=== PATIENT | female | born 1950 | race Caucasian/White ===

== ENCOUNTER 2016-06-15 07:43 | Outpatient (CLI) | payer OTHER ==
[2015-09-23 15:56] VITALS: BMI 26.2
[2016-06-15 08:38] LABS: HEMATOCRIT 37.4 % (37.0-47.0); HEMOGLOBIN 12.2 g/dl (12.0-16.0); MEAN CORPUSCULAR HGB CONC 32.6 (31.8-35.4); MEAN CORPUSCULAR VOLUME 101.1 fl (81.0-99.0); RED BLOOD COUNT 3.7 10^6/ul (4.20-5.40); WHITE BLOOD COUNT 5.76 K/ul (4.6-10.2)
[2016-06-15 08:59] LABS: ALBUMIN 3.6 g/dL (3.4-5.0); ALBUMIN/GLOBULIN RATIO 0.92; ANION GAP 14.7; BILIRUBIN,TOTAL 0.32 mg/dL (0.00-1.20); BUN/CREATININE RATIO 22.04; CALCIUM 9.3 mg/dL (8.2-10.2); CHOL/HDL RATIO 3.5 (4.5-5.5); CREATININE 1.27 mg/dL (0.60-1.30); POTASSIUM 4.7 mmol/L (3.5-5.10); TOTAL PROTEIN 7.5 g/dL (5.8-8.1)
[2016-06-16 08:27] LABS: URINE MALB/CR RATIO 325.5 mg/g creat (0.0-30.0)
== END 2016-06-15 07:44 | disposition home or self-care (01) ==
LOC: LAB 07:43
PROVIDERS: ATTEND Internal Medicine Nephrology
DX: Z94.0 Kidney transplant status (principal)
CPT/HCPCS: 36415; 80053; 80061; 82043; 85027

== ENCOUNTER 2016-08-10 10:15 | Outpatient (CLI) ==
[2015-09-23 15:56] VITALS: BMI 26.2
[2016-08-10 10:58] LABS: CREATININE 1.45 mg/dL (0.60-1.30)
== END 2016-08-10 10:16 | disposition home or self-care (01) ==
LOC: LAB 10:15
PROVIDERS: ATTEND Internal Medicine Gastroenterology
DX: Z01.818 Encounter for other preprocedural examination (principal)
CPT/HCPCS: 36415; 82565

== ENCOUNTER 2016-08-15 09:11 | Outpatient (CLI) ==
[2015-09-23 15:56] VITALS: BMI 26.2
--- NOTE | 2016-08-15 13:59 | MRI ---
EXAM: MRI abdomen without and with contrast/MRCP HISTORY: Dilated pancreatic ducts TECHNIQUE: Multiplanar, multisequence without and following administration of intravenous Omniscan, 14 mL using a pancreatic protocol and MRCP. 3-D volume rendered images of the biliary tree provide d. COMPARISON: CT abdomen from 11/11/2014 and MRI abdomen from 07/24/2013 FINDINGS: The heart size is prominent. There is suggestion of a small hiatus hernia. There is pro minent mediastinal fat in the middle mediastinum. No pericardial or pleural effusions are evident. There is no evidence of hepatic steatosis. No suspicious hepatic lesions are detected. There is st able intrahepatic biliary dilatation since the previous examination of moderate severity. The gallb ladder is absent. The common bile duct is dilated up to 14.1 mm which is unchanged. The pancreatic duct is dilated at the pancreatic head up to 9.5 mm. There is evidence of incomplete pancreatitis. Pancreatic side branch duct dilatation is noted. The pancreas is atrophic. The remaining pancrea tic tissue has normal bright T1 signal. No pancreatic masses are evident. Note discrete pancreatic lesions are appreciated. The spleen has normal size and signal. The kidneys are markedly atrophic. No suspicious renal lesions are evident. The aorta is atheroscl erotic. The intestines have normal caliber without evidence of obstruction or acute inflammation. No lympha denopathy or ascites are appreciated. The bone marrow signal intensity is maintained. IMPRESSION: 1. Incomplete pancreatic divisum with persistent distension of the pancreatic duct and dilated panc reatic side the branches. This in concert with moderate intrahepatic and marked extrahepatic biliar y dilatation suggests sphincter of Randy dysfunction or stricture at the ampulla. An intraductal stacey llary mucinous neoplasm is also possibility. 2. Marked renal atrophy. Please carefully screening GFR for future MRI is has this patient is at [facility] for nephrogenic systemic fibrosis. 3. Aortic atherosclerosis.
== END 2016-08-15 09:12 | disposition home or self-care (01) ==
LOC: RAD 09:11
PROVIDERS: ATTEND Internal Medicine Gastroenterology
DX: K86.89 Other specified diseases of pancreas (principal)

== ENCOUNTER 2016-10-11 09:06 | Outpatient (CLI) ==
[2015-09-23 15:56] VITALS: BMI 26.2
[2016-10-11 09:29] LABS: BASOPHILS % (AUTO) 0.4 % (0.0-3.0); EOSINOPHILS # (AUTO) 0.3 K/ul (0.0-0.7); EOSINOPHILS % (AUTO) 3.7 % (0.0-7.0); HEMATOCRIT 36.8 % (37.0-47.0); HEMOGLOBIN 12.3 g/dl (12.0-16.0); IMMATURE GRANULOCYTE % (AUTO) 0.7 % (0.0-5.0); MEAN CORPUSCULAR HEMOGLOBIN 32.9 pg (27.0-31.0); MEAN CORPUSCULAR HGB CONC 33.4 (31.8-35.4); MEAN CORPUSCULAR VOLUME 98.4 fl (81.0-99.0); MONOCYTES # (AUTO) 0.9 K/uL (0.4-2.0); MONOCYTES % (AUTO) 12.4 (0-10); NEUTROPHILS # (AUTO) 3.8 K/ul (2.0-6.9); NEUTROPHILS % (AUTO) 54.8; PLATELET COUNT 207 10^3/uL (140-440); RED BLOOD COUNT 3.74 10^6/ul (4.20-5.40); WHITE BLOOD COUNT 6.99 K/ul (4.6-10.2)
[2016-10-11 09:47] LABS: ALBUMIN 3.6 g/dL (3.4-5.0); ANION GAP 13.7; BUN/CREATININE RATIO 23.33; CALCIUM 9.4 mg/dL (8.2-10.2); CREATININE 1.5 mg/dL (0.60-1.30); POTASSIUM 3.7 mmol/L (3.5-5.10)
== END 2016-10-11 09:07 | disposition home or self-care (01) ==
LOC: LAB 09:06
PROVIDERS: ATTEND Internal Medicine
DX: Z94.0 Kidney transplant status (principal); Z79.899 Other long term (current) drug therapy; E78.5 Hyperlipidemia, unspecified; E83.41 Hypermagnesemia; G72.2 Myopathy due to other toxic agents
CPT/HCPCS: 36415; 80069; 80197; 85025

== ENCOUNTER 2016-10-23 08:35 | Outpatient (CLI) | payer OTHER ==
[2015-09-23 15:56] VITALS: BMI 26.2
[2016-10-23 09:56] LABS: ALBUMIN 3.9 g/dL (3.4-5.0); ANION GAP 14.6; BUN/CREATININE RATIO 27.67; CALCIUM 9.6 mg/dL (8.2-10.2); CREATININE 1.59 mg/dL (0.60-1.30); FERRITIN 264.45 ng/mL (4.63-204.00); PHOSPHORUS 3.5 mg/dL (2.8-4.1); POTASSIUM 3.6 mmol/L (3.5-5.10)
[2016-10-24 08:22] LABS: URINE CREATINE 21.2 mg/dL (Not Estab.)
== END 2016-10-23 08:36 | disposition home or self-care (01) ==
LOC: LAB 08:35
PROVIDERS: ATTEND Internal Medicine Nephrology
DX: Z94.0 Kidney transplant status (principal); Z79.899 Other long term (current) drug therapy; N39.0 Urinary tract infection, site not specified; D50.8 Other iron deficiency anemias; M85.80 Other specified disorders of bone density and structure, unspecified site
CPT/HCPCS: 36415; 80069; 80197; 82306; 82570; 82607; 82728; 83540; 83550; 84156

== ENCOUNTER 2016-11-20 13:24 | Emergency (ER) ==
[2016-11-20 13:29] VITALS: BP 92/60; TEMP 98.6; BMI 28.3
[2016-11-20 14:11] LABS: BASOPHILS % (AUTO) 0.3 % (0.0-3.0); EOSINOPHILS # (AUTO) 0.1 K/ul (0.0-0.7); EOSINOPHILS % (AUTO) 1.7 % (0.0-7.0); HEMATOCRIT 37.3 % (37.0-47.0); HEMOGLOBIN 12.3 g/dl (12.0-16.0); IMMATURE GRANULOCYTE % (AUTO) 0.5 % (0.0-5.0); LYMPHOCYTES # (AUTO) 1.3 K/uL (0.60-3.4); LYMPHOCYTES % (AUTO) 22.3 (10.0-50.0); MONOCYTES # (AUTO) 0.6 K/uL (0.4-2.0); MONOCYTES % (AUTO) 10.1 (0-10); NEUTROPHILS # (AUTO) 3.8 K/ul (2.0-6.9); NEUTROPHILS % (AUTO) 65.1; PLATELET COUNT 186 10^3/uL (140-440); RED BLOOD COUNT 3.73 10^6/ul (4.20-5.40); WHITE BLOOD COUNT 5.82 K/ul (4.6-10.2)
--- NOTE | 2016-11-20 14:32 | CT ---
EXAM: CT Head HISTORY: Syncope COMPARISON: 02/01/2014 TECHNIQUE: CT head performed without contrast FINDINGS: There is no mass effect, midline shift, or intracranial hemmorhage. Myers white different iation is preserved. There is no extra-axial collection. The ventricles, sulci, and basal cisterns are patent and symmetric. There is chronic ischemic disease of the white matter and cerebral volum e loss. There is no depressed calvarial fracture. Trace left mastoid effusion. The visualized para nasal sinuses are clear. There are intracranial atherosclerotic calcifications. IMPRESSION: 1. No acute intracranial abnormality. 2. Chronic ischemic disease of the white matter and cerebral volume loss. 3. Trace left mastoid effusion
[2016-11-20 14:37] LABS: ALBUMIN 3.8 g/dL (3.4-5.0); ALBUMIN/GLOBULIN RATIO 1.06; ANION GAP 14.5; BILIRUBIN,TOTAL 0.44 mg/dL (0.00-1.20); BUN/CREATININE RATIO 21.24; CALCIUM 9.4 mg/dL (8.2-10.2); CREATININE 1.93 mg/dL (0.60-1.30); POTASSIUM 4.5 mmol/L (3.5-5.10); TOTAL PROTEIN 7.4 g/dL (5.8-8.1); TROPONIN I 0.021 ng/ml (0.0000-0.4000)
--- NOTE | 2016-11-20 14:54 | ED.PDOC ---
General ED Provider: Dr. LAURA GRADY-ER Chief Complaint: Fall Stated Complaint: i passed out while at [facility]--no chest pain or seizure -- very brief episode Time Seen by Physician: 13:30 Mode of Arrival: Wheelchair Information Source: Patient, Family Exam Limitations: No limitations Primary Care Provider: ISADORA LLANES Nursing and Triage Documentation Reviewed and Agree: Yes Neurological Complaint Exam - Syncope/Near Syncope Complaint/Exam Onset/Duration: a few sec Symptoms Are: Resolved Episodes Lasting: Seconds Number of Episodes: 1 Episodes Witnessed: Yes Loss of Consciousness: Yes Associated Head Trauma: Yes Activity at Onset: At rest Aggravating: None Alleviating: Reports: None Associated Signs and Symptoms: Denies: Pain, Decreased oral intake, Vomiting, Diarrhea, GI blood loss, Short of air, Chest pain, Palpitations, Diaphoresis, Lightheadedness, Dizziness, Weakness, AMS, Numbness, Headache, Seizure, Remote head trauma, Recent head trauma Related History: Similar episode Cardiac Risk Factors: Reports: Hypertension, Diabetes, CAD Dysrhythmia Risk Factors: Reports: >45 years old, Underlying CAD JVD Present: No Carotid Bruit Present: No Glascow Coma Scale (see protocol): 15 Nystagmus Present: No Gag Reflex Present: Yes Meningeal Signs Positive: No Focal Weakness: Present: None Focal Sensory Loss: Present: None Gait: Normal Lljylk-ic-Hplu: Normal Findings Romberg Test Positive: No Babinski Sign: Negative Right, Negative Left Heel to Toe Normal: Yes [place]-Hallpike Test Positive: Yes Differential Diagnoses: Dysrhythmia, Vasovagal Episode, Other Quality Indicator For Non-Traumatic Chest Pain/Syncope: EKG Performed Review of Systems - Review Of Systems Constitutional: Reports: No symptoms Eyes: Reports: No symptoms Ears, Nose, Mouth, Throat: Reports: No symptoms Respiratory: Reports: No symptoms Cardiac: Reports: Lightheadedness, Syncope GI: Reports: No symptoms : Reports: No symptoms Musculoskeletal: Reports: No symptoms Skin: Reports: No symptoms Neurological: Reports: No symptoms Endocrine: Reports: No symptoms Hematologic/Lymphatic: Reports: No symptoms All Other Systems: Reviewed and Negative Past Medical History - Past Medical History Previously Healthy: No Endocrine: Reports: None Cardiovascular: Reports: Hypertension Respiratory: Reports: COPD Hematological: Reports: None Gastrointestinal: Reports: GERD Genitourinary: Reports: None Neuro/Psych: Reports: None Musculoskeletal: Reports: None Cancer: Reports: None Last Menstrual Period: none - Surgical History General Surgical History: Reports: None - Family History Family History: Reports: None - Social History Smoking Status: Former smoker Hx Substance Use: No Alcohol Screening: None Lives: With family Physical Exam - Physical Exam Appearance: Well-appearing, No pain distress, Well-nourished Eyes: OLU, EOMI, Conjunctiva clear ENT: Ears normal, Nose normal, Oropharynx normal Neck: Supple Respiratory: Airway patent, Breath sounds clear, Breath sounds equal, Respirations nonlabored Cardiovascular: RRR, Pulses normal, No rub, No murmur GI/: Soft, Nontender, No masses, Bowel sounds normal, No Organomegaly Musculoskeletal: Normal strength Skin: Warm Neurological: Sensation intact Psychiatric: Affect appropriate, Mood appropriate Interpretation - Radiology Interpretation Radiology Interpretation By: Radiologist Radiology Results: Negative Exam Interpreted: CT Scan - EKG Interpretation Rate: Beb[place] Rhythm: Sinus Ectopy: None [place]: NL ST Segment: Normal Re-Evaluation - Re-Evaluation Time of Re-Evaluation: 15:17 Status: Improved Vital Signs Stable: Yes Pain Level: 0 Appearance: NAD Lungs: Clear Skin: Warm and Dry Neuro: Alert and Oriented X3 CV: RRR Critical Care Note - Critical Care Note Total Time (mins): 0 Course - Course Hematology/Chemistry: 11/20/16 13:36 11/20/16 14:12 Orders, Labs, Meds: Lab Review 11/20/16 11/20/16 13:36 14:12 WBC 5.82 RBC 3.73 L Hgb 12.3 Hct 37.3 MCV 100.0 H MCH 33.0 H MCHC 33.0 RDW Coeff of [place]ka 12.2 Plt Count 186 Immature Gran % (Auto) 0.5 Neut % (Auto) 65.1 Lymph % (Auto) 22.3 [place] % (Auto) 10.1 H Eos % (Auto) 1.7 Baso % (Auto) 0.3 Immature Gran # (Auto) 0.0 Neut # 3.8 Lymph # 1.3 [place] # 0.6 Eos # 0.1 Baso # 0.0 Sodium 131 L Potassium 4.5 Chloride 91 L Carbon Dioxide 30 Anion Gap 14.5 BUN 41 H Creatinine 1.93 H Estimated GFR (MDRD) 26.00 BUN/Creatinine Ratio 21.24 Glucose 116 H Calcium 9.4 Total Bilirubin 0.44 AST 17 ALT 10 L Alkaline Phosphatase 58 Total Creatine Kinase 37 Troponin I 0.0210 Total Protein 7.4 Albumin 3.8 Globulin 3.6 Albumin/Globulin Ratio 1.06 Orders Category Date Time Status EKG-(ED ONLY) Stat CARDIO 11/20/16 13:36 Completed Produce Laborer [ED OVERNIGHT STOCKER APPLIED] .ONCE EMERGENCY 11/20/16 13:36 Active CBC W/ AUTO DIFF Stat LAB 11/20/16 13:36 Completed COMPREHENSIVE METABOLIC PANEL Stat LAB 11/20/16 14:12 Completed CREATINE KINASE Stat LAB 11/20/16 14:12 Completed TROPONIN I Stat LAB 11/20/16 14:[address] CERVICAL SPINE W/O CONTRAST Stat RADS 11/20/16 13:[address] HEAD W/O CONTRAST Stat RADS 11/20/16 13:37 Completed SHOULDER, RIGHT MIN 2V Stat RADS 11/20/16 13:37 Completed Vital Signs: Temp Pulse Resp BP Pulse Ox 11/20/16 13:24 98.6 F 56 L 18 92/60 93 L Departure - Departure Time of Disposition: 15:17 Disposition: HOME SELF-CARE Discharge Problem: Syncope Qualifiers: Syncope type: unspecified Qualifier Code: (R55) Syncope and collapse Instructions: Syncope (ED) Condition: Good Pt referred to PMD for follow-up: Yes Additional Instructions: monitor bp--return holter monitor and f/u with dr llanes for further evaluation Allergies/Adverse Reactions: Allergies sulfur dioxide Allergy (Unknown, Verified 11/20/16 13:30) ondansetron HCl [From Zofran] Adverse Reaction (Unknown, Verified 11/20/16 13:30 ) ibuprofen Adverse Reaction (Verified 11/20/16 13:43) Home Medications: Ambulatory Orders Alendronate Sodium [Fosamax] 70 mg PO WEEKLY 02/03/13 Amlodipine Besylate [Norvasc] 10 mg PO DAILY 02/03/13 Aspirin [Aspirin Chewable] 81 mg PO DAILY 02/03/13 Atenolol 100 mg PO DAILY 02/03/13 Ca Carbonate/Vitamin D3/Vit K [Calcium + D Soft Chewable Tab] 600 mg PO BID Chlordiazepoxide HCl [Librium] 10 mg PO TID PRN 02/03/13 Clopidogrel Bisulfate [Plavix] 75 mg PO DAILY 02/03/13 Duloxetine HCl [Cymbalta] 30 mg PO DAILY 02/03/13 Pantoprazole Sodium 40 mg PO DAILY 09/23/15 Bumex 20 mg PO DAILY 03/20/16 Ferrous Sulfate 325 mg PO BID 03/20/16 Gabapentin [Neurontin] 200 mg PO BID 03/20/16 Prednisone 2.5 mg PO DAILY 03/20/16 Tacrolimus [Prograf] 2 mg PO BID 11/20/16 Disposition Discussed With: Patient, Family
--- NOTE | 2016-11-20 15:02 | CT ---
EXAM: CT cervical spine without contrast. TECHNIQUE: Axial CT of the cervical spine was performed without contrast with coronal and sagittal reconstructions. HISTORY: Trauma and neck pain COMPARISON: Cervical spine CT from 02/01/2014 FINDINGS: There is no acute fracture or subluxation. Alignment of the cervical spine is anatomic. There is no acute bony effacement of the canal or the foramina. The dens is intact. The craniocer vical junction is anatomically aligned. The visualized portion of the temporal bones is normal. T he facets are properly aligned. There is no evidence for transverse or spinous process fracture. Th e lamina are intact. 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 There is extremely advanced de generative change which has developed in the interim at the C6-7 level. Mild diffuse degenerative ch anges are noted otherwise including a minimal degenerative anterolisthesis of C3 on C4. There are no upper thoracic posterior rib fractures. There is no apical pneumothorax. There are no acute soft tissue abnormalities. The prevertebral soft tissues are normal thickness. Visualized in tracranial contents show no acute abnormality. There is calcific atherosclerosis. Surgical clips ar e seen in the right neck. IMPRESSION: 1. No acute abnormality in the cervical spine. 2. Intervening extremely advanced degenerative changes at C6-7 as described. 3. 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 4. Other degenerative changes as above.
--- NOTE | 2016-11-20 15:14 | DI ---
Exam: Three x-rays of the right shoulder. Comparison: None available. Reason for exam: Fall. FINDINGS: The humeral head articulates to the bony glenoid. Surgical changes are seen in the right lateral neck and axilla. The cortex of the right humeral head and neck appear intact. No unexplai sruthi calcific soft tissue densities or radiopaque retained foreign bodies. Impression: No acute fracture or dislocation in the right shoulder.
--- NOTE | 2016-11-23 07:42 | HOLTER ---
PATIENT INFORMATION AND COMMENTS Indications: SYNCOPE __ Patient Medications: TACROLIMUS __ Pre-procedure Summary: Protocol: Standard Heart Rate Started: 11/20/161535 Minimum: 48 BPM Weight: 170 LBS Ended: 11/21/161535 Maximum: 103 BPM Height: 65" Duration: 24 HOURS Average: 60 BPM _ INTERPRETATIONS/OBSERVATIONS: 1. BASIC RHYTHM: SINUS, RATE 50 BPM TO 100/BPM, AVERAGE 60 BPM 2. INFREQUENT TO RARE PAC'S AND PVC'S 3. NO ST-T WAVE CHANGES FROM BASELINE 4. ACTIVITY LOG NOT MAINTAINED MTDD
== END 2016-11-20 15:42 | disposition home or self-care (01) ==
LOC: ED 13:24
DX: R55 Syncope and collapse (principal); E11.9 Type 2 diabetes mellitus without complications; I11.9 Hypertensive heart disease without heart failure; Z79.899 Other long term (current) drug therapy
CPT/HCPCS: 36415; 80053; 82550; 84484; 85025; 93005; 93010; 99283

== ENCOUNTER 2017-01-22 10:09 | Outpatient (CLI) ==
[2017-01-22 14:44] LABS: FERRITIN 200.4 ng/mL (4.63-204.00)
== END 2017-01-22 10:10 | disposition home or self-care (01) ==
LOC: LAB 10:09
PROVIDERS: ATTEND Internal Medicine Nephrology
DX: Z94.0 Kidney transplant status (principal); M89.9 Disorder of bone, unspecified; D50.8 Other iron deficiency anemias
CPT/HCPCS: 36415; 82306; 82607; 82728; 82746; 83540; 83550; 84443

== ENCOUNTER 2017-01-31 12:52 | Outpatient (CLI) ==
--- NOTE | 2017-02-01 08:57 | MAMMO ---
EXAM: Bilateral digital screening mammogram History: Screening Comparison: Bilateral mammogram 03/30/2015 Findings: MLO and CC views of bilateral breasts demonstrate scattered fibroglandular breast parenchy ma. CAD was reviewed by the radiologist. Stable benign bilateral vascular and scattered calcification s. There are no dominant masses, no suspicious microcalcifications and no architectural distortions Impression: Benign stable mammogram. Recommend followup routine screening mammography in 1 year. BIRADS 2
== END 2017-01-31 12:53 | disposition home or self-care (01) ==
LOC: RAD 12:52
PROVIDERS: ATTEND Internal Medicine
DX: Z12.31 Encounter for screening mammogram for malignant neoplasm of breast (principal)
CPT/HCPCS: 77067

== ENCOUNTER 2017-03-14 08:59 | Outpatient (CLI) ==
[2017-03-14 09:42] LABS: BILIRUBIN,URINE Negative (NEGATIVE); KETONES,URINE Negative (NEGATIVE); LEUKOCYTE ESTERASE ,URINE 2+ (NEGATIVE); NITRITE,URINE Negative (NEGATIVE); PH,URINE 5.5 (5-9); PROTEIN,URINE Negative (NEGATIVE); URINE, BLOOD 1+ (NEGATIVE)
[2017-03-14 09:44] LABS: ADD URINE MICROSCOPIC YES; HEMOGLOBIN 11.9 g/dl (12.0-16.0); MEAN CORPUSCULAR HGB CONC 33.1 (31.8-35.4); MEAN CORPUSCULAR VOLUME 99.7 fl (81.0-99.0); RED BLOOD COUNT 3.61 10^6/ul (4.20-5.40); WHITE BLOOD COUNT 6.02 K/ul (4.6-10.2)
[2017-03-14 09:45] LABS: BACTERIA,URINE 3+ (NOT PRESENT)
[2017-03-14 10:11] LABS: ANION GAP 13.1; POTASSIUM 4.1 mmol/L (3.5-5.10)
[2017-03-14 10:12] LABS: ALBUMIN 3.9 g/dL (3.4-5.0); ALBUMIN/GLOBULIN RATIO 1.15; BILIRUBIN,TOTAL 0.4 mg/dL (0.00-1.20); BUN/CREATININE RATIO 19.41; CALCIUM 8.9 mg/dL (8.2-10.2); CREATININE 1.7 mg/dL (0.60-1.30); TOTAL PROTEIN 7.3 g/dL (5.8-8.1)
[2017-03-15 14:16] LABS: URINE CREATININE 52.9 mg/dL (Not Estab.); URINE MALB/CR RATIO 54.8 mg/g creat (0.0-30.0)
== END 2017-03-14 09:00 | disposition home or self-care (01) ==
LOC: LAB 08:59
PROVIDERS: ATTEND Internal Medicine Nephrology
DX: N18.3 Chronic kidney disease, stage 3 (moderate) (principal)
CPT/HCPCS: 36415; 80053; 80197; 81001; 82043; 85027

== ENCOUNTER 2017-03-31 11:17 | Emergency (ER) ==
[2017-03-31 11:22] VITALS: BP 113/64; TEMP 97.8; BMI 27.4
--- NOTE | 2017-03-31 12:43 | DI ---
EXAM: Four views of the right knee HISTORY: Pain TECHNIQUE: AP, lateral, sunrise views of the right knee were obtained. FINDINGS: No acute fractures are seen. There is mild to moderate loss of height of the medial cristi rtment of the right knee. There is no joint effusion. The patella is seen in normal position. IMPRESSION: No acute fractures are seen within the right knee. There is moderate arthritis seen within the medial compartment and within the patellofemoral articula tion of the right knee.
--- NOTE | 2017-03-31 12:47 | ED.PDOC ---
General ED Provider: Dr. CLARI MICHAUD Chief Complaint: Extremity Pain/Injury Stated Complaint: right knee pain Time Seen by Physician: 11:18 Mode of Arrival: Walk-In Information Source: Patient Exam Limitations: No limitations Primary Care Provider: ISADORA BRYANT Nursing and Triage Documentation Reviewed and Agree: Yes Musculoskeletal Complaint Exam - Knee Pain Complaint/Exam Mechanism of Injury: Reports: Trauma Onset/Duration: fall 2 days ago Onset of Pain: Reports: Hours Initial Severity: Moderate Current Severity: Moderate Location: Reports: Discrete Character: Reports: Aching Alleviating: Reports: Rest, Position Aggravating: Reports: Movement, Weight bearing, Prolonged standing Associated Signs and Symptoms: Reports: Bruising. Denies: Swelling, Redness, Fever, Weakness, Numbness, Tingling Able to Bear Weight: Yes Septic Arthritis Risk Factors: Reports: None Gout Risk Factors: Reports: None Knee Findings: Present: Swelling, Ecchymosis Tenderness: Present: Pre-patellar Dany Test Positive: No Brandy Test Positive: No Limited Range of Motion: Present: Active, Passive Differential Diagnoses: Closed Fracture Review of Systems - Review Of Systems Constitutional: Reports: No symptoms Eyes: Reports: No symptoms Ears, Nose, Mouth, Throat: Reports: No symptoms Respiratory: Reports: No symptoms Cardiac: Reports: No symptoms GI: Reports: No symptoms : Reports: No symptoms Musculoskeletal: Reports: Joint pain (right knee only). Denies: Back pain, Neck pain Skin: Reports: No symptoms Neurological: Reports: No symptoms Endocrine: Reports: No symptoms Hematologic/Lymphatic: Reports: No symptoms All Other Systems: Reviewed and Negative Past Medical History - Past Medical History Previously Healthy: No Endocrine: Reports: None Cardiovascular: Reports: Hypertension Respiratory: Reports: COPD Hematological: Reports: None Gastrointestinal: Reports: GERD Genitourinary: Reports: None Neuro/Psych: Reports: None Musculoskeletal: Reports: None Cancer: Reports: None Last Menstrual Period: none - Surgical History General Surgical History: Reports: None - Family History Family History: Reports: None - Social History Smoking Status: Former smoker Hx Substance Use: No Alcohol Screening: None Physical Exam - Physical Exam Appearance: Well-appearing, No pain distress, Well-nourished Eyes: OLU, EOMI, Conjunctiva clear ENT: Ears normal, Nose normal, Oropharynx normal Respiratory: Airway patent, Breath sounds clear, Breath sounds equal, Respirations nonlabored Cardiovascular: RRR, Pulses normal, No rub, No murmur GI/: Soft, Nontender, No masses, Bowel sounds normal, No Organomegaly Musculoskeletal: Limited ROM (right knee also brused ) Skin: Warm, Dry, Normal color Neurological: Sensation intact, Motor intact, Reflexes intact, Cranial nerves intact, Alert, Oriented Psychiatric: Affect appropriate, Mood appropriate Critical Care Note - Critical Care Note Total Time (mins): 0 Course - Course Orders, Labs, Meds: Orders Category Date Time Status KNEE, RIGHT 4 VIEWS Stat RADS 03/31/17 11:42 Completed Vital Signs: Temp Pulse Resp BP Pulse Ox 03/31/17 11:17 97.8 F 63 18 113/64 92 L Departure - Departure Time of Disposition: 12:47 Disposition: HOME SELF-CARE Discharge Problem: Right knee pain Qualifiers: Chronicity: acute Qualified Code(s): M25.561 - Pain in right knee Instructions: Arthralgia (ED), Patellofemoral Pain Syndrome (ED) Condition: Good Pt referred to PMD for follow-up: Yes Allergies/Adverse Reactions: Allergies sulfur dioxide Allergy (Unknown, Verified 03/31/17 11:23) ondansetron HCl [From Zofran] Adverse Reaction (Unknown, Verified 03/31/17 11:23 ) ibuprofen Adverse Reaction (Verified 03/31/17 11:23) Home Medications: Ambulatory Orders Alendronate Sodium [Fosamax] 70 mg PO WEEKLY 02/03/13 Amlodipine Besylate [Norvasc] 10 mg PO DAILY 02/03/13 Aspirin [Aspirin Chewable] 81 mg PO DAILY 02/03/13 Atenolol 100 mg PO DAILY 02/03/13 Calcium Carb/Vitamin D3/Vit K1 [Calcium + D Soft Chewable Tab] 600 mg PO BID Chlordiazepoxide HCl [Librium] 10 mg PO TID PRN 02/03/13 Clopidogrel Bisulfate [Plavix] 75 mg PO DAILY 02/03/13 Duloxetine HCl [Cymbalta] 30 mg PO DAILY 02/03/13 Pantoprazole Sodium 40 mg PO DAILY 09/23/15 Bumex 20 mg PO DAILY 03/20/16 Ferrous Sulfate 325 mg PO BID 03/20/16 Gabapentin [Neurontin] 200 mg PO BID 03/20/16 Prednisone 2.5 mg PO DAILY 03/20/16 Tacrolimus [Prograf] 2 mg PO BID 11/20/16 Hydrocodone/Acetaminophen [[place] 5-325 Tablet] 1 each PO Q6HR PRN #12 tablet 05/05 [place]-3 Fatty Acids/Fish Oil [Fish Oil 1,000 mg Capsule] 1 each PO BID 03/31/17
== END 2017-03-31 12:58 | disposition home or self-care (01) ==
LOC: ED 11:17
DX: M25.561 Pain in right knee (principal)
CPT/HCPCS: 99283

== ENCOUNTER 2017-05-03 08:14 | Outpatient (CLI) ==
[2017-05-03 09:07] LABS: BILIRUBIN,URINE Negative (NEGATIVE); KETONES,URINE Negative (NEGATIVE); LEUKOCYTE ESTERASE ,URINE 3+ (NEGATIVE); NITRITE,URINE Negative (NEGATIVE); PROTEIN,URINE Trace (NEGATIVE); URINE, BLOOD 1+ (NEGATIVE)
[2017-05-03 09:11] LABS: ADD URINE MICROSCOPIC YES
[2017-05-03 09:12] LABS: BACTERIA,URINE 3+ (NOT PRESENT)
[2017-05-03 09:13] LABS: BASOPHILS % (AUTO) 0.3 % (0.0-3.0); EOSINOPHILS # (AUTO) 0.1 K/ul (0.0-0.7); EOSINOPHILS % (AUTO) 2.3 % (0.0-7.0); HEMATOCRIT 34.4 % (37.0-47.0); HEMOGLOBIN 11.1 g/dl (12.0-16.0); IMMATURE GRANULOCYTE % (AUTO) 0.7 % (0.0-5.0); LYMPHOCYTES # (AUTO) 1.7 K/uL (0.60-3.4); LYMPHOCYTES % (AUTO) 27.5 (10.0-50.0); MEAN CORPUSCULAR HEMOGLOBIN 32.6 pg (27.0-31.0); MEAN CORPUSCULAR HGB CONC 32.3 (31.8-35.4); MEAN CORPUSCULAR VOLUME 100.9 fl (81.0-99.0); MONOCYTES # (AUTO) 0.8 K/uL (0.4-2.0); MONOCYTES % (AUTO) 12.9 (0-10); NEUTROPHILS # (AUTO) 3.4 K/ul (2.0-6.9); NEUTROPHILS % (AUTO) 56.3; PLATELET COUNT 259 10^3/uL (140-440); RED BLOOD COUNT 3.41 10^6/ul (4.20-5.40); WHITE BLOOD COUNT 6.11 K/ul (4.6-10.2)
[2017-05-04 08:16] LABS: URINE CREATININE 55.9 mg/dL (Not Estab.)
== END 2017-05-03 08:15 | disposition home or self-care (01) ==
LOC: LAB 08:14
PROVIDERS: ATTEND Internal Medicine Nephrology
DX: Z94.0 Kidney transplant status (principal); Z79.899 Other long term (current) drug therapy; N39.0 Urinary tract infection, site not specified
CPT/HCPCS: 36415; 80197; 81001; 82570; 84156; 85025; 87086; 87186

== ENCOUNTER 2017-09-11 07:45 | Outpatient (CLI) | payer OTHER | END 2017-09-11 07:46 | disposition home or self-care (01) | LOC: LAB 07:45 | PROVIDERS: ATTEND Internal Medicine Nephrology | DX: Z94.0 Kidney transplant status (principal) | CPT/HCPCS: 36415; 80053; 80197; 82043; 83970; 85027 ==

== ENCOUNTER 2017-10-08 10:06 | Outpatient (CLI) | payer OTHER ==
--- NOTE | 2017-10-08 11:28 | DI ---
EXAM: Two views of the chest. History: Cough. Comparison: Chest radiograph 09/23/2015 Findings: Heart size is upper limits of normal. No focal consolidation. No appreciable pleural flu id and no pneumothorax. No acute osseous abnormalities. Scoliosis. Impression: No acute cardiopulmonary process
== END 2017-10-08 10:07 | disposition home or self-care (01) ==
LOC: RAD 10:06
PROVIDERS: ATTEND Internal Medicine
DX: R05 Cough (principal)

== ENCOUNTER 2018-02-20 16:03 | Emergency (ER) | payer OTHER ==
[2018-02-20 16:10] VITALS: BP 145/88; TEMP 99.8; BMI 26.9
[2018-02-20] MEDS ORDERED: DUONEB NEB STA ×2 (16:20→17:18)
[2018-02-20] MEDS ORDERED: ROCEPHIN 1 GM in SODIUM CHLORIDE 50 ML IV STA (16:20)
[2018-02-20] MEDS ORDERED: SOLU-MEDROL 125 MG IVP STA (16:20)
--- NOTE | 2018-02-20 16:59 | DI ---
EXAM: Three views of the left hand HISTORY: Fall. COMPARISON: Left wrist x-rays same day FINDINGS: There is a comminuted displaced fracture of the distal radius noted. There is degenerative disease of the radiocarpal joint with surgical changes and hardware of the carpal bones. Metacarpal s and phalanges are normal. There is scattered degenerative change of the DIP joints. Soft tissues are unremarkable. IMPRESSION: 1. Comminuted mildly displaced fracture of the distal left radius. This is better visualized on day wrist x-rays. 2. Postsurgical changes and internal fixation hardware in the carpal bones. 3. Mild scattered degenerative disease noted in the DIP joints.
--- NOTE | 2018-02-20 17:00 | DI ---
EXAM: Three views of the left elbow HISTORY: Fall. COMPARISON: None FINDINGS: There is no cortical irregularity or displaced fracture of the left elbow. There is no lyt ic or blastic lesion. Radial head articulates normally with the capitellum. The soft tissues are un remarkable. IMPRESSION: No acute abnormality or displaced fracture of the left elbow.
--- NOTE | 2018-02-20 17:01 | DI ---
EXAM: Single frontal view of the chest HISTORY: Shortness of breath. COMPARISON: Chest x-ray 10/08/2017 and multiple priors FINDINGS: Cardiomediastinal silhouette is unchanged. There is no pneumothorax or effusion. There is no consolidation, nodule or mass. Osseous structures demonstrate degenerative disease. Lungs are mi ldly hyperinflated. IMPRESSION: No acute cardiopulmonary process with findings suggestive of chronic obstructive pulmona ry disease.
--- NOTE | 2018-02-20 17:01 | DI ---
EXAM: LEFT WRIST THREE VIEWS HISTORY: Fall, pain FINDINGS: Compared to 03/15/2016. Bones remain demineralized. Deformity and postop changes of the carpus appear stable. Severe arthropathy, especially at the radiocarpal articulations. There is an acute fracture of the distal radius, impacted type which is comminuted with mild to moderate displace ment and no significant angulation. The joints remain grossly intact. Although no definite intra-ar ticular extension is seen, this cannot be completely excluded. Stable arthritic deformity of the dis [place] ulna. IMPRESSION: Comminuted impaction type fracture of the distal radial metaphysis.
--- NOTE | 2018-02-20 17:07 | ED.PDOC ---
General ED Provider: Dr. CLARI MICHAUD Chief Complaint: Fall Stated Complaint: fall , short of air Time Seen by Physician: 16:12 (pt and her son rupa report pt has been short of breath ) Mode of Arrival: Walk-In Information Source: Patient Exam Limitations: No limitations Primary Care Provider: ISADORA BRYANT Nursing and Triage Documentation Reviewed and Agree: Yes Does patient meet sepsis criteria?: No (2 days, pt fell 2 days ago c/o left wrist pain no neck pain) If yes, has appropriate treatment been initiated?: Yes (pt's son visited her today pt c/o short of air and wrist pain ) System Inflammatory Response Syndrome: Not Applicable Sepsis Protocol: For patient's 13 years and over: Temp is 96.8 and below OR 101 and greater Pulse >90 BPM Resp >20/minute Acutely Altered Mental Status Are patient's symptoms suggestive of a new infection, such as: -Pneumonia -Skin, Soft Tissue -Endocarditis -UTI -Bone, Joint Infection -Implantable Device -Acute Abdominal Infection -Wound Infection -Meningitis -Blood Stream Catheter Infection -Unknown Respiratory Complaint Exam - Respiratory Complaint/Exam Onset/Duration: 2 days Symptoms Are: Still present Timing: Intermittent Initial Severity: Mild Location: Chest Character: Reports: Non-productive cough Aggravating: Reports: None Associated Signs and Symptoms: Reports: URI, Nasal congestion. Denies: Rapid breathing, Dyspnea, Fever, Chills, Chest pain, Pleuritic chest pain, Wheezing, Hemoptysis, Dizziness, Calf pain, Calf swelling, Edema, Hoarseness, Sinus discomfort, Vomiting, Sore throat, Weight loss, Decreased oral intake, Increased thirst, Increased appetite, Increased urination Related History: Reports: Similar episode History of Healthcare-Acquired Pneumonia: No Related Surgical History: Reports: None Pulmonary Embolism Risk Factors: None, Smoking Cardiac Risk Factors: Reports: Smoking, Elevated lipids, Hypertension Tuberculosis Risk Factors: Reports: None Status Asthmaticus Risk Factors: Reports: None Home Oxygen Use: No Recent Stress Test: No Recent Echo/LV Function: No Current Antibiotic Use: No Current Asthma Medication Use: No Respiratory Distress: None Inadequate Respiratory Effort: No Dysphagia Present: No Stridor Present: No JVD Present: No Accessory Muscle Use: No Retractions: Not Present Diminished Breath Sounds: Yes Sinus Tenderness: None Grunting Respirations: No Kussmaul Respirations: No Differential Diagnoses: Asthma, Pulmonary Edema, Pneumonia, Bronchitis Quality Indicators For Pneumonia: Antibiotics in 6hr-admit, Empiric Antibiotic Rx, Vital signs, Mental status assessed Non-Traumatic Chest Pain Syncope: EKG Performed Review of Systems - Review Of Systems Constitutional: Reports: Malaise Eyes: Reports: No symptoms Ears, Nose, Mouth, Throat: Reports: No symptoms Respiratory: Reports: Cough, Short of air Cardiac: Reports: No symptoms GI: Reports: No symptoms : Reports: No symptoms Musculoskeletal: Reports: Joint pain (left wrist , ) Skin: Reports: No symptoms Neurological: Reports: No symptoms Endocrine: Reports: No symptoms Hematologic/Lymphatic: Reports: No symptoms All Other Systems: Reviewed and Negative Past Medical History - Past Medical History Previously Healthy: No Endocrine: Reports: None Cardiovascular: Reports: Hypertension Respiratory: Reports: COPD Hematological: Reports: None Gastrointestinal: Reports: GERD Genitourinary: Reports: None Neuro/Psych: Reports: None Musculoskeletal: Reports: None Cancer: Reports: None Last Menstrual Period: N/A - Surgical History General Surgical History: Reports: None - Family History Family History: Reports: None - Social History Smoking Status: Former smoker Hx Substance Use: No Alcohol Screening: None Physical Exam - Physical Exam Appearance: Ill-appearing Ill-appearing: Mild Pain Distress: Mild Eyes: OLU, EOMI, Conjunctiva clear ENT: Ears normal, Nose normal, Oropharynx normal Respiratory: Breath sounds diminished, Rhonchi Cardiovascular: RRR, Pulses normal, No rub, No murmur GI/: Soft, Nontender, No masses, Bowel sounds normal, No Organomegaly Musculoskeletal: Limited ROM (left wrist, pt has brusing of the left wrist) Skin: Warm, Dry, Normal color Neurological: Sensation intact, Motor intact, Reflexes intact, Cranial nerves intact, Alert, Oriented Psychiatric: Affect appropriate, Mood appropriate Physician Notification - Case Discussed Physician Notified: pmd Time of Notification: 17:15 (transfer now ) Time of Notification: 17:52 (TRANSFER NOW) Critical Care Note - Critical Care Note Total Time (mins): 0 Course - Course Hematology/Chemistry: 02/20/18 16:38 02/20/18 16:38 Orders, Labs, Meds: Lab Review 02/20/18 02/20/18 02/20/18 16:38 16:38 16:38 WBC 8.70 RBC 3.18 L Hgb 10.7 L Hct 32.1 L MCV 100.9 H MCH 33.6 H MCHC 33.3 RDW Coeff of [place] 12.4 Plt Count 212 Immature Gran % (Auto) 0.8 Neut % (Auto) 76.1 Lymph % (Auto) 11.5 [place] % (Auto) 11.4 H Eos % (Auto) 0.1 Baso % (Auto) 0.1 Immature Gran # (Auto) 0.1 Neut # (Auto) 6.6 Lymph # (Auto) 1.0 [place] # (Auto) 1.0 Eos # (Auto) 0.0 Baso # (Auto) 0.0 Sodium 132.6 L Potassium 4.64 Chloride 92.5 L Carbon Dioxide 28.1 Anion Gap 16.64 BUN 32.5 H Creatinine 1.47 H Estimated GFR (MDRD) 35.00 BUN/Creatinine Ratio 22.10 Glucose 130.8 H Lactic Acid 1.05 Calcium 8.75 Total Bilirubin 0.78 AST 33.1 ALT 12.2 Alkaline Phosphatase 76.5 Total Creatine Kinase 38.8 Troponin I 0.047 Total Protein 7.99 Albumin 4.19 Globulin 3.80 Albumin/Globulin Ratio 1.10 Procalcitonin 02/20/18 16:38 WBC RBC Hgb Hct MCV MCH MCHC RDW Coeff of [place] Plt Count Immature Gran % (Auto) Neut % (Auto) Lymph % (Auto) [place] % (Auto) Eos % (Auto) Baso % (Auto) Immature Gran # (Auto) Neut # (Auto) Lymph # (Auto) [place] # (Auto) Eos # (Auto) Baso # (Auto) Sodium Potassium Chloride Carbon Dioxide Anion Gap BUN Creatinine Estimated GFR (MDRD) BUN/Creatinine Ratio Glucose Lactic Acid Calcium Total Bilirubin AST ALT Alkaline Phosphatase Total Creatine Kinase Troponin I Total Protein Albumin Globulin Albumin/Globulin Ratio Procalcitonin 0.20 Orders Category Date Time Status ABG DRAW REQUEST Stat CARDIO 02/20/18 16:20 Ordered EKG-(ED ONLY) Stat CARDIO 02/20/18 16:18 Ordered NEBULIZER TREATMENT Stat CARDIO 02/20/18 16:20 Ordered NEBULIZER TREATMENT Stat CARDIO 02/20/18 17:18 Ordered ED IV/MEDIPORT/POWERPORT .ONCE EMERGENCY 02/20/18 16:18 Active ABG Stat LAB 02/20/18 16:20 Ordered BLOOD CULTURE (ED ONLY) Stat LAB 02/20/18 16:38 Received CBC W/ AUTO DIFF Stat LAB 02/20/18 16:38 Completed COMPREHENSIVE METABOLIC PANEL Stat LAB 02/20/18 16:38 Received CREATINE KINASE Stat LAB 02/20/18 16:38 Received LACTIC ACID Stat LAB 02/20/18 16:38 Received PROCALCITONIN Stat LAB 02/20/18 16:38 Received TROPONIN I Stat LAB 02/20/18 16:38 Received 0.9 % Sodium Chloride [Saline Flush] MEDS 02/20/18 16:18 Active 1 syr IVF PRN PRN Ceftriaxone Sodium [Rocephin] MEDS 02/20/18 17:08 Discontinued 1 gm .ROUTE .STK-MED ONE Ceftriaxone Sodium [Rocephin] 1 gm MEDS 02/20/18 16:20 Discontinued 0.9 % Sodium Chloride [Sodium Chloride] 50 ml IV ONCE Ipratropium/Albuterol Neb [Duoneb] MEDS 02/20/18 16:20 Discontinued 1 vial NEB ONCE STA Ipratropium/Albuterol Neb [Duoneb] MEDS 02/20/18 17:18 Stat 1 vial NEB ONCE STA Methylprednisolone Sod Succ/Pf [Solu-Medrol 125 mg] MEDS 02/20/18 16:20 Discontinued 125 mg IVP ONCE STA CHEST, 1V AP ONLY Stat RADS 02/20/18 16:[address] CHEST W/O CONTRAST Stat RADS 02/20/18 17:11 Ordered ELBOW, LEFT MIN 3 VIEWS Stat RADS 02/20/18 16:23 Completed HAND, LEFT 3 VIEWS Stat RADS 02/20/18 16:22 Completed WRIST, LEFT 3 VIEWS Stat RADS 02/20/18 16:22 Completed Medications Generic Name Dose Route Start Last Admin Trade Name Freq PRN Reason Stop Dose Admin Sodium Chloride 1 syr 02/20/18 16:18 Saline Flush IVF PRN PRN To flush IV Discontinued Medications Generic Name Dose Route Start Last Admin Trade Name Freq PRN Reason Stop Dose Admin Albuterol/Ipratropium 1 vial 02/20/18 16:20 02/20/18 16:40 Duoneb NEB 02/20/18 16:21 1 vial ONCE STA Administration Ceftriaxone Sodium 1 gm/ 50 mls @ 75 mls/hr 02/20/18 16:20 Sodium Chloride IV 02/20/18 16:59 ONCE STA Methylprednisolone Sodium Succinate 125 mg 02/20/18 16:20 02/20/18 17:16 Solu-Medrol 125 Mg IVP 02/20/18 16:21 125 mg ONCE STA Administration Vital Signs: Temp Pulse Resp BP Pulse Ox 02/20/18 16:08 99.8 F H 76 16 145/88 H 87 L Departure - Departure Time of Disposition: 19:00 Disposition: TSF SHORT-TRM HOSP Discharge Problem: Renal insufficiency, Macrocytic anemia Wrist fracture, left Qualifiers: Encounter type: initial encounter Fracture type: closed Qualified Code(s): S62.102A - Fracture of unspecified carpal bone, left wrist, initial encounter for closed fracture Acute respiratory failure Qualifiers: Respiratory failure complication: hypoxia Qualified Code(s): J96.01 - Acute respiratory failure with hypoxia Instructions: Dyspnea (ED) Condition: Good Pt referred to PMD for follow-up: Yes (advised to transfer the pt ) IPMP verified?: No Additional Instructions: Please call your Family Physician as soon as possible to schedule a follow-up appointment. Allergies/Adverse Reactions: Allergies sulfur dioxide Allergy (Unknown, Verified 02/20/18 16:10) ondansetron HCl [From Zofran] Adverse Reaction (Unknown, Verified 02/20/18 16:10 ) ibuprofen Adverse Reaction (Verified 02/20/18 16:10) Home Medications: Ambulatory Orders Alendronate Sodium [Fosamax] 70 mg PO WEEKLY 02/03/13 Amlodipine Besylate [Norvasc] 10 mg PO DAILY 02/03/13 Atenolol 100 mg PO DAILY 02/03/13 Calcium Carb/Vitamin D3/Vit K1 [Calcium + D Soft Chewable Tab] 600 mg PO BID Clopidogrel Bisulfate [Plavix] 75 mg PO DAILY 02/03/13 Ferrous Sulfate 325 mg PO BID 03/20/16 Gabapentin [Neurontin] 200 mg PO BID 03/20/16 Tacrolimus [Prograf] 2 mg PO BID 11/20/16 [place]-3 Fatty Acids/Fish Oil [Fish Oil 1,000 mg Capsule] 1 each PO BID 03/31/17 Chlordiazepoxide HCl 10 mg PO TID PRN 08/21/17 Pantoprazole Sodium [Protonix] 40 mg PO DAILY 08/21/17 Duloxetine HCl 30 mg PO DAILY 02/20/18 Hydrocodone/Acetaminophen [Hydrocodone-Acetamin 7.5-325] 7.5 - 325 mg PO DAILY 02/20/18 Linaclotide [Linzess] 145 mcg PO DAILY 02/20/18 Losartan Potassium [Cozaar] 25 mg PO DAILY 02/20/18 Lovastatin [Mevacor] 20 mg PO DAILY 02/20/18 Polyethylene Glycol 1000 [Polyethylene Glycol] 500 gm PO DAILY 02/20/18 Prednisone 20 mg PO DAILY 02/20/18 Torsemide [Demadex] 20 mg PO DAILY 02/20/18 Transfer Form Completed: Yes Disposition Discussed With: Patient, Family
[2018-02-20] MEDS ORDERED: ROCEPHIN ONE (17:08)
--- NOTE | 2018-02-20 18:21 | CT ---
EXAM: CT of the chest without contrast. HISTORY: Shortness of breath. COMPARISON: 11/11/2014. TECHNIQUE: Contiguous axial images were obtained from the lung apices to the upper abdomen. Study w as performed without contrast. Sagittal and coronal reformats were reviewed. FINDINGS: The lung windows show diffuse ground-glass opacities bilaterally. These are most prominen t in the upper lobes. No suspicious pulmonary nodules are seen. There is no pleural thickening. Th e airways are patent. Interstitial prominence is seen bilaterally. The heart size is within normal a s. There are coronary calcifications as well as aortic valve calcifications. There is no significan t mediastinal or hilar adenopathy. There is no axillary adenopathy. There are no displaced rib frac tures. Kidneys are markedly atrophic. The gallbladder is absent. The visualized portion of the liver, sple en, pancreas and bowel is unremarkable. There is scoliosis of the spine. IMPRESSION: 1. Diffuse bilateral ground-glass opacities seen which can be seen with edema or early pneumonia. R ecommend follow-up. 2. No definite pulmonary nodules. Again recommend follow-up to exclude underlying parenchymal nodul es. 3. Heavy coronary artery disease.
== END 2018-02-20 18:40 | disposition short-term general hospital (02) ==
LOC: ED 16:03
DX: S62.102A Fracture of unspecified carpal bone, left wrist, initial encounter for closed fracture (principal); J96.01 Acute respiratory failure with hypoxia; N28.9 Disorder of kidney and ureter, unspecified; D53.9 Nutritional anemia, unspecified; R06.02 Shortness of breath; I10 Essential (primary) hypertension; E78.5 Hyperlipidemia, unspecified; F17.210 Nicotine dependence, cigarettes, uncomplicated; W19.XXXA Unspecified fall, initial encounter
CPT/HCPCS: 36415; 80053; 82550; 82803; 83605; 84145; 84439; 84443; 84484; 85025; 85379; 87040; 93005; 93010; 94640; 96365; 96375; 99285

== ENCOUNTER 2018-03-14 11:20 | Outpatient (CLI) | payer OTHER ==
--- NOTE | 2018-03-14 12:35 | CT ---
EXAM: CT chest without contrast. HISTORY: Shortness of air. COMPARISON: 02/20/2018, 11/11/2014. TECHNIQUE: Multiple axial images of the chest were obtained without intravenous contrast. Images we re reformatted in the sagittal and coronal planes. FINDINGS: Evaluation for lymphadenopathy is limited by lack of intravenous contrast. Some calcified mediastinal and right hilar lymph nodes are present. Heart size is normal. Small pericardial effus ion noted. Atherosclerotic calcifications present in the aorta and coronary arteries as well as of t he aortic and mitral valves. 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 Subpleural reticular opacities with associated ground-glass opacities noted in both upper lobes with possible mild traction bronchiectasis. Findings present to a lesser extent in the right middle lobe. These findings are stable since prior studies. Band-like opacity noted in the right lower lobe. N o pleural effusion or pneumothorax identified. Hiatal hernia contains mostly fat. Gallbladder is absent. There is pneumobilia. [place] renal atrop hy is severe bilaterally. Degenerative changes present in the spine. IMPRESSION: 1. Stable ground-glass opacities in subpleural reticular opacities, greatest in the upper lobes, lik sukhwinder due to chronic interstitial change. 2. Evidence of prior granulomatous disease. 3. Small pericardial effusion.
== END 2018-03-14 11:21 | disposition home or self-care (01) ==
LOC: RAD 11:20
PROVIDERS: ATTEND Internal Medicine
DX: R06.02 Shortness of breath (principal)

== ENCOUNTER 2018-05-26 12:25 | Outpatient (CLI) | END 2018-05-26 12:26 | disposition home or self-care (01) | LOC: LAB 12:25 | PROVIDERS: ATTEND Internal Medicine | DX: Z94.0 Kidney transplant status (principal) | CPT/HCPCS: 36415; 80069; 80197; 85025 ==

== ENCOUNTER 2018-06-16 12:38 | Outpatient (CLI) ==
--- NOTE | 2018-06-16 14:27 | CT ---
EXAM: CT Head HISTORY: Frontal sinusitis, headache COMPARISON: 11/20/2016 TECHNIQUE: CT head performed without contrast FINDINGS: There is no mass effect, midline shift, or intracranial hemmorhage. Myers white differenti ation is preserved. There is no extra-axial collection. The ventricles, sulci, and basal cisterns a re patent and symmetric. There is chronic ischemic disease of the white matter and cerebral volume l oss. There is no depressed calvarial fracture. The mastoid air cells are clear. The visualized para nasal sinuses are clear. There are intracranial atherosclerotic calcifications. IMPRESSION: 1. No acute intracranial abnormality. 2. Chronic ischemic disease of the white matter and cerebral volume loss.
== END 2018-06-16 12:39 | disposition home or self-care (01) ==
LOC: RAD 12:38
PROVIDERS: ATTEND Internal Medicine
DX: J32.1 Chronic frontal sinusitis (principal); R51 Headache

== ENCOUNTER 2018-06-25 13:01 | Outpatient (CLI) | payer OTHER | END 2018-06-25 13:02 | disposition home or self-care (01) | LOC: LAB 13:01 | PROVIDERS: ATTEND Internal Medicine Nephrology | DX: Z94.0 Kidney transplant status (principal) | CPT/HCPCS: 36415; 80069 ==

== ENCOUNTER 2018-07-11 12:16 | Outpatient (CLI) | payer OTHER ==
--- NOTE | 2018-07-11 13:50 | DI ---
EXAM: CHEST FRONTAL AND LATERAL VIEWS HISTORY: Shortness of breath. COMPARISON: 02/20/2018 FINDINGS: Mild cardiomegaly is again noted. Atherosclerotic disease. There is diffuse, chronic sancho earing interstitial accentuation. Subtle central interstitial infiltrate may be present. No consoli dated pneumonia is seen. No visible pneumothorax or pleural fluid. IMPRESSION: 1. Mild cardiomegaly with subtle central vascular congestion.
== END 2018-07-11 12:17 | disposition home or self-care (01) ==
LOC: RAD 12:16
PROVIDERS: ATTEND Internal Medicine
DX: R06.02 Shortness of breath (principal)

== ENCOUNTER 2018-09-16 13:35 | Inpatient (IN) | payer OTHER ==
--- NOTE | 2018-09-16 14:47 | CT ---
EXAM: CT of the abdomen pelvis without contrast History: Renal failure. Comparison: CT abdomen pelvis 11/11/2014 Technique: Multiplanar CT images through the abdomen pelvis were obtained without the administration of IV contrast Findings: Heart is enlarged. Subsegmental atelectasis seen within the lower lungs. No acute osseou s abnormalities. Severe scoliosis. Degenerative changes of the spine. Pneumobilia. Calcified granulomas seen within the spleen. 3 mm calcification within the distal comm on bile duct. No peripancreatic inflammation. Adrenal glands are unremarkable. Atrophic qagan tayagungin jimena ateral kidneys. Right lower quadrant transplant kidney with no hydronephrosis. 2.6 cm cyst of the t ransplant kidney. No tarry transplant fluid collections. No bladder wall thickening. Uterus is abs ent or atrophic. No perirectal inflammation. Postsurgical changes of the sigmoid colon. No bowel o bstruction. Mild to moderate colonic stool. No free air and no ascites. No pathologically enlarged lymph nodes. No abdominal aortic aneurysm. Impression: 1. Atrophic qagan tayagungin bilateral kidneys. 2. Right lower quadrant renal transplant kidney with small cyst. There is no hydronephrosis of the transplant kidney and there are no peritransplant fluid collections. 3. Pneumobilia of unknown etiology. 4. Choledocholithiasis. 5. Cardiomegaly
--- NOTE | 2018-09-16 15:16 | ED.PDOC ---
General ED Provider: Dr. CLARI MICHAUD Chief Complaint: Abnormal Labs Stated Complaint: abnormal out pt labs (renal funtion test) Time Seen by Physician: 13:39 (seen with delmar s/denis renal transplant 2003 ) Mode of Arrival: Walk-In Information Source: Patient Exam Limitations: No limitations Primary Care Provider: ISADORA BRYANT Nursing and Triage Documentation Reviewed and Agree: Yes Does patient meet sepsis criteria?: Yes If yes, has appropriate treatment been initiated?: No System Inflammatory Response Syndrome: Not Applicable Sepsis Protocol: For patient's 13 years and over: Temp is 96.8 and below OR 101 and greater Pulse >90 BPM Resp >20/minute Acutely Altered Mental Status Are patient's symptoms suggestive of a new infection, such as: -Pneumonia -Skin, Soft Tissue -Endocarditis -UTI -Bone, Joint Infection -Implantable Device -Acute Abdominal Infection -Wound Infection -Meningitis -Blood Stream Catheter Infection -Unknown Review of Systems - Review Of Systems Constitutional: Reports: No symptoms Eyes: Reports: No symptoms Ears, Nose, Mouth, Throat: Reports: No symptoms Respiratory: Reports: No symptoms Cardiac: Reports: No symptoms GI: Reports: No symptoms : Reports: No symptoms Musculoskeletal: Reports: No symptoms Skin: Reports: No symptoms Neurological: Reports: No symptoms Endocrine: Reports: No symptoms Hematologic/Lymphatic: Reports: No symptoms All Other Systems: Reviewed and Negative Past Medical History - Past Medical History Previously Healthy: No Endocrine: Reports: None Cardiovascular: Reports: Hypertension Respiratory: Reports: COPD Hematological: Reports: None Gastrointestinal: Reports: GERD Genitourinary: Reports: None Neuro/Psych: Reports: None Musculoskeletal: Reports: None Cancer: Reports: None Last Menstrual Period: n/a - Surgical History General Surgical History: Reports: None - Family History Family History: Reports: None - Social History Smoking Status: Former smoker Hx Substance Use: No Alcohol Screening: None Physical Exam - Physical Exam Appearance: Well-appearing, No pain distress, Well-nourished Eyes: OLU, EOMI, Conjunctiva clear ENT: Ears normal, Nose normal, Oropharynx normal Respiratory: Airway patent, Breath sounds clear, Breath sounds equal, Respirations nonlabored Cardiovascular: RRR, Pulses normal, No rub, No murmur GI/: Soft, Nontender, No masses, Bowel sounds normal, No Organomegaly Musculoskeletal: Normal strength, ROM intact, No edema, No calf tenderness Skin: Warm, Dry, Normal color Neurological: Sensation intact, Motor intact, Reflexes intact, Cranial nerves intact, Alert, Oriented Psychiatric: Affect appropriate, Mood appropriate Interpretation - Radiology Interpretation Radiology Interpretation By: Radiologist Radiology Results: Positive (atrophied kidney cyst) - Senior Staff Psychologist Rate: Normal Rhythm: Sinus - EKG Interpretation Rate: Normal Rhythm: Sinus Ectopy: None Dow: NL ST Segment: Normal (RBBB) Re-Evaluation - Re-Evaluation Time of Re-Evaluation: 15:00 Status: Unchanged Vital Signs Stable: Yes Pain Level: 0 Appearance: NAD Lungs: Clear Skin: Warm and Dry Neuro: Alert and Oriented X3 CV: RRR Additional Comments: SPOKE TO PMD PT SHOULD BE ADMITTED PER PMD 100ML N/S PER HR Physician Notification - Case Discussed Physician Notified: PMD Time of Notification: 15:17 Admit To: Inpatient Critical Care Note - Critical Care Note Total Time (mins): 0 Course - Course Hematology/Chemistry: 09/16/18 14:15 09/16/18 14:15 Orders, Labs, Meds: Lab Review 09/16/18 09/16/18 09/16/18 14:15 14:15 14:15 WBC 10.05 RBC 2.92 L Hgb 9.4 L Hct 29.9 L MCV 102.4 H MCH 32.2 H MCHC 31.4 L RDW Coeff of Rivka 13.8 Plt Count 328 Immature Gran % (Auto) 4.7 Neut % (Auto) 68.3 Lymph % (Auto) 16.6 [place] % (Auto) 10.0 Eos % (Auto) 0.1 Baso % (Auto) 0.3 Immature Gran # (Auto) 0.5 Neut # (Auto) 6.9 Lymph # (Auto) 1.7 [place] # (Auto) 1.0 Eos # (Auto) 0.0 Baso # (Auto) 0.0 PT 9.9 INR 0.99 APTT 24.5 Sodium 126.5 L Potassium 4.17 Chloride 87.2 L Carbon Dioxide 30.1 H Anion Gap 13.37 BUN 66.9 H* Creatinine 2.58 H Estimated GFR (MDRD) 18.00 BUN/Creatinine Ratio 25.93 Glucose 117.4 H Lactic Acid Calcium 8.08 L Total Bilirubin 0.41 AST 22.2 ALT 15.0 Alkaline Phosphatase 93.5 Total Protein 6.31 Albumin 3.31 L Globulin 3.00 Albumin/Globulin Ratio 1.10 09/16/18 14:15 WBC RBC Hgb Hct MCV MCH MCHC RDW Coeff of Rivka Plt Count Immature Gran % (Auto) Neut % (Auto) Lymph % (Auto) [place] % (Auto) Eos % (Auto) Baso % (Auto) Immature Gran # (Auto) Neut # (Auto) Lymph # (Auto) [place] # (Auto) Eos # (Auto) Baso # (Auto) PT INR APTT Sodium Potassium Chloride Carbon Dioxide Anion Gap BUN Creatinine Estimated GFR (MDRD) BUN/Creatinine Ratio Glucose Lactic Acid 1.22 Calcium Total Bilirubin AST ALT Alkaline Phosphatase Total Protein Albumin Globulin Albumin/Globulin Ratio Orders Category Date Time Status EKG-(ED ONLY) Stat CARDIO 09/16/18 13:50 Completed EKG-(IP & OP ONLY) DAILY CARDIO 09/17/18 06:00 Ordered EKG-(IP & OP ONLY) DAILY CARDIO 09/18/18 06:00 Ordered EKG-(IP & OP ONLY) DAILY CARDIO 09/19/18 06:00 Ordered INTAKE & OUTPUT Q8HR CARE 09/16/18 15:12 Ordered INTAKE & OUTPUT Q8HR CARE 09/16/18 15:13 Ordered VITAL SIGNS Q4HR CARE 09/16/18 15:13 Ordered VITAL SIGNS Q8HR CARE 09/16/18 15:12 Ordered REGULAR DIET DIETARY 09/16/18 Dinner Ordered BLOOD CULTURE Stat LAB 09/16/18 14:25 Received CBC W/ AUTO DIFF DAILY@0600 LAB 09/17/18 06:00 Ordered CBC W/ AUTO DIFF DAILY@0600 LAB 09/18/18 06:00 Ordered CBC W/ AUTO DIFF Stat LAB 09/16/18 14:15 Completed COMPREHENSIVE METABOLIC PANEL DAILY@0600 LAB 09/17/18 06:00 Ordered COMPREHENSIVE METABOLIC PANEL DAILY@0600 LAB 09/18/18 06:00 Ordered COMPREHENSIVE METABOLIC PANEL Stat LAB 09/16/18 14:15 Completed CREATINE KINASE Q8H LAB 09/16/18 21:15 Ordered CREATINE KINASE Q8H LAB 09/17/18 05:15 Ordered LACTIC ACID Stat LAB 09/16/18 14:15 Completed PARTIAL THROMBOPLASTIN TIME Stat LAB 09/16/18 14:15 Completed PROCALCITONIN Stat LAB 09/16/18 14:15 Received PT WITH INR DAILY@0600 LAB 09/17/18 06:00 Ordered PT WITH INR DAILY@0600 LAB 09/18/18 06:00 Ordered PT WITH INR Stat LAB 09/16/18 14:15 Completed TROPONIN I Q8H LAB 09/16/18 21:15 Ordered TROPONIN I Q8H LAB 09/17/18 05:15 Ordered URINALYSIS C & S IF INDICATED Stat LAB 09/16/18 13:49 Uncollected Sodium Chloride 0.9% [Sodium Chloride] 1,200 ml MEDS 09/16/18 15:30 Ordered IV 100 mls/hr CT ABD/PEL WO RENAL STONE PROT Stat RADS 09/16/18 13:49 Completed Medications Generic Name Dose Route Start Last Admin Trade Name Freq PRN Reason Stop Dose Admin Sodium Chloride 1,200 mls @ 100 mls/hr 09/16/18 15:30 Sodium Chloride IV .Q12H SHERRELL Vital Signs: Temp Pulse Resp BP Pulse Ox 09/16/18 13:36 97.6 F 62 20 83/54 L 92 L Departure - Departure Time of Disposition: 15:18 Disposition: ADMITTED INPATIENT Discharge Problem: CKD (chronic kidney disease) stage 5, GFR less than 15 ml/min, Laboratory test result abnormal Anemia Qualifiers: Anemia type: unspecified type Qualified Code(s): D64.9 - Anemia, unspecified Condition: Good Pt referred to PMD for follow-up: Yes IPMP verified?: No Additional Instructions: Please call your Family Physician as soon as possible to schedule a follow-up appointment. Allergies/Adverse Reactions: Allergies sulfur dioxide Allergy (Unknown, Verified 09/16/18 13:42) ondansetron HCl [From Zofran] Adverse Reaction (Unknown, Verified 09/16/18 13:42 ) ibuprofen Adverse Reaction (Verified 09/16/18 13:42) Home Medications: Ambulatory Orders Alendronate Sodium [Fosamax] 70 mg PO WEEKLY 02/03/13 Amlodipine Besylate [Norvasc] 10 mg PO DAILY 02/03/13 Atenolol 100 mg PO DAILY 02/03/13 Calcium Carb/Vitamin D3/Vit K1 [Calcium + D Soft Chewable Tab] 600 mg PO BID Clopidogrel Bisulfate [Plavix] 75 mg PO DAILY 02/03/13 Ferrous Sulfate 325 mg PO BID 03/20/16 Gabapentin [Neurontin] 200 mg PO BID 03/20/16 Tacrolimus [Prograf] 2 mg PO BID 11/20/16 [place]-3 Fatty Acids/Fish Oil [Fish Oil 1,000 mg Capsule] 1 each PO BID 03/31/17 Chlordiazepoxide HCl 10 mg PO TID PRN 08/21/17 Pantoprazole Sodium [Protonix] 40 mg PO DAILY 08/21/17 Duloxetine HCl 30 mg PO DAILY 02/20/18 Hydrocodone/Acetaminophen [Hydrocodone-Acetamin 7.5-325] 7.5 - 325 mg PO DAILY 02/20/18 Linaclotide [Linzess] 145 mcg PO DAILY 02/20/18 Losartan Potassium [Cozaar] 25 mg PO DAILY 02/20/18 Lovastatin [Mevacor] 20 mg PO DAILY 02/20/18 Polyethylene Glycol 1000 [Polyethylene Glycol] 500 gm PO DAILY 02/20/18 Prednisone 20 mg PO DAILY 02/20/18 Torsemide [Demadex] 20 mg PO DAILY 02/20/18
[2018-09-16] MEDS ORDERED: SODIUM CHLORIDE IV SCH (15:30)
[2018-09-16] MEDS: SODIUM CHLORIDE 1,000 ML IV SCH (16:51)
[2018-09-16 17:04] VITALS: BMI 28.9
[2018-09-16] MEDS ORDERED: NON-FORMULARY MEDICATION (Ferrous Sulfate [Ferrous Sulfate] 325 MG) PO SCH (21:00)
[2018-09-16] MEDS: SODIUM BICARBONATE PO SCH (21:11)
[2018-09-16] MEDS: FERROUS SULFATE PO SCH (21:11)
[2018-09-16] MEDS: LIBRIUM PO SCH (21:11)
[2018-09-16] MEDS: NEURONTIN PO SCH (21:11)
[2018-09-16] MEDS: TACROLIMUS 2 MG PO SCH (21:11)
[2018-09-17] MEDS: PROTONIX PO SCH (05:36)
[2018-09-17] MEDS: SODIUM CHLORIDE 1,000 ML IV SCH ×3 (08:13→20:12)
[2018-09-17] MEDS: CYMBALTA PO SCH (08:30)
[2018-09-17] MEDS: PLAVIX PO SCH (08:31)
[2018-09-17] MEDS: FERROUS SULFATE PO SCH ×2 (08:31→20:09)
[2018-09-17] MEDS: LIBRIUM PO SCH ×2 (08:31→20:09)
[2018-09-17] MEDS: SODIUM BICARBONATE PO SCH ×2 (08:31→20:09)
[2018-09-17] MEDS: PREDNISONE PO SCH (08:31)
[2018-09-17] MEDS: NEURONTIN PO SCH ×2 (08:31→20:09)
[2018-09-17] MEDS: TACROLIMUS 2 MG PO SCH ×2 (08:34→20:07)
[2018-09-17] MEDS ORDERED: DEMADEX PO SCH (09:00)
[2018-09-17] MEDS ORDERED: MEVACOR PO SCH (09:00)
--- NOTE | 2018-09-17 09:10 | PCM.PROG ---
Attending Provider: ATTENDING PROVIDER: Dr. ISADORA BRYANT This patient is seen with Elisa Britton, Nurse Practitioner. DATE OF SERVICE: 09/17/18 SUBJECTIVE: This 68 year old WHITE/ F was hospitalized 09/16/18. The patient is lying in bed resting comfortably. She is still not real responsive, is drowsy and slightly confused, likely all due to dehydration. REVIEW OF SYSTEMS: CONSTITUTIONAL: Weakness. No night sweats. No malaise, lethargy. No fever or chills. HEENT: Eyes: No visual changes. No eye pain. No eye discharge. ENT: No runny nose. No epistaxis. No sinus pain. No odynophagia. No congestion. RESPIRATORY: No cough, no congestion. No hemoptysis. No shortness of breath. CARDIOVASCULAR: No angina symptoms. No CHF symptoms. No atypical chest pain for CAD. No palpitations. No orthopnea.. GASTROINTESTINAL: No abdominal pain. No nausea or vomiting. No diarrhea or constipation. No hematemesis. No hematochezia. GENITOURINARY: Incontinent of urine. MUSCULOSKELETAL: Right wrist cast. NEUROLOGICAL: Awake, confusion. No headache. No neck pain. No syncope. No seizures. No dizziness. PSYCHIATRIC: Not anxious. No depression. No suicidal thoughts. No homicidal thoughts. SKIN: No rash. No lesions. No wounds. ENDOCRINE: No unexplained weight loss. No weight gain. HEMATOLOGIC/LYMPHATIC: No anemia. No purpura. No petechiae. No prolonged or excessive bleeding. No palpable lymph nodes. PHYSICAL EXAMINATION: GENERAL: The patient is drowsy, lying in bed in no distress. VITAL SIGNS: Temperature 98.7 F, Pulse 73, Respiratory Rate 20, BP 129/67, Pulse Ox 95% HEENT: Head normocephalic, atraumatic. Eyes: Extraocular muscles are intact. Pupils are equal, round and reactive to light and accommodation. Ears: No lesions. Nose appeared normal. Throat: No exudate or erythema. NECK: Supple. No JVD, no carotid bruit. No lymphadenopathy or thyromegaly. LUNGS: Diminished breath sounds. Clear to auscultation. Percussion note normal. Chest symmetrical. HEART: S1, S2, no S3. No murmurs. No cyanosis or clubbing. No ascites. Pulses: Dorsalis pedis and posterior tibial pulses +1 to +2 both sides. ABDOMEN: Soft. Non-tender. Bowel sounds active. No CVA tenderness. No mass felt. EXTREMITIES: No edema. Full range of motion of all extremities, equal. NEUROLOGIC: No focal deficit. Cranial nerves II through XII are grossly intact. No headache, no double vision or headache. SKIN: Not dry. Intact. Turgor-normal. LYMPHATIC: No palpable lymph nodes/no lymphedema. MUSCULOSKELETAL: Normal joints with no swelling. Muscle tone is normal. LAB REVIEW: 09/17/18 05:00 09/17/18 05:00 09/17/18 05:00: PT 10.0, INR 1.00 09/17/18 05:00: WBC 11.74 H, RBC 3.03 L, Hgb 9.6 L, Hct 30.6 L, MCV 101.0 H, MCH 31.7 H, MCHC 31.4 L, RDW Coeff of Rivka 13.8, Plt Count 371, Immature Gran % ( Auto) 3.9, Neut % (Auto) 73.1, Lymph % (Auto) 13.5, [place] % (Auto) 8.1, Eos % ( Auto) 1.1, Baso % (Auto) 0.3, Immature Gran # (Auto) 0.5, Neut # (Auto) 8.6 H, Lymph # (Auto) 1.6, [place] # (Auto) 1.0, Eos # (Auto) 0.1, Baso # (Auto) 0.0 09/17/18 05:00: Sodium 129.9 L, Potassium 4.78, Chloride 92.2 L, Carbon Dioxide 29.2, Anion Gap 13.28, BUN 71.9 H*, Creatinine 2.54 H, Estimated GFR (MDRD) 19.00, BUN/Creatinine Ratio 28.30, Glucose 99.3, Calcium 8.27 L, Total Bilirubin 0.46, AST 20.2, ALT 14.7, Alkaline Phosphatase 91.9, Total Creatine Kinase < 20.0 L, Troponin I 0.045, Total Protein 6.60, Albumin 3.42 L, Globulin 3.18, Albumin/Globulin Ratio 1.07 09/16/18 21:30: Total Creatine Kinase < 20.0 L, Troponin I 0.037 09/16/18 21:20: Urine Color Yellow, Urine Clarity Cloudy, Urine pH 5.5, Ur Specific [place] <=1.005, Urine Protein Negative, Urine Glucose (UA) Negative, Urine Ketones Negative, Urine Blood Trace-lysed, Urine Nitrite Negative, Urine Bilirubin Negative, Urine Urobilinogen 0.2, Ur Leukocyte Esterase 3+, Urine Microscopic RBC 0-2, Urine Microscopic WBC 20-30, Ur Squamous Epith Cells Not Reportable, Ur Transition Epith Cell 2-5, Amorphous Sediment 2+, Urine Bacteria 1+ 09/16/18 14:15: Lactic Acid 1.22 09/16/18 14:15: Procalcitonin 0.82 09/16/18 14:15: Sodium 126.5 L, Potassium 4.17, Chloride 87.2 L, Carbon Dioxide 30.1 H, Anion Gap 13.37, BUN 66.9 H*, Creatinine 2.58 H, Estimated GFR (MDRD) 18.00, BUN/Creatinine Ratio 25.93, Glucose 117.4 H, Calcium 8.08 L, Total Bilirubin 0.41, AST 22.2, ALT 15.0, Alkaline Phosphatase 93.5, Total Protein 6.31, Albumin 3.31 L, Globulin 3.00, Albumin/Globulin Ratio 1.10 09/16/18 14:15: PT 9.9, INR 0.99, APTT 24.5 09/16/18 14:15: WBC 10.05, RBC 2.92 L, Hgb 9.4 L, Hct 29.9 L, MCV 102.4 H, MCH 32.2 H, MCHC 31.4 L, RDW Coeff of Rivka 13.8, Plt Count 328, Immature Gran % (Auto ) 4.7, Neut % (Auto) 68.3, Lymph % (Auto) 16.6, [place] % (Auto) 10.0, Eos % (Auto ) 0.1, Baso % (Auto) 0.3, Immature Gran # (Auto) 0.5, Neut # (Auto) 6.9, Lymph # (Auto) 1.7, [place] # (Auto) 1.0, Eos # (Auto) 0.0, Baso # (Auto) 0.0 ASSESSMENT: 1. Acute dehydration. 2. Acute renal failure. 3. Hyponatremia. 4. S/P right nephrectomy. 5. Recent UTI - Enterobacter positive ESBL PLAN: 1. Hold Demodex. 2. IV fluids 100 cc/hr times one more liter then decrease to 75 cc/hr after. 3. Will obtain urine culture and sensitivity from [facility]. Plan and coordination of the patient's care discussed in the presence of Mangle Feeder and nurse. CONDITION: Stable SCRIBED BY: BRIAN KNOX Organizational Development Manager scribed while in presence of service performed by Dr. Bryant/Elisa Britton APRN on 09/17/18 ([id number])
[2018-09-17] MEDS ORDERED: LEVAQUIN 250 MG in PREMIX 50 ML D5W 1 BAG IV SCH (10:00)
--- NOTE | 2018-09-17 13:30 | PN ---
DATE OF SERVICE: 09/16/18 - ADMIT NOTE SUBJECTIVE: 65-year-old white female was seen in the hospital after she was admitted through the emergency room. The patient had abnormal labs. She was seen in my office yesterday which showed renal azotemia. The patient had hypotension also. She was taken off all the hypertensive medication and advised to hydrate herself. The patient was called and asked to come to the emergency room because of abnormal renal profile. The patient's creatinine is more than 200. BUN is in the mid 60s. The patient has history of kidney transplant. She had fracture of the right wrist and it is in the cast. Very likely the patient hasn't been eating or drinking fluids. The patient lives by herself with the help of son. PHYSICAL EXAMINATION: GENERAL: The patient is oriented to time, place and person. VITAL SIGNS: Systolic blood pressure 114, pulse 60/min, respiratory rate 15. Percent saturation 96% on roomair. HEENT: Head normocephalic, atraumatic. Eyes: Extraocular muscles are intact. Pupils are equal, round and reactive to light and accommodation. Ears: No lesions. Nose appeared normal. Throat: No exudate or erythema. NECK: Supple. No JVD, no carotid bruit. No lymphadenopathy or thyromegaly. LUNGS: Decreased breath sounds but clear to auscultation. Percussion note normal. Chest symmetrical. HEART: S1, S2, no S3. No murmurs. No cyanosis or clubbing. No ascites. Pulses: Dorsalis pedis and posterior tibial pulses +1 to +2 bilaterally. ABDOMEN: Soft. Nontender. Bowel sounds active. No CVA tenderness. No mass felt. EXTREMITIES: No edema. Full range of motion of all extremities, equal. NEUROLOGIC: No focal deficit. Cranial nerves II through XII are grossly intact. No headache, no double vision or headache. SKIN: Not dry. Intact. Turgor - normal. LYMPHATIC: No palpable lymph nodes/no lymphedema. MUSCULOSKELETAL: Normal joints with no swelling. Muscle tone is normal. LABS: EKG sinus rhythm. RBBB type of pattern, shows more like RVH with strain pattern. ASSESSMENT: 1. Acute renal azotemia from dehydration. 2. Chronic kidney disease. 3. Kidney transplant. 4. Hypertension. 5. Dyslipidemia. PLAN: 1. Give IV fluids 100 cc/hr. 2. Watch renal function. 3. Watch for fluid overload. 4. Telemetry. 5. The patient is strongly advised to eat regularly, 3 meals and drink plenty of fluids. 6. Will hold her anti-hypertensive medications for now along with statin. 7. The rest of the medications Prograf, Prednisone is to be continued. 8. The patient has appointment with flat screen worker the day after tomorrow. CONDITION: Stable. TIME SPENT: More than 30 minutes. Plan and coordination of the patient's care discussed in the presence of nurse. KAREN
--- NOTE | 2018-09-17 15:48 | RS.OTINEVL ---
Subjective - Patient information Date of Evaluation: 09/17/18 Date of Arrival on Unit: 09/16/18 Admitted From:: Emergency Dept Diagnosis: Anemia, Stage 4 renal failure PRECAUTIONS: A high risk for falls. Usual Living Arrangement: Alone Living Arrangement Comments: Pt reports she lives alone in her home and gets around in a wheelchair. Pt reports her son comes by to help her with cooking. Pt also has 15 hours a week of help. Home Environment: Apartment Medical History: Hypertension Medical History Comments:: Anemia, Stage 4 renal failure, HTN, Hypercholesterolemia, Kidney transplant 2004, OA hands, RUE wrist arm fracture. Gastro reflux, ESBL urine, depression. Surgical History Comments:: Left wrist surgery, Kidney transplant Subjective Information/ Patient Comments:: "Yes, he cooks for me." - Level of function Prior to this admission, the patient could do the following:: Partially Dependent Ambulation Abilities prior to this admission: Pt had help in her home about 15 hours a week to help with cleaning and cooking. Current Level of Function: Partially Dependent Comments: Pt does not appear very motivated to complete self care or many tasks that involve physical movement. Current Equipment Used at Home: wheelchair, walker (not using now) shower chair Pain Assessment - Pain Pain Score: 0 Interventions - Objective Patient Orientation: Person, Place, Situation Current Interventions: IV's Observation: Pt in bed and requires verbal cues to complete bed mobility to sit EOB. Pt then requires verbal cues to complete movement to sit to EOB. Pt waits for someone to help her whenever she can get help. Interventions - ROM Right Upper Extremity AROM: Slight limitation Left Upper Extremity AROM: WFL's Comments: Pt has a cast on the RUE wrist and has limited wrist flexion/ext., - Strength Right Upper Extremity Strength: Mild Weakness Left Upper Extremity Strength: Mild Weakness - Sensation Right Upper Extremity Sensation: Intact/Normal Left Upper Extremity Sensation: Intact/Normal Balance - Sitting Balance Static Sitting Balance: Fair Dynamic Sitting Balance: Fair - Standing Balance Static Standing Balance: Fair Dynamic Standing Balance: Fair ADL Skills - Self Feeding Self Feeding: Supervision - Grooming Grooming: Min Assist - Bathing Bathing UE: Mod Assist Bathing LE: Max Assist - Dressing Dressing UE: Max Assist Dressing LE: Max Assist - Toilet Management Toileting Management: Min Assist Functional Mobility - Bed Mobility Rolling R/L: CGA Scooting: CGA Supine to Sit: Min Assist Sit to Supine: Min Assist - Transfers Sit to Stand: Mod Assist Stand to Sit: Mod Assist Stand Pivot Transfers: Mod Assist, 1 person assist - Ambulation Weight Bearing Status: FWB Assistance needed with Ambulation: Min Assist, 1 person assist - Safety Awareness Safety Awareness: Poor KRYSTLE INDEX SCORE: . Additional Treatment Performed - Time with patient Length of Evaluation: 25 Total treatment time: 25 Activities Do you enjoy playing games?: No Would you be interested in leaving your room for activities?: No Would you enjoy group activities?: No Do you have difficulty with your vision?: Yes What types of things do you enjoy doing? Any Hobbies?: TV Patient Interests:: Watching Television Patient Education Patient Education: Education of diagnosis, Home Exercise Program, Home Safety, Education of Plan of Care Teaching Recipient: Patient Teaching Methods: Teach Back Method Used, Discussion Assessment Problem List:: Decreased level of function, Requires training/education, Decreased safety/Risk of falls, Weakness, Pain limits previous level of function Rehab Potential: Good Further Therapy Indicated?: Yes Evaluation Complexity: HISTORY: Medium, EXAM OF BODY SYSTEMS: Medium, CLINICAL DECISION MAKING: Medium Short Term Goals - Goals GOAL 1: Pt to increase dyn. std. bal. to Fair Goal to be met by: 09/22/18 GOAL 2: Pt to increase activity tolerance to 8 minutes with setup. Goal to be met by: 09/22/18 GOAL 3: Pt to increase independence with sit to stand to min A. Goal to be met by: 09/22/18 Prison Goals GOAL 1: Pt to increase dyn. std. bal. to Fair+/G- Goal to be met by: 09/26/18 GOAL 2: Pt to increase activity tolerance to 15 minutes with setup. Goal to be met by: 09/26/18 GOAL 3: Pt to increase independence with sit to stand to mod-I. Goal to be met by: 09/26/18 Plan Plan of Care: Therapeutic EX, Neuromuscular Re-Educ, Therapeutic Activity, Self- Care/Home Management Frequency of Treatment: 1-2 X day, as tolerated Duration of Treatment: 2 Weeks Anticipated Discharge Destination: Home Treatment Diagnosis (ICD 10 Codes): Muscle weakness (M62.81), and Needs assistance with personal care (Z74.1). Has the Physician been added for Co-signature?: Yes
[2018-09-18] MEDS: PROTONIX PO SCH (06:00)
[2018-09-18] MEDS: FERROUS SULFATE PO SCH ×2 (08:11→20:51)
[2018-09-18] MEDS: CYMBALTA PO SCH (08:11)
[2018-09-18] MEDS: SODIUM BICARBONATE PO SCH ×2 (08:12→20:51)
[2018-09-18] MEDS: PLAVIX PO SCH (08:12)
[2018-09-18] MEDS: NEURONTIN PO SCH ×2 (08:12→20:51)
[2018-09-18] MEDS: LIBRIUM PO SCH ×2 (08:12→20:51)
[2018-09-18] MEDS: TACROLIMUS 2 MG PO SCH ×3 (08:13→20:51)
[2018-09-18] MEDS: PREDNISONE PO SCH (08:13)
[2018-09-18] MEDS: INVANZ 0.5 GM in SODIUM CHLORIDE 50 ML IV SCH (09:26)
--- NOTE | 2018-09-18 10:04 | RS.PTINEVL ---
Subjective - Patient information Date of Evaluation: 09/17/18 Date of Arrival on Unit: 09/16/18 Admitted From:: Home Diagnosis: acute dehydration, renal failure Usual Living Arrangement: Alone Living Arrangement Comments: son lives close by and checks on in morning and afternoon, has 15 hours per week from help at home Home Environment: House, Stairs (few) Medical History: Hypertension, COPD Medical History Comments:: GERD, recent UTI, recent R wrist fx LATEX ALLERGY?: No Surgical History: Cholecystectomy Surgical History Comments:: hernia repair, s/p kidney transplant Medications: see chart Subjective Information/ Patient Comments:: pt states that she uses w/c at home and her son cooks for her. - Level of function Prior to this admission, the patient could do the following:: Partially Dependent Ambulation Abilities prior to this admission: pt required assist with ADL's as well as amb, pt could propel w/c in home Current Level of Function: Partially Dependent Current Equipment Used at Home: wheelchair, walker (not using now) shower chair Interventions - Objective Patient Orientation: Person, Place Current Interventions: IV's, Telemetry Observation: min edema BLE Range of Motion - ROM Right Upper Extremity AROM: Slight limitation (limited in R wrist and hand due to fx) Left Upper Extremity AROM: WFL's Right Lower Extremity AROM: WFL's Left Lower Extremity AROM: WFL's Muscle Strength - Muscle Strength Right Upper Extremity Strength: Mild Weakness (shld flex 4-/5, elbow flex/ext 4- /5, wrist not tested due to fx) Left Upper Extremity Strength: Mild Weakness (grossly 4/5) Right Lower Extremity Strength: Mild Weakness (grossly 4-/5) Left Lower Extremity Strength: Mild Weakness (grossly 4-/5) Sensation - Sensation Right Upper Extremity Sensation: Intact/Normal Left Upper Extremity Sensation: Intact/Normal Right Lower Extremity Sensation: Intact/Normal Left Lower Extremity Sensation: Intact/Normal Palpation Palpation Findings: None/Normal Balance - Sitting Balance and Reactions Static Sitting Balance: Fair Dynamic Sitting Balance: Poor Sitting Equilibrium Reactions: Delayed Left, Delayed Right Sitting Protective Reactions: Delayed Left, Delayed Right - Standing Balance and Reactions Static Standing Balance: Poor Dynamic Standing Balance: Poor Standing Equilibrium Reactions: Delayed Left, Delayed Right Standing Protective Reactions: Delayed Left, Delayed Right - Comments Balance Assessment Comments: pt with forward posture, unable to maintain standing balance without min to mod assist. Functional Mobility - Bed Mobility Rolling R/L: Min Assist, Mod Assist Scooting: Max Assist, 2 person assist Supine to Sit: Mod Assist, 1 person assist - Transfers Sit to Stand: Mod Assist, 1 person assist, 2 person assist Stand to Sit: Mod Assist, 1 person assist - Safety Awareness Safety Awareness: Poor KRYSTLE INDEX SCORE: n/a Ambulation - Ambulation Assistive Device Used: Gait belt Orthotic/Prosthetic Device: No Distance: 5ft Assistance needed with Ambulation: Mod Assist, 1 person assist Gait Deviations: Forward posture, Short stride, Deviates from path Ambulation Comments: pt amb approx 5ft bed to chair with mod x 1 without AD with significantly flexed posture, and decreased step length. Factors Affecting Ambulation: Decreased Balance, Weakness, Decreased Safety, Cognitive Status, Limited Endurance Treatment time - Time with patient Length of Evaluation: 19 Total treatment time: 28 Patient Education - Education Patient Education: Activity Modification, Education of Plan of Care Teaching Recipient: Patient Teaching Methods: Discussion Comments: discussion regarding POC and safety. Assessment - Assessment Problem List:: Decreased level of function, Requires training/education, Decreased safety/Risk of falls, Weakness, Cognitive status limits abilities Rehab Potential: Fair Further Therapy Indicated?: Yes Candidate for Swing Bed for Therapy Services?: Feel pt is not a candidate for swing bed for therapy due to feel pt may require snf rehab Evaluation Complexity: HISTORY: Medium, EXAM OF BODY SYSTEMS: Medium, CLINICAL PRESENTATION: Medium, CLINICAL DECISION MAKING: Medium Short Term Goals GOAL #1: pt demonstate rolling and bridging in bed Goal to be met by: 09/20/18 GOAL #2: Transfer sup to/from sit CGA Goal to be met by: 09/20/18 GOAL #3: Sit to/from stand min x 1 Goal to be met by: 09/20/18 GOAL #4: pt amb with AAD with min x 1 50ft Goal to be met by: 09/20/18 Intermediate Goals GOAL #1: pt transfer sup to/from sit SBA, sit to/from stand CGA Goal to be met by: 09/23/18 GOAL #2: pt amb with AAD with CGA to min functional household distances Goal to be met by: 09/23/18 GOAL #3: Improve dyn stand balance to fair Goal to be met by: 09/23/18 Plan Plan of Care: Therapeutic EX, Therapeutic Activity Other:: gait training Frequency of Treatment: 1-2 X day, as tolerated Duration of Treatment: 6 days Anticipated Discharge Destination: Home (however feel pt would require 24 hour care at this time for safety.) Treatment Diagnosis (ICD 10 Codes): R 26.81 balance impaired. M62.81 muscle weakness. R26.2 difficulty walking Has the Physician been added for Co-signature?: Yes
--- NOTE | 2018-09-18 10:32 | PCM.PROG ---
Attending Provider: ATTENDING PROVIDER: Dr. ISADORA ZULETA This patient is seen with Elisa Britton, Nurse Practitioner. DATE OF SERVICE: 09/18/18 SUBJECTIVE: This 68 year old WHITE/ F was hospitalized 09/16/18. The patient is resting comfortably. She is more alert than yesterday, still slightly confused. Kidney function slightly improved. The patient however is anemic today, likely due to hemodilution because of two drop since admission. REVIEW OF SYSTEMS: CONSTITUTIONAL: Weakness. No night sweats. No fatigue, malaise, lethargy. No fever or chills. HEENT: Pallor positive. Eyes: No visual changes. No eye pain. No eye discharge. ENT: No runny nose. No epistaxis. No sinus pain. No odynophagia. No congestion. RESPIRATORY: No cough, no congestion. No hemoptysis. No shortness of breath. CARDIOVASCULAR: No angina symptoms. No CHF symptoms. No atypical chest pain for CAD. No palpitations. No orthopnea.. GASTROINTESTINAL: No abdominal pain. No nausea or vomiting. No diarrhea or constipation. No hematemesis. No hematochezia. GENITOURINARY: No urgency. No frequency. No dysuria. No hematuria. No obstructive symptoms. No discharge. No pain. No significant abnormal bleeding. MUSCULOSKELETAL: No musculoskeletal pain; no joint swelling. NEUROLOGICAL: Awake, confused, No headache. No neck pain. No syncope. No seizures. No dizziness. PSYCHIATRIC: Not anxious. No depression. No suicidal thoughts. No homicidal thoughts. SKIN: No rash. No lesions. No wounds. ENDOCRINE: No unexplained weight loss. No weight gain. HEMATOLOGIC/LYMPHATIC: No anemia. No purpura. No petechiae. No prolonged or excessive bleeding. No palpable lymph nodes. PHYSICAL EXAMINATION: GENERAL: The patient is awake, alert and oriented to person and place lying in bed in no distress. VITAL SIGNS: Temperature 98.9 F, Pulse 76, Respiratory Rate 18, BP 113/66, Pulse Ox 93% HEENT: Pallor positive. Head normocephalic, atraumatic. Eyes: Extraocular muscles are intact. Pupils are equal, round and reactive to light and accommodation. Ears: No lesions. Nose appeared normal. Throat: No exudate or erythema. NECK: Supple. No JVD, no carotid bruit. No lymphadenopathy or thyromegaly. LUNGS: Diminished breath sounds. Clear to auscultation. Percussion note normal. Chest symmetrical. HEART: S1, S2, no S3. Grade I murmur. No cyanosis or clubbing. No ascites. Pulses: Dorsalis pedis and posterior tibial pulses +1 to +2 both sides. ABDOMEN: Soft. Non-tender. Bowel sounds active. No CVA tenderness. No mass felt. EXTREMITIES: No edema. Full range of motion of all extremities, equal. NEUROLOGIC: No focal deficit. Cranial nerves II through XII are grossly intact. No headache, no double vision or headache. SKIN: Not dry. Intact. Turgor-normal. LYMPHATIC: No palpable lymph nodes/no lymphedema. MUSCULOSKELETAL: Normal joints with no swelling. Muscle tone is normal. LAB REVIEW: 09/18/18 04:40 09/18/18 04:40 09/18/18 04:40: Sodium 128.3 L, Potassium 4.38, Chloride 96.8 L, Carbon Dioxide 23.5, Anion Gap 12.38, BUN 60.6 H*, Creatinine 2.29 H, Estimated GFR (MDRD) 21.00, BUN/Creatinine Ratio 26.46, Glucose 98.4, Calcium 7.88 L, Total Bilirubin 0.32, AST 18.2, ALT 11.9, Alkaline Phosphatase 73.9, Total Protein 6.05 L, Albumin 3.00 L, Globulin 3.05, Albumin/Globulin Ratio 0.98 09/18/18 04:40: PT 10.1, INR 1.01 09/18/18 04:40: WBC 12.29 H, RBC 2.48 L, Hgb 7.8 L, Hct 25.3 L, MCV 102.0 H, MCH 31.5 H, MCHC 30.8 L, RDW Coeff of [place] 13.7, Plt Count 353, Immature Gran % ( Auto) 2.5, Neut % (Auto) 75.3, Lymph % (Auto) 13.2, [place] % (Auto) 8.5, Eos % ( Auto) 0.3, Baso % (Auto) 0.2, Immature Gran # (Auto) 0.3, Neut # (Auto) 9.3 H, Lymph # (Auto) 1.6, [place] # (Auto) 1.1, Eos # (Auto) 0.0, Baso # (Auto) 0.0 ASSESSMENT: 1. Acute dehydration. 2. Acute renal failure. 3. Hyponatremia. 4. S/P right nephrectomy. 5. Recent UTI - Enterobacter positive ESBL 6. Anemia likely due to hemodilution but will do stool for occult blood. 7. UTI - E. coli, positive ESBL PLAN: 1. Change antibiotics according to sensitivity. 2. Continue IV fluids at 75 cc/hr. 3. Will reschedule appointment with Dr. Light. 4. Discussed possibile swing bed placement or long term facility for continued antibiotics and PT/OT. 5. Stool for occult blood. 6. Type and hold 2 units. Plan and coordination of the patient's care discussed in the presence of Stem Crusher and nurse. CONDITION: Stable SCRIBED BY: BRIAN KNOX Flare Man scribed while in presence of service performed by Dr. Zuleta/Elisa Britton APRN on 09/18/18 ([id number])
[2018-09-18] MEDS: NORCO 7.5-325 PO PRN (11:24)
--- NOTE | 2018-09-18 11:56 | HP ---
DATE OF SERVICE: 09/16/18 HISTORY OF PRESENT ILLNESS: This 68-year-old white female who was admitted through the emergency room. We had done our labs the previous day, 09/15/18 in the office after she had been discharged from the detention, [facility] in [place]. Her labs were severely abnormal. She showed acute renal failure and was instructed to go to the emergency room. PAST MEDICAL HISTORY: Recent UTI, Enterobacter with positive ESBL infection, was hospitalized at [facility] Recent fall with right radial fracture Recent acute renal failure Anemia B12 deficiency Generalized weakness Scoliosis Severe degenerative joint disease History of right kidney cancer Chronic kidney disease, Stage 3 Peripheral arterial disease Depression Hypertension Generalized anxiety disorder Increased liver function PAST SURGICAL HISTORY: Right knee surgery Bilateral CEA by Dr. Grossman Right kidney transplant REVIEW OF SYSTEMS: CONSTITUTIONAL: Positive for lethargy, fatigue, generalized weakness. No night sweats. No malaise. No fever or chills. HEENT: Eyes: No visual changes. No eye pain. No eye discharge. ENT: No runny nose. No epistaxis. No sinus pain. No sore throat. No odynophagia. No ear pain. No congestion. RESPIRATORY: No cough, no congestion. No hemoptysis. No shortness of breath. CARDIOVASCULAR: No angina symptoms. No CHF symptoms. No atypical chest pain for CAD. No palpitations. No PND. No orthopnea. GASTROINTESTINAL: No abdominal pain. No nausea or vomiting. No diarrhea or constipation. No hematemesis. No hematochezia. GENITOURINARY: No urgency. No frequency. No dysuria. No hematuria. No obstructive symptoms. No discharge. No pain. No significant abnormal bleeding. MUSCULOSKELETAL: No musculoskeletal pain. No joint swelling. No arthritis. NEUROLOGICAL: Positive for confusion. No headache. No neck pain. No syncope. No seizures. No dizziness. PSYCHIATRIC: Not anxious. No depression. No suicidal thoughts. No homicidal thoughts. SKIN: No rash. No lesions. No wounds. ENDOCRINE: No unexplained weight loss. No weight gain. HEMATOLOGIC/LYMPHATIC: No anemia. No purpura. No petechiae. No prolonged or excessive bleeding. No palpable lymph nodes. PERSONAL/FAMILY/SOCIAL HISTORY: She is . She was recently taken out of the detention by her son. She lives at home by herself. At this point it seems that she is unable to care for herself. The son did bring her to the office and is helping with her medications but she is very weak. She is a nonsmoker. No alcohol or illicit drug use. MEDICATIONS: Plavix 75 mg p.o. daily Atenolol 100 mg p.o.d aily Norvasc 5 mg p.o. daily Fosamax 70 mg p.o. weekly Neurontin 200 mg p.o. b.i.d. Ferrous Sulfate 325 mg p.o. b.i.d. Prograf 2 mg p.o. b.i.d. Protonix 40 mg p.o. daily Chlordiazepoxide 10 mg p.o. b.i.d. Torsemide 20 mg p.o. daily Hydrocodone/Acetaminophen 7.5-325 mg p.o. t.i.d. p.r.n. Duloxetine 30 mg p.o. daily Cozaar 25 mg p.o. daily Mevacor 20 mg p.o. daily Sodium Bicarbonate 650 mg p.o. q.12h Prednisone 2.5 mg p.o. daily ALLERGIES: SULFUR DIOXIDE, ONDANSETRON HCI, IBUPROFEN PHYSICAL EXAMINATION: VITAL SIGNS: Temperature 97.6, heart rate 60, respirations 20, blood pressure 83/54, pulse ox 92%. HEENT: Head normocephalic, atraumatic. Eyes: Extraocular muscles are intact. Pupils are equal, round and reactive to light and accommodation. Ears: No lesions. Nose appeared normal. Throat: No exudate or erythema. NECK: Supple. No JVD, no carotid bruit. No lymphadenopathy or thyromegaly. LUNGS: Severely diminished breath sounds bilaterally. Clear to auscultation. Percussion note normal. Chest symmetrical. HEART: S1, S2, no S3. No murmurs. No cyanosis or clubbing. No ascites. Pulses: Dorsalis pedis and posterior tibial pulses +1 to +2 bilaterally. ABDOMEN: Soft. Nontender. Bowel sounds active. No CVA tenderness. No mass felt. EXTREMITIES: No edema. Full range of motion of all extremities, equal. NEUROLOGIC: The patient is lethargic, confused, oriented to person only, pale. Dry mucous membranes. No focal deficit. Cranial nerves II through XII are grossly intact. No headache, no double vision or headache. SKIN: Not dry. Intact. Turgor - normal. LYMPHATIC: No palpable lymph nodes/no lymphedema. MUSCULOSKELETAL: Normal joints with no swelling. Muscle tone is normal. CT of the abdomen and pelvis shows atrophic bilateral kidneys, right lower quadrant renal transplant kidney with small cyst. No hydronephrosis. Pneumobilia of unknown etiology, cholelithiasis, cardiomegaly. White count 10.05 , hemoglobin 9.4, hematocrit 29.9, platelets 328. Sodium 126, potassium 4.1, BUN 66.9, creatinine 2.58, glucose 117. Calcium 8.08, alkaline phosphatase 93, Total protein 6.3, albumin 3.3. UA showed 1+ bacteria. ASSESSMENT: 1. ACUTE RENAL FAILURE 2. DEHYDRATION 3. HYPOTENSION 4. ANEMIA 5. HISTORY OF RIGHT NEPHRECTOMY 6. RECENT UTI WITH ENTEROBACTER POSITIVE ESBL 7. HISTORY OF FALLS 8. RIGHT RADIAL FRACTURE PLAN: 1. We will admit. 2. Routine telemetry orders. 3. CBC, CMP daily. 4. IV fluids, NS at 100 cc/hr. 5. UA. 6. Urine for culture and sensitivity. 7. Hold all blood pressure medicine. 8. Continue other home medications. 9. Regular diet. 10. Hold Demodex. 11. Oxygen 1 to 2L as needed. 12. Will follow closely. TIME SPENT: More than 70 minutes. MTDD
[2018-09-18] MEDS ORDERED: ZOFRAN 4 MG/2 ML IVP STA (20:32)
[2018-09-19] MEDS: SODIUM CHLORIDE 1,000 ML IV SCH ×3 (03:42→18:19)
[2018-09-19] MEDS: PROTONIX PO SCH (05:57)
[2018-09-19] MEDS ORDERED: DEMADEX PO ONE (08:10)
[2018-09-19] MEDS: LIBRIUM PO SCH ×2 (08:54→20:41)
[2018-09-19] MEDS: TACROLIMUS 2 MG PO SCH ×2 (08:54→20:42)
[2018-09-19] MEDS: NORVASC PO SCH (08:54)
[2018-09-19] MEDS: SODIUM BICARBONATE PO SCH ×2 (08:54→20:41)
[2018-09-19] MEDS: PREDNISONE PO SCH (08:54)
[2018-09-19] MEDS: INVANZ 0.5 GM in SODIUM CHLORIDE 50 ML IV SCH (08:54)
[2018-09-19] MEDS: FERROUS SULFATE PO SCH ×2 (08:54→20:41)
[2018-09-19] MEDS: NEURONTIN PO SCH ×2 (08:55→20:41)
[2018-09-19] MEDS: CYMBALTA PO SCH (08:55)
[2018-09-19] MEDS: PLAVIX PO SCH (08:55)
[2018-09-19] MEDS: NORCO 7.5-325 PO PRN (08:58)
--- NOTE | 2018-09-19 09:03 | PCM.PROG ---
Attending Provider: ATTENDING PROVIDER: Dr. ISADORA BRYANT This patient is seen with Elisa Britton, Nurse Practitioner. DATE OF SERVICE: 09/19/18 SUBJECTIVE: This 68 year old WHITE/ F was hospitalized 09/16/18. The patient is lying in bed resting comfortably. She has slight edema of the legs. Kidney function improved. hemoglobin improved. REVIEW OF SYSTEMS: CONSTITUTIONAL: Generalized weakness. No night sweats. No fatigue, malaise, lethargy. No fever or chills. HEENT: Eyes: No visual changes. No eye pain. No eye discharge. ENT: No runny nose. No epistaxis. No sinus pain. No odynophagia. No congestion. RESPIRATORY: No cough, no congestion. No hemoptysis. No shortness of breath. CARDIOVASCULAR: No angina symptoms. No CHF symptoms. No atypical chest pain for CAD. No palpitations. No orthopnea.. GASTROINTESTINAL: No abdominal pain. No nausea or vomiting. No diarrhea or constipation. No hematemesis. No hematochezia. GENITOURINARY: No urgency. No frequency. No dysuria. No hematuria. No obstructive symptoms. No discharge. No pain. No significant abnormal bleeding. MUSCULOSKELETAL: No musculoskeletal pain; no joint swelling. NEUROLOGICAL: Confusion improving. No headache. No neck pain. No syncope. No seizures. No dizziness. PSYCHIATRIC: Not anxious. No depression. No suicidal thoughts. No homicidal thoughts. SKIN: No rash. No lesions. No wounds. ENDOCRINE: No unexplained weight loss. No weight gain. HEMATOLOGIC/LYMPHATIC: Anemia. No purpura. No petechiae. No prolonged or excessive bleeding. No palpable lymph nodes. PHYSICAL EXAMINATION: GENERAL: The patient is awake, alert and oriented, lying in bed in no distress. VITAL SIGNS: Temperature 98.1 F, Pulse 62, Respiratory Rate 14, BP 140/81, Pulse Ox 98% HEENT: Head normocephalic, atraumatic. Eyes: Extraocular muscles are intact. Pupils are equal, round and reactive to light and accommodation. Ears: No lesions. Nose appeared normal. Throat: No exudate or erythema. NECK: Supple. No JVD, no carotid bruit. No lymphadenopathy or thyromegaly. LUNGS: Diminished breath sounds. Clear to auscultation. Percussion note normal. Chest symmetrical. HEART: S1, S2, no S3. No murmurs. No cyanosis or clubbing. No ascites. Pulses: Dorsalis pedis and posterior tibial pulses +1 to +2 both sides. ABDOMEN: Soft. Non-tender. Bowel sounds active. No CVA tenderness. No mass felt. EXTREMITIES: Trace leg edema. Full range of motion of all extremities, equal. NEUROLOGIC: No focal deficit. Cranial nerves II through XII are grossly intact. No headache, no double vision or headache. SKIN: Not dry. Intact. Turgor-normal. LYMPHATIC: No palpable lymph nodes/no lymphedema. MUSCULOSKELETAL: Normal joints with no swelling. Muscle tone is normal. LAB REVIEW: 09/19/18 05:15 09/19/18 05:15 09/19/18 05:15: Sodium 133.0 L, Potassium 4.48, Chloride 98.2, Carbon Dioxide 27.6, Anion Gap 11.68, BUN 52.9 H, Creatinine 2.60 H, Estimated GFR (MDRD) 18.00 , BUN/Creatinine Ratio 20.34, Glucose 93.3, Calcium 8.30 L, Total Bilirubin 0.25 , AST 26.4, ALT 12.2, Alkaline Phosphatase 75.8, Total Protein 6.00 L, Albumin 3.00 L, Globulin 3.00, Albumin/Globulin Ratio 1.00 09/19/18 05:15: WBC 9.89, RBC 2.53 L, Hgb 8.1 L, Hct 26.2 L, MCV 103.6 H, MCH 32.0 H, MCHC 30.9 L, RDW Coeff of [place] 13.8, Plt Count 389, Immature Gran % (Auto ) 1.8, Neut % (Auto) 72.1, Lymph % (Auto) 14.0, [place] % (Auto) 10.6 H, Eos % ( Auto) 1.3, Baso % (Auto) 0.2, Immature Gran # (Auto) 0.2, Neut # (Auto) 7.1 H, Lymph # (Auto) 1.4, [place] # (Auto) 1.1, Eos # (Auto) 0.1, Baso # (Auto) 0.0 09/18/18 14:07: Hgb 8.5 L, Hct 27.7 L 09/18/18 11:05: Blood Type A POSITIVE, Antibody Screen Negative ASSESSMENT: 1. Acute dehydration, improving 2. Acute renal failure, improving 3. Hyponatremia, improving 4. S/P right nephrectomy. 5. Recent UTI - Enterobacter positive ESBL 6. Anemia likely due to hemodilution but will do stool for occult blood. 7. UTI - E. coli, positive ESBL PLAN: 1. Decreased fluids to 50 cc/hr. 2. Demodex 10 mg today. Plan and coordination of the patient's care discussed in the presence of Shag Truck Driver and nurse. CONDITION: Stable SCRIBED BY: BRIAN KNOX Customs Manager scribed while in presence of service performed by Dr. Bryant/Elisa Britton APRN on 09/19/18 ([id number])
--- NOTE | 2018-09-19 12:34 | PN ---
DATE OF SERVICE: 09/17/18 SUBJECTIVE: The patient was seen and examined with the nurse practitioner. The patient's hydration status has improved. Her appetite has improved. No evidence of fluid overload. PHYSICAL EXAMINATION: HEENT: Head normocephalic, atraumatic. Eyes: Extraocular muscles are intact. Pupils are equal, round and reactive to light and accommodation. Ears: No lesions. Nose appeared normal. Throat: No exudate or erythema. NECK: Supple. No JVD, no carotid bruit. No lymphadenopathy or thyromegaly. LUNGS: Clear to auscultation. Percussion note normal. Chest symmetrical. HEART: S1, S2, no S3. No murmurs. No cyanosis or clubbing. No ascites. Pulses: Dorsalis pedis and posterior tibial pulses +1 to +2 bilaterally. ABDOMEN: Soft. Nontender. Bowel sounds active. No CVA tenderness. No mass felt. EXTREMITIES: No edema. Full range of motion of all extremities, equal. NEUROLOGIC: No focal deficit. Cranial nerves II through XII are grossly intact. No headache, no double vision or headache. SKIN: Not dry. Intact. Turgor - normal. LYMPHATIC: No palpable lymph nodes/no lymphedema. MUSCULOSKELETAL: Normal joints with no swelling. Muscle tone is normal. LABS: Creatinine and BUN has stabilized. EKG shows sinus rhythm, RVH with strain. PLAN: 1. Continue IV fluids. 2. May have to do an echocardiogram. TIME SPENT: More than 30 minutes. Plan and coordination of the patient's care discussed in the presence of nurse. KAREN
--- NOTE | 2018-09-19 14:21 | PN ---
DATE OF SERVICE: 09/18/18 SUBJECTIVE: The patient was seen and examined with the nurse practitioner. The patient's condition has improved. She has hemoglobin of 7.8, will monitor that. Very likely this is from Hemodilution has caused this with chronic kidney disease. Creatinine 2.2, BUN 60 which showed improvement and some fluid overload. We will type and screen two units and hold. ADDITIONAL DICTATION: The patient was seen and examined with the nurse practitioner. The hemoglobin is 7.8, hematocrit 25 - will monitor that. Very likely this is from hemodilution. The patient's kidney functions are being monitored. She is on IV fluids. No evidence of fluid overload clinically. Will type and cross 2 units. TIME SPENT: More than 30 minutes. Plan and coordination of the patient's care discussed in the presence of nurse. KAREN
[2018-09-20] MEDS: PROTONIX PO SCH (05:46)
[2018-09-20] MEDS ORDERED: CITRATE OF MAGNESIA PO ONE (08:13)
[2018-09-20] MEDS: PLAVIX PO SCH (08:40)
[2018-09-20] MEDS: NORVASC PO SCH (08:40)
[2018-09-20] MEDS: PREDNISONE PO SCH (08:40)
[2018-09-20] MEDS: INVANZ 0.5 GM in SODIUM CHLORIDE 50 ML IV SCH (08:40)
[2018-09-20] MEDS: FERROUS SULFATE PO SCH ×2 (08:40→20:39)
[2018-09-20] MEDS: NEURONTIN PO SCH ×2 (08:41→20:38)
[2018-09-20] MEDS: SODIUM BICARBONATE PO SCH ×2 (08:41→20:38)
[2018-09-20] MEDS: CYMBALTA PO SCH (08:41)
[2018-09-20] MEDS: LIBRIUM PO SCH ×2 (08:41→20:39)
[2018-09-20] MEDS: TACROLIMUS 2 MG PO SCH ×2 (08:46→20:39)
[2018-09-20] MEDS ORDERED: PHENERGAN 25 MG/ML VIAL 25 MG in SODIUM CHLORIDE 50 ML IV PRN (10:51)
[2018-09-20] MEDS: SODIUM CHLORIDE 1,000 ML IV SCH ×2 (18:57→18:58)
[2018-09-21] MEDS: PROTONIX PO SCH (05:49)
[2018-09-21] MEDS: NEURONTIN PO SCH ×2 (08:41→20:43)
[2018-09-21] MEDS: LIBRIUM PO SCH ×2 (08:41→20:43)
[2018-09-21] MEDS: FERROUS SULFATE PO SCH ×2 (08:42→20:43)
[2018-09-21] MEDS: CYMBALTA PO SCH (08:42)
[2018-09-21] MEDS: PREDNISONE PO SCH (08:42)
[2018-09-21] MEDS: SODIUM BICARBONATE PO SCH ×2 (08:42→20:43)
[2018-09-21] MEDS: NORVASC PO SCH (08:43)
[2018-09-21] MEDS: PLAVIX PO SCH (08:43)
[2018-09-21] MEDS: TACROLIMUS 2 MG PO SCH ×2 (08:46→20:43)
[2018-09-21] MEDS: INVANZ 0.5 GM in SODIUM CHLORIDE 50 ML IV SCH (09:02)
[2018-09-21] MEDS: NORCO 7.5-325 PO PRN (11:54)
[2018-09-21] MEDS: SODIUM CHLORIDE 1,000 ML IV SCH (19:05)
[2018-09-22] MEDS: PROTONIX PO SCH (05:50)
[2018-09-22] MEDS ORDERED: KAYEXALATE SUSP PO STA (08:12)
--- NOTE | 2018-09-22 08:30 | ECHO2D ---
Date of Exam: 09/18/18 Ordering Physician: DR. ISADORA BRYANT Room #: 119 Reason for Echo: CARDIOMEGALY M-Mode Normal Adult Results LV Dimensions Normal Adult Results AoV Opening excursions >1.6 >1.6 LVEDD-base- 3.5-5.8 4.6 Ao root dimensions 2.0-3.7 3.5 LVESD-base- 3.1-4.6 L. Atrium dimensions 1.9-3.8 4.8 Post. Wall thickness 0.8-1.1 1.2 IV septum (thickness) 0.7-1.2 1.4 Post. Wall excursion 0.72-1.3 NORMAL Septal motion NORMAL Systolic motion R. Ventricular cavity 1.5-2.0 NORMAL LVEF 60% 77% Paradoxical septal wall motion NORMAL 2-D : 2-D M Mode Echocardiogram was performed using apical four chamber and left parasternal long and short axis views. Mitral, tricuspid and aortic valves appear to be normal. Contractility of the left ventricle seems to be normal, so is the cavity size. Enlarged Left atrial cavity. Aortic root appears to be normal. There is no pericardial effusion. There is no thrombus noted in the left ventricular or left aortic cavity. No mitral valve prolapse noted. M-MODE: MV: NORMAL AV: NORMAL TV: NORMAL PV: CHAMBER SIZE: ENLARGED LEFT ATRIAL CAVITY WALL MOTION: NORMAL PERICARDIUM: NORMAL INTERPRETATION: 1. LEFT VENTRICULAR HYPERTROPHY WITH ENLARGED LEFT ATRIAL CAVITY 2. NORMAL VALVES 3. NORMAL LEFT VENTRICULAR CONTRACTILITY MTDD
[2018-09-22] MEDS: SODIUM BICARBONATE PO SCH ×2 (08:47→21:12)
[2018-09-22] MEDS: CYMBALTA PO SCH (08:47)
[2018-09-22] MEDS: INVANZ 0.5 GM in SODIUM CHLORIDE 50 ML IV SCH (08:47)
[2018-09-22] MEDS: NORVASC PO SCH (08:47)
[2018-09-22] MEDS: LIBRIUM PO SCH ×2 (08:47→21:12)
--- NOTE | 2018-09-22 08:47 | PCM.PROG ---
Attending Provider: ATTENDING PROVIDER: Dr. ISADORA BRYANT This patient is seen with Elisa Britton, Nurse Practitioner. DATE OF SERVICE: 09/22/18 SUBJECTIVE: This 68 year old WHITE/ F was hospitalized 09/16/18. The patient is resting comfortably. Kidney function has steadily improved. She has been eating better. Hgb is stable after 1 unit of PRBC received yesterday. She is more alert today. REVIEW OF SYSTEMS: CONSTITUTIONAL: No night sweats. No fatigue, malaise, lethargy. No fever or chills. Weakness. HEENT: Eyes: No visual changes. No eye pain. No eye discharge. ENT: No runny nose. No epistaxis. No sinus pain. No odynophagia. No congestion. RESPIRATORY: No cough, no congestion. No hemoptysis. No shortness of breath. CARDIOVASCULAR: No angina symptoms. No CHF symptoms. No atypical chest pain for CAD. No palpitations. No orthopnea.. GASTROINTESTINAL: No abdominal pain. No nausea or vomiting. No diarrhea or constipation. No hematemesis. No hematochezia. GENITOURINARY: No urgency. No frequency. No dysuria. No hematuria. No obstructive symptoms. No discharge. No pain. No significant abnormal bleeding. MUSCULOSKELETAL: No musculoskeletal pain; no joint swelling. NEUROLOGICAL: Awake, alert, oriented to time, place and person. No headache. No neck pain. No syncope. No seizures. No dizziness. PSYCHIATRIC: Not anxious. No depression. No suicidal thoughts. No homicidal thoughts. SKIN: No rash. No lesions. No wounds. ENDOCRINE: No unexplained weight loss. No weight gain. HEMATOLOGIC/LYMPHATIC: No anemia. No purpura. No petechiae. No prolonged or excessive bleeding. No palpable lymph nodes. PHYSICAL EXAMINATION: GENERAL: The patient is awake, alert and oriented, sitting in the chair in no distress. VITAL SIGNS: Temperature 97.8 F, Pulse 73, Respiratory Rate 16, BP 132/76, Pulse Ox 92% HEENT: Head normocephalic, atraumatic. Eyes: Extraocular muscles are intact. Pupils are equal, round and reactive to light and accommodation. Ears: No lesions. Nose appeared normal. Throat: No exudate or erythema. NECK: Supple. No JVD, no carotid bruit. No lymphadenopathy or thyromegaly. LUNGS: Diminished breath sounds. Clear to auscultation. Percussion note normal. Chest symmetrical. HEART: S1, S2, no S3. No murmurs. No cyanosis or clubbing. No ascites. Pulses: Dorsalis pedis and posterior tibial pulses +1 to +2 both sides. ABDOMEN: Soft. Non-tender. Bowel sounds active. No CVA tenderness. No mass felt. EXTREMITIES: Trace bilateral lower extremity edema. Full range of motion of all extremities, equal. NEUROLOGIC: No focal deficit. Cranial nerves II through XII are grossly intact. No headache, no double vision or headache. SKIN: Not dry. Intact. Turgor-normal. LYMPHATIC: No palpable lymph nodes/no lymphedema. MUSCULOSKELETAL: Normal joints with no swelling. Muscle tone is normal. LAB REVIEW: 09/22/18 04:47 09/22/18 04:47 09/22/18 04:47: Sodium 135.0, Potassium 5.35 H, Chloride 101.4, Carbon Dioxide 28.1, Anion Gap 10.85, BUN 41.4 H, Creatinine 2.06 H, Estimated GFR (MDRD) 24.00 , BUN/Creatinine Ratio 20.09, Glucose 95.9, Calcium 8.69, Total Bilirubin 0.27, AST 13.1 L D, ALT 10.8, Alkaline Phosphatase 69.2, Total Protein 5.71 L, Albumin 2.79 L, Globulin 2.92, Albumin/Globulin Ratio 0.95 09/22/18 04:47: WBC 7.14, RBC 2.90 L, Hgb 9.0 L, Hct 29.2 L, MCV 100.7 H, MCH 31.0, MCHC 30.8 L, RDW Coeff of Rivka 16.3 H, Plt Count 397, Immature Gran % (Auto ) 0.8, Neut % (Auto) 66.7, Lymph % (Auto) 20.4, Darke % (Auto) 10.2 H, Eos % ( Auto) 1.5, Baso % (Auto) 0.4, Immature Gran # (Auto) 0.1, Neut # (Auto) 4.8, Lymph # (Auto) 1.5, Darke # (Auto) 0.7, Eos # (Auto) 0.1, Baso # (Auto) 0.0 09/21/18 20:02: Hgb 9.9 L, Hct 32.3 L D 09/21/18 11:45: Blood Type A POSITIVE, Antibody Screen Negative, Crossmatch (AHG ) See Detail 09/21/18 09:10: Stl Occult Blood (IFOB) Negative, Stool Occult Blood #2 No specimen received, Stool Occult Blood #3 No specimen received ASSESSMENT: Please see below. 1. Acute renal failure improved 2. UTI positive for ESBL and E-coli 3. Anemia 4. Hyperkalemia PLAN: 1. Resume Demadex daily 2. 25 grams Kayexalate 3. Discussed the need for continued IV antibiotic therapy for ESBL infection. Plan and coordination of the patient's care discussed in the presence of Keyboarding Clerk and nurse. SCRIBED BY: Gemma BERNABE scribed while in presence of service performed by Dr. Bryant/Elisa Britton APRN on 09/22/18 ([id number])
[2018-09-22] MEDS: NEURONTIN PO SCH ×2 (08:48→21:12)
[2018-09-22] MEDS: FERROUS SULFATE PO SCH ×2 (08:48→21:12)
[2018-09-22] MEDS: DEMADEX PO SCH (08:48)
[2018-09-22] MEDS: PREDNISONE PO SCH (08:48)
[2018-09-22] MEDS: PLAVIX PO SCH (08:49)
[2018-09-22] MEDS: TACROLIMUS 2 MG PO SCH ×2 (08:52→21:12)
[2018-09-22] MEDS ORDERED: K-DUR ONE (09:54)
[2018-09-22] MEDS: SODIUM CHLORIDE 1,000 ML IV SCH (17:27)
[2018-09-23] MEDS: SODIUM CHLORIDE 1,000 ML IV SCH (02:15)
[2018-09-23] MEDS: PROTONIX PO SCH (05:48)
[2018-09-23] MEDS: DEMADEX PO SCH (05:48)
[2018-09-23] MEDS ORDERED: DECADRON 4 MG/ML SDV IM STA (08:18)
[2018-09-23] MEDS ORDERED: LASIX IVP STA (08:18)
--- NOTE | 2018-09-23 08:38 | PN ---
DATE OF SERVICE: 09/19/18 SUBJECTIVE: The patient was seen and examined with the nurse practitioner. The patient's condition was stable. She is improving. Hemoglobin was 8.1, yesterday was 7.8. Kidney functions with BUN improvement, serum creatinine fluctuates, stabilized. Cardiovascular status stable. No evidence of fluid overload. Echo was done this morning which showed LVH, no pericardial effusion, normal LV contractility, normal valves. TIME SPENT: More than 30 minutes. Plan and coordination of the patient's care discussed in the presence of nurse. KAREN
[2018-09-23] MEDS: NEURONTIN PO SCH ×2 (08:54→20:45)
[2018-09-23] MEDS: INVANZ 0.5 GM in SODIUM CHLORIDE 50 ML IV SCH (08:54)
[2018-09-23] MEDS: SODIUM BICARBONATE PO SCH ×2 (08:55→20:45)
[2018-09-23] MEDS: CYMBALTA PO SCH (08:55)
[2018-09-23] MEDS: NORVASC PO SCH (08:55)
[2018-09-23] MEDS: PREDNISONE PO SCH (08:55)
[2018-09-23] MEDS: FERROUS SULFATE PO SCH ×2 (08:55→20:45)
[2018-09-23] MEDS: LIBRIUM PO SCH ×2 (08:56→20:45)
[2018-09-23] MEDS: TACROLIMUS 2 MG PO SCH ×2 (08:56→20:45)
[2018-09-23] MEDS: PLAVIX PO SCH (08:56)
--- NOTE | 2018-09-23 08:57 | PN ---
DATE OF SERVICE: 09/21/18 SUBJECTIVE: 68-year-old white female was hospitalized with renal azotemia and dehydration. The patient's slade functions are better with creatinine 2.2, BUN 43. Hemoglobin has dropped to 7.8. She is lethargic, at times sleepy, has practically no energy and short of breath, feel likely it is coming from her anemia. Dehydration has resolved. She is on IV fluids. We gave one unit of packed red cells and try to keep her hemoglobin/hematocrit over 9 and 27 respectively. REVIEW OF SYSTEMS: CONSTITUTIONAL: Fatigue and tired feeling. No night sweats. No malaise, lethargy. No fever or chills. HEENT: Eyes: No visual changes. No eye pain. No eye discharge. ENT: No runny nose. No epistaxis. No sinus pain. No sore throat. No odynophagia. No congestion. RESPIRATORY: No cough, no congestion. No hemoptysis. Shortness of breath on exertion. CARDIOVASCULAR: No angina symptoms. No CHF symptoms. No atypical chest pain for CAD. No palpitations. No PND. No orthopnea. GASTROINTESTINAL: No abdominal pain. No nausea or vomiting. No diarrhea or constipation. No hematemesis. No hematochezia. GENITOURINARY: No urgency. No frequency. No dysuria. No hematuria. No obstructive symptoms. No discharge. No pain. No significant abnormal bleeding. MUSCULOSKELETAL: No musculoskeletal pain; no joint swelling. NEUROLOGICAL: No headache. No neck pain. No syncope. No seizures. No dizziness. PSYCHIATRIC: Not anxious. No depression. No suicidal thoughts. No homicidal thoughts. SKIN: No rash. No lesions. No wounds. ENDOCRINE: No unexplained weight loss. No weight gain. HEMATOLOGIC/LYMPHATIC: No anemia. No purpura. No petechiae. No prolonged or excessive bleeding. No palpable lymph nodes. PHYSICAL EXAMINATION: VITAL SIGNS: Temperature 97.8, pulse 75, respiratory rate 16, blood pressure 123 /74, pulse ox 95%. She looks somewhat pale. HEENT: Head normocephalic, atraumatic. Eyes: Extraocular muscles are intact. Pupils are equal, round and reactive to light and accommodation. Ears: No lesions. Nose appeared normal. Throat: No exudate or erythema. NECK: Supple. No JVD, no carotid bruit. No lymphadenopathy or thyromegaly. LUNGS: Decreased breath sounds but clear. Clear to auscultation. Percussion note normal. Chest symmetrical. HEART: S1, S2, no S3. No murmurs. No cyanosis or clubbing. No ascites. Pulses: Dorsalis pedis and posterior tibial pulses +1 to +2 bilaterally. ABDOMEN: Soft. Nontender. Bowel sounds active. No CVA tenderness. No mass felt. EXTREMITIES: No edema. Full range of motion of all extremities, equal. NEUROLOGIC: No focal deficit. Cranial nerves II through XII are grossly intact. No headache, no double vision or headache. SKIN: Not dry. Intact. Turgor - normal. LYMPHATIC: No palpable lymph nodes/no lymphedema. MUSCULOSKELETAL: Normal joints with no swelling. Muscle tone is normal. The patient's nausea which was present yesterday has subsided. Her appetite has come back. She is feeling better. Plan is to give the patient one unit of packed red cells. The patient had a good BM. Will also start physical therapy for ambulation. Again, the patient was advised to go to the [facility]. She declined. She wants to go home. Son says that whatever his mother wants, he will support it. CONDITION: STABLE TIME SPENT: More than 30 minutes. Plan and coordination of the patient's care discussed in the presence of nurse. KAREN
--- NOTE | 2018-09-23 09:00 | PCM.PROG ---
Attending Provider: ATTENDING PROVIDER: Dr. ISADORA BRYANT DATE OF SERVICE: 09/23/18 SUBJECTIVE: This 68 year old WHITE/ F was hospitalized 09/16/18 with dehydration and acute renal azotemia. The patient creatinine is 1.7 and BUN is 36, remarkably improvement since admission. Hgb 8.6 and Hct 27. She does have some generalized swelling which could be from fluids. IV Lasix 20mg this morning. The patient is already on Demadex. REVIEW OF SYSTEMS: CONSTITUTIONAL: No night sweats. No fatigue, malaise, lethargy. No fever or chills. HEENT: Eyes: No visual changes. No eye pain. No eye discharge. ENT: Runny nose. No epistaxis. No sinus pain. No odynophagia. No congestion. RESPIRATORY: No cough, no congestion. No hemoptysis. No shortness of breath. CARDIOVASCULAR: No angina symptoms. No CHF symptoms. No atypical chest pain for CAD. No palpitations. No orthopnea.. GASTROINTESTINAL: No abdominal pain. No nausea or vomiting. No diarrhea or constipation. No hematemesis. No hematochezia. GENITOURINARY: No urgency. No frequency. No dysuria. No hematuria. No obstructive symptoms. No discharge. No pain. No significant abnormal bleeding. MUSCULOSKELETAL: No musculoskeletal pain; no joint swelling. NEUROLOGICAL: Awake, alert, oriented to time, place and person. No headache. No neck pain. No syncope. No seizures. No dizziness. PSYCHIATRIC: Not anxious. No depression. No suicidal thoughts. No homicidal thoughts. SKIN: No rash. No lesions. No wounds. ENDOCRINE: No unexplained weight loss. No weight gain. HEMATOLOGIC/LYMPHATIC: No anemia. No purpura. No petechiae. No prolonged or excessive bleeding. No palpable lymph nodes. PHYSICAL EXAMINATION: GENERAL: The patient is awake, alert and oriented to time, place and person, sitting in bed in no distress. VITAL SIGNS: Temperature 98.2 F, Pulse 85, Respiratory Rate 16, BP 147/85, Pulse Ox 94% HEENT: Head normocephalic, atraumatic. Eyes: Extraocular muscles are intact. Pupils are equal, round and reactive to light and accommodation. Ears: No lesions. Nose appeared normal. Throat: No exudate or erythema. NECK: Supple. No JVD, no carotid bruit. No lymphadenopathy or thyromegaly. LUNGS: Clear to auscultation. Percussion note normal. Chest symmetrical. HEART: S1, S2, no S3. I/ systolic murmur. No cyanosis or clubbing. No ascites. Pulses: Dorsalis pedis and posterior tibial pulses +1 to +2 both sides. ABDOMEN: Soft. Non-tender. Bowel sounds active. No CVA tenderness. No mass felt. EXTREMITIES: +1 pitting edema. Full range of motion of all extremities, equal. NEUROLOGIC: No focal deficit. Cranial nerves II through XII are grossly intact. No headache, no double vision or headache. SKIN: Warm and dry. Intact. Turgor-normal. LYMPHATIC: No palpable lymph nodes/no lymphedema. MUSCULOSKELETAL: Normal joints with no swelling. Muscle tone is normal. LAB REVIEW: 09/23/18 04:15 09/23/18 04:15 09/23/18 04:15: Sodium 136.4, Potassium 4.77, Chloride 101.3, Carbon Dioxide 29.0, Anion Gap 10.87, BUN 36.4 H, Creatinine 1.78 H, Estimated GFR (MDRD) 28.00 , BUN/Creatinine Ratio 20.44, Glucose 97.4, Calcium 8.02 L, Total Bilirubin 0.26 , AST 19.1, ALT 11.1, Alkaline Phosphatase 63.4, Total Protein 5.84 L, Albumin 2.90 L, Globulin 2.94, Albumin/Globulin Ratio 0.98 09/23/18 04:15: WBC 7.16, RBC 2.73 L, Hgb 8.6 L, Hct 27.5 L, MCV 100.7 H, MCH 31.5 H, MCHC 31.3 L, RDW Coeff of Rivka 15.9 H, Plt Count 339, Immature Gran % ( Auto) 0.7, Neut % (Auto) 69.9, Lymph % (Auto) 18.6, Lipscomb % (Auto) 10.1 H, Eos % (Auto) 0.4, Baso % (Auto) 0.3, Immature Gran # (Auto) 0.1, Neut # (Auto) 5.0, Lymph # (Auto) 1.3, Lipscomb # (Auto) 0.7, Eos # (Auto) 0.0, Baso # (Auto) 0.0 ASSESSMENT: Please see below. 1. Renal azotemia, resolved 2. Chronic kidney disease 3. Kidney transplant 4. Hypertension 5. Fluid retention. 6. Chronic anemia. PLAN: 1. Give IV Lasix 3. Discontinue IV fluids Plan and coordination of the patient's care discussed in the presence of Burner Tender and nurse. CONDITION: Stable. SCRIBED BY: Gemma BERNABE scribed while in presence of service performed by Dr. ISADORA BRYANT on 09/23/18 ([id number])
[2018-09-24 05:24] VITALS: BP 142/81; TEMP 97.8
[2018-09-24] MEDS: DEMADEX PO SCH (06:11)
[2018-09-24] MEDS: PROTONIX PO SCH (06:11)
[2018-09-24] MEDS ORDERED: LASIX IVP STA (08:26)
--- NOTE | 2018-09-24 08:45 | PCM.PROG ---
Attending Provider: ATTENDING PROVIDER: Dr. ISADORA BRYANT This patient is seen with Elisa Britton, Nurse Practitioner. DATE OF SERVICE: 09/24/18 SUBJECTIVE: This 68 year old WHITE/ F was hospitalized 09/16/18. The patient is resting comfortably. Kidney function has improved. The patient is requiring IV antibiotics for at least addition 7 days for ESBL infection. She has been eating well. At this point we feel it would be best for senior care placement with continued IV antibiotics. She herself nor family members are capable of doing this at home. REVIEW OF SYSTEMS: CONSTITUTIONAL: No night sweats. No fatigue, malaise, lethargy. No fever or chills. Weakness. HEENT: Eyes: No visual changes. No eye pain. No eye discharge. ENT: No runny nose. No epistaxis. No sinus pain. No odynophagia. No congestion. RESPIRATORY: No cough, no congestion. No hemoptysis. No shortness of breath. CARDIOVASCULAR: No angina symptoms. No CHF symptoms. No atypical chest pain for CAD. No palpitations. No orthopnea.. GASTROINTESTINAL: No abdominal pain. No nausea or vomiting. No diarrhea or constipation. No hematemesis. No hematochezia. GENITOURINARY: No urgency. No frequency. No dysuria. No hematuria. No obstructive symptoms. No discharge. No pain. No significant abnormal bleeding. MUSCULOSKELETAL: No musculoskeletal pain; no joint swelling. NEUROLOGICAL: Awake, alert, oriented to time, place and person. No headache. No neck pain. No syncope. No seizures. No dizziness. PSYCHIATRIC: Not anxious. No depression. No suicidal thoughts. No homicidal thoughts. SKIN: No rash. No lesions. No wounds. ENDOCRINE: No unexplained weight loss. No weight gain. HEMATOLOGIC/LYMPHATIC: No anemia. No purpura. No petechiae. No prolonged or excessive bleeding. No palpable lymph nodes. PHYSICAL EXAMINATION: GENERAL: The patient is awake, alert and oriented, lying in bed in no distress. VITAL SIGNS: Temperature 97.8 F, Pulse 83, Respiratory Rate 16, BP 142/81, Pulse Ox 92% HEENT: Head normocephalic, atraumatic. Eyes: Extraocular muscles are intact. Pupils are equal, round and reactive to light and accommodation. Ears: No lesions. Nose appeared normal. Throat: No exudate or erythema. NECK: Supple. No JVD, no carotid bruit. No lymphadenopathy or thyromegaly. LUNGS: Decreased breath sounds. Clear to auscultation. Percussion note normal. Chest symmetrical. HEART: S1, S2, no S3. No murmurs. No cyanosis or clubbing. No ascites. Pulses: Dorsalis pedis and posterior tibial pulses +1 to +2 both sides. ABDOMEN: Soft. Non-tender. Bowel sounds active. No CVA tenderness. No mass felt. EXTREMITIES: Trace leg edema. Full range of motion of all extremities, equal. NEUROLOGIC: No focal deficit. Cranial nerves II through XII are grossly intact. No headache, no double vision or headache. SKIN: Not dry. Intact. Turgor-normal. LYMPHATIC: No palpable lymph nodes/no lymphedema. MUSCULOSKELETAL: Normal joints with no swelling. Muscle tone is normal. LAB REVIEW: 09/24/18 04:20 09/24/18 04:20 09/24/18 04:20: Sodium 135.7, Potassium 4.17, Chloride 97.6 L, Carbon Dioxide 31.5 H, Anion Gap 10.77, BUN 34.2 H, Creatinine 1.78 H, Estimated GFR (MDRD) 28.00, BUN/Creatinine Ratio 19.21, Glucose 88.6, Calcium 8.55, Total Bilirubin 0.34, AST 22.6, ALT 10.7, Alkaline Phosphatase 63.6, Total Protein 6.27 L, Albumin 3.10 L, Globulin 3.17, Albumin/Globulin Ratio 0.97 09/24/18 04:20: WBC 7.78, RBC 2.99 L, Hgb 9.4 L, Hct 29.9 L, MCV 100.0 H, MCH 31.4 H, MCHC 31.4 L, RDW Coeff of Rivka 15.1 H, Plt Count 340, Neutrophils % ( Manual) 71.0, Lymphocytes % (Manual) 22.0, Monocytes % (Manual) 7.0, Anisocytosis Not present ASSESSMENT: Please see below. 1. Acute renal failure improved 2. UTI positive for ESBL and E-coli 3. Anemia 4. Hyperkalemia PLAN: 1. If the patient is agreeable we will discharge to [facility] [place] today. 2. Will continue Invanz for next 7 days to complete 14 day course 3. CBC and CMP on Saturday 4. Increase Cymbalta 60mg PO daily 5. Extra dose Lasix 20mg IV today. Plan and coordination of the patient's care discussed in the presence of Technical Training Specialist and nurse. SCRIBED BY: Gemma BERNABE scribed while in presence of service performed by Dr. Bryant/Elisa Britton APRN on 09/24/18 ([id number])
[2018-09-24] MEDS ORDERED: CYMBALTA PO SCH (09:00)
[2018-09-24] MEDS: NEURONTIN PO SCH (09:20)
[2018-09-24] MEDS: LIBRIUM PO SCH (09:20)
[2018-09-24] MEDS: PLAVIX PO SCH (09:20)
[2018-09-24] MEDS: SODIUM BICARBONATE PO SCH (09:20)
[2018-09-24] MEDS: NORVASC PO SCH (09:21)
[2018-09-24] MEDS: FERROUS SULFATE PO SCH (09:21)
[2018-09-24] MEDS: PREDNISONE PO SCH (09:21)
[2018-09-24] MEDS: INVANZ 0.5 GM in SODIUM CHLORIDE 50 ML IV SCH (09:22)
[2018-09-24] MEDS: TACROLIMUS 2 MG PO SCH (09:22)
[2018-09-24] MEDS ORDERED: TENORMIN PO SCH (10:30)
--- NOTE | 2018-09-24 12:35 | CM.DICTOOL ---
ADMISSION: 09/16/18 15:30 DISCHARGE: AUGUST 25, 2018 DATE OF SERVICE: 09/24/18 FINAL DIAGNOSIS UTI E. COLI - ESBL + ACUTE RENAL FAILURE, IMPROVED ANEMIA, IMPROVED ACUTE DEHYDRATION, RESOLVED HYPERKALEMIA, RESOLVED HYPONATREMIA, RESOLVED HTN HYPERCHOLESTEROLEMIA PNEUMONIA GERD OA DEPRESSION RIGHT ARM FRACTURE MRSA NARES S/P RIGHT KIDNEY TRANSPLANT 2004 TONSILECTOMY CHOLECYSTECTOMY VOCAL CORD BIOPSY UMBILICAL HERNIA REPAIR LEFT ARM/WRIST FX- SURGERY ? FORMER SMOKER QUIT 25 YRS AGO MAMMOGRAM 2017 LAST VITALS Temp Pulse Resp BP Pulse Ox 97.8 F 83 16 142/81 H 92 L 09/24/18 05:23 09/24/18 05:23 09/24/18 05:23 09/24/18 05:23 09/24/18 05:23 TAKE THESE MEDICATIONS AT HOME Hydrocodone Bitart/Acetaminophen ([place] 7.5-325) 1 tab PO TID PRN PRN Reason: Analgesia Last Admin: 09/21/18 11:54 Dose: 1 tab Amlodipine Besylate (Norvasc) 5 mg PO AT BEDTIME [facility] Last Admin: 09/24/18 09:21 Dose: 5 mg NEXT DOSE 09/25/18 Atenolol 50 mg PO DAILY [facility] Last Admin: 09/24/18 Chlordiazepoxide HCl (Librium) 10 mg PO BID [facility] Last Admin: 09/24/18 09:20 Dose: 10 mg Clopidogrel Bisulfate (Plavix) 75 mg PO DAILY [facility] Last Admin: 09/24/18 09:20 Dose: 75 mg Duloxetine HCl (Cymbalta) 60 mg PO DAILY [facility] Last Admin: 09/24/18 09:20 Dose: 60 mg Ferrous Sulfate (Ferrous Sulfate) 324 mg PO BID [facility] Last Admin: 09/24/18 09:21 Dose: 324 mg Gabapentin (Neurontin) 200 mg PO BID [facility] Last Admin: 09/24/18 09:20 Dose: 200 mg Ertapenem 0.5 gm/ Sodium (Chloride) 50 mls @ 75 mls/hr IV DAILY [facility] Stop: 09/27/18 12:00 Last Admin: 09/24/18 09:22 Dose: 75 mls/hr LAST DOSE TO BE ADMINISTERED OCTOBER 01, 2018 Non-Formulary Medication (Tacrolimus [Prograf]) 2 mg PO BID [facility] Last Admin: 09/24/18 09:22 Dose: 2 mg Pantoprazole Sodium (Protonix) 40 mg PO QDAC [facility] Last Admin: 09/24/18 06:11 Dose: 40 mg Prednisone (Prednisone) 2.5 mg PO DAILYWM [facility] Last Admin: 09/24/18 09:21 Dose: 2.5 mg Sodium Bicarbonate (Sodium Bicarbonate) 650 mg PO Q12HR [facility] Last Admin: 09/24/18 09:20 Dose: 650 mg Sodium Chloride (Saline Flush) 1 syr IVF PRN PRN PRN Reason: Maintain patency of IV Sodium Chloride (Saline Flush) 1 syr IVF Q8HR [facility] Last Admin: 09/24/18 06:11 Dose: 1 syr Torsemide (Demadex) 10 mg PO QDAC [facility] Last Admin: 09/24/18 06:11 Dose: 10 mg ALLERGIES sulfur dioxide Allergy (Unknown, Verified 09/16/18 13:42) ondansetron HCl [From Zofran] Adverse Reaction (Unknown, Verified 09/16/18 13:42 ) ibuprofen Adverse Reaction (Verified 09/16/18 13:42) DISCONTINUED MEDICATIONS COZAAR 50 MG PO DAILY NEW PRESCRIPTIONS: ERTAPENEM (INVANZ) 0.5 GM IV DAILY NEXT DOSE DUE TOMORROW September WITH THE LAST DOSE TO BE GIVEN ON OCTOBER 01, 2018 NORVASC 5 MG PO TO BE GIVEN AT BEDTIME ATENOLOL 50 MG PO DAILY IN THE MORNING CYMBALTA INCREASED TO 60 MG PO DAILY SMOKING: FORMER SMOKER DISEASE SPECIFIC EDUCATION: UTI : ESBL + IV ANTIBIOTIC INVANZ ACUTE RENAL FAILURE HYPERTENSION HYDRATION ANEMIA HYPERKALEMIA HYPONATREMIA FOLLOW UP APPOINTMENTS LAB REVIEW: 09/24/18 04:20 09/24/18 04:20 09/24/18 04:20: Sodium 135.7, Potassium 4.17, Chloride 97.6 L, Carbon Dioxide 31.5 H, Anion Gap 10.77, BUN 34.2 H, Creatinine 1.78 H, Estimated GFR (MDRD) 28.00, BUN/Creatinine Ratio 19.21, Glucose 88.6, Calcium 8.55, Total Bilirubin 0.34, AST 22.6, ALT 10.7, Alkaline Phosphatase 63.6, Total Protein 6.27 L, Albumin 3.10 L, Globulin 3.17, Albumin/Globulin Ratio 0.97 09/24/18 04:20: WBC 7.78, RBC 2.99 L, Hgb 9.4 L, Hct 29.9 L, MCV 100.0 H, MCH 31.4 H, MCHC 31.4 L, RDW Coeff of Rivka 15.1 H, Plt Count 340, Neutrophils % ( Manual) 71.0, Lymphocytes % (Manual) 22.0, Monocytes % (Manual) 7.0, Anisocytosis Not present PLAN: DISCHARGE TODAY September TO [facility] DIET: REGULAR WITH REGULAR CONSISTENCY AND THIN LIQUIDS PROTEIN SUPPLEMENTATION ACTIVITY: UP TO DINING ROOM FOR MEALS WILL NEED ASSISTANCE WITH MEAL TRAY PREPARATION VITAL SIGNS DAILY FOR ONE WEEK, THEN WEEKLY CBC AND CMP ON SaturdaySeptember - CALL CRUZ WITH RESULTS COLLECT URINE SPECIMEN FOR URINALYSIS AFTER THE LAST DOSE OF IV ANTIBIOTIC IS ADMINISTERED (September) PT/OT EVALUATION AND TREAT INCONTINENT CARE NEEDED MAY PARTICIPATE IN ALF ACTIVITY PROGRAM PATIENT TO BE SEEN ON ALF ROUNDS BY CRUZ BRITTON APRN CODE STATUS: FULL CODE ALERT, ORIENTED TIMES THREE. MRS. RAMIREZ IS AWARE OF DISCHARGE TO [facility] FOR CONTINUATION OF IV ANTIBIOTICS FOR AND ADDITIONAL SEVEN DAYS (TOTAL 14 DAYS) AND IS AGREEABLE WITH PLAN. BOTH OF HER SON'S ARE ALSO AGREEABLE WITH PLACEMENT FOR CONTINUATION OF IV ANTIBIOTICS WITH THE PLAN OF MRS. RAMIREZ RETURNING HOME ONCE THE ANTIBIOTIC IS COMPLETE. MRS. WOLFE SPEECH IS CLEAR, FLAT AFFECT NOTED. SHE IS ABLE TO FEED HERSELF BUT DOES REQUIRE ASSISTANCE WITH MEAL TRAY PREPARATION. SHE TRANSFERS WITH MINIMUM TO MAXIMUM ASSIST OF 1-2 STAFF DEPENDING ON HER FATIGUE LEVEL. SHE HAS EPISODES OF URINARY INCONTINENCE BUT IS CONTINENT OF HER BOWELS. APPETITE IS GOOD. SKIN TURGOR HAS IMPROVED. HYDRATION STATUS IS ADEQUATE. ENCOURAGED TO DRINK PLENTY OF WATER. SKIN IS INTACT. GENERALIZED ECCHYMOSIS NOTED TO BILATERAL UPPER EXTREMITIES. RIGHT ARM REMAINS IN CAST. Sukumar Zuleta M.D. Cruz Britton APRN
--- NOTE | 2018-09-24 13:37 | PN ---
DATE OF SERVICE: 09/20/18 SUBJECTIVE: 68-year-old white female hospitalized with anemia which has been stable and dehydration with renal azotemia. The patient's kidney function 2.3 and 48 creatinine, BUN respectively seems to be better. The patient had the nausea. The patient had food and after that she had a Boost then was to switch, she brought it up. Denies any abdominal pain. Yesterday she felt okay. REVIEW OF SYSTEMS: CONSTITUTIONAL: No night sweats. No fatigue, malaise, lethargy. No fever or chills. HEENT: Eyes: No visual changes. No eye pain. No eye discharge. ENT: No runny nose. No epistaxis. No sinus pain. No sore throat. No odynophagia. No congestion. RESPIRATORY: No cough, no congestion. No hemoptysis. No shortness of breath. CARDIOVASCULAR: No angina symptoms. No CHF symptoms. No atypical chest pain for CAD. No palpitations. No PND. No orthopnea. GASTROINTESTINAL: No abdominal pain. Mild nausea. No diarrhea or constipation. No hematemesis. No hematochezia. GENITOURINARY: No urgency. No frequency. No dysuria. No hematuria. No obstructive symptoms. No discharge. No pain. No significant abnormal bleeding. MUSCULOSKELETAL: No musculoskeletal pain; no joint swelling. NEUROLOGICAL: No headache. No neck pain. No syncope. No seizures. No dizziness. PSYCHIATRIC: Not anxious. No depression. No suicidal thoughts. No homicidal thoughts. SKIN: No rash. No lesions. No wounds. ENDOCRINE: No unexplained weight loss. No weight gain. HEMATOLOGIC/LYMPHATIC: No anemia. No purpura. No petechiae. No prolonged or excessive bleeding. No palpable lymph nodes. PHYSICAL EXAMINATION: VITAL SIGNS: Temperature 97.8, pulse 77, respiratory rate 14, blood pressure 120 /70, pulse ox 92%. She looks somewhat pale. HEENT: Head normocephalic, atraumatic. Eyes: Extraocular muscles are intact. Pupils are equal, round and reactive to light and accommodation. Ears: No lesions. Nose appeared normal. Throat: No exudate or erythema. NECK: Supple. No JVD, no carotid bruit. No lymphadenopathy or thyromegaly. LUNGS: Decreaed breath sounds but Clear to auscultation. Percussion note normal. Chest symmetrical. HEART: S1, S2, no S3. No murmurs. No cyanosis or clubbing. No ascites. Pulses: Dorsalis pedis and posterior tibial pulses +1 to +2 bilaterally. ABDOMEN: Soft. Nontender. Bowel sounds active. No CVA tenderness. No mass felt. EXTREMITIES: No edema. Full range of motion of all extremities, equal. NEUROLOGIC: No focal deficit. Cranial nerves II through XII are grossly intact. No headache, no double vision or headache. SKIN: Not dry. Intact. Turgor - normal. LYMPHATIC: No palpable lymph nodes/no lymphedema. MUSCULOSKELETAL: Normal joints with no swelling. Muscle tone is normal. ASSESSMENT: 1. ACUTE RENAL AZOTEMIA SEEMS TO BE IMPROVING. KIDNEY FUNCTIONS HAVE IMPROVED. 2. ANEMIA STABLE LIKELY FROM CHRONIC RENAL INSUFFICIENCY ON TOP OF HEMODILUTION. 3. NAUSEA/GASTRITIS COULD BE VIRAL OR COULD BE FROM UPSET STOMACH FROM HAVING BOOST. PLAN: 1. Continue IV fluids. 2. IV Zofran. 3. Encourage patient to eat. 4. Continue to monitor CBC, CMP - Cardiovascular status is stable. TIME SPENT: More than 30 minutes. Plan and coordination of the patient's care discussed in the presence of nurse. KAREN
--- NOTE | 2018-09-24 13:46 | PN ---
DATE OF SERVICE: 09/24/18 SUBJECTIVE: The patient wa seen and examined with the nurse practitioner. The patient's condition has improved. Oral swelling has decreased in size. The kidney functions are a lot better. She is going to be discharged to the long term. CONDITION: Stable. TIME SPENT: More than 30 minutes. Plan and coordination of the patient's care discussed in the presence of nurse. KAREN
--- NOTE | 2018-09-24 13:48 | PN ---
BILLING 09/16/18 LEVEL 5 ADMISSION DAY 09/17/18 INTERMEDIATE 09/18/18 INTERMEDIATE 09/19/18 INTERMEDIATE 09/20/18 INTERMEDIATE 09/21/18 INTERMEDIATE 09/22/18 INTERMEDIATE 09/23/18 INTERMEDIATE 09/24/18 DISCHARGE MTDD
--- NOTE | 2018-09-25 13:39 | DS ---
DATE OF SERVICE: 09/24/18 FINAL DIAGNOSIS: 1. UTI E. COLI - ESBL + 2. ACUTE RENAL FAILURE, IMPROVED 3. ANEMIA, IMPROVED 4. ACUTE DEHYDRATION, RESOLVED 5. HYPERKALEMIA, RESOLVED 6. HYPONATREMIA, RESOLVED 7. HYPERTENSION 8. HYPERCHOLESTEROLEMIA 9. PNEUMONIA 10. GERD 11. OA 12. DEPRESSION 13. 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 S/P RIGHT KIDNEY TRANSPLANT 2003 16. TONSILLECTOMY 17. CHOLECYSTECTOMY 18. VOCAL CORD BIOPSY 19. UMBILICAL HERNIA REPAIR 20. LEFT ARM/WRIST FX- SURGERY ? 21. FORMER SMOKER QUIT 25 YRS AGO LAST V/S: Temperature 97.8, pulse 83, respiratory rate 18, BP 142/81, pulse ox 92. DISCHARGE INSTRUCTIONS: 1. DISCHARGE TODAY September TO [facility] 2. VITAL SIGNS DAILY FOR ONE WEEK, THEN WEEKLY 3. CBC AND CMP ON SaturdaySeptember - CALL [facility] WITH RESULTS COLLECT URINE SPECIMEN FOR URINALYSIS AFTER THE LAST DOSE OF IV ANTIBIOTIC IS ADMINISTERED ( September) 4. PT/OT EVALUATION AND TREAT 5. INCONTINENT CARE NEEDED 6. MAY PARTICIPATE IN CORRECTION ACTIVITY PROGRAM 7. PATIENT TO BE SEEN ON CORRECTION ROUNDS BY [facility] PASTOR APRN MEDICATIONS AT DISCHARGE: Hydrocodone Bitart/Acetaminophen ([place] 7.5-325) 1 tab PO TID PRN PRN Reason: Analgesia Last Admin: 09/21/18 11:54 Dose: 1 tab Amlodipine Besylate (Norvasc) 5 mg PO AT BEDTIME [facility] Last Admin: 09/24/18 09:21 Dose: 5 mg NEXT DOSE 09/25/18 Atenolol 50 mg PO DAILY [facility] Last Admin: 09/24/18 Chlordiazepoxide HCl (Librium) 10 mg PO BID [facility] Last Admin: 09/24/18 09:20 Dose: 10 mg Clopidogrel Bisulfate (Plavix) 75 mg PO DAILY [facility] Last Admin: 09/24/18 09:20 Dose: 75 mg Duloxetine HCl (Cymbalta) 60 mg PO DAILY [facility] Last Admin: 09/24/18 09:20 Dose: 60 mg Ferrous Sulfate (Ferrous Sulfate) 324 mg PO BID [facility] Last Admin: 09/24/18 09:21 Dose: 324 mg Gabapentin (Neurontin) 200 mg PO BID [facility] Last Admin: 09/24/18 09:20 Dose: 200 mg Ertapenem 0.5 gm/ Sodium (Chloride) 50 mls @ 75 mls/hr IV DAILY [facility] Stop: 09/27/18 12:00 Last Admin: 09/24/18 09:22 Dose: 75 mls/hr LAST DOSE TO BE ADMINISTERED OCTOBER 01, 2018 Non-Formulary Medication (Tacrolimus ) 2 mg PO BID [facility] Last Admin: 09/24/18 09:22 Dose: 2 mg Pantoprazole Sodium (Protonix) 40 mg PO QDAC [facility] Last Admin: 09/24/18 06:11 Dose: 40 mg Prednisone (Prednisone) 2.5 mg PO DAILYWM [facility] Last Admin: 09/24/18 09:21 Dose: 2.5 mg Sodium Bicarbonate (Sodium Bicarbonate) 650 mg PO Q12HR [facility] Last Admin: 09/24/18 09:20 Dose: 650 mg Sodium Chloride (Saline Flush) 1 syr IVF PRN PRN PRN Reason: Maintain patency of IV Sodium Chloride (Saline Flush) 1 syr IVF Q8HR [facility] Last Admin: 09/24/18 06:11 Dose: 1 syr Torsemide (Demadex) 10 mg PO QDAC [facility] Last Admin: 09/24/18 06:11 Dose: 10 mg NEW PRESCRIPTIONS: ERTAPENEM (INVANZ) 0.5 GM IV DAILY NEXT DOSE DUE TOMORROW September WITH THE LAST DOSE TO BE GIVEN ON OCTOBER 01, 2018 NORVASC 5 MG PO TO BE GIVEN AT BEDTIME ATENOLOL 50 MG PO DAILY IN THE MORNING CYMBALTA INCREASED TO 60 MG PO DAILY DISCONTINUED MEDICATIONS: COZAAR 50 MG PO DAILY DIET: REGULAR WITH REGULAR CONSISTENCY AND THIN LIQUIDS, PROTEIN SUPPLEMENTATION ACTIVITY: UP TO DINING ROOM FOR MEALS WILL NEED ASSISTANCE WITH MEAL TRAY PREPARATION SMOKING: FORMER SMOKER DISEASE SPECIFIC EDUCATION: UTI : ESBL + IV ANTIBIOTIC INVANZ ACUTE RENAL FAILURE HYPERTENSION HYDRATION ANEMIA HYPERKALEMIA HYPONATREMIA FOLLOW UP APPOINTMENTS HOSPITAL COURSE: This is a 68-year-old white female who was seen in our office on 09/15 after being in the hospital at [facility] earlier in the month and discharged to [facility] in [place]. The son took her out of [facility] in [place] due to poor care and he did not agree with the doctors changing her medication. She had been treated for urinary tract infection as well as renal failure at [facility]. I did labs in the office on 09/15 and her BUN was found to be in the 70s and creatinine greater than 2.68. This is significantly elevated for her. She does have a history of right nephrectomy with right kidney transplant but she has been about Stage II to III chronic kidney disease for the past several years and sees Dr. Light. She was admitted. We initially gave her IV fluids, NS at 125 cc/hr. She does have a history of leg edema but we did discontinue her Demodex given her kidney function as well as her Losartan due to her kidney function. She was hypotensive on admission due to acute dehydration. We also had to hold her Atenolol. Over the course of several days at fluids for 125 for 48 hours and then at 100 cc/hr for about 72 hrs. Her kidney function significantly improved. She did not have any shortness of breath. Dr. Zuleta did do an echo to ensure there was no element of CHF. A UA was done on admission which was abnormal. The culture ended up growing E. coli which was ESBL positive. Initially she was placed on Levaquin 250 mg IV daily as I was going on the previous urine culture from [facility], which was also ESBL positive but was Enterobacter. After getting the new culture and sensitivity there was resistance to Levaquin and we switched her to Invanz 0.5 mg IV daily due to kidney function so this is dosed renally. Again, she was ESBL positive. She was very weak on admission. We did, after several days, do PT /OT consult. She is unable to care for herself at home at this point. Today, kidney function significantly improved. Creatinine is down to 1.7 and BUN is in the 30s which is a great improvement. We discussed with her that she needs to continue with increased fluids. I do believe it is necessary for her to undergo 14 days of antibiotics. There are oral antibiotics that are sensitive with the urine culture so given the recurrence and seriousness and critical condition she was in after discharge from [facility], she has agreed to go to [facility] for at least 7 more days of Invanz IV. We will do a repeat CBC , CMP on Saturday to monitor her kidney function. She is instructed to keep her legs elevated. Yesterday Dr. Zuleta did give Lasix 40 mg IV as she did have some leg edema. Kidney function withstoo this and her leg edema is less today. We will restart her Demodex. Her blood pressure has remained relatively normal, slightly elevated today at 140 systolic. I will restart her Atenolol at 50 mg daily. Still no Losartan. She is on Norvasc 10 mg daily as well. She has a followup appointment with Dr. Light scheduled for next week. She had one scheduled during her hospital stay but she was unable to attend given the seriousness of her condition so she will followup with him next week and we discharged her in stable condition at the sn[facility] and I will follow her there. TIME SPENT: More than 60 minutes. KAREN
[2018-09-25] MEDS ORDERED: NORVASC PO SCH (21:00)
== END 2018-09-24 13:05 | DRG 682 ==
LOC: ED 13:35 → MEDSURG B 15:30
PROVIDERS: ADMIT Internal Medicine; ATTEND Internal Medicine
DX: N17.9 Acute kidney failure, unspecified (principal); J18.9 Pneumonia, unspecified organism; N39.0 Urinary tract infection, site not specified; E87.1 Hypo-osmolality and hyponatremia; Z94.0 Kidney transplant status; S52.91XA Unspecified fracture of right forearm, initial encounter for closed fracture; N18.5 Chronic kidney disease, stage 5; E86.0 Dehydration; E87.5 Hyperkalemia; E78.00 Pure hypercholesterolemia, unspecified; D64.9 Anemia, unspecified; B96.20 Unspecified Escherichia coli [E. coli] as the cause of diseases classified elsewhere; I10 Essential (primary) hypertension; K21.9 Gastro-esophageal reflux disease without esophagitis; M19.90 Unspecified osteoarthritis, unspecified site; F32.9 Major depressive disorder, single episode, unspecified; R79.89 Other specified abnormal findings of blood chemistry; R60.9 Edema, unspecified; R11.0 Nausea
CPT/HCPCS: 36415; 36430; 74176; 80053; 81001; 82272; 82550; 83605; 84145; 84484; 85007; 85008; 85014; 85018; 85025; 85610; 85730; 86850; 86900; 86922; 87040; 87081; 87086; 87186; 93005; 93010; 97802; 99284

== ENCOUNTER 2018-10-14 13:48 | Outpatient (CLI) ==
[2018-10-14 18:39] VITALS: BMI 26.2
== END 2018-10-14 14:04 | disposition critical access hospital (66) ==
LOC: AMBL 13:48
PROVIDERS: ATTEND Emergency Medicine
DX: R06.03 Acute respiratory distress (principal); R41.0 Disorientation, unspecified; R53.83 Other fatigue; M25.512 Pain in left shoulder; R50.9 Fever, unspecified; R40.2411 Glasgow coma scale score 13-15, in the field [EMT or ambulance]
CPT/HCPCS: 87077; 87186

== ENCOUNTER 2018-10-14 14:08 | Inpatient (IN) | payer OTHER ==
--- NOTE | 2018-10-14 14:33 | ED.PDOC ---
General ED Provider: Dr. LAURA HUERTAS Chief Complaint: Weakness Stated Complaint: Pt was released from [facility] yesterday. States she just feels bad, weak and not wanting to eat. Complains of pain to left shoulder going into neck Time Seen by Physician: 14:10 Mode of Arrival: Ambulance Information Source: Patient, EMT Exam Limitations: No limitations Primary Care Provider: ISADORA BRYANT Referred to ED by: Other Nursing and Triage Documentation Reviewed and Agree: Yes Does patient meet sepsis criteria?: No System Inflammatory Response Syndrome: Not Applicable Sepsis Protocol: For patient's 13 years and over: Temp is 96.8 and below OR 101 and greater Pulse >90 BPM Resp >20/minute Acutely Altered Mental Status Are patient's symptoms suggestive of a new infection, such as: -Pneumonia -Skin, Soft Tissue -Endocarditis -UTI -Bone, Joint Infection -Implantable Device -Acute Abdominal Infection -Wound Infection -Meningitis -Blood Stream Catheter Infection -Unknown Review of Systems - Review Of Systems Constitutional: Reports: Malaise, Weakness Eyes: Reports: No symptoms Ears, Nose, Mouth, Throat: Reports: No symptoms Respiratory: Reports: No symptoms Cardiac: Reports: No symptoms GI: Reports: No symptoms : Reports: Dysuria Musculoskeletal: Reports: Back pain Skin: Reports: No symptoms, Rash Neurological: Reports: Cognitive dysfunction Endocrine: Reports: No symptoms Hematologic/Lymphatic: Reports: No symptoms, Blood clots, Easy bleeding All Other Systems: Reviewed and Negative Past Medical History - Past Medical History Previously Healthy: No Endocrine: Reports: None Cardiovascular: Reports: Hypertension Respiratory: Reports: COPD Hematological: Reports: None Gastrointestinal: Reports: GERD Genitourinary: Reports: None Neuro/Psych: Reports: None Musculoskeletal: Reports: None Cancer: Reports: None Last Menstrual Period: none - Surgical History General Surgical History: Reports: None - Family History Family History: Reports: None - Social History Smoking Status: Former smoker Hx Substance Use: No Alcohol Screening: None Physical Exam - Physical Exam Appearance: Ill-appearing, Obese Ill-appearing: Moderate Pain Distress: Mild Eyes: OLU, EOMI, Conjunctiva clear ENT: Ears normal, Nose normal, Oropharynx normal Neck: Supple Respiratory: Airway patent, Breath sounds clear, Breath sounds equal, Respirations nonlabored Cardiovascular: RRR, Pulses normal, No rub, No murmur GI/: Soft, Nontender, No masses, Bowel sounds normal, No Organomegaly Musculoskeletal: Normal strength, ROM intact, No edema, No calf tenderness Skin: Warm, Dry, Normal color Neurological: Sensation intact, Motor intact, Reflexes intact, Cranial nerves intact, Alert, Oriented Psychiatric: Affect appropriate, Mood appropriate Interpretation - Radiology Interpretation Exam Interpreted: Portable CXR Xray Comments: Cardiomegaly with pulm vascular congeston Radiology Interpretation By: Radiologist Critical Care Note - Critical Care Note Total Time (mins): 60 Course - Course Hematology/Chemistry: 10/14/18 14:58 10/14/18 14:58 Orders, Labs, Meds: Lab Review 10/14/18 10/14/18 10/14/18 14:45 14:58 14:58 WBC 7.93 RBC 2.84 L Hgb 9.1 L Hct 29.8 L MCV 104.9 H MCH 32.0 H MCHC 30.5 L RDW Coeff of Rivka 15.3 H Plt Count 250 Immature Gran % (Auto) 1.0 Neut % (Auto) 78.7 Lymph % (Auto) 11.9 [place] % (Auto) 7.1 Eos % (Auto) 1.0 Baso % (Auto) 0.3 Immature Gran # (Auto) 0.1 Neut # (Auto) 6.3 Lymph # (Auto) 0.9 [place] # (Auto) 0.6 Eos # (Auto) 0.1 Baso # (Auto) 0.0 PT INR APTT D-Dimer (Manual) Puncture Site L rad O2 Saturation 95.0 ABG pH 7.455 H ABG pCO2 46.7 H ABG pO2 72.0 L ABG HCO3 32.9 H ABG Total CO2 34 H ABG Base Excess 9 H Galen Test + FiO2 % 21.0 Sodium 134.3 L Potassium 4.75 Chloride 93.8 L Carbon Dioxide 31.8 H Anion Gap 13.45 BUN 50.2 H Creatinine 2.50 H Estimated GFR (MDRD) 19.00 BUN/Creatinine Ratio 20.08 Glucose 157.3 H Lactic Acid Calcium 8.74 Magnesium 2.22 Total Bilirubin 0.77 AST 16.1 ALT 8.1 Alkaline Phosphatase 65.2 Total Creatine Kinase < 20.0 L Troponin I 0.014 Total Protein 7.26 Albumin 3.76 Globulin 3.50 Albumin/Globulin Ratio 1.07 Procalcitonin Urine Color Urine Clarity Urine pH Ur Specific [place] Urine Protein Urine Glucose (UA) Urine Ketones Urine Blood Urine Nitrite Urine Bilirubin Urine Urobilinogen Ur Leukocyte Esterase Urine Microscopic RBC Urine Microscopic WBC Ur Squamous Epith Cells Urine Bacteria 10/14/18 10/14/18 10/14/18 14:58 14:58 14:58 WBC RBC Hgb Hct MCV MCH MCHC RDW Coeff of [place] Plt Count Immature Gran % (Auto) Neut % (Auto) Lymph % (Auto) [place] % (Auto) Eos % (Auto) Baso % (Auto) Immature Gran # (Auto) Neut # (Auto) Lymph # (Auto) [place] # (Auto) Eos # (Auto) Baso # (Auto) PT 10.1 INR 1.01 APTT 20.7 L D-Dimer (Manual) 2709.94 Puncture Site O2 Saturation ABG pH ABG pCO2 ABG pO2 ABG HCO3 ABG Total CO2 ABG Base Excess Galen Test FiO2 % Sodium Potassium Chloride Carbon Dioxide Anion Gap BUN Creatinine Estimated GFR (MDRD) BUN/Creatinine Ratio Glucose Lactic Acid Calcium Magnesium Total Bilirubin AST ALT Alkaline Phosphatase Total Creatine Kinase Troponin I Total Protein Albumin Globulin Albumin/Globulin Ratio Procalcitonin 0.07 Urine Color Urine Clarity Urine pH Ur Specific [place] Urine Protein Urine Glucose (UA) Urine Ketones Urine Blood Urine Nitrite Urine Bilirubin Urine Urobilinogen Ur Leukocyte Esterase Urine Microscopic RBC Urine Microscopic WBC Ur Squamous Epith Cells Urine Bacteria 10/14/18 10/14/18 14:58 16:14 WBC RBC Hgb Hct MCV MCH MCHC RDW Coeff of [place] Plt Count Immature Gran % (Auto) Neut % (Auto) Lymph % (Auto) [place] % (Auto) Eos % (Auto) Baso % (Auto) Immature Gran # (Auto) Neut # (Auto) Lymph # (Auto) [place] # (Auto) Eos # (Auto) Baso # (Auto) PT INR APTT D-Dimer (Manual) Puncture Site O2 Saturation ABG pH ABG pCO2 ABG pO2 ABG HCO3 ABG Total CO2 ABG Base Excess Galen Test FiO2 % Sodium Potassium Chloride Carbon Dioxide Anion Gap BUN Creatinine Estimated GFR (MDRD) BUN/Creatinine Ratio Glucose Lactic Acid 0.57 L Calcium Magnesium Total Bilirubin AST ALT Alkaline Phosphatase Total Creatine Kinase Troponin I Total Protein Albumin Globulin Albumin/Globulin Ratio Procalcitonin Urine Color Yellow Urine Clarity Slightly Urine pH 7.0 Ur Specific [place] 1.010 Urine Protein 1+ Urine Glucose (UA) Negative Urine Ketones Negative Urine Blood Trace-intact Urine Nitrite Negative Urine Bilirubin Negative Urine Urobilinogen 0.2 Ur Leukocyte Esterase 2+ Urine Microscopic RBC 2-5 Urine Microscopic WBC 20-30 Ur Squamous Epith Cells 0-2 Urine Bacteria 3+ Orders Category Date Time Status ABG DRAW REQUEST Stat CARDIO 10/14/18 14:31 Completed EKG-(ED ONLY) Stat CARDIO 10/14/18 14:28 Completed IV [ED IV/MEDIPORT/POWERPORT] .ONCE EMERGENCY 10/14/18 14:28 Active ABG Stat LAB 10/14/18 14:45 Completed BLOOD CULTURE (ED ONLY) Stat LAB 10/14/18 14:58 Received CBC W/ AUTO DIFF Stat LAB 10/14/18 14:58 Completed CMP [COMPREHENSIVE METABOLIC PANEL] Stat LAB 10/14/18 14:58 Completed CREATINE KINASE Stat LAB 10/14/18 14:58 Completed D-DIMER Stat LAB 10/14/18 14:58 Completed LACTIC ACID Stat LAB 10/14/18 14:58 Completed MAGNESIUM Stat LAB 10/14/18 14:58 Completed PARTIAL THROMBOPLASTIN TIME Stat LAB 10/14/18 14:58 Completed PROCALCITONIN Stat LAB 10/14/18 14:58 Completed PT WITH INR Stat LAB 10/14/18 14:58 Completed RAPID STREP SCREEN [MOLECULAR GROUP A STREP] Stat LAB 10/14/18 14:38 Completed TROPONIN I Stat LAB 10/14/18 14:58 Completed UA [URINALYSIS C & S IF INDICATED] Stat LAB 10/14/18 16:14 Completed URINE CULTURE Stat LAB 10/14/18 16:14 Received 0.9 % Sodium Chloride [Saline Flush] MEDS 10/14/18 14:29 Active 1 syr IVF PRN PRN CHEST, 1V AP ONLY Stat RADS 10/14/18 14:28 Completed Medications Generic Name Dose Route Start Last Admin Trade Name Freq PRN Reason Stop Dose Admin Sodium Chloride 1 syr 10/14/18 14:29 Saline Flush IVF PRN PRN To flush IV Vital Signs: Temp Pulse Resp BP Pulse Ox 10/14/18 14:08 98.3 F 69 20 113/59 L 86 L Departure - Departure Time of Disposition: 17:00 Disposition: ADMITTED INPATIENT Discharge Problem: Acute UTI (urinary tract infection), Chronic kidney disease (CKD), Cardiomegaly , Pulmonary vascular congestion Condition: Stable Pt referred to PMD for follow-up: Yes IPMP verified?: No Allergies/Adverse Reactions: Allergies sulfur dioxide Allergy (Unknown, Verified 10/14/18 14:17) ondansetron HCl [From Zofran] Adverse Reaction (Unknown, Verified 10/14/18 14:17 ) ibuprofen Adverse Reaction (Verified 10/14/18 14:17) Home Medications: Ambulatory Orders Clopidogrel Bisulfate [Plavix] 75 mg PO DAILY 02/03/13 Ferrous Sulfate 325 mg PO BID 03/20/16 Gabapentin [Neurontin] 200 mg PO BID 03/20/16 Tacrolimus [Prograf] 2 mg PO BID 11/20/16 Chlordiazepoxide HCl 10 mg PO BID 08/21/17 Pantoprazole Sodium [Protonix] 40 mg PO DAILY 08/21/17 Hydrocodone/Acetaminophen [Hydrocodone-Acetamin 7.5-325] 7.5 - 325 mg PO TID PRN 02/20/18 Lovastatin [Mevacor] 20 mg PO DAILY 02/20/18 Prednisone 2.5 mg PO DAILY 09/16/18 Sodium Bicarbonate 650 mg PO Q12H 09/16/18 Amlodipine Besylate [Norvasc] 5 mg PO BEDTIME tablet 09/24/18 Atenolol [Tenormin] 50 mg PO DAILY tablet 09/24/18 Duloxetine HCl [Cymbalta] 60 mg PO DAILY #1 capsule. 09/24/18 Torsemide [Demadex] 10 mg PO QDAC tablet 09/24/18 Disposition Discussed With: Patient, Family
--- NOTE | 2018-10-14 16:04 | DI ---
EXAM: Chest one view HISTORY: Weakness COMPARISON: 07/11/2018 TECHNIQUE: Single view of the chest was performed FINDINGS: Heart is enlarged, unchanged. Mediastinal contour unchanged. Small left pleural effusion . No visible pneumothorax. Pulmonary vascular congestion. IMPRESSION: Cardiomegaly with pulmonary vascular congestion and small left pleural effusion.
[2018-10-14] MEDS ORDERED: TYLENOL PO PRN (17:44)
[2018-10-14] MEDS ORDERED: ZOFRAN 4 MG/2 ML IVP PRN (17:44)
[2018-10-14] MEDS ORDERED: ROCEPHIN 1 GM in SODIUM CHLORIDE 50 ML IV SCH (18:00)
[2018-10-14] MEDS ORDERED: SODIUM CHLORIDE 1,000 ML IV SCH ×2 (18:00→18:30)
[2018-10-14] MEDS ORDERED: LASIX IVP STA (18:19)
[2018-10-14] MEDS ORDERED: SODIUM CHLORIDE 1,000 ML IV ONE (18:20)
[2018-10-14 18:39] VITALS: BMI 26.2
[2018-10-14] MEDS ORDERED: NON-FORMULARY MEDICATION (Ferrous Sulfate [Ferrous Sulfate] 325 MG) PO SCH (21:00)
[2018-10-14] MEDS ORDERED: TACROLIMUS 2 MG PO SCH (21:00)
[2018-10-14] MEDS ORDERED: NORCO 7.5-325 PO PRN ×2 (21:23→21:49)
[2018-10-14] MEDS ORDERED: NORCO 7.5-325 ONE (21:29)
[2018-10-14] MEDS ORDERED: LASIX ONE (21:29)
[2018-10-14] MEDS ORDERED: ROCEPHIN ONE (21:30)
[2018-10-14] MEDS ORDERED: FERROUS SULFATE ONE (21:30)
[2018-10-14] MEDS: SODIUM BICARBONATE PO SCH (21:45)
[2018-10-14] MEDS: LIBRIUM PO SCH (21:46)
[2018-10-14] MEDS: NORVASC PO SCH (21:46)
[2018-10-14] MEDS: NEURONTIN PO SCH (21:47)
[2018-10-15] MEDS: SODIUM CHLORIDE 500 ML IV SCH ×2 (04:07→05:36)
[2018-10-15] MEDS: SODIUM BICARBONATE PO SCH ×3 (05:35→20:42)
[2018-10-15] MEDS: DEMADEX PO SCH (05:35)
[2018-10-15] MEDS ORDERED: NORCO 7.5-325 PO PRN (08:38)
[2018-10-15] MEDS ORDERED: NON-FORMULARY MEDICATION (Duloxetine Hcl [Cymbalta] 60 MG) PO SCH (09:00)
[2018-10-15] MEDS: PLAVIX PO SCH (09:28)
[2018-10-15] MEDS: NEURONTIN PO SCH ×2 (09:28→20:42)
[2018-10-15] MEDS: PREDNISONE PO SCH (09:29)
[2018-10-15] MEDS: TENORMIN PO SCH (09:30)
[2018-10-15] MEDS: LIBRIUM PO SCH ×2 (09:30→20:42)
[2018-10-15] MEDS: CYMBALTA PO SCH (09:31)
[2018-10-15] MEDS: PROTONIX PO SCH (09:31)
[2018-10-15] MEDS: TACROLIMUS 2 MG PO SCH ×2 (14:47→20:44)
[2018-10-15] MEDS: FERROUS SULFATE PO SCH (16:55)
[2018-10-15] MEDS: MEVACOR PO SCH (16:56)
[2018-10-15] MEDS: SODIUM CHLORIDE 1,000 ML IV SCH (17:59)
[2018-10-15] MEDS: NORVASC PO SCH (20:43)
[2018-10-15] MEDS ORDERED: ROCEPHIN 1 GM in SODIUM CHLORIDE 50 ML IV SCH (21:00)
[2018-10-16] MEDS: DEMADEX PO SCH (05:58)
[2018-10-16] MEDS: FERROUS SULFATE PO SCH ×2 (05:58→17:09)
[2018-10-16] MEDS: PROTONIX PO SCH (05:59)
--- NOTE | 2018-10-16 09:13 | PCM.PROG ---
Attending Provider: ATTENDING PROVIDER: Dr. ISADORA BRYANT This patient is seen with Elisa Britton, Nurse Practitioner. DATE OF SERVICE: 10/16/18 SUBJECTIVE: This 68 year old WHITE/ F was hospitalized 10/14/18. The patient is lying in bed resting comfortably. Kidney function slightly improved today. Urine culture is positive for E. coli with ESBL. Blood culture also positive but patient is asymptomatic. REVIEW OF SYSTEMS: CONSTITUTIONAL: Weakness. No night sweats. No malaise, lethargy. No fever or chills. HEENT: Eyes: No visual changes. No eye pain. No eye discharge. ENT: No runny nose. No epistaxis. No sinus pain. No odynophagia. No congestion. RESPIRATORY: No cough, no congestion. No hemoptysis. No shortness of breath. CARDIOVASCULAR: No angina symptoms. No CHF symptoms. No atypical chest pain for CAD. No palpitations. No orthopnea.. GASTROINTESTINAL: No abdominal pain. No nausea or vomiting. No diarrhea or constipation. No hematemesis. No hematochezia. GENITOURINARY: No urgency. No frequency. No dysuria. No hematuria. No obstructive symptoms. No discharge. No pain. No significant abnormal bleeding. MUSCULOSKELETAL: No musculoskeletal pain; no joint swelling. NEUROLOGICAL: Awake, alert, oriented to time, place and person. No headache. No neck pain. No syncope. No seizures. No dizziness. PSYCHIATRIC: Not anxious. No depression. No suicidal thoughts. No homicidal thoughts. SKIN: No rash. No lesions. No wounds. ENDOCRINE: No unexplained weight loss. No weight gain. HEMATOLOGIC/LYMPHATIC: No anemia. No purpura. No petechiae. No prolonged or excessive bleeding. No palpable lymph nodes. PHYSICAL EXAMINATION: GENERAL: The patient is awake, alert and oriented, lying in bed in no distress. VITAL SIGNS: Temperature 98 F, Pulse 67, Respiratory Rate 20, BP 125/70, Pulse Ox 99% HEENT: Head normocephalic, atraumatic. Eyes: Extraocular muscles are intact. Pupils are equal, round and reactive to light and accommodation. Ears: No lesions. Nose appeared normal. Throat: No exudate or erythema. NECK: Supple. No JVD, no carotid bruit. No lymphadenopathy or thyromegaly. LUNGS: Diminished breath sounds. Clear to auscultation. Percussion note normal. Chest symmetrical. HEART: S1, S2, no S3. Grade I/ murmur. No cyanosis or clubbing. No ascites. Pulses: Dorsalis pedis and posterior tibial pulses +1 to +2 both sides. ABDOMEN: Soft. Non-tender. Bowel sounds active. No CVA tenderness. No mass felt. EXTREMITIES: No edema. Full range of motion of all extremities, equal. NEUROLOGIC: No focal deficit. Cranial nerves II through XII are grossly intact. No headache, no double vision or headache. SKIN: Not dry. Intact. Turgor-normal. LYMPHATIC: No palpable lymph nodes/no lymphedema. MUSCULOSKELETAL: Normal joints with no swelling. Muscle tone is normal. LAB REVIEW: 10/16/18 05:00 10/16/18 05:00 10/16/18 05:00: Sodium 138.6, Potassium 4.39, Chloride 98.3, Carbon Dioxide 32.1 H, Anion Gap 12.59, BUN 41.8 H, Creatinine 2.11 H, Estimated GFR (MDRD) 23.00, BUN/Creatinine Ratio 19.81, Glucose 94.0, Calcium 8.85, Total Bilirubin 0.58, AST 33.0, ALT 7.8, Alkaline Phosphatase 60.4, Total Protein 7.18, Albumin 3.60, Globulin 3.58, Albumin/Globulin Ratio 1.00 10/16/18 05:00: WBC 6.84, RBC 2.87 L, Hgb 9.4 L, Hct 30.7 L, MCV 107.0 H, MCH 32.8 H, MCHC 30.6 L, RDW Coeff of [place] 15.0 H, Plt Count 230, Immature Gran % ( Auto) 0.4, Neut % (Auto) 68.8, Lymph % (Auto) 17.3, [place] % (Auto) 9.6, Eos % ( Auto) 3.5, Baso % (Auto) 0.4, Immature Gran # (Auto) 0.0, Neut # (Auto) 4.7, Lymph # (Auto) 1.2, [place] # (Auto) 0.7, Eos # (Auto) 0.2, Baso # (Auto) 0.0, Anisocytosis Not present, Macrocytosis 1+ ASSESSMENT: Please see below. 1. UTI positive E. coli and ESBL. 2. Acute on chronic renal failure. 3. Right nephrectomy. 4. Chronic lung disease. 5. Anemia. 6. Depression. PLAN: 1. Repeat blood culture. 2. Add Meropenem. 3. Repeat blood culture. 4. Start Lexapro 5 mg at night. Plan and coordination of the patient's care discussed in the presence of Line Erector and nurse. CONDITION: Stable SCRIBED BY: BRIAN KNOX Proposition Player scribed while in presence of service performed by Dr. Bryant/Elisa Britton APRN on 10/16/18 ([id number])
[2018-10-16] MEDS: SODIUM BICARBONATE PO SCH ×2 (09:30→20:51)
[2018-10-16] MEDS: CYMBALTA PO SCH (09:31)
[2018-10-16] MEDS: PLAVIX PO SCH (09:31)
[2018-10-16] MEDS: TENORMIN PO SCH (09:31)
[2018-10-16] MEDS: LIBRIUM PO SCH ×2 (09:31→20:51)
[2018-10-16] MEDS: PREDNISONE PO SCH (09:31)
[2018-10-16] MEDS: NEURONTIN PO SCH ×2 (09:32→20:50)
[2018-10-16] MEDS: [UNRECOGNIZED DRUG - OTHER] IV SCH ×2 (09:33→20:49)
[2018-10-16] MEDS: MERREM IV SCH ×2 (09:33→20:49)
[2018-10-16] MEDS: SODIUM CHLORIDE 1,000 ML IV SCH (09:34)
[2018-10-16] MEDS: TACROLIMUS 2 MG PO SCH ×2 (09:36→20:51)
--- NOTE | 2018-10-16 12:07 | RS.PTINEVL ---
Subjective - Patient information Date of Evaluation: 10/16/18 Date of Arrival on Unit: 10/14/18 Admitted From:: Home Diagnosis: acute UTI, CKD, pulmonary vascular congestion Usual Living Arrangement: Alone Living Arrangement Comments: pt has 15 hours per week help from gissel love , and son lives nearby. Home Environment: House, Stairs (few), Rail Medical History: Hypertension Medical History Comments:: DVT, GERD, RUE wrist fx, depression, cardiomegaly LATEX ALLERGY?: No Surgical History Comments:: kidney transplant Medications: see chart Subjective Information/ Patient Comments:: pt states "My arm hurts." pt states she fell off bed at home and landed on her knees. - Level of function Prior to this admission, the patient could do the following:: Partially Dependent Ambulation Abilities prior to this admission: pt required assist with all ADL's and amb. Current Level of Function: Partially Dependent Current Equipment Used at Home: wheelchair, walker, oxygen Pain Assessement - Location LUE Description: Aching Pain Behavior: Irritability, Facial Grimacing Effects of Pain: notified nursing of LUE pain due to IV present in L UE. Interventions - Objective Patient Orientation: Person, Place Current Interventions: IV's, Oxygen Observation: pt with bruising and edema noted R knee. Range of Motion - ROM Right Upper Extremity AROM: Slight limitation (decreased wrist flex/ext due to fx and cast in place) Left Upper Extremity AROM: WFL's Right Lower Extremity AROM: WFL's Left Lower Extremity AROM: WFL's Muscle Strength - Muscle Strength Right Upper Extremity Strength: Mild Weakness (grossly 4-/5) Left Upper Extremity Strength: Mild Weakness (shld and elbow 4-/5) Right Lower Extremity Strength: Mild Weakness (hip flex 3+/5, knee flex/ext 4-/5 , ankle DF/PF 4-/5) Left Lower Extremity Strength: Mild Weakness (hip flex 3+/5, knee flex/ext 4-/5 , ankle DF/PF 4-/5) Sensation - Sensation Right Upper Extremity Sensation: Intact/Normal Left Upper Extremity Sensation: Intact/Normal Right Lower Extremity Sensation: Intact/Normal Left Lower Extremity Sensation: Intact/Normal Palpation Palpation Findings: Tenderness Comments:: LUE Balance - Sitting Balance and Reactions Static Sitting Balance: Poor Dynamic Sitting Balance: Poor Sitting Equilibrium Reactions: Absent Left, Absent Right Sitting Protective Reactions: Absent Left, Absent Right - Standing Balance and Reactions Static Standing Balance: Poor Dynamic Standing Balance: Poor Standing Equilibrium Reactions: Absent Left, Absent Right Standing Protective Reactions: Absent Left, Absent Right - Comments Balance Assessment Comments: pt requires CGA to min to maintain sitting balance. pt with flexed posture, and flexed knees with gait limiting balance. Functional Mobility - Bed Mobility Rolling R/L: Mod Assist, 2 person assist Scooting: Mod Assist, 2 person assist Supine to Sit: Mod Assist, 1 person assist, 2 person assist - Transfers Sit to Stand: Mod Assist, 2 person assist Stand to Sit: Mod Assist, 2 person assist - Safety Awareness Safety Awareness: Poor KRYSTLE INDEX SCORE: n/a Ambulation - Ambulation Assistive Device Used: Platform Walker Orthotic/Prosthetic Device: No Distance: 20ft Assistance needed with Ambulation: Mod Assist, 2 person assist Gait Deviations: Forward posture, Short stride, Deviates from path Ambulation Comments: pt amb with significantly flexed posture, decreased step length. pt also decreased strength in BUE to improve standing posture. When pt approx 3-4ft from chair pt states she couldn't move her arms or legs. pt placed in chair with max of 2. Factors Affecting Ambulation: Decreased Balance, Breathing/O2 Saturation, Pain, Weakness, Decreased ROM, Decreased Safety, Cognitive Status, Limited Endurance Treatment time - Time with patient Length of Evaluation: 24 Total treatment time: 30 Patient Education - Education Patient Education: Home Exercise Program, Education of Plan of Care Teaching Recipient: Patient Teaching Methods: Teach Back Method Used Comments: discussion with patient on importance of participating with PT as well as POC. Assessment - Assessment Problem List:: Decreased level of function, Requires training/education, Decreased safety/Risk of falls, Weakness, Pain limits previous level of function , Cognitive status limits abilities Rehab Potential: Poor Further Therapy Indicated?: Yes Candidate for Swing Bed for Therapy Services?: Do not feel pt would be a candidate for swing bed, feel pt may benefit from LTC after dc. Evaluation Complexity: HISTORY: Medium, EXAM OF BODY SYSTEMS: Medium, CLINICAL PRESENTATION: Medium, CLINICAL DECISION MAKING: Low Short Term Goals GOAL #1: pt demonstate rolling and bridging in bed min x 1 Goal to be met by: 10/19/18 GOAL #2: Transfer sup to/from sit min x 1-2 Goal to be met by: 10/19/18 GOAL #3: Sit to/from stand min x 2 Goal to be met by: 10/19/18 GOAL #4: pt amb with platform rwx with min x 1 50ft Goal to be met by: 10/19/18 Aviation Survival Technician Goals GOAL #1: pt transfer sup to/from sit min to CGA x 1, sit to/from stand CGA Goal to be met by: 10/21/18 GOAL #2: pt amb with platform rwx with min x 1 80ft. Goal to be met by: 10/21/18 GOAL #3: Improve dyn stand balance to fair- Goal to be met by: 10/21/18 Plan Plan of Care: Therapeutic EX, Neuromuscular Re-Educ Modalities: Hot Pack Frequency of Treatment: 1-2 X day, as tolerated Duration of Treatment: 5 days Anticipated Discharge Destination: [facility] Treatment Diagnosis (ICD 10 Codes): muscle weakness: m62.81. difficulty walking: R26.2. balance impaired: R26.81 Has the Physician been added for Co-signature?: Yes
[2018-10-16] MEDS: MEVACOR PO SCH (17:09)
[2018-10-16] MEDS: LEXAPRO PO SCH (20:50)
[2018-10-16] MEDS: NORVASC PO SCH (20:50)
[2018-10-17] MEDS: DEMADEX PO SCH (05:59)
[2018-10-17] MEDS: PROTONIX PO SCH (05:59)
[2018-10-17] MEDS: FERROUS SULFATE PO SCH ×2 (06:00→17:22)
[2018-10-17] MEDS: LIBRIUM PO SCH ×3 (09:00→21:11)
[2018-10-17] MEDS: NEURONTIN PO SCH ×3 (09:00→21:08)
[2018-10-17] MEDS ORDERED: LASIX IVP STA (09:33)
--- NOTE | 2018-10-17 09:44 | PCM.PROG ---
Attending Provider: ATTENDING PROVIDER: Dr. ISADORA BRYANT This patient is seen with Elisa Britton, Nurse Practitioner. DATE OF SERVICE: 10/17/18 SUBJECTIVE: This 68 year old WHITE/ F was hospitalized 10/14/18. The patient is lying in bed resting comfortably. She is still somewhat drowsy and lethargic. She was able to walk a short distance with therapy yesterday. Kidney function has improved. The patient is complaining of left arm pain. REVIEW OF SYSTEMS: CONSTITUTIONAL: Positive for lethargy and weakness. No night sweats. No malaise. No fever or chills. HEENT: Eyes: No visual changes. No eye pain. No eye discharge. ENT: No runny nose. No epistaxis. No sinus pain. No odynophagia. No congestion. RESPIRATORY: No cough, no congestion. No hemoptysis. Positive for mild shortness of breath. CARDIOVASCULAR: No angina symptoms. No CHF symptoms. No atypical chest pain for CAD. No palpitations. No orthopnea.. GASTROINTESTINAL: No abdominal pain. No nausea or vomiting. No diarrhea or constipation. No hematemesis. No hematochezia. GENITOURINARY: No urgency. No frequency. No dysuria. No hematuria. No obstructive symptoms. No discharge. No pain. No significant abnormal bleeding. MUSCULOSKELETAL: Left arm pain. NEUROLOGICAL: Awake, alert, oriented to time, place and person. No headache. No neck pain. No syncope. No seizures. No dizziness. PSYCHIATRIC: Not anxious. No depression. No suicidal thoughts. No homicidal thoughts. SKIN: No rash. No lesions. No wounds. ENDOCRINE: No unexplained weight loss. No weight gain. HEMATOLOGIC/LYMPHATIC: No anemia. No purpura. No petechiae. No prolonged or excessive bleeding. No palpable lymph nodes. PHYSICAL EXAMINATION: GENERAL: The patient is awake, alert and oriented to person only lying in bed in no distress. VITAL SIGNS: Temperature 97.7 F, Pulse 67, Respiratory Rate 20, BP 136/71, Pulse Ox 98% HEENT: Head normocephalic, atraumatic. Eyes: Extraocular muscles are intact. Pupils are equal, round and reactive to light and accommodation. Ears: No lesions. Nose appeared normal. Throat: No exudate or erythema. NECK: Supple. No JVD, no carotid bruit. No lymphadenopathy or thyromegaly. LUNGS: Diminished breath sounds. Clear to auscultation. Percussion note normal. Chest symmetrical. HEART: Positive for extra heart sound. S1, S2, no S3. No murmurs. No cyanosis or clubbing. No ascites. Pulses: Dorsalis pedis and posterior tibial pulses +1 to +2 both sides. ABDOMEN: Soft. Non-tender. Bowel sounds active. No CVA tenderness. No mass felt. EXTREMITIES: No edema. Full range of motion of all extremities, equal. NEUROLOGIC: No focal deficit. Cranial nerves II through XII are grossly intact. No headache, no double vision or headache. SKIN: Not dry. Intact. Turgor-normal. LYMPHATIC: No palpable lymph nodes/no lymphedema. MUSCULOSKELETAL: Normal joints with no swelling. Muscle tone is normal. LAB REVIEW: 10/17/18 06:45 10/17/18 06:45 10/17/18 06:45: Sodium 137.4, Potassium 3.95, Chloride 98.0, Carbon Dioxide 31.7 H, Anion Gap 11.65, BUN 34.2 H, Creatinine 1.98 H, Estimated GFR (MDRD) 25.00, BUN/Creatinine Ratio 17.27, Glucose 87.5, Calcium 9.07, Total Bilirubin 0.64, AST 15.6, ALT 6.5, Alkaline Phosphatase 57.7, Total Protein 6.63, Albumin 3.32 L, Globulin 3.31, Albumin/Globulin Ratio 1.00 10/17/18 06:45: WBC 6.84, RBC 2.51 L, Hgb 8.2 L, Hct 26.9 L, MCV 107.2 H, MCH 32.7 H, MCHC 30.5 L, RDW Coeff of [place] 15.2 H, Plt Count 215, Immature Gran % ( Auto) 0.7, Neut % (Auto) 68.4, Lymph % (Auto) 15.5, [place] % (Auto) 11.3 H, Eos % (Auto) 3.8, Baso % (Auto) 0.3, Immature Gran # (Auto) 0.1, Neut # (Auto) 4.7, Lymph # (Auto) 1.1, [place] # (Auto) 0.8, Eos # (Auto) 0.3, Baso # (Auto) 0.0, Anisocytosis Not present, Macrocytosis 1+ ASSESSMENT: Please see below. 1. Acute renal failure slowly improving. 2. UTI, E. coli, ESBL positive. 3. Anemia. 4. Depression. 5. CHF. PLAN: 1. Decrease Librium to 5 mg b.i.d. 2. Decrease Neurontin to 100 mg b.i.d. 3. Continue IV antibiotics. 4. Lasix 20 mg IV. Plan and coordination of the patient's care discussed in the presence of Sr Risk Management Consultant and nurse. CONDITION: Stable SCRIBED BY: BRIAN KNOX Full Stack Java Developer scribed while in presence of service performed by Dr. Bryant/Elisa Britton APRN on 10/17/18 ([id number])
[2018-10-17] MEDS: SODIUM BICARBONATE PO SCH ×2 (10:07→21:10)
[2018-10-17] MEDS: CYMBALTA PO SCH (10:08)
[2018-10-17] MEDS: PLAVIX PO SCH (10:08)
[2018-10-17] MEDS: TENORMIN PO SCH (10:09)
[2018-10-17] MEDS: PREDNISONE PO SCH (10:09)
[2018-10-17] MEDS: TACROLIMUS 2 MG PO SCH ×2 (10:13→21:12)
[2018-10-17] MEDS: [UNRECOGNIZED DRUG - OTHER] IV SCH ×2 (10:15→21:06)
[2018-10-17] MEDS: MERREM IV SCH ×2 (10:15→21:06)
--- NOTE | 2018-10-17 11:18 | DI ---
EXAM: Left forearm two-view HISTORY: Pain left arm COMPARISON: Radiograph wrist 02/20/2018 FINDINGS: The patient status post ORIF of a distal radius fracture with remodeling changes in this r egion. Remodeling changes distal ulna. Additional hardware is seen in the wrist. Advanced arthropa thy about the wrist. Bones appear demineralized. No acute fracture or dislocation. IMPERSSION: 1. No acute fracture or dislocation. 2. Chronic post-traumatic, postsurgical, and degenerative changes.
--- NOTE | 2018-10-17 11:51 | DI ---
EXAM: LEFT HUMERUS, 2 VIEWS HISTORY: Pain in the upper arm. FINDINGS: Clothing was left in place leading to multiple linear artifacts over the shoulder although no well-defined acute fracture line is suggested. Joints are intact. There is at least mild osteoa rthritis of both the AC and glenohumeral joints. Soft tissues are grossly unremarkable IMPRESSION: 1. No acute fracture or dislocation. 2. Osteoarthritis.
--- NOTE | 2018-10-17 11:57 | DI ---
EXAM: LEFT HAND THREE VIEWS HISTORY: Pain, patient denies fall FINDINGS: Compared to 02/20/2018. Bones are significantly demineralized. Redemonstration of stabil ization hardware over the carpus and the carpus are deformed and show abnormal articulation which is stable. Previous exam had an acute distal radial fracture which has subsequently been stabilized wit h residual mild to moderate deformity. There is no acute fracture line or joint dislocation seen on this limited exam. IMPRESSION: 1. No definite acute finding.
--- NOTE | 2018-10-17 13:31 | HP ---
DATE OF SERVICE: 10/14/18 REASON FOR HOSPITALIZATION/HISTORY OF PRESENT ILLNESS: 68 year old white female who was previously in [facility] for IV antibiotics for urinary tract infection. She came to the ER feeling bad, weak and she hadn't wanted to eat. She finished a 14 days course of Invanz and I repeated a U/A at [facility] which was normal immediately following her 14 days course of Invanz PAST MEDICAL HISTORY: Hypertension COPD GERD Chronic kidney disease stage 4 History of UTI with positive e-coli and ESBL positive Chronic renal failure Anemia History of hyperkalemia History of Hyponatremia Hypertension Dyslipidemia Depression History of falls PAST SURGICAL HISTORY: Right arm fracture with repair Right nephrectomy Kidney transplant 2004 Tonsillectomy Cholecystectomy Umbilical hernia repair REVIEW OF SYSTEMS: CONSTITUTIONAL: No night sweats. Fatigue. Weakness. No fever or chills. HEENT: Eyes: No visual changes. No eye pain. No eye discharge. ENT: No runny nose. No epistaxis. No sinus pain. No sore throat. No odynophagia. No ear pain. No congestion. RESPIRATORY: No cough, no congestion. No hemoptysis. No shortness of breath. CARDIOVASCULAR: No angina symptoms. No CHF symptoms. No atypical chest pain for CAD. No palpitations. No PND. No orthopnea. GASTROINTESTINAL: No abdominal pain. No nausea or vomiting. No diarrhea or constipation. No hematemesis. No hematochezia. GENITOURINARY: No urgency. No frequency. No dysuria. No hematuria. No obstructive symptoms. No discharge. No pain. No significant abnormal bleeding. MUSCULOSKELETAL: No musculoskeletal pain. No joint swelling. No arthritis. NEUROLOGICAL: No headache. No neck pain. No syncope. No seizures. No dizziness. PSYCHIATRIC: Not anxious. No depression. No suicidal thoughts. No homicidal thoughts. SKIN: No rash. No lesions. No wounds. ENDOCRINE: No unexplained weight loss. No weight gain. HEMATOLOGIC/LYMPHATIC: No anemia. No purpura. No petechiae. No prolonged or excessive bleeding. No palpable lymph nodes. PERSONAL/FAMILY/SOCIAL HISTORY: The patient is a former smoker. She quit about 20 years ago. She is . She lives at home by herself. She does have two sons which try to take care of her. No alcohol or illicit drug use. MEDICATIONS: Plavix 75mg PO daily Neurontin 200mg PO twice a day Ferrous sulfate 325mg PO twice a day Prograf 2mg PO twice a day Protonix 40mg Po daily Chlordiazepoxide HCL 10mg PO twice a day Hydrocodone-Acetaminophen 7.5-325mg PO three times a day PRN [place]or 20mg Po daily Sodium Bicarbonate 650mg PO Q 12 hours Prednisone 2.5mg PO daily Norvasc 5mg PO bedtime Tenormin 50mg PO daily Demadex 10mg PO QDAC Cymbalta 60mg Po daily ALLERGIES: Sulfa Ondansetron Ibuprofen PHYSICAL EXAMINATION: VITAL SIGNS: Temperature 98.3,heart rate 69, blood pressure 113/59, pulse ox 86 %. HEENT: Head normocephalic, atraumatic. Eyes: Extraocular muscles are intact. Pupils are equal, round and reactive to light and accommodation. Ears: No lesions. Nose appeared normal. Throat: No exudate or erythema. NECK: Supple. No JVD, no carotid bruit. No lymphadenopathy or thyromegaly. LUNGS: Diminished breath sounds bilaterally. Clear to auscultation. Percussion note normal. Chest symmetrical. HEART: S1, S2, no S3. No murmurs. No cyanosis or clubbing. No ascites. Pulses: Dorsalis pedis and posterior tibial pulses +1 to +2 bilaterally. ABDOMEN: Soft. Nontender. Bowel sounds active. No CVA tenderness. No mass felt. EXTREMITIES: No edema. Full range of motion of all extremities, equal. NEUROLOGIC: No focal deficit. Cranial nerves II through XII are grossly intact. No headache, no double vision or headache. SKIN: Not dry. Intact. Turgor - normal. Pallor LYMPHATIC: No palpable lymph nodes/no lymphedema. MUSCULOSKELETAL: Normal joints with no swelling. Muscle tone is normal. LABS: WBC 7.9, hgb 9.1, hct 29.8, plt count 250, sodium 134, potassium 4.7, BUN 50, creatinine 2.5, glucose 157. Chest x-ray shows pulmonary vascular congestion and cardiomegaly. ABG on room air O2 sat 95, pH 7.455, pCO2 46, Po2 72, bicarb 32.9, total CO2 34. AST 16. ALT 8. U/A shows 3+ bacteria. D-Dimer 3,709. ASSESSMENT: 1. Acute urinary tract infection 2. Acute renal failure 3. CHF 4. COPD PLAN: 1. Will admit 2. Routine telemetry orders 3. CBC and CMP daily 4. Start fluid 75cc an hour normal saline, 5. Start Rocephin 1gram IV daily 6. Continue all home medications 7. Fall precautions. 8. Urine for culture and sensitivity Will follow closely. TIME SPENT: More than 70 minutes. MTDD
--- NOTE | 2018-10-17 14:11 | RS.OTINEVL ---
Subjective - Patient information Date of Evaluation: 10/17/18 Date of Arrival on Unit: 10/14/18 Admitted From:: Home Diagnosis: ESBL in urine, OA, PRECAUTIONS: A high risk for falls. RUE fracture. Usual Living Arrangement: Alone Living Arrangement Comments: pt has 15 hours per week help from gissel love , and son lives nearby. Home Environment: House, Stairs (few), Rail Medical History: Hypertension Medical History Comments:: DVT, GERD, RUE wrist fx, depression, cardiomegaly LATEX ALLERGY?: No Surgical History Comments:: kidney transplant Medications: see chart - Level of function Prior to this admission, the patient could do the following:: Partially Dependent Ambulation Abilities prior to this admission: Pt was living in a usp and was sent home per her request. Pt then went home with help and was found in the floor. Current Level of Function: Partially Dependent Current Equipment Used at Home: wheelchair, walker, oxygen Pain Assessment - Pain Pain Score: 5 Side: bilateral Pain Location Body Site: Back Interventions - Objective Patient Orientation: Person, Place, Situation Current Interventions: IV's Observation: Pt was found leaning on her forearms in the seat of the chair and her bottom half way off the BSC. Pt had legs folded up underneath her. Pt did not assist with sit to stand from the BSC. Pt is not motivated to take care of herself. Pt is not willing to physically to complete sit to stand. Interventions - ROM Right Upper Extremity AROM: Slight limitation Left Upper Extremity AROM: Slight limitation - Strength Right Upper Extremity Strength: Mild Weakness Left Upper Extremity Strength: Mild Weakness - Sensation Right Upper Extremity Sensation: Intact/Normal Left Upper Extremity Sensation: Intact/Normal Balance - Sitting Balance Static Sitting Balance: Fair Dynamic Sitting Balance: Fair - Standing Balance Static Standing Balance: Poor Dynamic Standing Balance: Poor ADL Skills - Self Feeding Self Feeding: Independent - Grooming Grooming: Max Assist - Dressing Dressing UE: Max Assist Dressing LE: Max Assist, 2 person assist - Toilet Management Toileting Management: Max Assist, 2 person assist Functional Mobility - Bed Mobility Rolling R/L: Supervision Sit to Supine: Independent - Transfers Sit to Stand: Max Assist, 2 person assist Stand to Sit: Max Assist, 2 person assist Stand Pivot Transfers: Max Assist, 2 person assist - Ambulation Weight Bearing Status: FWB Assistive Device Used: No Assistive Device Assistance needed with Ambulation: Max Assist, 2 person assist - Safety Awareness Safety Awareness: Poor KRYSTLE INDEX SCORE: . Additional Treatment Performed - Time with patient Length of Evaluation: 20 Total treatment time: 20 Activities Do you enjoy playing games?: No Would you be interested in leaving your room for activities?: No Would you enjoy group activities?: No Do you have difficulty with your vision?: Yes Patient Interests:: Watching Television, Visiting/Socializing Patient Education Patient Education: Education of diagnosis, Education of Plan of Care Teaching Recipient: Patient Teaching Methods: Discussion Assessment Problem List:: Decreased level of function, Requires training/education, Decreased safety/Risk of falls, Weakness Rehab Potential: Good Further Therapy Indicated?: Yes Candidate for Swing Bed for Therapy Services?: No Evaluation Complexity: HISTORY: Medium, EXAM OF BODY SYSTEMS: Medium, CLINICAL DECISION MAKING: Medium Short Term Goals - Goals GOAL 1: Pt to increase dyn. std. bal. to Fair Goal to be met by: 10/22/18 GOAL 2: Pt to increase activity tolerance to 8 minutes with setup. Goal to be met by: 10/22/18 GOAL 3: Pt to increase independence with sit to stand to min A. Goal to be met by: 10/22/18 Senior Living Goals GOAL 1: Pt to increase dyn. std. bal. to Fair+/G- Goal to be met by: 10/29/18 GOAL 2: Pt to increase activity tolerance to 15 minutes with setup. Goal to be met by: 10/29/18 GOAL 3: Pt to increase independence with sit to stand to mod-I. Goal to be met by: 10/29/18 Plan Plan of Care: Therapeutic EX, Neuromuscular Re-Educ, Therapeutic Activity, Self- Care/Home Management Frequency of Treatment: 1-2 X day, as tolerated Duration of Treatment: One and a half weeks. Anticipated Discharge Destination: [facility] Treatment Diagnosis (ICD 10 Codes): Muscle Weakness M62.81, Z74.1 Need for assistance with personal care. Has the Physician been added for Co-signature?: Yes
[2018-10-17] MEDS: MEVACOR PO SCH (17:22)
[2018-10-17] MEDS: NORVASC PO SCH (21:10)
[2018-10-17] MEDS: LEXAPRO PO SCH (21:10)
[2018-10-18] MEDS: PROTONIX PO SCH (05:52)
[2018-10-18] MEDS: DEMADEX PO SCH (05:52)
[2018-10-18] MEDS: FERROUS SULFATE PO SCH ×2 (05:52→17:02)
[2018-10-18] MEDS: LIBRIUM PO SCH ×2 (09:05→20:52)
[2018-10-18] MEDS: PREDNISONE PO SCH (09:05)
[2018-10-18] MEDS: NEURONTIN PO SCH ×2 (09:06→20:51)
[2018-10-18] MEDS: TENORMIN PO SCH (09:06)
[2018-10-18] MEDS: PLAVIX PO SCH (09:06)
[2018-10-18] MEDS: CYMBALTA PO SCH (09:07)
[2018-10-18] MEDS: [UNRECOGNIZED DRUG - OTHER] IV SCH ×2 (09:07→20:48)
[2018-10-18] MEDS: MERREM IV SCH ×2 (09:07→20:48)
[2018-10-18] MEDS: SODIUM BICARBONATE PO SCH ×2 (09:07→20:54)
[2018-10-18] MEDS: TACROLIMUS 2 MG PO SCH ×2 (09:15→20:55)
[2018-10-18] MEDS: MEVACOR PO SCH (17:02)
[2018-10-18] MEDS: LEXAPRO PO SCH (20:53)
[2018-10-18] MEDS: NORVASC PO SCH (20:53)
[2018-10-19] MEDS: PROTONIX PO SCH (05:45)
[2018-10-19] MEDS: FERROUS SULFATE PO SCH ×2 (05:45→17:14)
[2018-10-19] MEDS: DEMADEX PO SCH (05:45)
[2018-10-19] MEDS: SODIUM BICARBONATE PO SCH ×2 (09:54→20:38)
[2018-10-19] MEDS: LIBRIUM PO SCH ×2 (09:54→20:39)
[2018-10-19] MEDS: PREDNISONE PO SCH (09:55)
[2018-10-19] MEDS: TENORMIN PO SCH (09:55)
[2018-10-19] MEDS: NEURONTIN PO SCH ×2 (09:55→20:38)
[2018-10-19] MEDS: CYMBALTA PO SCH (09:55)
[2018-10-19] MEDS: PLAVIX PO SCH (09:56)
[2018-10-19] MEDS: [UNRECOGNIZED DRUG - OTHER] IV SCH ×2 (09:56→20:39)
[2018-10-19] MEDS: MERREM IV SCH ×2 (09:56→20:39)
[2018-10-19] MEDS: TACROLIMUS 2 MG PO SCH ×2 (10:19→20:40)
[2018-10-19] MEDS: MEVACOR PO SCH (17:14)
[2018-10-19] MEDS: LEXAPRO PO SCH (20:38)
[2018-10-19] MEDS: NORVASC PO SCH (20:38)
[2018-10-20 05:20] VITALS: BP 128/69; TEMP 98.5
[2018-10-20] MEDS: PROTONIX PO SCH (05:59)
[2018-10-20] MEDS: FERROUS SULFATE PO SCH ×2 (05:59→16:50)
[2018-10-20] MEDS: DEMADEX PO SCH (06:00)
[2018-10-20] MEDS: PREDNISONE PO SCH (08:28)
--- NOTE | 2018-10-20 09:31 | PCM.PROG ---
Attending Provider: ATTENDING PROVIDER: Dr. ISADORA ZULETA This patient is seen with Elisa Britton, Nurse Practitioner. DATE OF SERVICE: 10/20/18 SUBJECTIVE: This 68 year old WHITE/ F was hospitalized 10/14/18. The patient is resting comfortably. She is more alert and less drowsy. Her kidney function is stable. The patient agreed to go the correction for continued IV antibiotics and physical therapy. REVIEW OF SYSTEMS: CONSTITUTIONAL: No night sweats. No fatigue, malaise, lethargy. No fever or chills. HEENT: Eyes: No visual changes. No eye pain. No eye discharge. ENT: No runny nose. No epistaxis. No sinus pain. No odynophagia. No congestion. RESPIRATORY: No cough, no congestion. No hemoptysis. No shortness of breath. CARDIOVASCULAR: No angina symptoms. No CHF symptoms. No atypical chest pain for CAD. No palpitations. No orthopnea.. GASTROINTESTINAL: No abdominal pain. No nausea or vomiting. No diarrhea or constipation. No hematemesis. No hematochezia. GENITOURINARY: No urgency. No frequency. Dysuria. No hematuria. No obstructive symptoms. No discharge. No pain. No significant abnormal bleeding. MUSCULOSKELETAL: No musculoskeletal pain; no joint swelling. Generalized weakness. NEUROLOGICAL: Awake, alert, oriented to place. No headache. No neck pain. No syncope. No seizures. No dizziness. PSYCHIATRIC: Not anxious. No depression. No suicidal thoughts. No homicidal thoughts. SKIN: No rash. No lesions. No wounds. ENDOCRINE: No unexplained weight loss. No weight gain. HEMATOLOGIC/LYMPHATIC: No anemia. No purpura. No petechiae. No prolonged or excessive bleeding. No palpable lymph nodes. PHYSICAL EXAMINATION: GENERAL: The patient is awake, alert and oriented to place, sitting in the chair in no distress. VITAL SIGNS: Temperature 98.5 F, Pulse 71, Respiratory Rate 18, BP 128/69, Pulse Ox 97% HEENT: Head normocephalic, atraumatic. Eyes: Extraocular muscles are intact. Pupils are equal, round and reactive to light and accommodation. Ears: No lesions. Nose appeared normal. Throat: No exudate or erythema. NECK: Supple. No JVD, no carotid bruit. No lymphadenopathy or thyromegaly. LUNGS: Decreased breath sounds. Clear to auscultation. Percussion note normal. Chest symmetrical. HEART: S1, S2, no S3. No murmurs. No cyanosis or clubbing. No ascites. Pulses: Dorsalis pedis and posterior tibial pulses +1 to +2 both sides. ABDOMEN: Soft. Non-tender. Bowel sounds active. No CVA tenderness. No mass felt. EXTREMITIES: No edema. Full range of motion of all extremities, equal. NEUROLOGIC: No focal deficit. Cranial nerves II through XII are grossly intact. No headache, no double vision or headache. SKIN: Not dry. Intact. Turgor-normal. LYMPHATIC: No palpable lymph nodes/no lymphedema. MUSCULOSKELETAL: Normal joints with no swelling. Muscle tone is normal. LAB REVIEW: 10/20/18 04:35 10/20/18 04:35 10/20/18 04:35: Sodium 135.8, Potassium 3.74, Chloride 93.5 L, Carbon Dioxide 34.1 H, Anion Gap 11.94, BUN 42.1 H, Creatinine 2.10 H, Estimated GFR (MDRD) 23.00, BUN/Creatinine Ratio 20.04, Glucose 88.3, Calcium 8.83, Total Bilirubin 0.57, AST 19.7, ALT 8.0, Alkaline Phosphatase 54.6, Total Protein 6.70, Albumin 3.41 L, Globulin 3.29, Albumin/Globulin Ratio 1.03, TSH 2.190 10/20/18 04:35: WBC 5.66, RBC 2.65 L, Hgb 8.4 L, Hct 27.7 L, MCV 104.5 H, MCH 31.7 H, MCHC 30.3 L, RDW Coeff of [place] 15.2 H, Plt Count 237, Immature Gran % ( Auto) 1.1, Neut % (Auto) 47.5, Lymph % (Auto) 27.0, [place] % (Auto) 14.8 H, Eos % (Auto) 9.2 H, Baso % (Auto) 0.4, Immature Gran # (Auto) 0.1, Neut # (Auto) 2.7, Lymph # (Auto) 1.5, [place] # (Auto) 0.8, Eos # (Auto) 0.5, Baso # (Auto) 0.0 ASSESSMENT: Please see below. 1. UTI, E-coli with ESBL positive. 2. Acute on chronic renal failure, stable. 3. Chronic COPD 4. Generalized weakness. PLAN: 1. Discharge to [facility] 2. Continue IV antibiotics Meropenem IV Q 12 hours times 6 more days due to ESBL 3. I would like them to do a CBC and CMP on and a repeat U/A following the completion. 4. PT/OT 5. Ortho appointment at the end of this week 6. Dr. Light october. Plan and coordination of the patient's care discussed in the presence of Recooperer and nurse. SCRIBED BY: Gemma BERNABE scribed while in presence of service performed by Dr. Zuleta/Elisa Britton APRN on 10/20/18 ([id number])
[2018-10-20] MEDS: PLAVIX PO SCH (09:56)
[2018-10-20] MEDS: CYMBALTA PO SCH (09:56)
[2018-10-20] MEDS: SODIUM BICARBONATE PO SCH (09:56)
[2018-10-20] MEDS: TACROLIMUS 2 MG PO SCH (09:56)
[2018-10-20] MEDS: LIBRIUM PO SCH (09:57)
[2018-10-20] MEDS: TENORMIN PO SCH (09:57)
[2018-10-20] MEDS: NEURONTIN PO SCH (09:57)
[2018-10-20] MEDS: [UNRECOGNIZED DRUG - OTHER] IV SCH (09:59)
[2018-10-20] MEDS: MERREM IV SCH (09:59)
--- NOTE | 2018-10-20 12:17 | CM.DICTOOL ---
ADMISSION: 10/14/18 16:59 DISCHARGE: OCTOBER 20, 2018 DATE OF SERVICE: 10/20/18 FINAL DIAGNOSIS URINARY TRACT INFECTION, E-COLI ESBL POSITIVE ACUTE ON CHRONIC RENAL FAILURE DEHYDRATION HYPERTENSION HIGH CHOLESTEROL OSTEOARTHRITIS ANEMIA B 12 DEFICIENCY DJD RIGHT ARM FRACTURE COMMINUTED IMPACTION FRACTURE LEFT DISTAL RADIUS, 2017 DEPRESSION RIGHT NEPHRECTOMY KIDNEY TRANSPLANT, 2004 CHOLECYSTECTOMY CAROTID ENDARTERECTOMY, DR. DA SILVA RIGHT KNEE SURGERY UMBILICAL HERNIA REPAIR ECHOCARDIOGRAM SEP, 2018 LVH WITH ENLARGED LEFT ATRIAL CAVITY NORMAL VALVES LVEF 77% LAST VITALS Temp Pulse Resp BP Pulse Ox 98.5 F 71 18 128/69 97 10/20/18 05:18 10/20/18 05:18 10/20/18 05:18 10/20/18 05:18 10/20/18 05:19 TAKE THESE MEDICATIONS AT HOME Amlodipine Besylate (Norvasc) 5 mg PO BEDTIME [facility] Last Admin: 10/19/18 20:38 Dose: 5 mg Atenolol (Tenormin) 50 mg PO DAILY [facility] Last Admin: 10/20/18 09:57 Dose: 50 mg Chlordiazepoxide HCl (Librium) 5 mg PO BID [facility] Last Admin: 10/20/18 09:57 Dose: 5 mg Clopidogrel Bisulfate (Plavix) 75 mg PO DAILY [facility] Last Admin: 10/20/18 09:56 Dose: 75 mg Duloxetine HCl (Cymbalta) 60 mg PO DAILY [facility] Last Admin: 10/20/18 09:56 Dose: 60 mg Escitalopram Oxalate (Lexapro) 5 mg PO BEDTIME [facility] Last Admin: 10/19/18 20:38 Dose: 5 mg Ferrous Sulfate (Ferrous Sulfate) 324 mg PO BIDAC [facility] Last Admin: 10/20/18 05:59 Dose: 324 mg Gabapentin (Neurontin) 100 mg PO BID [facility] Last Admin: 10/20/18 09:57 Dose: 100 mg Lovastatin (Mevacor) 20 mg PO QPM [facility] Last Admin: 10/19/18 17:14 Dose: 20 mg Non-Formulary Medication (Tacrolimus [Prograf]) 2 mg PO BID [facility] Last Admin: 10/20/18 09:56 Dose: 2 mg MEROPENEM/SODIUM CHLORIDE 1 GRAM IV EVERY 12 HOURS FOR 6 DAYS LAST ADMIN: 10/20/2018 AT 0900 Pantoprazole Sodium (Protonix) 40 mg PO QDAC [facility] Last Admin: 10/20/18 05:59 Dose: 40 mg Prednisone (Prednisone) 2.5 mg PO DAILYWM [facility] Last Admin: 10/20/18 08:28 Dose: 2.5 mg Sodium Bicarbonate (Sodium Bicarbonate) 650 mg PO Q12HR [facility] Last Admin: 10/20/18 09:56 Dose: 650 mg Sodium Chloride (Saline Flush) 1 syr IVF PRN PRN PRN Reason: To flush IV Last Admin: 10/20/18 09:58 Dose: 1 syr Torsemide (Demadex) 10 mg PO QDAC [facility] Last Admin: 10/20/18 06:00 Dose: 10 mg ALLERGIES sulfur dioxide Allergy (Unknown, Verified 10/14/18 14:17) ondansetron HCl [From Zofran] Adverse Reaction (Unknown, Verified 10/14/18 14:17 ) ibuprofen Adverse Reaction (Verified 10/14/18 14:17) DISCONTINUED MEDICATIONS None MEDICATION CHANGES LIBRIUM HAS BEEN DECREASED TO 5 MG BID NEURONTIN HAS BEEN DECREASED TO 100 MG BID HYDROCODONE/ACETAMINOPHEN 7.5-325 MG HAS BEEN DECREASED TO 1/2 TABLET BID PRN NEW PRESCRIPTIONS: MEROPENEM 1 GRAM IV EVERY 12 HOURS FOR 6 DAYS LAST DOSE IS AT 9 PM ON October LEXAPRO 5 MG DAILY LIBRIUM 5 MG BID (RX SENT) NEURONTIN 100 MG BID (RX SENT) NORCO 7.5-325 MG 1/2 TABLET BID PRN (RX SENT) SMOKING: NOT APPLICABLE DISEASE SPECIFIC EDUCATION: NEED FOR IV ANTIBIOTIC FOR INFECTION NEED FOR PHYSICAL/OCCUPATIONAL THERAPY APPOINTMENTS WITH ORTHOPAEDIC AND NEPHROLOGY LAB REVIEW: 10/20/18 04:35 10/20/18 04:35 10/20/18 04:35: Sodium 135.8, Potassium 3.74, Chloride 93.5 L, Carbon Dioxide 34.1 H, Anion Gap 11.94, BUN 42.1 H, Creatinine 2.10 H, Estimated GFR (MDRD) 23.00, BUN/Creatinine Ratio 20.04, Glucose 88.3, Calcium 8.83, Total Bilirubin 0.57, AST 19.7, ALT 8.0, Alkaline Phosphatase 54.6, Total Protein 6.70, Albumin 3.41 L, Globulin 3.29, Albumin/Globulin Ratio 1.03, TSH 2.190 10/20/18 04:35: WBC 5.66, RBC 2.65 L, Hgb 8.4 L, Hct 27.7 L, MCV 104.5 H, MCH 31.7 H, MCHC 30.3 L, RDW Coeff of [place] 15.2 H, Plt Count 237, Immature Gran % ( Auto) 1.1, Neut % (Auto) 47.5, Lymph % (Auto) 27.0, [place] % (Auto) 14.8 H, Eos % (Auto) 9.2 H, Baso % (Auto) 0.4, Immature Gran # (Auto) 0.1, Neut # (Auto) 2.7, Lymph # (Auto) 1.5, [place] # (Auto) 0.8, Eos # (Auto) 0.5, Baso # (Auto) 0.0 PLAN: DISCHARGE TO [facility] DIET: CONSISTENT CARBOHYDRATES WITH BEDTIME SNACK DIETITIAN TO CONSULT FOR OPTIMAL NUTRITIONAL INTAKE UP TO DINING ROOM FOR MEALS EVALUATE LEGS WHEN SITTING KEEP CAST DRY AT ALL TIMES PHYSICAL THERAPY EVALUATION OCCUPATIONAL THERAPY EVALUATION OXYGEN PER NASAL CANNULA AT 2 LITERS VITAL SIGNS DAILY FOR ONE WEEK, THEN WEEKLY OXYGEN SATURATION DAILY CBC, CMP ON SATURDAY, October ACCU-CHECKS AC AND HS (NO COVERAGE) REPEAT URINALYSIS (CLEAN CATCH OR STRAIGHT CATH) 3 (THREE) DAYS AFTER LAST DOSE OF IV ANTIBIOTIC CONTACT PRECAUTIONS FOR ESBL IN URINE APPOINTMENTS ARE SCHEDULED: [facility]. LEON, [facility] ON OCTOBER 22 AT 11:[address] SKINNER (NEPHROLOGY) ON October AT 12:30 PLEASE HAVE LABS: CBC, BMP AND URINE MICROALBUMIN/CREATININE RATIO DONE AT LEAST 1 WEEK PRIOR TO NEPHROLOGY APPOINTMENT (ORDER IS ENCLOSED FROM [facility]) CRUZ PASTOR APRN TO SEE ON LONG-TERM ROUNDS IN 7-10 DAYS CODE STATUS: FULL CODE MS. RAMIREZ IS ALERT TO PERSON, PLACE. SHE IS DISORIENTED TO TIME. DISCHARGE PLANS HAVE BEEN DISCUSSED WITH THE PATIENT AND HER SONS, LINWOOD AND TAM. ALL PARTIES ARE AGREEABLE TO REHAB PLACEMENT FOR PHYSICAL AND OCCUPATIONAL THERAPY. THE PATIENT IS ADVISED BY HER SONS THAT SHE WILL NEED TO BE ABLE TO AMBULATE AND CARE FOR HERSELF PRIOR TO RETURNING HOME. SHE IS AGREEABLE. SHE IS COOPERATIVE WITH CARE AND RECEPTIVE TO INSTRUCTIONS. SHE NEEDS FREQUENT REMINDERS TO NOT EXIT THE BED OR CHAIR WITHOUT ASSISTANCE FROM THE NURSING STAFF. SHE IS INDEPENDENT WITH MEALS, BUT REQUIRES REMINDERS FOR TURNING. SHE IS INCONTINENT OF URINE AT TIMES, BUT WILL ALSO REQUEST THE BEDPAN OR BSC FOR VOIDING. SHE REQUIRES ASSISTANCE OF 2 STAFF MEMBERS FOR TRANSFER TO THE BEDSIDE CHAIR. SHE REQUIRES STAFF ASSISTANCE OF TWO, GAIT BELT AND ROLLING WALKER FOR AMBULATION TO THE BATHROOM OR AMBULATION IN THE ROOM. GAIT IS SLOW, UNSTEADY AT TIMES. COLOR IS PALE. SKIN WARM/DRY. CAST (INTACT) IS PRESENT TO THE RIGHT FOREARM. NUMEROUS AREAS OF ECCHYMOSIS ARE NOTED TO THE LEFT ARM. NO SKIN BREAKDOWN IS NOTED. MD CRUZ ANAYA, CERTIFIED CAREGIVER
[2018-10-20] MEDS: MEVACOR PO SCH (16:51)
--- NOTE | 2018-10-21 13:50 | PN ---
BILLIN10/14/18 ADMISSION DAY LEVEL 5 10/15/18 INTERMEDIATE 10/16/18 INTERMEDIATE 10/17/18 INTERMEDIATE 10/18/18 INTERMEDIATE 10/19/18 INTERMEDIATE 10/20/18 DISCHARGE MTDD
--- NOTE | 2018-10-21 13:55 | PN ---
DATE OF SERVICE: 10/19/18 SUBJECTIVE: 68-year-old white female hospitalized with UTI and chronic kidney disease. The patient is mildly depressed, feeling somewhat better. Right hand fracture has been taken care of by orthopaedic surgeon. She lives by herself. The son tries to help his best but is not good enough. The patient's appetite seems to be better. She is not walking, trying to walk or helping herself. REVIEW OF SYSTEMS: CONSTITUTIONAL: No night sweats. No fatigue, malaise, lethargy. No fever or chills. HEENT: Eyes: No visual changes. No eye pain. No eye discharge. ENT: No runny nose. No epistaxis. No sinus pain. No sore throat. No odynophagia. No congestion. RESPIRATORY: No cough, no congestion. No hemoptysis. No shortness of breath. CARDIOVASCULAR: No angina symptoms. No CHF symptoms. No atypical chest pain for CAD. No palpitations. No PND. No orthopnea. GASTROINTESTINAL: No abdominal pain. No nausea or vomiting. No diarrhea or constipation. No hematemesis. No hematochezia. GENITOURINARY: No urgency. No frequency. No dysuria. No hematuria. No obstructive symptoms. No discharge. No pain. No significant abnormal bleeding. MUSCULOSKELETAL: No musculoskeletal pain; no joint swelling. NEUROLOGICAL: No headache. No neck pain. No syncope. No seizures. No dizziness. PSYCHIATRIC: Not anxious. No depression. No suicidal thoughts. No homicidal thoughts. SKIN: No rash. No lesions. No wounds. ENDOCRINE: No unexplained weight loss. No weight gain. HEMATOLOGIC/LYMPHATIC: No anemia. No purpura. No petechiae. No prolonged or excessive bleeding. No palpable lymph nodes. PHYSICAL EXAMINATION: VITAL SIGNS: Temperature 98, pulse 70, respiratory rate 20, BP 119/66, pulse ox 93% on room air. HEENT: Head normocephalic, atraumatic. Eyes: Extraocular muscles are intact. Pupils are equal, round and reactive to light and accommodation. Ears: No lesions. Nose appeared normal. Throat: No exudate or erythema. NECK: Supple. No JVD, no carotid bruit. No lymphadenopathy or thyromegaly. LUNGS: Clear to auscultation. Percussion note normal. Chest symmetrical. HEART: S1, S2, no S3. No murmurs. No cyanosis or clubbing. No ascites. Pulses: Dorsalis pedis and posterior tibial pulses +1 to +2 bilaterally. ABDOMEN: Soft. Nontender. Bowel sounds active. No CVA tenderness. No mass felt. EXTREMITIES: No edema. Full range of motion of all extremities, equal. NEUROLOGIC: No focal deficit. Cranial nerves II through XII are grossly intact. No headache, no double vision or headache. SKIN: Not dry. Intact. Turgor - normal. LYMPHATIC: No palpable lymph nodes/no lymphedema. MUSCULOSKELETAL: Normal joints with no swelling. Muscle tone is normal. LABS: Hemoglobin 8.7, hematocrit 28, WBC 7,400, normal differential. Creatinine 2, BUN 43 - that was yesterday. ASSESSMENT: 1. UTI with ESBL being on antibiotics, Meropenem. PLAN: 1. Advised to eat. 2. Advised to walk. May need Physical Therapy. CONDITION: Stable. TIME SPENT: More than 30 minutes. Plan and coordination of the patient's care discussed in the presence of nurse. KAREN
--- NOTE | 2018-10-21 14:00 | PN ---
DATE OF SERVICE: 10/20/18 SUBJECTIVE: The patient was seen and examined with the nurse practitioner. The patient is feeling better. She is going to be discharged home. Her hemoglobin and hematocrit is stable in the range of 8 to 8.5 with hematocrit of 23 to 28. The patient's creatinine is 2, BUN 42. The patient is strongly advised to go and see Dr. Light. TIME SPENT: More than 30 minutes. Plan and coordination of the patient's care discussed in the presence of nurse. KAREN
--- NOTE | 2018-10-23 14:44 | DS ---
DATE OF SERVICE: 10/20/18 FINAL DIAGNOSIS: URINARY TRACT INFECTION, E-COLI ESBL POSITIVE ACUTE ON CHRONIC RENAL FAILURE DEHYDRATION HYPERTENSION HIGH CHOLESTEROL OSTEOARTHRITIS ANEMIA B 12 DEFICIENCY DJD RIGHT ARM FRACTURE COMMINUTED IMPACTION FRACTURE LEFT DISTAL RADIUS, 2017 DEPRESSION RIGHT NEPHRECTOMY KIDNEY TRANSPLANT, 2004 CHOLECYSTECTOMY CAROTID ENDARTERECTOMY, DR. DA SILVA RIGHT KNEE SURGERY UMBILICAL HERNIA REPAIR ECHOCARDIOGRAM SEP, 2018 LVH WITH ENLARGED LEFT ATRIAL CAVITY NORMAL VALVES LVEF 77% LAST VITALS: Temp Pulse Resp BP Pulse Ox 98.5 F 71 18 128/69 97 10/20/18 05:18 10/20/18 05:18 10/20/18 05:18 10/20/18 05:18 10/20/18 05:19 DISCHARGE INSTRUCTIONS: DISCHARGE TO [facility]. OXYGEN PER NASAL CANNULA AT 2 LITERS , VITAL SIGNS DAILY FOR ONE WEEK, THEN WEEKLY OXYGEN SATURATION DAILY. CBC, CMP ON SATURDAY, October. ACCU-CHECKS AC AND HS (NO COVERAGE). REPEAT URINALYSIS (CLEAN CATCH OR STRAIGHT CATH) 3 (THREE) DAYS AFTER LAST DOSE OF IV ANTIBIOTIC. CONTACT PRECAUTIONS FOR ESBL IN URINE. APPOINTMENTS ARE SCHEDULED : DR. CABRERA, [facility] ON OCTOBER 22 AT 11:30 AM and APPOINTMENT WITH DR. LIGHT (NEPHROLOGY) ON October AT 12:30. PLEASE HAVE LABS: CBC, BMP AND URINE MICROALBUMIN/CREATININE RATIO DONE AT LEAST 1 WEEK PRIOR TO NEPHROLOGY APPOINTMENT. (ORDER IS ENCLOSED FROM [facility]) CRUZ PASTOR APRN TO SEE ON PRISON ROUNDS IN 7-10 DAYS. CODE STATUS: FULL CODE TAKE THESE MEDICATIONS AT HOME: Amlodipine Besylate (Norvasc) 5 mg PO BEDTIME SHERRELL Atenolol (Tenormin) 50 mg PO DAILY SHERRELL Chlordiazepoxide HCl (Librium) 5 mg PO BID SHERRELL Clopidogrel Bisulfate (Plavix) 75 mg PO DAILY SHERRELL Duloxetine HCl (Cymbalta) 60 mg PO DAILY SHERRELL Escitalopram Oxalate (Lexapro) 5 mg PO BEDTIME SHERRELL Ferrous Sulfate (Ferrous Sulfate) 324 mg PO BIDAC SHERRELL Gabapentin (Neurontin) 100 mg PO BID SHERRELL Lovastatin (Mevacor) 20 mg PO QPM SHERRELL Non-Formulary Medication (Tacrolimus [Prograf]) 2 mg PO BID SHERRELL MEROPENEM/SODIUM CHLORIDE 1 GRAM IV EVERY 12 HOURS FOR 6 DAYS Pantoprazole Sodium (Protonix) 40 mg PO QDAC SHERRELL Prednisone (Prednisone) 2.5 mg PO DAILYWM SHERRELL Sodium Bicarbonate (Sodium Bicarbonate) 650 mg PO Q12HR SHERRELL Sodium Chloride (Saline Flush) 1 syr IVF PRN PRN Torsemide (Demadex) 10 mg PO QDAC SHERRELL ALLERGIES: sulfur dioxide Allergy (Unknown, Verified 10/14/18 14:17) ondansetron HCl [From Zofran] Adverse Reaction (Unknown, Verified 10/14/18 14:17 ) ibuprofen Adverse Reaction (Verified 10/14/18 14:17) DISCONTINUED MEDICATIONS: None MEDICATION CHANGES: LIBRIUM HAS BEEN DECREASED TO 5 MG BID NEURONTIN HAS BEEN DECREASED TO 100 MG BID HYDROCODONE/ACETAMINOPHEN 7.5-325 MG HAS BEEN DECREASED TO 1/2 TABLET BID PRN NEW PRESCRIPTIONS: MEROPENEM 1 GRAM IV EVERY 12 HOURS FOR 6 DAYS LAST DOSE IS AT 9 PM ON October LEXAPRO 5 MG DAILY LIBRIUM 5 MG BID (RX SENT) NEURONTIN 100 MG BID (RX SENT) NORCO 7.5-325 MG 1/2 TABLET BID PRN (RX SENT) SMOKING: NOT APPLICABLE DISEASE SPECIFIC EDUCATION: NEED FOR IV ANTIBIOTIC FOR INFECTION NEED FOR PHYSICAL/OCCUPATIONAL THERAPY APPOINTMENTS WITH [facility]: CONSISTENT CARBOHYDRATES WITH BEDTIME SNACK DIETITIAN TO CONSULT FOR OPTIMAL NUTRITIONAL INTAKE ACTIVITY: UP TO DINING ROOM FOR MEALS EVALUATE LEGS WHEN SITTING KEEP CAST DRY AT ALL TIMES PHYSICAL THERAPY EVALUATION OCCUPATIONAL THERAPY EVALUATION HOSPITAL COURSE: This is a 68 year old white female who was recently in [facility] for IV antibiotics and physical therapy due to ESBL in her urine. Prior to that she had had acute renal failure, had a fall and was in the hospital at [facility]. She requested to be discharged from the [facility] and went home and he son found her in the floor at home the following day and presented to the emergency room. Again in acute renal failure with creatinine of 2.5 and BUN into the 70's. She had a repeat UA done at the [facility] which was normal. U/A here was abnormal 3+ bacteria sensitivity was positive for ESBL and e-coli. Once again she was placed on Meropenem Q 12 hours due to her renal function given IV fluids at 100cc an hour for the first 48 hours and then 75cc an hour. Initial chest x-ray did show some vascular congestion. She was not asymptomatic till about the 4th day. Her creatinine was down to about 1.9. We did have to administer IV Lasix. She has since been fine. She has had increased drowsiness, chronic anemia due to IV fluids, hemodilution as well as chronic kidney disease. Her drowsiness thought to be due to medication while she was admitted. I did decrease for Librium to 5mg PO twice a day from 10mg. As well as decreased her Neurontin from 200mg twice a day to 100mg twice a day. Given this change she has improved. Somewhat is more alert and has been up walking. I do believe also she is depressed. We did start her on Lexapro 5mg daily in addition to her Cymbalta. Today kidney function is stable with BUN 42 and creatinine of 2.1. Hgb is stable at 8.4. This is normal for her. She has agreed to go back to the [facility] for continuation of IV antibiotics. We will continue Meropenem IV Q 12 hours for the next 6 days. She will have repeat CBC and CMP this . She has a right wrist fracture from a fall which was repaired by Dr. Cabrera, her arm is in a cast. She has an appointment with him at end of this week, the [facility] is to take her. She has an appointment with Dr. Light the kidney specialist next week. Her blood pressure has been well controlled. Sugar has been controlled. She is agreeable to do physical therapy while she is at the [facility] along with with doing the IV Antibiotics. All of her home medications have been continued. We will discharge her there in stable condition. She is to have a repeat U/A the day following the completion of her antibiotics and I will followup with her closely there. TIME SPENT: More than 60 minutes. KAREN
--- NOTE | 2018-10-24 11:22 | PN ---
DATE OF SERVICE: 10/18/18 SUBJECTIVE: 68 year old white female hospitalized with UTI, chronic kidney disease and dehydration. The patient likely has ESBL. She is being treated with Meropenem. The patient doing well. She is still kind of down and depressed to some extent. Medications for pain and anxiety has been cut down. The patient has right forearm fracture. She is right handed. She is very independent. She lives by herself with the help of son. REVIEW OF SYSTEMS: CONSTITUTIONAL: No night sweats. No fatigue, malaise, lethargy. No fever or chills. HEENT: Eyes: No visual changes. No eye pain. No eye discharge. ENT: No runny nose. No epistaxis. No sinus pain. No sore throat. No odynophagia. No congestion. RESPIRATORY: No cough, no congestion. No hemoptysis. No shortness of breath. CARDIOVASCULAR: No angina symptoms. No CHF symptoms. No atypical chest pain for CAD. No palpitations. No PND. No orthopnea. GASTROINTESTINAL: No abdominal pain. No nausea or vomiting. No diarrhea or constipation. No hematemesis. No hematochezia. GENITOURINARY: No urgency. No frequency. No dysuria. No hematuria. No obstructive symptoms. No discharge. No pain. No significant abnormal bleeding. MUSCULOSKELETAL: No musculoskeletal pain; no joint swelling. NEUROLOGICAL: No headache. No neck pain. No syncope. No seizures. No dizziness. PSYCHIATRIC: Not anxious. No depression. No suicidal thoughts. No homicidal thoughts. SKIN: No rash. No lesions. No wounds. ENDOCRINE: No unexplained weight loss. No weight gain. HEMATOLOGIC/LYMPHATIC: No anemia. No purpura. No petechiae. No prolonged or excessive bleeding. No palpable lymph nodes. PHYSICAL EXAMINATION: VITALS: Temperature 98, pulse 67, respiratory rate 16, blood pressure 109/59 and pulse ox 97%. HEENT: Head normocephalic, atraumatic. Eyes: Extraocular muscles are intact. Pupils are equal, round and reactive to light and accommodation. Ears: No lesions. Nose appeared normal. Throat: No exudate or erythema. NECK: Supple. No JVD, no carotid bruit. No lymphadenopathy or thyromegaly. LUNGS: Decreased breath sounds. Clear to auscultation. Percussion note normal. Chest symmetrical. HEART: S1, S2, no S3. No murmurs. No cyanosis or clubbing. No ascites. Pulses: Dorsalis pedis and posterior tibial pulses +1 to +2 bilaterally. ABDOMEN: Soft. Nontender. Bowel sounds active. No CVA tenderness. No mass felt. EXTREMITIES: No edema. Full range of motion of all extremities, equal. No evidence of fluid overload. NEUROLOGIC: No focal deficit. Cranial nerves II through XII are grossly intact. No headache, no double vision or headache. SKIN: Not dry. Intact. Turgor - normal. LYMPHATIC: No palpable lymph nodes/no lymphedema. MUSCULOSKELETAL: Normal joints with no swelling. Muscle tone is normal. LABS: Hgb 8.7, hct 28, WBC 7,400 normal differential, creatinine 2, BUN 43, potassium 4.1. ASSESSMENT: 1. UTI being treated with Meropenem 1. Renal failure, has been stable with some improved. 3. Anemia chronic 4. Mild depression, the patient has been taken off most of the angiolithic medication. The patient's problem is that she hasn't been taken care of properly. She is not able to do things be herself. Son is trying the best he could. PLAN: 1. Strongly advised to followup with Dr. Light. 2. Will monitor Kidney functions 3. IV fluids has been discontinued because of possibility of fluid overload. No fluid overload and no CHF CONDITION: Stable. TIME SPENT: More than 30 minutes. Plan and coordination of the patient's care discussed in the presence of nurse. KAREN
== END 2018-10-20 18:15 | DRG 689 ==
LOC: ED 14:08 → MEDSURG A 16:59
PROVIDERS: ADMIT Internal Medicine; ATTEND Internal Medicine
DX: N39.0 Urinary tract infection, site not specified (principal); J81.0 Acute pulmonary edema; N17.9 Acute kidney failure, unspecified; N18.9 Chronic kidney disease, unspecified; M25.512 Pain in left shoulder; M54.9 Dorsalgia, unspecified; M19.90 Unspecified osteoarthritis, unspecified site; I10 Essential (primary) hypertension; I51.7 Cardiomegaly; E78.00 Pure hypercholesterolemia, unspecified; E86.0 Dehydration; E53.8 Deficiency of other specified B group vitamins; D64.9 Anemia, unspecified; F32.9 Major depressive disorder, single episode, unspecified; I50.9 Heart failure, unspecified; R53.81 Other malaise; J44.9 Chronic obstructive pulmonary disease, unspecified
CPT/HCPCS: 36415; 80053; 81001; 82550; 82803; 82962; 83605; 83735; 84145; 84443; 84481; 84484; 85008; 85025; 85379; 85610; 85730; 87040; 87070; 87081; 87086; 87186; 87651; 93005; 93010; 94761; 99284

== ENCOUNTER 2018-10-28 12:59 | Outpatient (CLI) | END 2018-10-28 13:00 | disposition home or self-care (01) | LOC: NONPT 12:59 | PROVIDERS: ATTEND Internal Medicine | DX: N17.9 Acute kidney failure, unspecified (principal); D64.9 Anemia, unspecified; I10 Essential (primary) hypertension | CPT/HCPCS: 85025 ==

== ENCOUNTER 2018-10-31 12:17 | Inpatient (IN) ==
--- NOTE | 2018-10-31 14:02 | CT ---
EXAM: CT of the abdomen pelvis without contrast History: Abdominal and pelvic trauma, right-sided abdominal pain. Comparison: CT abdomen and pelvis 11/11/2014 Technique: Multiplanar CT images through the abdomen pelvis were obtained without the administration of IV contrast Findings: Heart is enlarged. Coronary calcifications. There is a mildly displaced fracture of the right anterior seventh rib. Scoliosis. Degenerative changes of the spine. Status post cholecystectomy. Pneumobilia. Calcified granulomas within the spleen. No focal liver l esions. No peripancreatic inflammation. Adrenal glands are unremarkable. Atrophic [place] kidneys. Moderate colonic stool. No bladder wall thickening. Atrophic uterus. Right lower quadrant transpl ant kidney with no acute complication. 2.4 cm cyst within the transplant kidney. No perirectal infl ammation. Atherosclerotic vascular calcifications. Subcutaneous edema of the right lateral thigh is only partially visualized. Impression: 1. Right anterior seventh rib fracture. 2. No acute intra-abdominal or pelvic process. 3. Pneumobilia 4. Coronary artery disease. 5. Atrophic [place] kidneys. 6. Right lower quadrant transplant kidney without acute complication. 7. Simple cyst within the transplant kidney. 8. Subcutaneous edema of the right lateral thigh probably represents contusion.
--- NOTE | 2018-10-31 14:03 | CT ---
EXAM: CT BRAIN HISTORY: Fall TECHNIQUE: CT brain without intravenous contrast. 5-mm axial sections with Reformations. COMPARISON: 06/16/2018 FINDINGS: There is generalized atrophy. There is moderately severe periventricular and deep white matter low a ttenuation which although nonspecific is suggestive of chronic microvascular ischemic change. These findings are stable. Brain otherwise is unremarkable without evidence of hemorrhage or large vessel distribution recent is chemic infarction. There is no suggestion of acute hydrocephalus or subdural fluid collection. No m ass or mass effect. Cranium has no acute finding. Mastoid processes are aerated. The visualized paranasal sinuses are clear. There is a small peripheral scalp hematoma measuring 7 x 18 mm along the lateral right fronta l region. IMPRESSION: No acute intracranial process. No skull fracture. Small peripheral soft tissue/scalp h ematoma.
--- NOTE | 2018-10-31 14:04 | CT ---
EXAM: CT of the left shoulder without contrast History: Left shoulder trauma. Comparison: Chest CT and cervical spine CT 10/31/2018 Technique: Multiplanar CT images through the left shoulder were obtained without the administration of IV contrast Findings: There is an acute fracture of the proximal left clavicle which is mildly displaced. No ot her fractures identified. No dislocation. Moderate narrowing of the left AC joint. The left glenoh umeral joint with osteophyte formation. Impression: Acute fracture of the proximal left clavicle.
--- NOTE | 2018-10-31 14:06 | CT ---
EXAM: CT of the chest without contrast History: Right chest trauma. Comparison: Chest CT 03/14/2018, CT abdomen pelvis 10/31/2018 Technique: Multiplanar CT images through the thorax were obtained without the administration of IV c ontrast Findings: Heart is enlarged. Trace pericardial effusion. Coronary calcifications. There is mild i nterstitial edema. No consolidated pneumonia. No pleural fluid and no pneumothorax. Mildly displac ed fracture of the proximal left clavicle. Mildly displaced fracture of the right anterior sixth and seventh ribs. No lung masses or lung nodules. No pathologically enlarged thoracic lymph nodes. No thoracic aortic aneurysm. For details in the upper abdomen, please see dedicated CT abdomen pelvis done on the same day. Impression: 1. Cardiomegaly with interstitial edema. 2. Coronary artery disease. 3. Mildly displaced fractures of the right anterior sixth and seventh ribs. 4. Fracture of the proximal left clavicle
--- NOTE | 2018-10-31 14:11 | CT ---
EXAM: CT cervical spine. HISTORY: Fall, neck pain. TECHNIQUE: CT cervical spine without contrast. Detailed axial sections. Coronal and sagittal re-fo rmations. COMPARISON: 11/20/2016 FINDINGS: No fracture or subluxation is identified. Congenital fusion of the C5/C6 interspace. There is no sp ondylolisthesis or loss of vertebral body height. Facet joints are covered. Lateral masses of C1 a nd C2 are normally aligned and the odontoid process is intact. Diffuse degenerative disc and facet d isease with levels of mild central canal stenosis. There is moderate right neural foraminal narrowin g at C6/C7 secondary to bony spurring. No paraspinal hematoma. IMPRESSION: 1. No acute fracture or subluxation.
--- NOTE | 2018-10-31 17:04 | ED.PDOC ---
General ED Provider: Dr. CLARI MICHAUD Chief Complaint: Hip Pain/Injury Stated Complaint: right hip , neck pain , right lateral chest pain brusing of the face and left clavicle pain after a fall 2 days ago no L.O.C REPORTED . Time Seen by Physician: 12:20 Mode of Arrival: Wheelchair Information Source: Patient Exam Limitations: No limitations Primary Care Provider: ISADORA BRYANT Nursing and Triage Documentation Reviewed and Agree: Yes Does patient meet sepsis criteria?: No System Inflammatory Response Syndrome: Not Applicable Sepsis Protocol: For patient's 13 years and over: Temp is 96.8 and below OR 101 and greater Pulse >90 BPM Resp >20/minute Acutely Altered Mental Status Are patient's symptoms suggestive of a new infection, such as: -Pneumonia -Skin, Soft Tissue -Endocarditis -UTI -Bone, Joint Infection -Implantable Device -Acute Abdominal Infection -Wound Infection -Meningitis -Blood Stream Catheter Infection -Unknown Trauma/Injury Complaint Exam - Trauma Complaint/Exam Location of Pain or Injury: Reports: Head, Neck, LUE, Chest Mechanism of Injury: Reports: Fall Onset/Duration: 2 DAYS AGO Symptoms Are: Still present Timing of Treatment: Immediate Initial Severity: Moderate Current Severity: Moderate Character: Reports: Aching Aggravating: Reports: Movement Alleviating: Reports: Rest Associated Signs and Symptoms: Reports: Bruising (FACE ), Extremity disuse ( LEFT SHOULDER ), Painful respiration (RIGHT RIB PAIN ). Denies: LOC, Confusion , Memory loss, Lethargy, Dysphagia, Hemoptysis, Significant blood loss Penetrating Injury Risk Factors: Reports: None Related Surgical History: Reports: None Nexus Low Risk Criteria: No post-midline CS tender, No evidence of intoxicat., No Altered LOC, No focal neuro deficit, No distracting injuries Glascow Coma Scale (see protocol): 15 Trauma Findings: Absent: [place] eyes, Nasal deformity, Dental tenderness, Dental injury, Dental malocclusion, Neck tenderness, Neck spasm, SubQ Air, Crepitus, Airway obstructed, Trachea displaced, Labored respirations, Decreased breath sounds, Muffled heart sounds, Weak pulses, Absent pulses, Abdominal distention, Pelvic tenderness, Pelvic instability Skin Findings: Present: Contusion (FACE ) Differential Diagnoses: Contusions, Sprain, Strain Review of Systems - Review Of Systems Constitutional: Reports: No symptoms Eyes: Reports: No symptoms Ears, Nose, Mouth, Throat: Reports: No symptoms Respiratory: Reports: No symptoms Cardiac: Reports: No symptoms GI: Reports: No symptoms : Reports: No symptoms Musculoskeletal: Reports: Joint pain (LEFT SHOULDER ) Skin: Reports: No symptoms Neurological: Reports: No symptoms Endocrine: Reports: No symptoms Hematologic/Lymphatic: Reports: No symptoms All Other Systems: Reviewed and Negative Past Medical History - Past Medical History Previously Healthy: No Endocrine: Reports: None Cardiovascular: Reports: Hypertension Respiratory: Reports: COPD Hematological: Reports: None Gastrointestinal: Reports: GERD Genitourinary: Reports: None Neuro/Psych: Reports: None Musculoskeletal: Reports: None Cancer: Reports: None Last Menstrual Period: NA - Surgical History General Surgical History: Reports: None - Family History Family History: Reports: None - Social History Smoking Status: Former smoker Hx Substance Use: No Alcohol Screening: None - Immunizations Tetanus Shot up to Date: Yes Physical Exam - Physical Exam Appearance: Ill-appearing Ill-appearing: Mild Pain Distress: Mild Eyes: OLU, EOMI, Conjunctiva clear ENT: Ears normal, Nose normal, Oropharynx normal Neck: Supple Respiratory: Respirations nonlabored Cardiovascular: RRR, Pulses normal, No rub, No murmur GI/: Soft, Nontender, No masses, Bowel sounds normal, No Organomegaly Musculoskeletal: Normal strength, No edema, No calf tenderness, Limited ROM ( LEFT SHOULDER TENDER CLAVICLE, RIGHT SIDED CHEST WALL POINT TNDERNESS , ) Skin: Warm, Dry (FACIAL BRUSING , RIGHT LATERAL CHEST WALL PAIN LEFT CALICLE PAIN) Neurological: Sensation intact, Motor intact, Reflexes intact, Cranial nerves intact, Alert, Oriented Psychiatric: Affect appropriate, Mood appropriate Physician Notification - Case Discussed Physician Notified: JEREMIAH(SURGERY) Time of Notification: 17:28 (LABS AND PNEUMBILIA DISCUSSED, SHE THINKS THE PNEUMOBILIA IS DUE TO POSSIBLE PRIOR INSTRUMENTATION. LACTIC ACIS IS CONSISTENT WITH DEHYDRATION. ) Physician Notified: Daysi Time of Notification: 17:30 (ADMITT ) Admit/Transition Orders Entered by ED Provider: Yes Admit To: Inpatient Critical Care Note - Critical Care Note Total Time (mins): 0 Course - Course Hematology/Chemistry: 10/31/18 15:20 10/31/18 15:20 Orders, Labs, Meds: Lab Review 10/31/18 10/31/18 10/31/18 15:20 15:20 15:20 WBC 6.56 RBC 2.85 L Hgb 9.2 L Hct 29.3 L MCV 102.8 H MCH 32.3 H MCHC 31.4 L RDW Coeff of [place]ka 14.3 Plt Count 224 Immature Gran % (Auto) 0.5 Neut % (Auto) 67.7 Lymph % (Auto) 21.2 [place] % (Auto) 7.8 Eos % (Auto) 2.3 Baso % (Auto) 0.5 Immature Gran # (Auto) 0.0 Neut # (Auto) 4.5 Lymph # (Auto) 1.4 [place] # (Auto) 0.5 Eos # (Auto) 0.2 Baso # (Auto) 0.0 PT 9.9 INR 0.99 APTT 24.5 Sodium 137.0 Potassium 4.82 Chloride 97.5 L Carbon Dioxide 32.8 H Anion Gap 11.52 BUN 44.9 H Creatinine 2.06 H Estimated GFR (MDRD) 24.00 BUN/Creatinine Ratio 21.79 Glucose 109.9 H Lactic Acid Calcium 9.11 Total Bilirubin 0.64 AST 22.2 ALT 8.3 Alkaline Phosphatase 63.7 Total Protein 7.74 Albumin 3.99 Globulin 3.75 Albumin/Globulin Ratio 1.06 Procalcitonin 10/31/18 10/31/18 15:42 15:42 WBC RBC Hgb Hct MCV MCH MCHC RDW Coeff of [place]ka Plt Count Immature Gran % (Auto) Neut % (Auto) Lymph % (Auto) [place] % (Auto) Eos % (Auto) Baso % (Auto) Immature Gran # (Auto) Neut # (Auto) Lymph # (Auto) [place] # (Auto) Eos # (Auto) Baso # (Auto) PT INR APTT Sodium Potassium Chloride Carbon Dioxide Anion Gap BUN Creatinine Estimated GFR (MDRD) BUN/Creatinine Ratio Glucose Lactic Acid 3.75 H Calcium Total Bilirubin AST ALT Alkaline Phosphatase Total Protein Albumin Globulin Albumin/Globulin Ratio Procalcitonin < 0.05 Orders Category Date Time Status EKG-(ED ONLY) Stat CARDIO 10/31/18 15:07 Completed EKG-(IP & OP ONLY) DAILY CARDIO 11/01/18 06:00 Ordered EKG-(IP & OP ONLY) DAILY CARDIO 11/02/18 06:00 Ordered EKG-(IP & OP ONLY) DAILY CARDIO 11/03/18 06:00 Ordered ACTIVITY .Complete BR CARE 10/31/18 17:24 Ordered Neuro Check [NEUROLOGICAL CHECKS] Q4HR CARE 10/31/18 17:23 Ordered VITAL SIGNS Q4HR CARE 10/31/18 17:24 Ordered REGULAR DIET DIETARY 10/31/18 Dinner Ordered Splint [ED SPLINT APPLICATION] .ONCE EMERGENCY 10/31/18 17:23 Ordered BLOOD CULTURE (ED ONLY) Stat LAB 10/31/18 15:42 Received CBC W/ AUTO DIFF DAILY@0600 LAB 11/01/18 06:00 Ordered CBC W/ AUTO DIFF DAILY@0600 LAB 11/02/18 06:00 Ordered CBC W/ AUTO DIFF Stat LAB 10/31/18 15:20 Completed COMPREHENSIVE METABOLIC PANEL DAILY@0600 LAB 11/01/18 06:00 Ordered COMPREHENSIVE METABOLIC PANEL DAILY@0600 LAB 11/02/18 06:00 Ordered COMPREHENSIVE METABOLIC PANEL Stat LAB 10/31/18 15:20 Completed LACTIC ACID Stat LAB 10/31/18 15:42 Completed PARTIAL THROMBOPLASTIN TIME Stat LAB 10/31/18 15:20 Completed PROCALCITONIN Stat LAB 10/31/18 15:42 Completed PT WITH INR Stat LAB 10/31/18 15:20 Completed Acetaminophen [Tylenol] MEDS 10/31/18 17:25 Ordered 650 mg PO Q4HR PRN Amlodipine Besylate [Norvasc] MEDS 10/31/18 21:00 Ordered 5 mg PO BEDTIME Atenolol [Tenormin] MEDS 11/01/18 09:00 Ordered 50 mg PO DAILY Chlordiazepoxide HCl [Librium] MEDS 10/31/18 21:00 Ordered 5 mg PO BID Clopidogrel Bisulfate [Plavix] MEDS 11/01/18 09:00 Ordered 75 mg PO DAILY Collagenase Clostridium Hist [Santyl] MEDS 11/01/18 09:00 Ordered 1 applic TP DAILY Duloxetine HCl [Cymbalta] MEDS 11/01/18 09:00 Ordered 60 mg PO DAILY Escitalopram Oxalate [Lexapro] MEDS 11/01/18 09:00 Ordered 5 mg PO DAILY Ferrous Sulfate [Ferrous Sulfate] MEDS 10/31/18 21:00 Ordered 325 mg PO BID Gabapentin [Neurontin] MEDS 10/31/18 21:00 Ordered 100 mg PO BID Hydrocodone Bit/Acetaminophen [[place] 7.5-325] MEDS 10/31/18 17:25 Ordered 0.5 tab PO BID PRN Lovastatin [Mevacor] MEDS 11/01/18 09:00 Ordered 20 mg PO DAILY Pantoprazole Sodium [Protonix] MEDS 11/01/18 09:00 Ordered 40 mg PO DAILY Prednisone MEDS 11/01/18 09:00 Ordered 2.5 mg PO DAILY Sodium Bicarbonate MEDS 10/31/18 17:30 Ordered 650 mg PO Q12H Sodium Chloride 0.9% [Sodium Chloride] 1,000 ml MEDS 10/31/18 17:30 Ordered IV 75 mls/hr Tacrolimus [Prograf] MEDS 10/31/18 21:00 Ordered 2 mg PO BID Torsemide [Demadex] MEDS 11/01/18 06:30 Ordered [address] ABDOMEN/PELVIS WO CONTRAST Routine RADS 11/01/18 07:[address] ABDOMEN/PELVIS WO CONTRAST Stat RADS 10/31/18 13:[address] CERVICAL SPINE W/O CONTRAST Stat RADS 10/31/18 13:[address] CHEST W/O CONTRAST Stat RADS 10/31/18 13:[address] HEAD W/O CONTRAST Stat RADS 10/31/18 13:[address] SHOULDER LEFT W/O CONTRAST Stat RADS 10/31/18 13:09 Completed Medications Generic Name Dose Route Start Last Admin Trade Name Freq PRN Reason Stop Dose Admin Amlodipine Besylate 5 mg 10/31/18 21:00 Norvasc PO BEDTIME SHERRELL Sodium Chloride 1,000 mls @ 75 mls/hr 10/31/18 17:30 Sodium Chloride IV .[id number] [facility] Non-Formulary Medication 650 mg 10/31/18 17:25 Acetaminophen [Tylenol] PO Q4HR PRN Fever >101 Vital Signs: Temp Pulse Resp BP Pulse Ox 10/31/18 16:48 97.8 F 71 20 156/76 H 90 L 10/31/18 12:18 98.3 F 72 16 126/74 86 L Departure - Departure Time of Disposition: 17:30 Disposition: ADMITTED INPATIENT Discharge Problem: Pneumobilia Fracture of rib of right side Qualifiers: Encounter type: initial encounter Rib fracture type: single rib Fracture type: closed Qualified Code(s): S22.31XA - Fracture of one rib, right side, initial encounter for closed fracture Anemia Qualifiers: Anemia type: unspecified type Qualified Code(s): D64.9 - Anemia, unspecified Renal failure Qualifiers: Acute renal failure type: unspecified Instructions: Acute Kidney Injury (DC), Chronic Kidney Disease (ED), Low- Sodium Diet (ED) Condition: Good Pt referred to PMD for follow-up: Yes IPMP verified?: No Additional Instructions: Please call your Family Physician as soon as possible to schedule a follow-up appointment. Allergies/Adverse Reactions: Allergies sulfur dioxide Allergy (Unknown, Verified 10/31/18 12:35) ondansetron HCl [From Zofran] Adverse Reaction (Unknown, Verified 10/31/18 12:35 ) ibuprofen Adverse Reaction (Verified 10/31/18 12:35) Home Medications: Ambulatory Orders Clopidogrel Bisulfate [Plavix] 75 mg PO DAILY 02/03/13 Ferrous Sulfate 325 mg PO BID 03/20/16 Tacrolimus [Prograf] 2 mg PO BID 11/20/16 Pantoprazole Sodium [Protonix] 40 mg PO DAILY 08/21/17 Lovastatin [Mevacor] 20 mg PO DAILY 02/20/18 Prednisone 2.5 mg PO DAILY 09/16/18 Sodium Bicarbonate 650 mg PO Q12H 09/16/18 Amlodipine Besylate [Norvasc] 5 mg PO BEDTIME tablet 09/24/18 Atenolol [Tenormin] 50 mg PO DAILY tablet 09/24/18 Duloxetine HCl [Cymbalta] 60 mg PO DAILY #1 capsule. 09/24/18 Torsemide [Demadex] 10 mg PO QDAC tablet 09/24/18 Chlordiazepoxide HCl [Librium] 5 mg PO BID #60 capsule 10/20/18 Escitalopram Oxalate [Lexapro] 5 mg PO DAILY #30 tablet 10/20/18 Gabapentin [Neurontin] 100 mg PO BID #60 capsule 10/20/18 Hydrocodone Bit/Acetaminophen [[place] 7.5-325] 0.5 tab PO BID PRN #30 tab Acetaminophen [Tylenol] 650 mg PO Q4HR PRN 10/31/18 Collagenase Clostridium Hist [Santyl] 1 applic TP DAILY 10/31/18 Disposition Discussed With: Patient, Family
[2018-10-31] MEDS ORDERED: NON-FORMULARY MEDICATION (Acetaminophen [Tylenol] 650 MG) PO PRN (17:25)
[2018-10-31] MEDS: SODIUM CHLORIDE 1,000 ML IV SCH (18:02)
[2018-10-31 18:17] VITALS: BMI 29.6
[2018-10-31] MEDS: SODIUM BICARBONATE PO SCH (18:46)
[2018-10-31] MEDS ORDERED: TACROLIMUS 2 MG PO SCH (21:00)
[2018-10-31] MEDS ORDERED: NON-FORMULARY MEDICATION (Ferrous Sulfate [Ferrous Sulfate] 325 MG) PO SCH (21:00)
[2018-10-31] MEDS ORDERED: FERROUS SULFATE ONE (21:09)
[2018-10-31] MEDS: NORVASC PO SCH (21:14)
[2018-10-31] MEDS: NEURONTIN PO SCH (21:14)
[2018-10-31] MEDS: LIBRIUM PO SCH (21:14)
[2018-11-01] MEDS ORDERED: VISTARIL INJ IM PRN (02:23)
[2018-11-01] MEDS: SODIUM BICARBONATE PO SCH ×2 (05:28→17:05)
[2018-11-01] MEDS: DEMADEX PO SCH (05:29)
[2018-11-01] MEDS ORDERED: TYLENOL PO PRN (07:13)
[2018-11-01] MEDS: LIBRIUM PO SCH ×2 (08:46→21:05)
[2018-11-01] MEDS: CYMBALTA PO SCH (08:46)
[2018-11-01] MEDS: SANTYL TP SCH (08:46)
[2018-11-01] MEDS: FERROUS SULFATE PO SCH ×2 (08:46→17:05)
[2018-11-01] MEDS: LEXAPRO PO SCH (08:47)
[2018-11-01] MEDS: TENORMIN PO SCH (08:47)
[2018-11-01] MEDS: PREDNISONE PO SCH (08:47)
[2018-11-01] MEDS: PROTONIX PO SCH (08:48)
[2018-11-01] MEDS: MEVACOR PO SCH (08:48)
[2018-11-01] MEDS: PLAVIX PO SCH (08:48)
[2018-11-01] MEDS: NEURONTIN PO SCH ×2 (08:48→21:05)
[2018-11-01] MEDS: NORCO 7.5-325 PO PRN (08:49)
[2018-11-01] MEDS ORDERED: NON-FORMULARY MEDICATION (Escitalopram Oxalate [Lexapro] 5 MG) PO SCH (09:00)
[2018-11-01] MEDS ORDERED: NON-FORMULARY MEDICATION (Duloxetine Hcl [Cymbalta] 60 MG) PO SCH (09:00)
[2018-11-01] MEDS: SODIUM CHLORIDE 1,000 ML IV SCH ×2 (09:23→09:27)
[2018-11-01] MEDS: TACROLIMUS 2 MG PO SCH ×2 (09:24→21:07)
--- NOTE | 2018-11-01 10:51 | CT ---
Exam: CT scan of the abdomen pelvis without contrast. Date: 11/01/2018. Comparison: 10/31/2018. HISTORY: Pneumobilia. TECHNIQUE: Helical scan of the abdomen pelvis was performed without contrast. FINDINGS: There is an undulating scoliotic curve in the lower thoracic and lumbar spine. The bony p john is within normal limits. There is four-chamber cardiac enlargement with a prosthetic mitral va lve. The spleen and liver have a uniform attenuation. Cholecystectomy has been performed with persi stent pneumobilia. The stomach, pancreas and adrenal glands are normal. There is severe bilateral r enal atrophy. No retroperitoneal adenopathy is present. Aorta does not exceed 3 cm and has peripher al calcification. The small bowel is normal. There is fecal material throughout the majority of the colon. An anastomosis is present in the distal sigmoid colon. The renal transplant is present in t he right iliac fossa without hydronephrosis or hydroureter. A 2.7 x 2.8 cm simple renal cyst is agai n seen projecting off the upper pole. A possible sutural calcification is seen at the insertion of t he ureter into the bladder. The pelvic sidewall and bladder are otherwise normal. There is no free pelvic fluid. The uterus, rectum and inguinal regions are normal. Comparison: Compared with 10/31/2018. No acute findings. Stable pneumobilia, post cholecystectomy. Severe renal atrophy with renal transplant in the right iliac fossa. Four-chamber cardiac enlargement. Scoliosis. Prior sigmoid surgery.
[2018-11-01] MEDS ORDERED: MILK OF MAGNESIA PO PRN (11:34)
[2018-11-01] MEDS: NORVASC PO SCH (21:05)
[2018-11-02] MEDS: SODIUM CHLORIDE 1,000 ML IV SCH ×2 (04:13→12:47)
[2018-11-02] MEDS: PROTONIX PO SCH (06:02)
[2018-11-02] MEDS: SODIUM BICARBONATE PO SCH ×2 (06:02→17:32)
[2018-11-02] MEDS: DEMADEX PO SCH (06:02)
[2018-11-02] MEDS: FERROUS SULFATE PO SCH ×2 (06:03→17:32)
[2018-11-02] MEDS: NORCO 7.5-325 PO PRN (06:07)
[2018-11-02] MEDS: PREDNISONE PO SCH (08:44)
[2018-11-02] MEDS: PLAVIX PO SCH (08:44)
[2018-11-02] MEDS: NEURONTIN PO SCH ×2 (08:44→20:37)
[2018-11-02] MEDS: MEVACOR PO SCH (08:44)
[2018-11-02] MEDS: LIBRIUM PO SCH ×2 (08:44→20:37)
[2018-11-02] MEDS: CYMBALTA PO SCH (08:44)
[2018-11-02] MEDS: LEXAPRO PO SCH (08:45)
[2018-11-02] MEDS: SANTYL TP SCH (08:45)
[2018-11-02] MEDS: TENORMIN PO SCH (08:45)
[2018-11-02] MEDS: TACROLIMUS 2 MG PO SCH ×2 (08:52→20:40)
[2018-11-02] MEDS: NORVASC PO SCH (20:37)
[2018-11-03] MEDS: NORCO 7.5-325 PO PRN (00:34)
[2018-11-03] MEDS: FERROUS SULFATE PO SCH ×2 (05:51→16:34)
[2018-11-03] MEDS: SODIUM BICARBONATE PO SCH ×2 (05:51→16:34)
[2018-11-03] MEDS: PROTONIX PO SCH (05:51)
[2018-11-03] MEDS: DEMADEX PO SCH (05:52)
[2018-11-03] MEDS: LIBRIUM PO SCH ×2 (08:48→20:31)
[2018-11-03] MEDS: SANTYL TP SCH (08:48)
[2018-11-03] MEDS: TENORMIN PO SCH (08:49)
[2018-11-03] MEDS: MEVACOR PO SCH (08:49)
[2018-11-03] MEDS: PLAVIX PO SCH (08:49)
[2018-11-03] MEDS: PREDNISONE PO SCH (08:49)
[2018-11-03] MEDS: CYMBALTA PO SCH (08:49)
[2018-11-03] MEDS: LEXAPRO PO SCH (08:49)
[2018-11-03] MEDS: NEURONTIN PO SCH ×2 (08:49→20:31)
[2018-11-03] MEDS: TACROLIMUS 2 MG PO SCH ×2 (08:51→20:32)
[2018-11-03] MEDS ORDERED: CITRATE OF MAGNESIA PO STA (08:55)
[2018-11-03] MEDS: NORVASC PO SCH (20:31)
[2018-11-04] MEDS: DEMADEX PO SCH (05:50)
[2018-11-04] MEDS: SODIUM BICARBONATE PO SCH ×2 (05:50→16:30)
[2018-11-04] MEDS: FERROUS SULFATE PO SCH ×2 (05:50→16:08)
[2018-11-04] MEDS: PROTONIX PO SCH (05:51)
[2018-11-04] MEDS: SANTYL TP SCH (08:49)
[2018-11-04] MEDS: NEURONTIN PO SCH (08:50)
[2018-11-04] MEDS: LEXAPRO PO SCH (08:50)
[2018-11-04] MEDS: PREDNISONE PO SCH (08:50)
[2018-11-04] MEDS: MEVACOR PO SCH (08:50)
[2018-11-04] MEDS: LIBRIUM PO SCH (08:50)
[2018-11-04] MEDS: CYMBALTA PO SCH (08:50)
[2018-11-04] MEDS: PLAVIX PO SCH (08:51)
[2018-11-04] MEDS: TENORMIN PO SCH (08:51)
[2018-11-04] MEDS: TACROLIMUS 2 MG PO SCH (08:51)
--- NOTE | 2018-11-04 10:42 | HP ---
DATE OF SERVICE: 10/31/18 HISTORY OF PRESENT ILLNESS: This is a 68-year-old white female who has been in and out of the hospital recently with generalized weakness, acute kidney failure, ESBL positive UTI. She experienced a fall two days ago at the residential. Today she has been complaining of right-sided chest pain, bruising of the face, left shoulder pain. We instructed [facility] to send her to the emergency room. PAST MEDICAL HISTORY: Chronic kidney disease, Stage 4 COPD Hypertension GERD Anxiety Depression Anemia Neuropathy Chronic pain Dyslipidemia Chronic leg edema Recent UTI positive for E. coli, ESBL History of falls PAST SURGICAL HISTORY: Left wrist repair Right wrist repair Right nephrectomy REVIEW OF SYSTEMS: CONSTITUTIONAL: Generalized weakness. No night sweats. No fatigue, malaise, lethargy. No fever or chills. HEENT: Eyes: No visual changes. No eye pain. No eye discharge. ENT: No runny nose. No epistaxis. No sinus pain. No sore throat. No odynophagia. No ear pain. No congestion. RESPIRATORY: No cough, no congestion. No hemoptysis. No shortness of breath. CARDIOVASCULAR: No angina symptoms. No CHF symptoms. No atypical chest pain for CAD. No palpitations. No PND. No orthopnea. GASTROINTESTINAL: No abdominal pain. No nausea or vomiting. No diarrhea or constipation. No hematemesis. No hematochezia. GENITOURINARY: No urgency. No frequency. No dysuria. No hematuria. No obstructive symptoms. No discharge. No pain. No significant abnormal bleeding. MUSCULOSKELETAL: Positive for right-sided pain, left shoulder pain, right leg pain. NEUROLOGICAL: No headache. No neck pain. No syncope. No seizures. No dizziness. PSYCHIATRIC: Not anxious. No depression. No suicidal thoughts. No homicidal thoughts. SKIN: No rash. No lesions. No wounds. ENDOCRINE: No unexplained weight loss. No weight gain. HEMATOLOGIC/LYMPHATIC: No anemia. No purpura. No petechiae. No prolonged or excessive bleeding. No palpable lymph nodes. PERSONAL/FAMILY/SOCIAL HISTORY: She is . Again she is at [facility]. Nonsmoker. No alcohol or ilicit drug use. MEDICATIONS: (HOME) Plavix 75 mg p.o. daily Ferrous Sulfate 325 mg p.o. b.i.d. Prograf 2 mg p.o. b.i.d. Protonix 40 mg p.o. daily Mevacor 20 mg p.o. daily Sodium Bicarbonate 650 mg p.o. q.12h Prednisone 5 mg 2.5 mg p.o. daily Norvasc 5 mg p.o. bedtime Atenolol 50 mg p.o. daily Torsemide 10 mg p.o. q.d a.c. Cymbalta 60 mg p.o. daily Lexapro 5 mg p.o. daily Neurontin 100 mg p.o. b.i.d. Librium 5 mg p.o. b.i.d. Hydrocodone/Acetaminophen 0.5 p.o. b.i.d. p.r.n. Tylenol 650 mg p.o. q.4h p.r.n. Santyl one application TP daily ALLERGIES: SULFUR DIOXIDE, ONDANSETRON HCI, IBUPROFEN PHYSICAL EXAMINATION: VITAL SIGNS: Temperature 98.3, heart rate 72, respirations 16, BP 126/74, oxygen 90% on 2L. HEENT: Head normocephalic, atraumatic. Eyes: Extraocular muscles are intact. Pupils are equal, round and reactive to light and accommodation. Ears: No lesions. Nose appeared normal. Throat: No exudate or erythema. NECK: Supple. No JVD, no carotid bruit. No lymphadenopathy or thyromegaly. LUNGS: Diminished breath sounds bilaterally with expiratory wheezing. Percussion note normal. Chest symmetrical. HEART: S1, S2, no S3. No murmurs. No cyanosis or clubbing. No ascites. Pulses: Dorsalis pedis and posterior tibial pulses +1 to +2 bilaterally. ABDOMEN: Soft. Nontender. Bowel sounds active. No CVA tenderness. No mass felt. EXTREMITIES: Bruising to left shoulder, right upper lobe and right trunk. Trace pedal edema. Full range of motion of all extremities, equal. NEUROLOGIC: The patient is alert and oriented to person and place. No focal deficit. Cranial nerves II through XII are grossly intact. No headache, no double vision or headache. SKIN: Not dry. Intact. Turgor - normal. LYMPHATIC: No palpable lymph nodes/no lymphedema. MUSCULOSKELETAL: Normal joints with no swelling. Muscle tone is normal. CT showed multiple rib fractures on the right side, fracture of the left clavicle, contusion of the right upper leg. CT of the abdomen showed stable pneumobilia. White count 6.5, hemoglobin 9.2, hematocrit 29.3, platelets 224. Sodium 137, potassium 4.8, BUN 44, creatinine 2.06, glucose 109. ASSESSMENT: 1. STATUS POST FALL, MULTIPLE RIB FRACTURES, LEFT CLAVICLE FRACTURE, RIGHT UPPER LEG CONTUSION. 2. ACUTE ON CHRONIC KIDNEY DISEASE. 3. GENERALIZED WEAKNESS. 4. DEHYDRATION. PLAN: 1. We will admit to [facility]. 2. Routine telemetry orders. 3. CBC, CMP daily. 4. Continue home medications. 5. IV fluids NS at 75 cc/hr. 6. Toradol 30 mg IV q.8hr p.r.n. for pain. 7. Will continue [place]. 8. Regular diet. 9. Fall precautions. 10. Will follow her closely. TIME SPENT: More than 70 minutes. MTDD
--- NOTE | 2018-11-04 10:49 | PCM.PROG ---
Attending Provider: ATTENDING PROVIDER: Dr. ISADORA ZULETA This patient is seen with Elisa Britton, Nurse Practitioner. DATE OF SERVICE: 11/04/18 SUBJECTIVE: This 68 year old WHITE/ F was hospitalized 10/31/18. The patient is lying in bed resting comfortably. She has been eating well. She has an appointment with Dr. Cabrera tomorrow at [facility]. She is slightly more short of breath today and is anemic. REVIEW OF SYSTEMS: CONSTITUTIONAL: Weakness. No night sweats. No fatigue, malaise, lethargy. No fever or chills. HEENT: Eyes: No visual changes. No eye pain. No eye discharge. ENT: No runny nose. No epistaxis. No sinus pain. No odynophagia. No congestion. RESPIRATORY: Shortness of breath. No cough, no congestion. No hemoptysis. CARDIOVASCULAR: No angina symptoms. No CHF symptoms. No atypical chest pain for CAD. No palpitations. No orthopnea.. GASTROINTESTINAL: No abdominal pain. No nausea or vomiting. No diarrhea or constipation. No hematemesis. No hematochezia. GENITOURINARY: No urgency. No frequency. No dysuria. No hematuria. No obstructive symptoms. No discharge. No pain. No significant abnormal bleeding. MUSCULOSKELETAL: No musculoskeletal pain; no joint swelling. NEUROLOGICAL: Awake, alert, oriented to time, place and person. No headache. No neck pain. No syncope. No seizures. No dizziness. PSYCHIATRIC: Not anxious. No depression. No suicidal thoughts. No homicidal thoughts. SKIN: No rash. No lesions. No wounds. ENDOCRINE: No unexplained weight loss. No weight gain. HEMATOLOGIC/LYMPHATIC: No anemia. No purpura. No petechiae. No prolonged or excessive bleeding. No palpable lymph nodes. PHYSICAL EXAMINATION: GENERAL: The patient is awake, alert and oriented, lying/sitting in bed in no distress. Pallor positive. VITAL SIGNS: Temperature 98.4 F, Pulse 62, Respiratory Rate 16, BP 115/61, Pulse Ox 98% HEENT: Head normocephalic, atraumatic. Eyes: Extraocular muscles are intact. Pupils are equal, round and reactive to light and accommodation. Ears: No lesions. Nose appeared normal. Throat: No exudate or erythema. NECK: Supple. No JVD, no carotid bruit. No lymphadenopathy or thyromegaly. LUNGS: Diminished breath sounds. Clear to auscultation. Percussion note normal. Chest symmetrical. HEART: S1, S2, no S3. No murmurs. No cyanosis or clubbing. No ascites. Pulses: Dorsalis pedis and posterior tibial pulses +1 to +2 both sides. ABDOMEN: Soft. Non-tender. Bowel sounds active. No CVA tenderness. No mass felt. EXTREMITIES: Trace leg edema. Full range of motion of all extremities, equal. NEUROLOGIC: No focal deficit. Cranial nerves II through XII are grossly intact. No headache, no double vision or headache. SKIN: Warm, dry. Intact. Turgor-normal. LYMPHATIC: No palpable lymph nodes/no lymphedema. MUSCULOSKELETAL: Normal joints with no swelling. Muscle tone is normal. LAB REVIEW: 11/04/18 04:03 11/04/18 04:03 11/04/18 04:03: Sodium 135.4, Potassium 4.91, Chloride 95.0 L, Carbon Dioxide 33.8 H, Anion Gap 11.51, BUN 48.8 H, Creatinine 1.99 H, Estimated GFR (MDRD) 25.00, BUN/Creatinine Ratio 24.52, Glucose 96.1, Calcium 9.01, Total Bilirubin 0.60, AST 26.8, ALT 7.2, Alkaline Phosphatase 52.4 L, Total Protein 6.85, Albumin 3.50, Globulin 3.35, Albumin/Globulin Ratio 1.04 11/04/18 04:03: WBC 6.52, RBC 2.38 L, Hgb 7.9 L, Hct 24.8 L, MCV 104.2 H, MCH 33.2 H, MCHC 31.9, RDW Coeff of [place] 14.0, Plt Count 198, Immature Gran % (Auto) 0.5, Neut % (Auto) 60.0, Lymph % (Auto) 22.1, [place] % (Auto) 12.0 H, Eos % (Auto ) 5.1, Baso % (Auto) 0.3, Immature Gran # (Auto) 0.0, Neut # (Auto) 3.9, Lymph # (Auto) 1.4, [place] # (Auto) 0.8, Eos # (Auto) 0.3, Baso # (Auto) 0.0 ASSESSMENT: Please see below. 1. ANEMIA 2. STATUS POST FALL, MULTIPLE RIB FRACTURES, LEFT CLAVICLE FRACTURE, RIGHT UPPER LEG CONTUSION. 3. ACUTE ON CHRONIC KIDNEY DISEASE. 4. GENERALIZED WEAKNESS. 5. DEHYDRATION. PLAN: 1. Repeat H & H after transfusion. 2. Anticipate d/c back to [facility]. 3. CBC, CMP Saturday when back at senior care. 4. Transfuse one unit PRBCs. Plan and coordination of the patient's care discussed in the presence of Canvas Shrinker and nurse. CONDITION: Stable SCRIBED BY: BRIAN KNOX Kiln Door Repairer scribed while in presence of service performed by Dr. Zuleta/Elisa Britton APRN on 11/04/18 ([id number])
[2018-11-04] MEDS ORDERED: CITRATE OF MAGNESIA PO STA (11:46)
--- NOTE | 2018-11-04 13:57 | CM.DICTOOL ---
ADMISSION: 10/31/18 17:32 DISCHARGE: NOVEMBER 04, 2018 DATE OF SERVICE: 11/04/18 FINAL DIAGNOSIS STATUS POST FALL RIB FRACTURE, ANTERIOR RIGHT 6TH AND 7TH CLAVICLE FRACTURE, LEFT ACUTE ON CHRONIC RENAL FAILURE GENERALIZED WEAKNESS DEHYDRATION ANEMIA, TRANSFUSION 1 UNIT PACKED CELLS ON 11/04/18 HX UTI, E-COLI - ESBL POSITIVE HYPERTENSION DYSLIPIDEMIA OSTEOARTHRITIS B 12 DEFICIENCY DJD RIGHT ARM FRACTURE COMMINUTED IMPACTION FRACTURE LEFT DISTAL RADIUS, 2017 DEPRESSION RIGHT NEPHRECTOMY KIDNEY TRANSPLANT, 2004 CHOLECYSTECTOMY CAROTID ENDARTERECTOMY, DR. DA SILVA RIGHT KNEE SURGERY UMBILICAL HERNIA REPAIR ECHOCARDIOGRAM SEP, 2018 LVH WITH ENLARGED LEFT ATRIAL CAVITY NORMAL VALVES LVEF 77% LAST VITALS Temp Pulse Resp BP Pulse Ox 97.7 F 65 18 101/58 L 98 11/04/18 12:42 11/04/18 12:42 11/04/18 12:42 11/04/18 12:42 11/04/18 05:28 TAKE THESE MEDICATIONS AT HOME Acetaminophen (Tylenol) 650 mg PO Q4H PRN PRN Reason: FEVER >101 Hydrocodone Bitart/Acetaminophen ([place] 7.5-325) 0.5 tab PO BID PRN PRN Reason: Analgesia Last Admin: 11/03/18 00:34 Dose: 0.5 tab Amlodipine Besylate (Norvasc) 5 mg PO BEDTIME [facility] Last Admin: 11/03/18 20:31 Dose: 5 mg Atenolol (Tenormin) 50 mg PO DAILY [facility] Last Admin: 11/04/18 08:51 Dose: 50 mg Chlordiazepoxide HCl (Librium) 5 mg PO BID [facility] Last Admin: 11/04/18 08:50 Dose: 5 mg Clopidogrel Bisulfate (Plavix) 75 mg PO DAILY [facility] Last Admin: 11/04/18 08:51 Dose: 75 mg Collagenase (Santyl) 1 applic TP DAILY [facility] Last Admin: 11/04/18 08:49 Dose: 1 applic Duloxetine HCl (Cymbalta) 60 mg PO DAILY [facility] Last Admin: 11/04/18 08:50 Dose: 60 mg Escitalopram Oxalate (Lexapro) 5 mg PO DAILY [facility] Last Admin: 11/04/18 08:50 Dose: 5 mg Ferrous Sulfate ([facility]ous Sulfate) [facility] Last Admin: 11/04/18 05:50 Dose: 324 mg Gabapentin (Neurontin) 100 mg PO BID [facility] Last Admin: 11/04/18 08:50 Dose: 100 mg Lovastatin (Mevacor) 20 mg PO DAILY [facility] Last Admin: 11/04/18 08:50 Dose: 20 mg Non-Formulary Medication (Tacrolimus [Prograf]) 2 mg PO BID [facility] Last Admin: 11/04/18 08:51 Dose: Not Given Pantoprazole Sodium (Protonix) 40 mg PO QDAC [facility] Last Admin: 11/04/18 05:51 Dose: 40 mg Prednisone (Prednisone) 2.5 mg PO DAILYWM [facility] Last Admin: 11/04/18 08:50 Dose: 2.5 mg Sodium Bicarbonate (Sodium Bicarbonate) 650 mg PO Q12H [facility] Last Admin: 11/04/18 05:50 Dose: 650 mg Torsemide (Demadex) 10 mg PO QDAC [facility] Last Admin: 11/04/18 05:50 Dose: 10 mg ALLERGIES sulfur dioxide Allergy (Unknown, Verified 10/31/18 12:35) ondansetron HCl [From Zofran] Adverse Reaction (Unknown, Verified 10/31/18 12:35 ) ibuprofen Adverse Reaction (Verified 10/31/18 12:35) DISCONTINUED MEDICATIONS NONE NEW PRESCRIPTIONS: NONE SMOKING: NOT APPLICABLE DISEASE SPECIFIC EDUCATION: ANEMIA ACTIVITY/THERAPY LAB REVIEW: 11/04/18 04:03 11/04/18 04:03 11/04/18 04:03: Sodium 135.4, Potassium 4.91, Chloride 95.0 L, Carbon Dioxide 33.8 H, Anion Gap 11.51, BUN 48.8 H, Creatinine 1.99 H, Estimated GFR (MDRD) 25.00, BUN/Creatinine Ratio 24.52, Glucose 96.1, Calcium 9.01, Total Bilirubin 0.60, AST 26.8, ALT 7.2, Alkaline Phosphatase 52.4 L, Total Protein 6.85, Albumin 3.50, Globulin 3.35, Albumin/Globulin Ratio 1.04 11/04/18 04:03: WBC 6.52, RBC 2.38 L, Hgb 7.9 L, Hct 24.8 L, MCV 104.2 H, MCH 33.2 H, MCHC 31.9, RDW Coeff of [place] 14.0, Plt Count 198, Immature Gran % (Auto) 0.5, Neut % (Auto) 60.0, Lymph % (Auto) 22.1, [place] % (Auto) 12.0 H, Eos % (Auto ) 5.1, Baso % (Auto) 0.3, Immature Gran # (Auto) 0.0, Neut # (Auto) 3.9, Lymph # (Auto) 1.4, [place] # (Auto) 0.8, Eos # (Auto) 0.3, Baso # (Auto) 0.0 11/02/18 12:35: Blood Type A POSITIVE, Antibody Screen Negative, Crossmatch (AHG ) See Detail PLAN[facility] CONSISTENT CARBOHYDRATES; REGULAR CONSISTENCY, REGULAR LIQUIDS ACTIVITY: UP TO DINING ROOM FOR MEALS PHYSICAL THERAPY EVALUATION AND TREAT OCCUPATIONAL THERAPY EVALUATION AND TREAT VS DAILY FOR 1 WEEK, THEN WEEKLY ACCU-CHECKS DAILY OXYGEN AT 2 LITERS PER NASAL CANNULA CONTINUOUS INCONTINENT CARE PRN DECUBITUS PRECAUTIONS CBC, CMP ON THE AND THEN EVERY 2 WEEKS FOLLOW LAB ORDERS TO BE DONE IN PREPARATION FOR APPOINTMENT WITH DR. SKINNER. PLEASE MAKE SURE ORDERS ARE COMPLETED AND RESULTS SENT TO HIS OFFICE REQUESTED. APPOINT[facility] WITH DR. LEON ON October AT 11:30 [facility] [place], [place] PLEASE TAKE CD OF THE X-RAYS DONE AT [facility] (IN PACKET SENT AT DISCHARGE) CODE STATUS: DNR DR. BRYANT/CRUZ PASTOR APRN TO SEE ON NURSING ROUNDS IN 7-10 DAYS MS. RAMIREZ IS ALERT TO PERSON, PLACE. SHE IS COOPERATIVE. SHE CURRENTLY IS RESIDING AT [facility] FOR THE PURPOSE OF PHYSICAL AND OCCUPATIONAL THERAPY. SHE REQUIRES THERAPY DUE TO SEVERAL FALLS AT HOME AND INABILITY TO STAY BE HERSELF AND CARE FOR HERSELF. SHE IS AWARE AND AGREEABLE TO HER RETURN TODAY AT [facility]. SHE IS AWARE OF THE APPOINTMENT TOMORROW WITH DR. LEON FOR FOLLOW-UP OF RIGHT WRIST FRACTURE AND NOW NEW FINDING OF LEFT CLAVICLE FRACTURE. [facility] IS AWARE OF APPOINTMENT AND HAS AGREED TO PROVIDE TRANSPORTATION TO THE APPOINTMENT. MS. RAMIREZ IS INDEPENDENT WITH FEEDING AND DISPLAYS A GOOD APPETITE OF 75-100%. SHE IS CONTINENT/INCONTINENT OF URINE. SHE REQUIRES ASSISTANCE OF 2 STAFF MEMBERS FOR TRANSFERS. SHE IS ABLE TO TURN HERSELF WITH ASSISTANCE, BUT IS DEPENDENT FOR PERSONAL CARE AND DRESSING. SKIN TURGOR HAS IMPROVED. SKIN IS INTACT, BUT NUMEROUS AREAS OF ECCHYMOSIS ARE NOTED TO THE UPPER AND LOWER EXTREMITIES AND RIGHT CHEEK. MD CRUZ ANAYA, CHEMICAL TREATMENT PLANT TECHNICIAN
[2018-11-04 16:01] VITALS: BP 143/82; TEMP 97.9
--- NOTE | 2018-11-05 09:59 | PN ---
DATE OF SERVICE: 11/01/18 SUBJECTIVE: 68-year-old white female hospitalized with rib fractures, left clavicle fracture and has renal failure. She had pneumobilia. She is being watched. CT scan has remained unchanged. It was done this morning. Appetite is normal. She is going to be given something to move her bowels. PHYSICAL EXAMINATION: GENERAL: The patient is oriented to time, place and person. HEENT: Head normocephalic, atraumatic. Eyes: Extraocular muscles are intact. Pupils are equal, round and reactive to light and accommodation. Ears: No lesions. Nose appeared normal. Throat: No exudate or erythema. NECK: Supple. No JVD, no carotid bruit. No lymphadenopathy or thyromegaly. LUNGS: Clear to auscultation. Percussion note normal. Chest symmetrical. HEART: S1, S2, no S3. No murmurs. No cyanosis or clubbing. No ascites. Pulses: Dorsalis pedis and posterior tibial pulses +1 to +2 bilaterally. ABDOMEN: Soft. Nontender. Bowel sounds active. No acute abdomen. No CVA tenderness. No mass felt. EXTREMITIES: No edema. Full range of motion of all extremities, equal. NEUROLOGIC: No neurological deficits. Cranial nerves II through XII are grossly intact. No headache, no double vision or headache. SKIN: Not dry. Intact. Turgor - normal. LYMPHATIC: No palpable lymph nodes/no lymphedema. MUSCULOSKELETAL: Normal joints with no swelling. Muscle tone is normal. ASSESSMENT: The patient has had a sling for clavicle fracture and she also has right forearm fracture followed by orthopaedic. The patient's rib fracture bothers her some with deep inspiration but no evidence of pneumonia. ADDENDUM: The patient is eating 100%. Creatinine and BUN improving. Dehydration seems to be resolving. The patient had fall and fracture of clavicle and ribs the day before yesterday. As far as my knowledge is concerned, there was nobody there had been called either my nurse practitioner or me or anyone in the office. She was seen in the emergency room for the first time 10/31/18 with the fall. Condition is stable. TIME SPENT: More than 30 minutes. Plan and coordination of the patient's care discussed in the presence of nurse. KAREN
--- NOTE | 2018-11-05 10:24 | PN ---
DATE OF SERVICE: 11/02/18 SUBJECTIVE: 68-year-old white female hospitalized with rib fracture, clavicular fracture on the left side, dehydration and pneumobilia. The patient's appetite is normal. She is eating 100%. This morning she talked to me at length, was explained about all the problems she has with right forearm fracture. Now she has left clavicular fracture and fractured ribs, two of them on the upper side. The patient still did not have a bowel movement, will do Milk of Magnesia along with Mag Citrate. PHYSICAL EXAMINATION: V/S: Temperature 98, pulse 72, respiratory rate 17, blood pressure 136/82, pulse ox 95% on room air. Looks pale. HEENT: Head normocephalic, atraumatic. Eyes: Extraocular muscles are intact. Pupils are equal, round and reactive to light and accommodation. Ears: No lesions. Nose appeared normal. Throat: No exudate or erythema. NECK: Supple. No JVD, no carotid bruit. No lymphadenopathy or thyromegaly. LUNGS: Decreased breath sounds. Clear to auscultation. Percussion note normal. Chest symmetrical. HEART: S1, S2, no S3. No murmurs. No cyanosis or clubbing. No ascites. Pulses: Dorsalis pedis and posterior tibial pulses +1 to +2 bilaterally. ABDOMEN: Soft. Nontender. Bowel sounds active. No CVA tenderness. No mass felt. EXTREMITIES: No edema. Full range of motion of all extremities, equal. NEUROLOGIC: No focal deficit. Cranial nerves II through XII are grossly intact. No headache, no double vision or headache. SKIN: Not dry. Intact. Turgor - normal. LYMPHATIC: No palpable lymph nodes/no lymphedema. MUSCULOSKELETAL: Normal joints with no swelling. Muscle tone is normal. LABS: Hemoglobin 7.9, hematocrit 25, WBC 7,100, normal differential. Creatinine 1.7, BUN 38, potassium 4.3. ASSESSMENT: 1. Right rib fracture, left clavicular fracture, stable. 2. Renal failure seems to be chronic kidney disease now with improvement with slow IV hydration. 3. The patient's appetite has improved. 4. Pneumobilia is an incidental finding from the instrumentation done on biliary tree in the past. PLAN: 1. Discontinue IV fluids. 2. Will type and screen two units. 3. Discontinue neuro checks. 4. The patient needs sling on the left clavicle. She took it off because she is getting ready for lunch. CONDITION: Stable. TIME SPENT: More than 30 minutes. Plan and coordination of the patient's care discussed in the presence of nurse. KAREN
--- NOTE | 2018-11-05 10:42 | PN ---
DATE OF SERVICE: 11/03/18 SUBJECTIVE: The patient was seen and examined today, 11/03/18. 68-year-old white female hospitalized with fractured ribs on the left side, two of them with left clavicular fracture. The patient had pneumobilia, is being observed for that. The patient has no acute abdomen. Her appetite is normal. The BM is still not happened but will give Mag Citrate today. Kidney functions have improved. Hydration status is improved. She is feeling somewhat better and is going to have an appointment with orthopaedic surgeon regarding the left clavicular fracture and right forearm fracture tomorrow. REVIEW OF SYSTEMS: CONSTITUTIONAL: No night sweats. No fatigue, malaise, lethargy. No fever or chills. HEENT: Eyes: No visual changes. No eye pain. No eye discharge. ENT: No runny nose. No epistaxis. No sinus pain. No sore throat. No odynophagia. No congestion. RESPIRATORY: No cough, no congestion. No hemoptysis. No shortness of breath. CARDIOVASCULAR: No angina symptoms. No CHF symptoms. No atypical chest pain for CAD. No palpitations. No PND. No orthopnea. GASTROINTESTINAL: No abdominal pain. No nausea or vomiting. No diarrhea or constipation. No hematemesis. No hematochezia. GENITOURINARY: No urgency. No frequency. No dysuria. No hematuria. No obstructive symptoms. No discharge. No pain. No significant abnormal bleeding. MUSCULOSKELETAL: No musculoskeletal pain; no joint swelling. NEUROLOGICAL: No headache. No neck pain. No syncope. No seizures. No dizziness. PSYCHIATRIC: Not anxious. No depression. No suicidal thoughts. No homicidal thoughts. SKIN: No rash. No lesions. No wounds. ENDOCRINE: No unexplained weight loss. No weight gain. HEMATOLOGIC/LYMPHATIC: No anemia. No purpura. No petechiae. No prolonged or excessive bleeding. No palpable lymph nodes. PHYSICAL EXAMINATION: VITAL SIGNS: Temperature 98.1, pulse 70, respiratory rate 16, blood pressure 138 /78, pulse ox 99%. HEENT: Head normocephalic, atraumatic. Eyes: Extraocular muscles are intact. Pupils are equal, round and reactive to light and accommodation. Ears: No lesions. Nose appeared normal. Throat: No exudate or erythema. NECK: Supple. No JVD, no carotid bruit. No lymphadenopathy or thyromegaly. LUNGS: Clear to auscultation. Percussion note normal. Chest symmetrical. HEART: S1, S2, no S3. No murmurs. No cyanosis or clubbing. No ascites. Pulses: Dorsalis pedis and posterior tibial pulses +1 to +2 bilaterally. ABDOMEN: Soft. Nontender. Bowel sounds active. No CVA tenderness. No mass felt. EXTREMITIES: No edema. Full range of motion of all extremities, equal. NEUROLOGIC: No focal deficit. Cranial nerves II through XII are grossly intact. No headache, no double vision or headache. SKIN: Not dry. Intact. Turgor - normal. LYMPHATIC: No palpable lymph nodes/no lymphedema. MUSCULOSKELETAL: Normal joints with no swelling. Muscle tone is normal. LABS: Hemoglobin 18, hematocrit 25, WBC 6,200, normal differential. Creatinine 1.9, BUN 42, potassium 4.8. ASSESSMENT: 1. Left rib fractures, upper rib cage stable with no evidence of pneumonia, bronchitis. 2. The patient's left clavicular fracture stable. 3. Pneumobilia which is incidental finding on previous instrumentation on biliary tree. 4. Renal failure status post renal transplant. The patient is being followed by [facility]. PLAN: 1. Send the patient back to the correction. 2. Continue all the medications. Hydrocodone is twice a day. 3. The patient is to be continued on Plavix, Aspirin, Pantoprazole, Prograf, Prednisone, Sodium bicarb, Atenolol, Duloxetine, Demodex, Lexapro as before. CONDITION: Stable. TIME SPENT: More than 30 minutes. Plan and coordination of the patient's care discussed in the presence of nurse. KAREN
--- NOTE | 2018-11-05 11:36 | DS ---
DATE OF SERVICE: 11/04/18 FINAL DIAGNOSIS: 1. STATUS POST FALL 2. RIB FRACTURE, ANTERIOR RIGHT 6TH AND 7TH 3. CLAVICLE FRACTURE, LEFT 4. ACUTE ON CHRONIC RENAL FAILURE 5. GENERALIZED WEAKNESS 6. DEHYDRATION 7. ANEMIA, TRANSFUSION 1 UNIT PACKED CELLS ON 11/04/18 8. HX UTI, E-COLI - ESBL POSITIVE 9. HYPERTENSION 10. DYSLIPIDEMIA 11. OSTEOARTHRITIS 12. B12 DEFICIENCY 13. DJD 14. RIGHT ARM FRACTURE 15. COMMINUTED IMPACTION FRACTURE LEFT DISTAL RADIUS, 2017 17. DEPRESSION 18. RIGHT NEPHRECTOMY 19. KIDNEY TRANSPLANT, 2003 20. CHOLECYSTECTOMY 21. CAROTID ENDARTERECTOMY, DR. DA SILVA 22. RIGHT KNEE SURGERY 23. UMBILICAL HERNIA REPAIR LAST VITALS Temp Pulse Resp BP Pulse Ox 97.7 F 65 18 101/58 L 98 11/04/18 12:42 11/04/18 12:42 11/04/18 12:42 11/04/18 12:42 05:28 DISCHARGE INSTRUCTIONS: 1. Followup appointment - Dr. Zuleta/Elisa Britton APRN to see on prison rounds in 7 to [address]. [address] Cabrera on 11/05/18 at the [facility] in [place], [place]. Please take CD of the x-rays done at [facility] (in packet sent at discharge). 2. Follow lab orders to be done in preparation for January appointment with Dr. Light. Please make sure orders are completed and results sent to his office as requested. 3. Vital signs daily for one week then weekly. 4. Accu-Cheks daily. 5. Oxygen at 2L/NC continuous. 6. Incontinent care p.r.n. 7. Decubitus precautions. 8. CBC, CMP on the and then every two weeks. 9. Discharge to [facility]. MEDICATIONS AT DISCHARGE: Acetaminophen (Tylenol) 650 mg PO Q4H PRN PRN Reason: FEVER >101 Hydrocodone Bitart/Acetaminophen ([place] 7.5-325) 0.5 tab PO BID PRN PRN Reason: Analgesia Last Admin: 11/03/18 00:34 Dose: 0.5 tab Amlodipine Besylate (Norvasc) 5 mg PO BEDTIME [facility] Last Admin: 11/03/18 20:31 Dose: 5 mg Atenolol (Tenormin) 50 mg PO DAILY [facility] Last Admin: 11/04/18 08:51 Dose: 50 mg Chlordiazepoxide HCl (Librium) 5 mg PO BID [facility] Last Admin: 11/04/18 08:50 Dose: 5 mg Clopidogrel Bisulfate (Plavix) 75 mg PO DAILY [facility] Last Admin: 11/04/18 08:51 Dose: 75 mg Collagenase (Santyl) 1 applic TP DAILY [facility] Last Admin: 11/04/18 08:49 Dose: 1 applic Duloxetine HCl (Cymbalta) 60 mg PO DAILY [facility] Last Admin: 11/04/18 08:50 Dose: 60 mg Escitalopram Oxalate (Lexapro) 5 mg PO DAILY [facility] Last Admin: 11/04/18 08:50 Dose: 5 mg Ferrous Sulfate (Ferrous Sulfate) 324 mg PO BIDAC [facility] Last Admin: 11/04/18 05:50 Dose: 324 mg Gabapentin (Neurontin) 100 mg PO BID [facility] Last Admin: 11/04/18 08:50 Dose: 100 mg Lovastatin (Mevacor) 20 mg PO DAILY [facility] Last Admin: 11/04/18 08:50 Dose: 20 mg Non-Formulary Medication (Tacrolimus ) 2 mg PO BID [facility] Last Admin: 11/04/18 08:51 Dose: Not Given Pantoprazole Sodium (Protonix) 40 mg PO QDAC [facility] Last Admin: 11/04/18 05:51 Dose: 40 mg Prednisone (Prednisone) 2.5 mg PO DAILYWM [facility] Last Admin: 11/04/18 08:50 Dose: 2.5 mg Sodium Bicarbonate (Sodium Bicarbonate) 650 mg PO Q12H [facility] Last Admin: 11/04/18 05:50 Dose: 650 mg Torsemide (Demadex) 10 mg PO QDAC [facility] Last Admin: 11/04/18 05:50 Dose: 10 mg DISCONTINUED MEDICATIONS: None NEW PRESCRIPTIONS: None DISCONTINUED MEDICATIONS: None DIET INSTRUCTIONS: Consistent carbohydrates; regular consistency, regular liquids. ACTIVITY: Up to dining room for meals. Physical therapy evaluation and treat. Occupational therapy evaluation and treat. SMOKING: N/A DISEASE SPECIFIC EDUCATION: Anemia Activity/Therapy HOSPITAL COURSE: This is a white female, who is a resident of [facility]. She experienced a fall on the . We were not notified. We were notified on the , instructed her to go to the emergency room. CT of the chest revealed that she had rib fractures of the 6th and 7th rib along with left clavicle fracture. She was in acute renal failure, had generalized weakness, dehydration and anemia. She has been admitted for pain control. Her UA was normal. She had recently been positive for ESBL. Over the course of the past several days her pain has improved. She had previously fallen a couple of months ago and still seen Dr. Cabrera. He has agreed to see her for the left clavicle fracture however this is distal, will likely heal on its own. Her rib pain has improved and is controlled. She receives [place], this has been controlling her pain. She has a long history of anemia requiring multiple transfusions over the past six weeks. We did transfuse one unit of packed red blood cells with improvement in hemoglobin. Anemia is likely due to significant chronic kidney disease, Stage IV. She is on iron. She has also had multiple UTIs and one bout of urosepsis over the past several months. She is going to be discharged back to [facility] for continuation of her physical and occupational therapy. Vital signs have been stable. Temperature 97, heart rate 65, respirations 18, blood pressure 101/58, pulse ox 98%. All of her medications remained the same. Labs again are stable today. Creatinine is pretty much at baseline at 1.99 today. This is an improvement since admission. Sodium 135, potassium 4.9, white count normal. Will discharge today in stable condition with repeat CBC and CMP on Saturday and then every two weeks. She has an appointment with Dr. Cabrera tomorrow to be evaluated. Discharge plan discussed with Dr. Zuleta. TIME SPENT: More than 60 minutes. [facility] HOSPITALAlexi
--- NOTE | 2018-11-06 12:53 | PN ---
DATE OF SERVICE: 11/04/18 SUBJECTIVE: The patient was seen and examined with the nurse practitioner. The patient will be discharged home after getting blood transfusion. Hemoglobin was 7.9, gave one unit. She was symptomatic with shortness of breath. The patient is stable otherwise with rib fractures and left clavicular fracture. She has an appointment to see orthopaedic surgeon tomorrow. Condition is stable. TIME SPENT: More than 30 minutes. Plan and coordination of the patient's care discussed in the presence of nurse. KAREN
--- NOTE | 2018-11-06 12:55 | PN ---
BILLING 10/31/18 ADMISSION DAY LEVEL 5 11/01/18 INTERMEDIATE 11/02/18 INTERMEDIATE 11/03/18 INTERMEDIATE 11/04/18 DISCHARGE MTDD
--- NOTE | 2018-11-06 13:20 | PN ---
DATE OF SERVICE: 11/03/18 SUBJECTIVE: The patient is doing well. She is seen and examined with the nurse practitioner. The patient's cardiovascular's status is stable. The patient's kidney function seems to have improved some. Advised to drink fluid as much as she could. The patient is advised to be up and about with help. The patient will be seen by orthopaedic surgeon today after tomorrow, likely the day of discharge on 11/04/18. TIME SPENT: More than 30 minutes. Plan and coordination of the patient's care discussed in the presence of nurse. KAREN
== END 2018-11-04 18:55 | DRG 206 ==
LOC: ED 12:17 → SCU 17:32 → MEDSURG B 11-03 22:00
PROVIDERS: ADMIT Internal Medicine; ATTEND Internal Medicine
PROC: 30233N1 Transfusion of Nonautologous Red Blood Cells into Peripheral Vein, Percutaneous Approach (ICD-10-PCS; principal; 2018-11-04)
DX: S22.31XA Fracture of one rib, right side, initial encounter for closed fracture (principal); N17.9 Acute kidney failure, unspecified; S42.002A Fracture of unspecified part of left clavicle, initial encounter for closed fracture; S70.11XA Contusion of right thigh, initial encounter; S22.41XA Multiple fractures of ribs, right side, initial encounter for closed fracture; M50.90 Cervical disc disorder, unspecified, unspecified cervical region; M19.90 Unspecified osteoarthritis, unspecified site; T14.8XXA Other injury of unspecified body region, initial encounter; D64.9 Anemia, unspecified; N18.9 Chronic kidney disease, unspecified; I10 Essential (primary) hypertension; E86.0 Dehydration; E78.5 Hyperlipidemia, unspecified; E53.8 Deficiency of other specified B group vitamins; R53.1 Weakness; R07.9 Chest pain, unspecified
CPT/HCPCS: 36415; 36430; 80053; 81001; 83605; 84145; 85014; 85018; 85025; 85610; 85730; 86850; 86900; 86922; 87040; 87081; 87086; 93005; 93010; 99284

== ENCOUNTER 2018-11-11 08:55 | Outpatient (CLI) | END 2018-11-11 08:56 | disposition home or self-care (01) | LOC: NONPT 08:55 | PROVIDERS: ATTEND Internal Medicine | DX: N17.9 Acute kidney failure, unspecified (principal) | CPT/HCPCS: 80053 ==

== ENCOUNTER 2018-12-18 13:13 | Inpatient (IN) ==
--- NOTE | 2018-12-18 13:19 | ED.PDOC ---
General ED Provider: Dr. LAURA HUERTAS Chief Complaint: Shortness of Air Stated Complaint: Very short of breath and persistent headache.Hx COPD. Hx Chronic Kidney Disease and renal transplant; hx anemia due to chronic kidney disease.Long standing hx headache. Time Seen by Physician: 13:17 Mode of Arrival: Ambulance Information Source: Patient Exam Limitations: Clinical condition Primary Care Provider: ISADORA BRYANT Nursing and Triage Documentation Reviewed and Agree: Yes Does patient meet sepsis criteria?: No System Inflammatory Response Syndrome: Not Applicable Sepsis Protocol: For patient's 13 years and over: Temp is 96.8 and below OR 101 and greater Pulse >90 BPM Resp >20/minute Acutely Altered Mental Status Are patient's symptoms suggestive of a new infection, such as: -Pneumonia -Skin, Soft Tissue -Endocarditis -UTI -Bone, Joint Infection -Implantable Device -Acute Abdominal Infection -Wound Infection -Meningitis -Blood Stream Catheter Infection -Unknown Respiratory Complaint Exam - Respiratory Complaint/Exam Timing: Constant Initial Severity: Moderate Current Severity: Moderate Location: Chest Character: Reports: Non-productive cough Aggravating: Reports: Allergens, Exertion, URI, Passive smoke exposure Alleviating: Reports: None Associated Signs and Symptoms: Reports: Dyspnea, Sinus discomfort, Sore throat, Increased thirst Related History: Reports: Similar episode History of Healthcare-Acquired Pneumonia: No Related Surgical History: Reports: None Cardiac Risk Factors: Reports: Smoking, Elevated lipids, Diabetes, Hypertension Pseudomonas Risk Factors: Reports: Chronic Lung Disease Tuberculosis Risk Factors: Reports: None Status Asthmaticus Risk Factors: Reports: None Home Oxygen Use: Yes Respiratory Distress: Moderate Inadequate Respiratory Effort: Yes Dysphagia Present: Yes Stridor Present: No JVD Present: No Retractions: Not Present Diminished Breath Sounds: Yes Sinus Tenderness: Frontal, Maxillary Grunting Respirations: No Kussmaul Respirations: No Differential Diagnoses: COPD Exacerbation Quality Indicators For Pneumonia: Blood Cultures-SCU admit, Empiric Antibiotic Rx Review of Systems - Review Of Systems Constitutional: Reports: No symptoms Eyes: Reports: No symptoms Ears, Nose, Mouth, Throat: Reports: No symptoms Respiratory: Reports: No symptoms Cardiac: Reports: No symptoms GI: Reports: No symptoms : Reports: No symptoms Musculoskeletal: Reports: No symptoms Skin: Reports: No symptoms Neurological: Reports: No symptoms Endocrine: Reports: No symptoms Hematologic/Lymphatic: Reports: No symptoms All Other Systems: Reviewed and Negative Past Medical History - Past Medical History Previously Healthy: No Endocrine: Reports: None Cardiovascular: Reports: Hypertension Respiratory: Reports: COPD Hematological: Reports: None, Anemia Gastrointestinal: Reports: GERD Genitourinary: Reports: None Neuro/Psych: Reports: None Musculoskeletal: Reports: None Cancer: Reports: None - Surgical History General Surgical History: Reports: None - Family History Family History: Reports: None - Social History Smoking Status: Former smoker Hx Substance Use: No Alcohol Screening: None Physical Exam - Physical Exam Appearance: Ill-appearing Ill-appearing: Moderate Pain Distress: Moderate Eyes: OLU, EOMI, Conjunctiva clear ENT: Ears normal, Nose normal, Oropharynx normal Respiratory: Airway patent, Breath sounds clear, Breath sounds diminished, Respirations nonlabored Cardiovascular: RRR GI/: Soft, Nontender Musculoskeletal: Normal strength, ROM intact, No edema, Limited ROM Skin: Warm, Dry, Normal color Interpretation - Radiology Interpretation Radiology Interpretation By: ED Physician Exam Interpreted: CXR (prominent central interstitial changes /edema/ Rt>Lt basilar opacitied ?atelectasis vs pneumonia), CT Scan (Sinus wnl) Physician Notification - Case Discussed Physician Notified: Dr Bryant Time of Notification: 19:35 (admit/transfuse) Critical Care Note - Critical Care Note Total Time (mins): 60 Course - Course Hematology/Chemistry: 12/20/18 04:25 12/20/18 04:25 Orders, Labs, Meds: Lab Review 12/18/18 12/18/18 12/18/18 13:45 14:00 14:00 WBC 4.54 L RBC 2.47 L Hgb 7.8 L Hct 25.2 L MCV 102.0 H MCH 31.6 H MCHC 31.0 L RDW Coeff of Rivka 14.7 Plt Count 203 Immature Gran % (Auto) 2.4 Neut % (Auto) 70.7 Lymph % (Auto) 16.3 Bennett % (Auto) 8.6 Eos % (Auto) 1.8 Baso % (Auto) 0.2 Immature Gran # (Auto) 0.1 Neut # (Auto) 3.2 Lymph # (Auto) 0.7 Bennett # (Auto) 0.4 Eos # (Auto) 0.1 Baso # (Auto) 0.0 Puncture Site L brach O2 Saturation 86.0 L ABG pH 7.349 L ABG pCO2 43.1 ABG pO2 54.0 L* ABG HCO3 23.8 ABG Total CO2 25 ABG Base Excess -2 Galen Test + FiO2 % 21.0 Sodium 135.1 Potassium 4.78 Chloride 98.2 Carbon Dioxide 27.1 Anion Gap 14.58 BUN 53.9 H Creatinine 2.78 H Estimated GFR (MDRD) 17.00 BUN/Creatinine Ratio 19.38 Glucose 111.9 H Calcium 8.64 Total Bilirubin 0.49 AST 19.2 ALT 14.7 Alkaline Phosphatase 66.8 Total Protein 6.56 Albumin 3.50 Globulin 3.06 Albumin/Globulin Ratio 1.14 Urine Color Urine Clarity Urine pH Ur Specific [place] Urine Protein Urine Glucose (UA) Urine Ketones Urine Blood Urine Nitrite Urine Bilirubin Urine Urobilinogen Ur Leukocyte Esterase Urine Microscopic WBC Ur Squamous Epith Cells Urine Bacteria 12/18/18 16:10 WBC RBC Hgb Hct MCV MCH MCHC RDW Coeff of Rivka Plt Count Immature Gran % (Auto) Neut % (Auto) Lymph % (Auto) Bennett % (Auto) Eos % (Auto) Baso % (Auto) Immature Gran # (Auto) Neut # (Auto) Lymph # (Auto) Bennett # (Auto) Eos # (Auto) Baso # (Auto) Puncture Site O2 Saturation ABG pH ABG pCO2 ABG pO2 ABG HCO3 ABG Total CO2 ABG Base Excess Galen Test FiO2 % Sodium Potassium Chloride Carbon Dioxide Anion Gap BUN Creatinine Estimated GFR (MDRD) BUN/Creatinine Ratio Glucose Calcium Total Bilirubin AST ALT Alkaline Phosphatase Total Protein Albumin Globulin Albumin/Globulin Ratio Urine Color Yellow Urine Clarity Slightly Urine pH 6.0 Ur Specific [place] 1.010 Urine Protein 2+ Urine Glucose (UA) Negative Urine Ketones Negative Urine Blood Trace-lysed Urine Nitrite Negative Urine Bilirubin Negative Urine Urobilinogen 0.2 Ur Leukocyte Esterase 3+ Urine Microscopic WBC 20-30 Ur Squamous Epith Cells 5-10 Urine Bacteria 1+ Orders Category Date Time Status ABG DRAW REQUEST Stat CARDIO 12/18/18 13:42 Completed EKG-(ED ONLY) Stat CARDIO 12/18/18 14:16 Completed NEBULIZER TREATMENT Routine CARDIO 12/18/18 19:59 Active NEBULIZER TREATMENT Stat CARDIO 12/18/18 13:47 Completed NEBULIZER TREATMENT Stat CARDIO 12/18/18 17:00 Completed OXYGEN Routine CARDIO 12/18/18 19:50 Active ACTIVITY .BR with BRP CARE 12/18/18 19:51 Active BLOOD GLUCOSE MONITORING 0630,1100,1700,2100 CARE 12/18/18 19:57 Active GIVE HS SNACK 2100 CARE 12/18/18 19:53 Active INTAKE & OUTPUT Q8HR CARE 12/18/18 19:50 Active VITAL SIGNS Q8HR CARE 12/18/18 19:51 Active ADA 1800 [place]. DIET DIETARY 12/18/18 Dinner Ordered HS SNACK DIETARY 12/18/18 Dinner Ordered IV [ED IV/MEDIPORT/POWERPORT] .ONCE EMERGENCY 12/18/18 16:59 Active ABG Stat LAB 12/18/18 13:45 Completed BLOOD CULTURE (ED ONLY) Stat LAB 12/18/18 14:00 Results CBC W/ AUTO DIFF DAILY@0600 LAB 12/19/18 04:00 Completed CBC W/ AUTO DIFF DAILY@0600 LAB 12/20/18 04:25 Completed CBC W/ AUTO DIFF Stat LAB 12/18/18 14:00 Completed CMP [COMPREHENSIVE METABOLIC PANEL] Stat LAB 12/18/18 14:00 Completed COMPREHENSIVE METABOLIC PANEL DAILY@0600 LAB 12/19/18 04:00 Completed COMPREHENSIVE METABOLIC PANEL DAILY@0600 LAB 12/20/18 04:25 Completed Packed Red Blood Cells [PACKED CELLS] Stat LAB 12/18/18 20:15 Results TROPONIN I Q8H LAB 12/19/18 01:58 Completed TROPONIN I Q8H LAB 12/19/18 10:07 Completed TYPE AND SCREEN Stat LAB 12/18/18 20:15 Results UA [URINALYSIS C & S IF INDICATED] Stat LAB 12/18/18 16:10 Completed URINE CULTURE Stat LAB 12/18/18 16:10 Results 0.9 % Sodium Chloride [Saline Flush] MEDS 12/18/18 16:58 Active 1 syr IVF PRN PRN Amlodipine Besylate [Norvasc] MEDS 12/18/18 21:00 Active 5 mg PO BEDTIME Aspirin [Aspirin EC] MEDS 12/19/18 08:00 Active 81 mg PO DAILYWM Atenolol [Tenormin] MEDS 12/19/18 09:00 Active 50 mg PO DAILY Calcium Carbonate/Vitamin D3 [Calcium 500 + Vit D 200 MEDS 12/19/18 09:00 Active mg Tablet] 1 each PO DAILY Ceftriaxone/D5w 1 gm Premix [Rocephin 1 gm Premix] 1 gm MEDS 12/18/18 22:00 Active Premix 50 ml D5w 1 bag IV BEDTIME Clopidogrel Bisulfate [Plavix] MEDS 12/19/18 09:00 Active 75 mg PO DAILY Enoxaparin Sodium [Lovenox] MEDS 12/18/18 21:45 Active 30 mg SUBCUT BEDTIME Escitalopram Oxalate [Lexapro] MEDS 12/19/18 09:00 Active 5 mg PO DAILY Gabapentin [Neurontin] MEDS 12/18/18 21:00 Active 100 mg PO BID Ipratropium/Albuterol Neb [Duoneb] MEDS 12/18/18 17:00 Discontinued 1 vial NEB ONCE STA Levalbuterol HCl [Xopenex 0.63 mg] MEDS 12/19/18 00:00 Active 1 vial NEB RTQ6H Lovastatin [Mevacor] MEDS 12/19/18 17:00 Active 20 mg PO 1700 Mycophenolate Mofetil [Cellcept] MEDS 12/18/18 21:00 Discontinued 500 mg PO BID Pantoprazole Sodium [Protonix] MEDS 12/19/18 06:30 Active 40 mg PO DAILY@0630 Prednisone MEDS 12/19/18 08:00 Active 2.5 mg PO DAILYWM Promethazine HCl [Phenergan Tab] MEDS 12/18/18 17:18 Discontinued 25 mg PO ONCE STA Sodium Bicarbonate MEDS 12/19/18 09:00 Active 650 mg PO BID Sodium Chloride 0.9% [Sodium Chloride] 1,000 ml MEDS 12/18/18 20:00 Discontinued IV 75 mls/hr Sucralfate Susp [Carafate] MEDS 12/18/18 21:00 Active 1 gm PO ACHS Tacrolimus [Prograf] MEDS 12/18/18 21:00 Discontinued 2 mg PO BID RESUSCITATION STATUS Routine OTHERS 12/18/18 19:50 Ordered CHEST, 1V AP ONLY Stat RADS 12/18/18 13:[address] SINUSES W/O CONTRAST Stat RADS 12/18/18 17:11 Completed OT CONSULTATION Routine THERAPIES 12/18/18 11:47 Completed PT CONSULT Routine THERAPIES 12/18/18 Ordered Medications Generic Name Dose Route Start Last Admin Trade Name Freq PRN Reason Stop Dose Admin Acetaminophen 650 mg 12/18/18 21:00 12/18/18 22:41 Tylenol PO 650 mg Q4H PRN Administration temp >101 Hydrocodone Bitart/Acetaminophen 0.5 tab 12/19/18 08:14 12/19/18 21:23 [place] 7.5-325 PO 0.5 tab TID PRN Administration Head aches and back pain Amlodipine Besylate 5 mg 12/18/18 21:00 12/19/18 21:01 Norvasc PO 5 mg BEDTIME SHERRELL Administration Aspirin 81 mg 12/19/18 08:00 12/20/18 08:41 Aspirin Ec PO 81 mg DAILYWM SHERRELL Administration Atenolol 50 mg 12/19/18 09:00 12/20/18 08:42 Tenormin PO 50 mg DAILY SHERRELL Administration Calcium/Vitamin D 1 each 12/19/18 09:00 12/20/18 08:42 Calcium 500 + Vit D 200 Mg Tablet PO 1 each DAILY SHERRELL Administration Chlordiazepoxide HCl 5 mg 12/18/18 21:00 12/20/18 08:43 Librium PO 5 mg BID SHERRELL Administration Clopidogrel Bisulfate 75 mg 12/19/18 09:00 12/20/18 08:43 Plavix PO 75 mg DAILY SHERRELL Administration Enoxaparin Sodium 30 mg 12/18/18 21:45 12/19/18 21:02 Lovenox SUBCUT 30 mg BEDTIME SHERRELL Administration Escitalopram Oxalate 5 mg 12/19/18 09:00 12/20/18 08:42 Lexapro PO 5 mg DAILY SHERRELL Administration Gabapentin 100 mg 12/18/18 21:00 12/20/18 08:42 Neurontin PO 100 mg BID SHERRELL Administration CEFTRIAXONE/D5W 1 GM PREMIX 1 50 mls @ 75 mls/hr 12/18/18 22:00 12/19/18 21: 02 gm/ Dextrose IV 12/21/18 21:59 75 mls/hr BEDTIME SHERRELL Administration Insulin Human Regular 1 - 20 unit 12/19/18 07:30 12/19/18 21:13 Humulin R SUBCUT 6 unit PRN PRN Administration blood sugar coverage Protocol Levalbuterol HCl 1 vial 12/19/18 00:00 12/20/18 04:40 Xopenex 0.63 Mg NEB 1 vial RTQ6H SHERRELL Administration Lovastatin 20 mg 12/19/18 17:00 12/19/18 17:13 Mevacor PO 20 mg 1700 SHERRELL Administration Non-Formulary Medication 500 mg 12/19/18 09:00 12/20/18 08:43 Mycophenolate Mofetil [Cellcept] PO 500 mg BID SHERRELL Administration Non-Formulary Medication 2 mg 12/19/18 09:00 12/20/18 08:43 Tacrolimus [Prograf] PO 2 mg BID SHERRELL Administration Pantoprazole Sodium 40 mg 12/19/18 06:30 12/20/18 06:03 Protonix PO 40 mg DAILY@0630 SHERRELL Administration Prednisone 2.5 mg 12/19/18 08:00 12/20/18 08:42 Prednisone PO 2.5 mg DAILYWM SHERRELL Administration Promethazine HCl 25 mg 12/18/18 20:55 Phenergan Tab PO Q8H PRN Nausea / Vomiting Sodium Bicarbonate 650 mg 12/19/18 09:00 12/20/18 08:42 Sodium Bicarbonate PO 650 mg BID SHERRELL Administration Sodium Chloride 1 syr 12/18/18 16:58 12/19/18 21:02 Saline Flush IVF 1 syr PRN PRN Administration To flush IV Sucralfate 1 gm 12/18/18 21:00 12/20/18 06:03 Carafate PO 1 gm ACHS SHERRELL Administration Discontinued Medications Generic Name Dose Route Start Last Admin Trade Name Freq PRN Reason Stop Dose Admin Hydrocodone Bitart/Acetaminophen 0.5 tab 12/18/18 22:26 12/19/18 04:05 [place] 7.5-325 PO 0.5 tab BID PRN Administration Head aches and back pain Albuterol/Ipratropium 1 vial 12/18/18 17:00 12/18/18 17:11 Duoneb NEB 12/18/18 17:01 1 vial ONCE STA Administration Dexamethasone Sodium Phosphate 4 mg 12/19/18 08:13 12/19/18 08:33 Decadron 4 Mg/Ml Sdv IVP 12/19/18 08:14 4 mg ONCE STA Administration Furosemide 20 mg 12/19/18 10:05 12/19/18 10:41 Lasix IVP 12/19/18 10:06 20 mg ONCE STA Administration Sodium Chloride 1,000 mls @ 75 mls/hr 12/18/18 20:00 12/19/18 11:54 Sodium Chloride IV 12/19/18 23:59 Not Given .[id number] SHERRELL Insulin Human Regular 1 unit 12/18/18 22:30 Humulin R SUBCUT PRN PRN blood sugar coverage Protocol Non-Formulary Medication 500 mg 12/18/18 21:00 12/18/18 21:31 Mycophenolate Mofetil [Cellcept] PO 500 mg BID SHERRELL Administration Non-Formulary Medication 2 mg 12/18/18 21:00 12/18/18 21:30 Tacrolimus [Prograf] PO 2 mg BID SHERRELL Administration Promethazine HCl 25 mg 12/18/18 17:18 12/18/18 17:24 Phenergan Tab PO 12/18/18 17:19 25 mg ONCE STA Administration Vital Signs: Temp Pulse Resp BP Pulse Ox 12/18/18 13:14 99.4 F 70 24 134/68 85 L Departure - Departure Time of Disposition: 20:00 Disposition: ADMITTED INPATIENT Discharge Problem: Head ache, Chronic kidney disease, Nausea alone, Anemia, COPD (chronic obstructive pulmonary disease) UTI (urinary tract infection) Qualifiers: Encounter type: initial encounter Discharge Problem: (Ruled Out): Interstitial edema Condition: Stable Pt referred to PMD for follow-up: Yes (Dr Bryant) [facility] verified?: No Allergies/Adverse Reactions: Allergies sulfur dioxide Allergy (Unknown, Verified 12/18/18 13:19) ondansetron HCl [From Zofran] Adverse Reaction (Unknown, Verified 12/18/18 13:19 ) ibuprofen Adverse Reaction (Verified 12/18/18 13:19) sulfur dioxide Allergy (Unknown, Uncoded 12/18/18 13:19) ondansetron HCl Adverse Reaction (Unknown, Uncoded 12/18/18 13:19) Home Medications: Ambulatory Orders Clopidogrel Bisulfate [Plavix] 75 mg PO DAILY 02/03/13 Ferrous Sulfate 325 mg PO BID 03/20/16 Tacrolimus [Prograf] 2 mg PO BID 11/20/16 Pantoprazole Sodium [Protonix] 40 mg PO DAILY 08/21/17 Lovastatin [Mevacor] 20 mg PO DAILY 02/20/18 Prednisone 2.5 mg PO DAILY 09/16/18 Sodium Bicarbonate 650 mg PO Q12H 09/16/18 Amlodipine Besylate [Norvasc] 5 mg PO BEDTIME tablet 09/24/18 Atenolol [Tenormin] 50 mg PO DAILY tablet 09/24/18 Chlordiazepoxide HCl [Librium] 5 mg PO BID #60 capsule 10/20/18 Escitalopram Oxalate [Lexapro] 5 mg PO DAILY #30 tablet 10/20/18 Gabapentin [Neurontin] 100 mg PO BID #60 capsule 10/20/18 Hydrocodone Bit/Acetaminophen [[place] 7.5-325] 0.5 tab PO BID PRN #30 tab Acetaminophen [Tylenol] 650 mg PO Q4HR PRN 10/31/18 Aspirin [Aspir-Low] 81 mg PO DAILY 12/18/18 Calcium Carbonate/Vitamin D3 [Calcium 600 + D3 Softgel] 1 each PO DAILY Mycophenolate Mofetil [Cellcept] 500 mg PO BID 12/18/18 Sucralfate Susp [Carafate] 1 gm PO ACHS 12/18/18 Disposition Discussed With: Patient
--- NOTE | 2018-12-18 15:07 | DI ---
EXAM: Chest one view HISTORY: Shortness of breath COMPARISON: 10/14/2018 TECHNIQUE: Single view of the chest was performed FINDINGS/IMPRESSION: Cardiomegaly. Prominence of the central pulmonary vasculature with diffuse interstitial opacities, co nsistent with pulmonary interstitial edema. Small bilateral pleural effusions . Right greater than left basilar opacities, atelectasis versus pneumonia. No pneumothorax. There are no acute abnormal ities of the bones.
[2018-12-18] MEDS ORDERED: SODIUM CHLORIDE 500 ML IV STA (16:59)
[2018-12-18] MEDS ORDERED: DUONEB NEB STA (17:00)
[2018-12-18] MEDS ORDERED: PHENERGAN TAB PO STA (17:18)
--- NOTE | 2018-12-18 18:10 | CT ---
EXAM: CT sinuses without contrast. HISTORY: Pain and pressure. PROCEDURE: Contiguous axial CT images of the paranasal sinuses without contrast with coronal and sag ittal reformats. FINDINGS: The frontal sinuses, ethmoid air cells, sphenoid sinus and maxillary sinuses are normal in appearance. The ostiomeatal complexes are normal in appearance. The nasal turbinates are normal in appearance. The nasal septum is midline. The mastoid air cells are normal in appearance. Impression: Negative CT of the paranasal sinuses.
[2018-12-18] MEDS ORDERED: PHENERGAN TAB PO PRN (20:55)
[2018-12-18] MEDS ORDERED: TACROLIMUS 2 MG PO SCH (21:00)
[2018-12-18] MEDS ORDERED: MYCOPHENOLATE MOFETIL 500 MG PO SCH (21:00)
[2018-12-18] MEDS ORDERED: TYLENOL PO PRN (21:00)
[2018-12-18] MEDS ORDERED: ROCEPHIN 1 GM/50 ML D5W 50 ML IV ONE (21:15)
[2018-12-18] MEDS: SODIUM CHLORIDE 1,000 ML IV SCH (21:24)
[2018-12-18] MEDS: ROCEPHIN 1 GM/50 ML D5W 1 GM in PREMIX 50 ML D5W 1 BAG IV SCH (21:25)
[2018-12-18] MEDS: LOVENOX SUBCUT SCH (21:26)
[2018-12-18] MEDS: CARAFATE PO SCH (21:26)
[2018-12-18] MEDS: NORVASC PO SCH (21:28)
[2018-12-18] MEDS: NEURONTIN PO SCH (21:28)
[2018-12-18] MEDS: LIBRIUM PO SCH (21:28)
[2018-12-18 21:33] VITALS: BMI 31.6
[2018-12-18] MEDS ORDERED: NORCO 7.5-325 PO PRN (22:26)
[2018-12-18] MEDS ORDERED: HUMULIN R SUBCUT PRN (22:30)
[2018-12-18] MEDS: XOPENEX 0.63 MG NEB SCH (22:46)
[2018-12-19] MEDS: XOPENEX 0.63 MG NEB SCH ×4 (04:36→23:25)
[2018-12-19] MEDS: CARAFATE PO SCH ×4 (05:57→21:01)
[2018-12-19] MEDS: PROTONIX PO SCH (05:57)
[2018-12-19] MEDS ORDERED: DECADRON 4 MG/ML SDV IVP STA (08:13)
[2018-12-19] MEDS: LEXAPRO PO SCH (08:31)
[2018-12-19] MEDS: ASPIRIN EC PO SCH (08:32)
[2018-12-19] MEDS: SODIUM BICARBONATE PO SCH ×2 (08:32→21:01)
[2018-12-19] MEDS: NORCO 7.5-325 PO PRN ×2 (08:32→21:23)
[2018-12-19] MEDS: NEURONTIN PO SCH ×2 (08:32→21:01)
[2018-12-19] MEDS: PREDNISONE PO SCH (08:32)
[2018-12-19] MEDS: TENORMIN PO SCH (08:32)
[2018-12-19] MEDS: PLAVIX PO SCH (08:32)
[2018-12-19] MEDS: LIBRIUM PO SCH ×2 (08:33→21:01)
[2018-12-19] MEDS: CALCIUM 500 + VIT D 200 MG TABLET PO SCH (08:33)
[2018-12-19] MEDS: MYCOPHENOLATE MOFETIL 500 MG PO SCH ×2 (08:45→21:23)
[2018-12-19] MEDS: TACROLIMUS 2 MG PO SCH ×2 (08:46→21:09)
--- NOTE | 2018-12-19 09:31 | PCM.PROG ---
Attending Provider: ATTENDING PROVIDER: Dr. ISADORA BRYANT This patient is seen with Elisa Britton, Nurse Practitioner. DATE OF SERVICE: 12/19/18 SUBJECTIVE: This 68 year old WHITE/ F was hospitalized 12/18/18. The patient is sitting in chair resting comfortably. She is complaining of headache. She is still short of breath with exertion. REVIEW OF SYSTEMS: CONSTITUTIONAL: No night sweats. No fatigue, malaise, lethargy. No fever or chills. HEENT: Eyes: No visual changes. No eye pain. No eye discharge. ENT: No runny nose. No epistaxis. No sinus pain. No odynophagia. No congestion. RESPIRATORY: Cough. No congestion. No hemoptysis. Positive for shortness of breath. CARDIOVASCULAR: No angina symptoms. No CHF symptoms. No atypical chest pain for CAD. No palpitations. No orthopnea.. GASTROINTESTINAL: No abdominal pain. No nausea or vomiting. No diarrhea or constipation. No hematemesis. No hematochezia. GENITOURINARY: No urgency. No frequency. No dysuria. No hematuria. No obstructive symptoms. No discharge. No pain. No significant abnormal bleeding. MUSCULOSKELETAL: No musculoskeletal pain; no joint swelling. NEUROLOGICAL: Awake, alert, oriented to time, place and person. Positive for headache. No neck pain. No syncope. No seizures. No dizziness. PSYCHIATRIC: Not anxious. No depression. No suicidal thoughts. No homicidal thoughts. SKIN: No rash. No lesions. No wounds. ENDOCRINE: No unexplained weight loss. No weight gain. HEMATOLOGIC/LYMPHATIC: No anemia. No purpura. No petechiae. No prolonged or excessive bleeding. No palpable lymph nodes. PHYSICAL EXAMINATION: GENERAL: The patient is awake, alert and oriented, sitting in bed in no distress. VITAL SIGNS: Temperature 97.7 F, Pulse 69, Respiratory Rate 12, BP 116/64, Pulse Ox 94% HEENT: Head normocephalic, atraumatic. Eyes: Extraocular muscles are intact. Pupils are equal, round and reactive to light and accommodation. Ears: No lesions. Nose appeared normal. Throat: No exudate or erythema. NECK: Supple. No JVD, no carotid bruit. No lymphadenopathy or thyromegaly. LUNGS: Severely diminished breath sounds. Clear to auscultation. Percussion note normal. Chest symmetrical. HEART: S1, S2, no S3. No murmurs. No cyanosis or clubbing. No ascites. Pulses: Dorsalis pedis and posterior tibial pulses +1 to +2 both sides. ABDOMEN: Soft. Non-tender. Bowel sounds active. No CVA tenderness. No mass felt. EXTREMITIES: Trace leg edema. Full range of motion of all extremities, equal. NEUROLOGIC: No focal deficit. Cranial nerves II through XII are grossly intact. No headache, no double vision or headache. SKIN: Not dry. Intact. Turgor-normal. LYMPHATIC: No palpable lymph nodes/no lymphedema. MUSCULOSKELETAL: Normal joints with no swelling. Muscle tone is normal. LAB REVIEW: 12/19/18 04:00 12/19/18 04:00 12/19/18 04:00: Sodium 138.7, Potassium 4.25, Chloride 101.8, Carbon Dioxide 27.3, Anion Gap 13.85, BUN 53.1 H, Creatinine 2.44 H, Estimated GFR (MDRD) 20.00 , BUN/Creatinine Ratio 21.76, Glucose 98.8, Calcium 8.40, Total Bilirubin 0.77, AST 38.9 H, ALT 13.9, Alkaline Phosphatase 62.6, Total Protein 6.50, Albumin 3.38 L, Globulin 3.12, Albumin/Globulin Ratio 1.08 12/19/18 04:00: WBC 5.01, RBC 3.01 L, Hgb 9.4 L, Hct 30.0 L, MCV 99.7 H, MCH 31.2 H, MCHC 31.3 L, RDW Coeff of Rivka 15.7 H, Plt Count 203, Immature Gran % ( Auto) 1.4, Neut % (Auto) 60.4, Lymph % (Auto) 21.2, Williams % (Auto) 14.4 H, Eos % (Auto) 2.4, Baso % (Auto) 0.2, Immature Gran # (Auto) 0.1, Neut # (Auto) 3.0, Lymph # (Auto) 1.1, Williams # (Auto) 0.7, Eos # (Auto) 0.1, Baso # (Auto) 0.0 12/19/18 01:58: Troponin I 0.059 12/18/18 20:15: Blood Type A POSITIVE, Antibody Screen Negative, Crossmatch (AHG ) See Detail 12/18/18 16:10: Urine Color Yellow, Urine Clarity Slightly, Urine pH 6.0, Ur Specific [place] 1.010, Urine Protein 2+, Urine Glucose (UA) Negative, Urine Ketones Negative, Urine Blood Trace-lysed, Urine Nitrite Negative, Urine Bilirubin Negative, Urine Urobilinogen 0.2, Ur Leukocyte Esterase 3+, Urine Microscopic WBC 20-30, Ur Squamous Epith Cells 5-10, Urine Bacteria 1+ 12/18/18 14:00: Sodium 135.1, Potassium 4.78, Chloride 98.2, Carbon Dioxide 27.1 , Anion Gap 14.58, BUN 53.9 H, Creatinine 2.78 H, Estimated GFR (MDRD) 17.00, BUN/Creatinine Ratio 19.38, Glucose 111.9 H, Calcium 8.64, Total Bilirubin 0.49 , AST 19.2, ALT 14.7, Alkaline Phosphatase 66.8, Total Protein 6.56, Albumin 3.50, Globulin 3.06, Albumin/Globulin Ratio 1.14 12/18/18 14:00: WBC 4.54 L, RBC 2.47 L, Hgb 7.8 L, Hct 25.2 L, MCV 102.0 H, MCH 31.6 H, MCHC 31.0 L, RDW Coeff of [place]ka 14.7, Plt Count 203, Immature Gran % (Auto ) 2.4, Neut % (Auto) 70.7, Lymph % (Auto) 16.3, Williams % (Auto) 8.6, Eos % (Auto) 1.8, Baso % (Auto) 0.2, Immature Gran # (Auto) 0.1, Neut # (Auto) 3.2, Lymph # ( Auto) 0.7, Williams # (Auto) 0.4, Eos # (Auto) 0.1, Baso # (Auto) 0.0 12/18/18 13:45: Puncture Site L brach, O2 Saturation 86.0 L, ABG pH 7.349 L, ABG pCO2 43.1, ABG pO2 54.0 L*, ABG HCO3 23.8, ABG Total CO2 25, ABG Base Excess -2, Galen Test +, FiO2 % 21.0 ASSESSMENT: Please see below. 1. Acute on chronic renal failure with kidney transplant. 2. Pulmonary edema. 3. UTI, culture pending. PLAN: 1. [place] 1/2 tablet t.i.d. 2. Decadron 1 cc, one time dose. Plan and coordination of the patient's care discussed in the presence of Automatic Buffer and nurse. CONDITION: Stable SCRIBED BY: BRIAN KNOX Contract Negotiation Manager scribed while in presence of service performed by Dr. Bryant/Elisa Britton APRN on 12/19/18 ([id number])
[2018-12-19] MEDS ORDERED: LASIX IVP STA (10:05)
[2018-12-19] MEDS: SODIUM CHLORIDE 1,000 ML IV SCH (11:54)
[2018-12-19] MEDS: HUMULIN R SUBCUT PRN ×3 (13:20→21:13)
--- NOTE | 2018-12-19 13:58 | RS.OTINEVL ---
Subjective - Patient information Date of Evaluation: 12/19/18 Date of Arrival on Unit: 12/18/18 Admitted From:: Detention Diagnosis: COPD, Chronic kidney disease, Anemia PRECAUTIONS: Dialysis, O2 drops with ambulation Usual Living Arrangement: Alone Living Arrangement Comments: Pt was in [facility] and was about to go home when she became sick. Pt is wanting to be discharged to home following her discharge at [facility]. Home Environment: House Medical History: Hypertension, COPD Medical History Comments:: HYPERTENSION. DYSLIPIDEMIA. OSTEOARTHRITIS. B 12 DEFICIENCY. DJD. DEPRESSION. HISTORY OF RIB FRACTURE, ANTERIOR RIGHT 6TH AND 7TH. HISTORY OF CLAVICLE FRACTURE, LEFT 2019. HISTORY OF RIGHT ARM FRACTURE, 2019. HISTORY OF COMMINUTED IMPACTION FRACTURE LEFT DISTAL RADIUS, FEB 2018. NEPHRECTOMY, RIGHT. KIDNEY TRANSPLANT, 2004. CHOLECYSTECTOMY. CAROTID ENDARTERECTOMY, DR. DA SILVA. RIGHT KNEE SURGERY. UMBILICAL HERNIA REPAIR Surgical History Comments:: kidney transplant, umbilical hernia, vocal cord biopsy, Subjective Information/ Patient Comments:: "Give my my pink pants, give me my glasses after I go to the bathroom. Comb my hair with the white brush. " - Level of function Prior to this admission, the patient could do the following:: Partially Dependent Ambulation Abilities prior to this admission: Pt has been living in a group home for the past few months. Pt Current Level of Function: Independent Current Equipment Used at Home: Rolling walker, quad cane walker. Pain Assessment - Pain Pain Score: 5 Side: bilateral Pain Location Body Site: Back Pain Aggravating Factors: Standing, Walking Pain Alleviating Factors: Sitting, Lying Prone Interventions - Objective Patient Orientation: Person, Place, Time, Situation Current Interventions: IV's, Oxygen, Telemetry Observation: Pt is weak and her back is hurting her while walking. Pt is able to ev her pants with setup while sitting on the toilet. Pt is able to ev her glasses and brush her hair with setup. Pt able to wash her hands with verbal cues and minimal assistance. Pt is minimal assistance for ambulation with cane. Interventions - ROM Right Upper Extremity AROM: WFL's Left Upper Extremity AROM: WFL's - Strength Right Upper Extremity Strength: Mild Weakness Left Upper Extremity Strength: Mild Weakness - Sensation Right Upper Extremity Sensation: Intact/Normal Left Upper Extremity Sensation: Intact/Normal Balance - Sitting Balance Static Sitting Balance: Fair Dynamic Sitting Balance: Fair - Standing Balance Static Standing Balance: Poor Dynamic Standing Balance: Poor ADL Skills - Self Feeding Self Feeding: Supervision - Grooming Grooming: Supervision - Dressing Dressing LE: Set Up Only - Toilet Management Toileting Management: Min Assist Functional Mobility - Bed Mobility Rolling R/L: Independent Scooting: Independent Supine to Sit: Mod Assist Sit to Supine: Independent - Transfers Sit to Stand: Mod Assist Stand to Sit: Mod Assist, 2 person assist Stand Pivot Transfers: Min Assist, 2 person assist - Ambulation Weight Bearing Status: FWB Assistive Device Used: Straight Cane Assistance needed with Ambulation: Min Assist, 2 person assist - Safety Awareness Safety Awareness: Good KRYSTLE INDEX SCORE: . Additional Treatment Performed - Time with patient Length of Evaluation: 22 Total treatment time: 22 Activities Do you enjoy playing games?: No Would you be interested in leaving your room for activities?: Yes Would you enjoy group activities?: No Do you have difficulty with your vision?: Yes Patient Interests:: Reading Books/Magazines, Watching Television, Visiting/ Socializing Patient Education Patient Education: Education of diagnosis, Body/Joint mechanics, Home Exercise Program, Home Safety, Education of Plan of Care Teaching Recipient: Patient Teaching Methods: Discussion Assessment Problem List:: Decreased level of function, Requires training/education, Decreased safety/Risk of falls, Weakness Rehab Potential: Good Further Therapy Indicated?: Yes Evaluation Complexity: HISTORY: Medium, EXAM OF BODY SYSTEMS: Medium, CLINICAL DECISION MAKING: Medium Short Term Goals - Goals GOAL 1: Pt to increase dyn. std. bal. to Fair Goal to be met by: 12/24/18 GOAL 2: Pt to increase activity tolerance to 10 minutes with setup. Goal to be met by: 12/24/18 GOAL 3: Pt to increase independence with sit to stand to min A. Goal to be met by: 12/24/18 Landing Worker Goals GOAL 1: Pt to increase dyn. std. bal. to Fair+/G- Goal to be met by: 12/27/18 GOAL 2: Pt to increase activity tolerance to 15 minutes with setup. Goal to be met by: 12/27/18 GOAL 3: Pt to increase independence with sit to stand to mod-I. Goal to be met by: 12/27/18 Plan Plan of Care: Therapeutic EX, Neuromuscular Re-Educ, Therapeutic Activity, Self- Care/Home Management Frequency of Treatment: 1-2 X day, as tolerated Duration of Treatment: 1 Week Anticipated Discharge Destination: Home Treatment Diagnosis (ICD 10 Codes): M62.81 muscle weakness, Z74.1 need assistance for self care. Has the Physician been added for Co-signature?: Yes
--- NOTE | 2018-12-19 14:53 | RS.PTINEVL ---
Subjective - Patient information Date of Evaluation: 12/19/18 Date of Arrival on Unit: 12/18/18 Admitted From:: [facility] Usual Living Arrangement: Alone Living Arrangement Comments: Patient was just being discharged from the group home, when it was found that she was having shortness of breath and she was sent to the hospital. Medical History Comments:: HYPERTENSION. DYSLIPIDEMIA. OSTEOARTHRITIS. B 12 DEFICIENCY. DJD. DEPRESSION. HISTORY OF RIB FRACTURE, ANTERIOR RIGHT 6TH AND 7TH. HISTORY OF CLAVICLE FRACTURE, LEFT 2019. HISTORY OF RIGHT ARM FRACTURE, 2019. HISTORY OF COMMINUTED IMPACTION FRACTURE LEFT DISTAL RADIUS, FEB 2018. NEPHRECTOMY, RIGHT. KIDNEY TRANSPLANT, 2004. CHOLECYSTECTOMY. CAROTID ENDARTERECTOMY, DR. DA SILVA. RIGHT KNEE SURGERY. UMBILICAL HERNIA REPAIR Subjective Information/ Patient Comments:: Ms. Echevarria states " I need to walk". States her back hurts after returning from the bathroom. States she uses a quad cane at home. Also admits to having a walker at home. - Level of function Prior to this admission, the patient could do the following:: Partially Dependent Ambulation Abilities prior to this admission: Pt has been in the group home for a few months. Current Level of Function: Partially Dependent Current Equipment Used at Home: rolling walker, quad cane walker Interventions - Objective Patient Orientation: Person, Place, Time, Situation Current Interventions: IV's, Oxygen, Telemetry Range of Motion - ROM Right Lower Extremity AROM: WFL's Left Lower Extremity AROM: WFL's Muscle Strength - Muscle Strength Comments:: Bilateral LE strength generally 4- to 4/5 throughout. Balance - Sitting Balance and Reactions Static Sitting Balance: Fair Dynamic Sitting Balance: Fair - Standing Balance and Reactions Static Standing Balance: Fair Dynamic Standing Balance: Poor (+) Functional Mobility - Bed Mobility Rolling R/L: Independent Scooting: Independent Supine to Sit: Mod Assist, 1 person assist Sit to Supine: Supervision - Transfers Sit to Stand: Mod Assist Stand to Sit: Min Assist, Mod Assist, 2 person assist Stand Pivot Transfers: Min Assist, 2 person assist - Safety Awareness Safety Awareness: Fair KRYSTLE INDEX SCORE: NA Ambulation - Ambulation Weight Bearing Status: FWB Assistive Device Used: Straight Cane Distance: 100 feet, sitting rest break, then 50 feet Assistance needed with Ambulation: Min Assist, 2 person assist Gait Deviations: Narrow Based gait, Shuffling gait, Forward posture, Short stride Factors Affecting Ambulation: Decreased Balance, Breathing/O2 Saturation, Weakness Treatment time - Time with patient Length of Evaluation: 20 Total treatment time: 24 Assessment - Assessment Problem List:: Decreased level of function, Requires training/education, Decreased safety/Risk of falls, Weakness Rehab Potential: Good Further Therapy Indicated?: Yes Candidate for Swing Bed for Therapy Services?: Will depend on patient's participation in therapy and ability to progress. Evaluation Complexity: HISTORY: Medium, EXAM OF BODY SYSTEMS: Medium, CLINICAL PRESENTATION: Medium, CLINICAL DECISION MAKING: Medium Short Term Goals GOAL #1: Supine to sit with CGA of one. Goal to be met by: 12/22/18 GOAL #2: Pt to perform stand pivot transfers with CGA-min of one. Goal to be met by: 12/22/18 GOAL #3: Sit to/from stand CGA of 1. Goal to be met by: 12/21/18 GOAL #4: Pt to amb. with RW 100 ft with CGA of one. Goal to be met by: 12/21/18 Development Vice President Goals GOAL #1: Pt independent with all bed mobility. Goal to be met by: 12/25/18 GOAL #2: Pt to transfer with good safety with SBA. Goal to be met by: 12/25/18 GOAL #3: Pt to amb. w/ RW household distances with SBA and good safety. Goal to be met by: 12/25/18 Plan Plan of Care: Therapeutic EX, Neuromuscular Re-Educ, Therapeutic Activity, Self- Care/Home Management Frequency of Treatment: 1-2 X day, as tolerated Duration of Treatment: 1 Week Anticipated Discharge Destination: Home Treatment Diagnosis (ICD 10 Codes): R26.81, Z91.81, M62.81 Has the Physician been added for Co-signature?: Yes
[2018-12-19] MEDS: MEVACOR PO SCH (17:13)
[2018-12-19] MEDS: NORVASC PO SCH (21:01)
[2018-12-19] MEDS: LOVENOX SUBCUT SCH (21:02)
[2018-12-19] MEDS: ROCEPHIN 1 GM/50 ML D5W 1 GM in PREMIX 50 ML D5W 1 BAG IV SCH (21:02)
[2018-12-20] MEDS: XOPENEX 0.63 MG NEB SCH ×4 (04:40→23:45)
[2018-12-20] MEDS: PROTONIX PO SCH (06:03)
[2018-12-20] MEDS: CARAFATE PO SCH ×4 (06:03→20:34)
[2018-12-20] MEDS: ASPIRIN EC PO SCH (08:41)
[2018-12-20] MEDS: PREDNISONE PO SCH (08:42)
[2018-12-20] MEDS: SODIUM BICARBONATE PO SCH ×2 (08:42→20:35)
[2018-12-20] MEDS: TENORMIN PO SCH (08:42)
[2018-12-20] MEDS: CALCIUM 500 + VIT D 200 MG TABLET PO SCH (08:42)
[2018-12-20] MEDS: LEXAPRO PO SCH (08:42)
[2018-12-20] MEDS: NEURONTIN PO SCH ×2 (08:42→20:35)
[2018-12-20] MEDS: LIBRIUM PO SCH ×2 (08:43→20:35)
[2018-12-20] MEDS: MYCOPHENOLATE MOFETIL 500 MG PO SCH ×3 (08:43→20:39)
[2018-12-20] MEDS: PLAVIX PO SCH (08:43)
[2018-12-20] MEDS: TACROLIMUS 2 MG PO SCH ×2 (08:43→20:36)
[2018-12-20] MEDS: NORCO 7.5-325 PO PRN (10:06)
[2018-12-20] MEDS: HUMULIN R SUBCUT PRN (17:27)
[2018-12-20] MEDS: MEVACOR PO SCH (17:27)
[2018-12-20] MEDS: KEFLEX PO SCH (20:35)
[2018-12-20] MEDS: LOVENOX SUBCUT SCH (20:35)
[2018-12-20] MEDS: NORVASC PO SCH (20:35)
[2018-12-21] MEDS: XOPENEX 0.63 MG NEB SCH ×4 (04:20→23:15)
[2018-12-21] MEDS: NORCO 7.5-325 PO PRN ×2 (04:51→20:39)
[2018-12-21] MEDS: CARAFATE PO SCH ×4 (05:48→20:38)
[2018-12-21] MEDS: PROTONIX PO SCH (05:48)
[2018-12-21] MEDS: BUMEX PO SCH (05:48)
[2018-12-21] MEDS: ASPIRIN EC PO SCH (08:16)
[2018-12-21] MEDS: KEFLEX PO SCH ×2 (08:17→20:39)
[2018-12-21] MEDS: NEURONTIN PO SCH ×2 (08:17→20:39)
[2018-12-21] MEDS: TENORMIN PO SCH (08:17)
[2018-12-21] MEDS: PREDNISONE PO SCH (08:17)
[2018-12-21] MEDS: LEXAPRO PO SCH (08:17)
[2018-12-21] MEDS: CALCIUM 500 + VIT D 200 MG TABLET PO SCH (08:18)
[2018-12-21] MEDS: LIBRIUM PO SCH ×2 (08:18→20:40)
[2018-12-21] MEDS: TACROLIMUS 2 MG PO SCH ×2 (08:18→20:42)
[2018-12-21] MEDS: SODIUM BICARBONATE PO SCH ×2 (08:18→20:39)
[2018-12-21] MEDS: PLAVIX PO SCH (08:18)
[2018-12-21] MEDS: MYCOPHENOLATE MOFETIL 500 MG PO SCH ×2 (08:19→21:13)
[2018-12-21] MEDS: HUMULIN R SUBCUT PRN (11:10)
[2018-12-21] MEDS: MEVACOR PO SCH (16:44)
[2018-12-21] MEDS: LOVENOX SUBCUT SCH (20:38)
[2018-12-21] MEDS: NORVASC PO SCH (20:39)
[2018-12-22] MEDS: XOPENEX 0.63 MG NEB SCH ×2 (04:40→11:12)
[2018-12-22] MEDS: NORCO 7.5-325 PO PRN (04:43)
[2018-12-22 05:34] VITALS: BP 104/58; TEMP 97.8
[2018-12-22] MEDS: CARAFATE PO SCH ×2 (05:42→11:12)
[2018-12-22] MEDS: BUMEX PO SCH (05:42)
[2018-12-22] MEDS: PROTONIX PO SCH (05:43)
[2018-12-22] MEDS ORDERED: BACTRIM DS 800/160 MG PO SCH (09:00)
[2018-12-22] MEDS: TACROLIMUS 2 MG PO SCH (09:01)
[2018-12-22] MEDS: ASPIRIN EC PO SCH (09:02)
[2018-12-22] MEDS: MYCOPHENOLATE MOFETIL 500 MG PO SCH (09:02)
[2018-12-22] MEDS: SODIUM BICARBONATE PO SCH (09:03)
[2018-12-22] MEDS: LIBRIUM PO SCH (09:03)
[2018-12-22] MEDS: LEXAPRO PO SCH (09:03)
[2018-12-22] MEDS: TENORMIN PO SCH (09:03)
[2018-12-22] MEDS: CALCIUM 500 + VIT D 200 MG TABLET PO SCH (09:03)
[2018-12-22] MEDS: NEURONTIN PO SCH (09:04)
[2018-12-22] MEDS: PLAVIX PO SCH (09:04)
[2018-12-22] MEDS: PREDNISONE PO SCH (09:04)
--- NOTE | 2018-12-22 11:07 | PN ---
DATE OF SERVICE: 12/20/18 SUBJECTIVE: The patient is a 68-year-old white female hospitalized with chronic kidney disease, severe anemia. The patient is feeling short of breath which is the main reason. The chest x-ray showed possibility of CHF. The patient was given IV Lasix 20 mg yesterday and will start her on Bumex 1 mg p.o. daily. Creatinine and BUN are stable 2.3 and 52 respectively. The patient is being followed by Dr. Davis. He thinks the patient probably has acute rejection. She is on Prograf, dose has been increased. The patient says she is feeling better. She wants to go home. I advised her to stay for a couple of days. REVIEW OF SYSTEMS: CONSTITUTIONAL: The patient states she is feeling a lot better. No night sweats. No fatigue, malaise, lethargy. No fever or chills. HEENT: Eyes: No visual changes. No eye pain. No eye discharge. ENT: No runny nose. No epistaxis. No sinus pain. No sore throat. No odynophagia. No congestion. RESPIRATORY: No cough, no congestion. No hemoptysis. No shortness of breath. CARDIOVASCULAR: No angina symptoms. No CHF symptoms. No atypical chest pain for CAD. No palpitations. No PND. No orthopnea. GASTROINTESTINAL: Her appetite has improved. No abdominal pain. No nausea or vomiting. No diarrhea or constipation. No hematemesis. No hematochezia. GENITOURINARY: No urgency. No frequency. No dysuria. No hematuria. No obstructive symptoms. No discharge. No pain. No significant abnormal bleeding. MUSCULOSKELETAL: No musculoskeletal pain; no joint swelling. NEUROLOGICAL: No headache. No neck pain. No syncope. No seizures. No dizziness. PSYCHIATRIC: Not anxious. No depression. No suicidal thoughts. No homicidal thoughts. SKIN: No rash. No lesions. No wounds. ENDOCRINE: No unexplained weight loss. No weight gain. HEMATOLOGIC/LYMPHATIC: No anemia. No purpura. No petechiae. No prolonged or excessive bleeding. No palpable lymph nodes. PHYSICAL EXAMINATION: VITAL SIGNS: Temperature 97.5, pulse 79, respiratory rate 20, BP 143/83, pulse ox 93%. HEENT: Head normocephalic, atraumatic. Eyes: Extraocular muscles are intact. Pupils are equal, round and reactive to light and accommodation. Ears: No lesions. Nose appeared normal. Throat: No exudate or erythema. NECK: Supple. No JVD, no carotid bruit. No lymphadenopathy or thyromegaly. LUNGS: Decreased breath sounds but clear to auscultation. Percussion note normal. Chest symmetrical. HEART: S1, S2, no S3. No murmurs. No cyanosis or clubbing. No ascites. Pulses: Dorsalis pedis and posterior tibial pulses +1 to +2 bilaterally. ABDOMEN: Soft. Nontender. Bowel sounds active. No CVA tenderness. No mass felt. EXTREMITIES: Trace edema. Full range of motion of all extremities, equal. NEUROLOGIC: No focal deficit. Cranial nerves II through XII are grossly intact. No headache, no double vision or headache. SKIN: Not dry. Intact. Turgor - normal. LYMPHATIC: No palpable lymph nodes/no lymphedema. MUSCULOSKELETAL: Normal joints with no swelling. Muscle tone is normal. LABS: Hemoglobin 10.1, hematocrit 32, WBC 5,300, normal differential. Creatinine 2.3, BUN 52, potassium 4.4. ASSESSMENT/PLAN: 1. Chronic kidney disease with severe anemia treated with 1 unit of packed red cells. The patient's hemoglobin has gone from 7.8 to 10.1. She is feeling better , appetite has improved. 2. The patient is on Keflex 500 mg twice a day for five days for UTI and also is going to be given 1 mg Bumex every day for possible CHF. She had an echocardiogram done a couple of months ago which showed normal LV contractility. Will do ABG on room air. CONDITION: Stable, improving. TIME SPENT: More than 30 minutes. Plan and coordination of the patient's care discussed in the presence of nurse. KAREN
--- NOTE | 2018-12-22 15:20 | CM.DICTOOL ---
ADMISSION: 12/18/18 20:15 DISCHARGE: DECEMBER 22, 2018 DATE OF SERVICE: 12/22/18 FINAL DIAGNOSIS RESPIRATORY FAILURE, CHRONIC CHF ANEMIA, TRANSFUSION OF 1 UNIT PACKED CELLS CHRONIC KIDNEY DISEASE, STAGE 3 DR. SKINNER COPD UTI, E-COLI ESBL POSITIVE HYPERTENSION DYSLIPIDEMIA OSTEOARTHRITIS B 12 DEFICIENCY DJD DEPRESSION HISTORY OF RIB FRACTURE, ANTERIOR RIGHT 6TH AND 7TH HISTORY OF CLAVICLE FRACTURE, LEFT 2019 HISTORY OF RIGHT ARM FRACTURE, 2019 HISTORY OF COMMINUTED IMPACTION FRACTURE LEFT DISTAL RADIUS, FEB 2018 NEPHRECTOMY, RIGHT KIDNEY TRANSPLANT, 2004 CHOLECYSTECTOMY CAROTID ENDARTERECTOMY, BILATERAL DR. DA SILVA RIGHT KNEE SURGERY UMBILICAL HERNIA REPAIR ECHOCARDIOGRAM, SEPTEMBER 2018 LVH WITH ENLARGED LEFT ATRIAL CAVITY NORMAL VALVES LVEF 77% LAST VITALS Temp Pulse Resp BP Pulse Ox 97.8 F 63 19 104/58 L 94 L 12/22/18 05:33 12/22/18 05:33 12/22/18 08:00 12/22/18 05:33 12/22/18 10:00 TAKE THESE MEDICATIONS AT HOME Acetaminophen (Tylenol) 650 mg PO Q4H PRN PRN Reason: temp >101 Last Admin: 12/18/18 22:41 Dose: 650 mg Hydrocodone Bitart/Acetaminophen (Left Hand 7.5-325) 0.5 tab PO TID PRN PRN Reason: Head aches and back pain Last Admin: 12/22/18 04:43 Dose: 0.5 tab Amlodipine Besylate (Norvasc) 5 mg PO BEDTIME [facility] Last Admin: 12/21/18 20:39 Dose: 5 mg Aspirin (Aspirin Ec) 81 mg PO DAILYWM [facility] Last Admin: 12/22/18 09:02 Dose: 81 mg Atenolol (Tenormin) 50 mg PO DAILY [facility] Last Admin: 12/22/18 09:03 Dose: 50 mg Bumetanide (Bumex) 1 mg PO QDAC [facility] Last Admin: 12/22/18 05:42 Dose: 1 mg Calcium/Vitamin D (Calcium 500 + Vit D 200 Mg Tablet) 1 each PO DAILY [facility] Last Admin: 12/22/18 09:03 Dose: 1 each Chlordiazepoxide HCl (Librium) 5 mg PO BID [facility] Last Admin: 12/22/18 09:03 Dose: 5 mg Clopidogrel Bisulfate (Plavix) 75 mg PO DAILY [facility] Last Admin: 12/22/18 09:04 Dose: 75 mg Escitalopram Oxalate (Lexapro) 5 mg PO DAILY [facility] Last Admin: 12/22/18 09:03 Dose: 5 mg Gabapentin (Neurontin) 100 mg PO BID [facility] Last Admin: 12/22/18 09:04 Dose: 100 mg Lovastatin (Mevacor) 20 mg PO 1700 [facility] Last Admin: 12/21/18 16:44 Dose: 20 mg Non-Formulary Medication (Mycophenolate Mofetil [Cellcept]) 500 mg PO BID [facility] Last Admin: 12/22/18 09:02 Dose: Not Given Non-Formulary Medication (Tacrolimus [Prograf]) 2 mg PO BID [facility] Last Admin: 12/22/18 09:01 Dose: 2 mg Pantoprazole Sodium (Protonix) 40 mg PO DAILY@0630 [facility] Last Admin: 12/22/18 05:43 Dose: 40 mg Prednisone (Prednisone) 2.5 mg PO DAILYWM [facility] Last Admin: 12/22/18 09:04 Dose: 2.5 mg Promethazine HCl (Phenergan Tab) 25 mg PO Q8H PRN PRN Reason: Nausea / Vomiting Last Admin: 12/20/18 17:19 Dose: 25 mg Sodium Bicarbonate (Sodium Bicarbonate) 650 mg PO BID [facility] Last Admin: 12/22/2018 at 09:04 Sucralfate (Carafate) 1 gm PO ACHS [facility] Last Admin: 12/22/18 11:12 Dose: 1 gm Trimethoprim/Sulfamethoxazole (Bactrim Ds 800/160 Mg) 0.5 tab PO Q12HR [facility] Stop: 12/25/18 08:59 Last Admin: 12/22/18 09:06 Dose: 0.5 tab Cell Cept 500 mg PO BID ALLERGIES sulfur dioxide Allergy (Unknown, Verified 12/18/18 13:19) ondansetron HCl [From Zofran] Adverse Reaction (Unknown, Verified 12/18/18 13:19 ) ibuprofen Adverse Reaction (Verified 12/18/18 13:19) sulfur dioxide Allergy (Unknown, Uncoded 12/18/18 13:19) ondansetron HCl Adverse Reaction (Unknown, Uncoded 12/18/18 13:19) DISCONTINUED MEDICATIONS None NEW PRESCRIPTIONS: BUMEX 1 MG DAILY CELLCEPT 500 MG BID UNTIL SEEN BY DR. SKINNER (WILL NEED NEW RX IF IS TO CONTINUE) BACTRIM DS 0.5 TABLET BID FOR 7 DAYS NASAL OXYGEN AT 1.5 LITERS CONTINUOUSLY ([facility]) SMOKING: NOT APPLICABLE DISEASE SPECIFIC EDUCATION: ACTIVITY HYDRATION USE OF OXYGEN CONTINUOUSLY HOME HEALTH AND PARTICIPATION WITH THERAPY APPOINTMENTS LAB REVIEW: 12/22/18 04:05 12/22/18 04:05 12/22/18 10:38: Puncture Site Lr, O2 Saturation 96.0, ABG pH 7.313 L, ABG pCO2 61.4 H, ABG pO2 90.0, ABG HCO3 31.1 H, ABG Total CO2 33 H, ABG Base Excess 5 H, Galen Test +, O2 Delivery Device Nc, Oxygen Liter Flow 2.00 12/22/18 08:20: Puncture Site L brach, O2 Saturation 70.0 L, ABG pH 7.333 L, ABG pCO2 57.4 H, ABG pO2 40.0 L*, ABG HCO3 30.5 H, ABG Total CO2 32 H, ABG Base Excess 5 H, Galen Test +, FiO2 % 21.0 12/22/18 04:05: Sodium 138.1, Potassium 4.23, Chloride 99.1, Carbon Dioxide 32.2 H, Anion Gap 11.03, BUN 56.5 H, Creatinine 2.35 H, Estimated GFR (MDRD) 21.00, BUN/Creatinine Ratio 24.04, Glucose 98.7, Calcium 8.91, Total Bilirubin 0.31, AST 14.6, ALT 9.8, Alkaline Phosphatase 56.2, Total Protein 6.02 L, Albumin 3.23 L, Globulin 2.79, Albumin/Globulin Ratio 1.15 12/22/18 04:05: WBC 4.75, RBC 2.86 L, Hgb 9.0 L, Hct 29.3 L, MCV 102.4 H, MCH 31.5 H, MCHC 30.7 L, RDW Coeff of Rivka 14.7, Plt Count 242, Immature Gran % (Auto ) 1.1, Neut % (Auto) 54.5, Lymph % (Auto) 23.8, Beltrami % (Auto) 16.2 H, Eos % ( Auto) 4.0, Baso % (Auto) 0.4, Immature Gran # (Auto) 0.1, Neut # (Auto) 2.6, Lymph # (Auto) 1.1, Bel[place]ami # (Auto) 0.8, Eos # (Auto) 0.2, Baso # (Auto) 0.0 12/18/18 20:15: Crossmatch (AHG) See Detail PLAN: DISCHARGE HOME DIET: CONSISTENT CARBOHYDRATE DIET ACTIVITY: RESUME TOLERATED. ADVISED TO USE WALKER AT ALL TIMES (HAS AT HOME PER SON) USE OXYGEN AT 1.5 LITERS CONTINUOUSLY CONTINUE MEDICATIONS LISTED AN APPOINTMENT IS SCHEDULED WITH DR. BRYANT/CRUZ PASTOR APRN ON December AT 11 AM AN APPOINTMENT IS SCHEDULED WITH DR. SKINNER AT [facility] ON December AT 11:15 AM A REFERRAL WILL BE SENT TO [facility] IN [place], [place] FOR AN APPOINTMENT WITH DR. ELLIS DUE TO CHRONIC RESPIRATORY FAILURE. THE PATIENT WILL BE CALLED AT HOME WITH THE APPOINTMENT. A REFERRAL HAS BEEN SENT TO [facility] FOR THE FOLLOWING: NURSING ASSESSMENT; INCLUDING HYDRATION STATUS, NUTRITIONAL STATUS, WEIGHTS, VITAL SIGNS AND OXYGEN SATURATION MEDICATION COMPLIANCE AND TEACHING LABS ARE TO BE DRAWN ON THE AND SENT TO DR. SKINNER AT : PHOSPHORUS, URIC ACID, URINALYSIS, RANDOM URINE PROTEIN AND CREATININE, CBC WITH DIFFERENTIAL AND PLATELETS AND COMPREHENSIVE METABOLIC PANEL. PHYSICAL AND OCCUPATIONAL THERAPY EVALUATION AND TREATMENT CODE STATUS: FULL CODE MS. RAMIREZ IS ALERT AND ORIENTED X 3. SHE IS SLOW TO RESPOND, BUT ANSWERS ARE APPROPRIATE AND SPEECH IS CLEAR. SHE IS INDEPENDENT WITH FEEDING, BUT REQUIRES ASSISTANCE OF 1 WITH TRANSFERS TO THE CHAIR AND TO THE BATHROOM. SHE REQUIRES ASSISTANCE WITH BATHING AND PERSONAL CARE. SHE IS ABLE TO FEED HERSELF AND HAS A FAIR APPETITE OF 50-100%. SHE IS CONTINENT OF BOWEL AND BLADDER, BUT OCCASIONALLY HAS DRIBBLING AND STRESS INCONTINENCE. SHE HAS A WALKER, WHEELCHAIR AT HOME PER INFORMATION FROM THE SON. SHE DEMONSTRATED THE NEED FOR CONTINUOUS OXYGEN DURING HER HOSPITAL STAY AND THIS HAS BEEN ARRANGED THRU [facility]. SHE WILL BE DISCHARGED WITH PORTABLE OXYGEN AND A CONCENTRATOR WILL BE DELIVERED TO HER HOME. HYDRATION STATUS HAS IMPROVED, SKIN IS INTACT. ISADORA BRYANT MD
--- NOTE | 2018-12-23 09:53 | PCM.PROG ---
Attending Provider: ATTENDING PROVIDER: Dr. ISADORA BRYANT DATE OF SERVICE: 12/22/18 SUBJECTIVE: This 68 year old WHITE/ F was hospitalized 12/18/18 with anemia. The patient was given 1 unit of packed red cells. Hgb and hct are stable. Anemia is based on chronic kidney disease. Other problems is possible CHF. The patient was started on Bumex. Kidney function is stable with Bumex. The patient's blood gasses showed 57.2, pO2 51, HCO3 28.5, pH 7.306 with oxygen saturation of 81.0. Repeat blood gasses on room air will be done today. Chest x-ray showed CHF but no clinical symptoms. The patient's accreditation manager states the patient may have possible rejection of the kidney from transplant. The patient is still on Prograf. REVIEW OF SYSTEMS: CONSTITUTIONAL: No night sweats. No fatigue, malaise, lethargy. No fever or chills. HEENT: Eyes: No visual changes. No eye pain. No eye discharge. ENT: No runny nose. No epistaxis. No sinus pain. No odynophagia. No congestion. RESPIRATORY: No cough, no congestion. No hemoptysis. No shortness of breath. CARDIOVASCULAR: No angina symptoms. No CHF symptoms. No atypical chest pain for CAD. No palpitations. No orthopnea.. GASTROINTESTINAL: No abdominal pain. No nausea or vomiting. No diarrhea or constipation. No hematemesis. No hematochezia. GENITOURINARY: No urgency. No frequency. No dysuria. No hematuria. No obstructive symptoms. No discharge. No pain. No significant abnormal bleeding. MUSCULOSKELETAL: No musculoskeletal pain; no joint swelling. NEUROLOGICAL: Awake, alert, oriented to time, place and person. No headache. No neck pain. No syncope. No seizures. No dizziness. PSYCHIATRIC: Not anxious. No depression. No suicidal thoughts. No homicidal thoughts. SKIN: No rash. No lesions. No wounds. ENDOCRINE: No unexplained weight loss. No weight gain. HEMATOLOGIC/LYMPHATIC: No anemia. No purpura. No petechiae. No prolonged or excessive bleeding. No palpable lymph nodes. PHYSICAL EXAMINATION: GENERAL: The patient is awake, alert and oriented, lying in bed in no distress. VITAL SIGNS: Temperature 97.8 F, Pulse 63, Respiratory Rate 18, BP 104/58, Pulse Ox 97% HEENT: Head normocephalic, atraumatic. Eyes: Extraocular muscles are intact. Pupils are equal, round and reactive to light and accommodation. Ears: No lesions. Nose appeared normal. Throat: No exudate or erythema. NECK: Supple. No JVD, no carotid bruit. No lymphadenopathy or thyromegaly. LUNGS: Decreased breath sounds. Clear to auscultation. Percussion note normal. Chest symmetrical. HEART: S1, S2, no S3. No murmurs. No cyanosis or clubbing. No ascites. Pulses: Dorsalis pedis and posterior tibial pulses +1 to +2 both sides. ABDOMEN: Soft. Non-tender. Bowel sounds active. No CVA tenderness. No mass felt. EXTREMITIES: Trace edema. Full range of motion of all extremities, equal. NEUROLOGIC: No focal deficit. Cranial nerves II through XII are grossly intact. No headache, no double vision or headache. SKIN: Warm and dry. Intact. Turgor-normal. LYMPHATIC: No palpable lymph nodes/no lymphedema. MUSCULOSKELETAL: Normal joints with no swelling. Muscle tone is normal. LAB REVIEW: 12/22/18 04:05 12/22/18 04:05 12/22/18 04:05: Sodium 138.1, Potassium 4.23, Chloride 99.1, Carbon Dioxide 32.2 H, Anion Gap 11.03, BUN 56.5 H, Creatinine 2.35 H, Estimated GFR (MDRD) 21.00, BUN/Creatinine Ratio 24.04, Glucose 98.7, Calcium 8.91, Total Bilirubin 0.31, AST 14.6, ALT 9.8, Alkaline Phosphatase 56.2, Total Protein 6.02 L, Albumin 3.23 L, Globulin 2.79, Albumin/Globulin Ratio 1.15 12/22/18 04:05: WBC 4.75, RBC 2.86 L, Hgb 9.0 L, Hct 29.3 L, MCV 102.4 H, MCH 31.5 H, MCHC 30.7 L, RDW Coeff of [place]ka 14.7, Plt Count 242, Immature Gran % (Auto ) 1.1, Neut % (Auto) 54.5, Lymph % (Auto) 23.8, Lynn % (Auto) 16.2 H, Eos % ( Auto) 4.0, Baso % (Auto) 0.4, Immature Gran # (Auto) 0.1, Neut # (Auto) 2.6, Lymph # (Auto) 1.1, Lynn # (Auto) 0.8, Eos # (Auto) 0.2, Baso # (Auto) 0.0 12/18/18 20:15: Crossmatch (AHG) See Detail ASSESSMENT: Please see below. 1. Anemia from from chronic kidney disease, no active GI bleed 2. CHF by Chest x-ray 3. Renal failure 4. History of hypertension 5. Dyslipidemia PLAN: 1. Discharge home on Bumex 2. oxygen in case if she has hypoxemia 3. The patient had echo done with normal LV contractility 4. PFT before discharge 5. Based on the patient's ABG and chronic lung disease the patient would benefit from referral to pulmonary physician. Plan and coordination of the patient's care discussed in the presence of Hand Tennis Ball Coverer and nurse. SCRIBED BY: MARIA TERESA GALVEZ Carving Machine Operator scribed while in presence of service performed by Dr. ISADORA BRYANT on 12/22/18 ([id number])
--- NOTE | 2018-12-23 10:04 | DS ---
DATE OF SERVICE: 12/22/18 FINAL DIAGNOSIS: RESPIRATORY FAILURE, CHRONIC CHF ANEMIA, TRANSFUSION OF 1 UNIT PACKED CELLS CHRONIC KIDNEY DISEASE, STAGE 3 DR. LIGHT COPD UTI, E-COLI ESBL POSITIVE HYPERTENSION DYSLIPIDEMIA OSTEOARTHRITIS B 12 DEFICIENCY DJD DEPRESSION HISTORY OF RIB FRACTURE, ANTERIOR RIGHT 6TH AND 7TH HISTORY OF CLAVICLE FRACTURE, LEFT 2019 HISTORY OF RIGHT ARM FRACTURE, 2019 HISTORY OF COMMINUTED IMPACTION FRACTURE LEFT DISTAL RADIUS, FEB 2018 NEPHRECTOMY, RIGHT KIDNEY TRANSPLANT, 2004 CHOLECYSTECTOMY CAROTID ENDARTERECTOMY, BILATERAL DR. DA SILVA RIGHT KNEE SURGERY UMBILICAL HERNIA REPAIR ECHOCARDIOGRAM, SEPTEMBER 2018, LVH WITH ENLARGED LEFT ATRIAL CAVITY NORMAL VALVES,LVEF 77% LAST VITALS: Temp Pulse Resp BP Pulse Ox 97.8 F 63 19 104/58 L 94 L 12/22/18 05:33 12/22/18 05:33 12/22/18 08:00 12/22/18 05:33 12/22/18 10:00 DISCHARGE INSTRUCTIONS: DISCHARGE HOME. USE OXYGEN AT 1.5 LITERS CONTINUOUSLY. CONTINUE MEDICATIONS LISTED> AN APPOINTMENT IS SCHEDULED WITH DR. BRYANT /CRUZ PASTOR APRN ON December AT 11AM. A REFERRAL WILL BE SENT TO [facility] IN [place], [place] FOR AN APPOINTMENT WITH DR. ELLIS DUE TO CHRONIC RESPIRATORY FAILURE. THE PATIENT WILL BE CALLED AT HOME WITH THE APPOINTMENT. A REFERRAL HAS BEEN SENT TO [facility] FOR THE FOLLOWING:NURSING ASSESSMENT; INCLUDING HYDRATION STATUS, NUTRITIONAL STATUS, WEIGHTS, VITAL SIGNS AND OXYGEN SATURATION, MEDICATION COMPLIANCE AND TEACHING. LABS ARE TO BE DRAWN ON THE AND SENT TO DR. LGIHT AT : PHOSPHORUS, URIC ACID, URINALYSIS, RANDOM URINE PROTEIN AND CREATININE, CBC WITH DIFFERENTIAL AND PLATELETS AND COMPREHENSIVE METABOLIC PANEL. PHYSICAL AND OCCUPATIONAL THERAPY EVALUATION AND TREATMENT. CODE STATUS: FULL CODE TAKE THESE MEDICATIONS AT HOME: Acetaminophen (Tylenol) 650 mg PO Q4H PRN Hydrocodone Bitart/Acetaminophen ([place] 7.5-325) 0.5 tab PO TID PRN Amlodipine Besylate (Norvasc) 5 mg PO BEDTIME [facility] Aspirin (Aspirin Ec) 81 mg PO DAILYWM [facility] Atenolol (Tenormin) 50 mg PO DAILY [facility] Bumetanide (Bumex) 1 mg PO QDAC [facility] Calcium/Vitamin D (Calcium 500 + Vit D 200 Mg Tablet) 1 each PO DAILY [facility] Chlordiazepoxide HCl (Librium) 5 mg PO BID [facility] Clopidogrel Bisulfate (Plavix) 75 mg PO DAILY [facility] Escitalopram Oxalate (Lexapro) 5 mg PO DAILY [facility] Gabapentin (Neurontin) 100 mg PO BID [facility] Lovastatin (Mevacor) 20 mg PO 1700 [facility] Non-Formulary Medication (Mycophenolate Mofetil [Cellcept]) 500 mg PO BID [facility] Non-Formulary Medication (Tacrolimus [Prograf]) 2 mg PO BID [facility] Pantoprazole Sodium (Protonix) 40 mg PO DAILY@0630 [facility] Prednisone (Prednisone) 2.5 mg PO DAILYWM [facility] Promethazine HCl (Phenergan Tab) 25 mg PO Q8H PRN Sodium Bicarbonate (Sodium Bicarbonate) 650 mg PO BID [facility] Sucralfate (Carafate) 1 gm PO ACHS [facility] Trimethoprim/Sulfamethoxazole (Bactrim Ds 800/160 Mg) 0.5 tab PO Q12HR [facility] Cell Cept 500 mg PO BID ALLERGIES: sulfur dioxide Allergy (Unknown, Verified 12/18/18 13:19) ondansetron HCl [From Zofran] Adverse Reaction (Unknown, Verified 12/18/18 13:19 ) ibuprofen Adverse Reaction (Verified 12/18/18 13:19) sulfur dioxide Allergy (Unknown, Uncoded 12/18/18 13:19) ondansetron HCl Adverse Reaction (Unknown, Uncoded 12/18/18 13:19) DISCONTINUED MEDICATIONS: None NEW PRESCRIPTIONS: BUMEX 1 MG DAILY CELLCEPT 500 MG BID UNTIL SEEN BY DR. LIGHT (WILL NEED NEW RX IF IS TO CONTINUE) BACTRIM DS 0.5 TABLET BID FOR 7 DAYS NASAL OXYGEN AT 1.5 LITERS CONTINUOUSLY ([facility]XYGEN) SMOKING: NOT APPLICABLE DISEASE SPECIFIC EDUCATION: ACTIVITY HYDRATION USE OF OXYGEN CONTINUOUSLY HOME HEALTH AND PARTICIPATION WITH THERAPY APPOINTMENTS DIET: CONSISTENT CARBOHYDRATE DIET ACTIVITY: RESUME TOLERATED. ADVISED TO USE WALKER AT ALL TIMES (HAS AT HOME PER SON) HOSPITAL COURSE: 68 year old white female was hospitalized with anemia, chronic based on CHF. She was given 1 unit of packed red cells. Hgb and hct are stable with no evidence of GI bleed. Possible CHF was treated with 1mg of Bumex. The patient may have some fluid retention. She is asymptomatic for CHF. 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 She is going to be started on Antibiotic for UTI with e-coli ESBL which is resistant to Sulfa. The patient is going to be discharge home. ADDENDUM: The patient has been noted to have PC02 of 57 with p02 of 50 with pH of 7.33 on room air. The patient has c02 retention and also has evidence of metabolic acidosis along with respiratory acidosis. Metabolic acidosis contributing toward lower pH. Because of kidney disease, the patient is going to be discharged home on oxygen 2L. ABGs will be done before discharge on 2L. PFT is going to be done before discharge. The patient's prognosis is not good considering the patient's multiple medical problems, now having to deal with chronic lung disease with c02 retention. Also will refer her to pulmonary physician. The patient is very stubborn, she is going to go home and live by herself with some help of the son. Strongly advised to [facility] where she could be taken care of but she declined. The patient has been treated for E. coli, ESBL with Septra. She was given one pill with no reaction. The patient was told not to take Septra by some doctor in the past. She had mild nausea with it. Otherwise there was no reaction to Sulfa drugs. Later on, I got the notes from Dr. Light after trying hard which indicated that the patient should be on Cellcept. The patient is going to be given a 15 day supply, she doesn't have it. She was strongly advised to followup with Dr. Light. All the lab tests that were recommended by Dr. Light will be done by [facility] and the copy will be given to the patient. The patient is oriented to time, place and person. She is noncompliant. The son has been told about her followups which is required. All the diagnoses discussed with the patient. The patient's condition is stable for now. The patient will be referred to pulmonary physician for lung problems. She was unable to do PFT. CONDITION: Stable. Prognosis is poor. TIME SPENT: More than 60 minutes. KAREN
--- NOTE | 2018-12-23 10:05 | PN ---
12/18/18: Level 5 12/19/18: Intermediate 12/20/18: Intermediate 12/21/18: Intermediate 12/22/18: D as in discharge MTDD
--- NOTE | 2018-12-23 10:22 | PN ---
DATE OF SERVICE: 12/21/18 SUBJECTIVE: 68-year-old white female hospitalized with severe anemia with chronic kidney disease and anemia. The patient's other problem is urinary tract infection with E. coli, not sensitive to Sulfa. Will discontinue Sulfa and put her on Cipro. The patient is practically asymptomatic. Cellcept was discontinued according to the son so will continue the Prograf 2 mg twice a day. Cellcept will be held. The patient is feeling better. REVIEW OF SYSTEMS: CONSTITUTIONAL: No night sweats. No fatigue, malaise, lethargy. No fever or chills. HEENT: Eyes: No visual changes. No eye pain. No eye discharge. ENT: No runny nose. No epistaxis. No sinus pain. No sore throat. No odynophagia. No congestion. RESPIRATORY: No cough, no congestion. No hemoptysis. No shortness of breath. CARDIOVASCULAR: No angina symptoms. No CHF symptoms. No atypical chest pain for CAD. No palpitations. No PND. No orthopnea. GASTROINTESTINAL: Appetite has improved. No abdominal pain. No nausea or vomiting. No diarrhea or constipation. No hematemesis. No hematochezia. GENITOURINARY: No urgency. No frequency. No dysuria. No hematuria. No obstructive symptoms. No discharge. No pain. No significant abnormal bleeding. MUSCULOSKELETAL: No musculoskeletal pain; no joint swelling. NEUROLOGICAL: No headache. No neck pain. No syncope. No seizures. No dizziness. PSYCHIATRIC: Not anxious. No depression. No suicidal thoughts. No homicidal thoughts. SKIN: No rash. No lesions. No wounds. ENDOCRINE: No unexplained weight loss. No weight gain. HEMATOLOGIC/LYMPHATIC: No anemia. No purpura. No petechiae. No prolonged or excessive bleeding. No palpable lymph nodes. PHYSICAL EXAMINATION: GENERAL: The patient is oriented to time, place and person. VITAL SIGNS: Temperature 97.4, pulse 65, respiratory rate 20, blood pressure 128/70, pulse ox 98%. HEENT: Head normocephalic, atraumatic. Eyes: Extraocular muscles are intact. Pupils are equal, round and reactive to light and accommodation. Ears: No lesions. Nose appeared normal. Throat: No exudate or erythema. NECK: Supple. No JVD, no carotid bruit. No lymphadenopathy or thyromegaly. LUNGS: Decreased breath sounds but good air entry. Percussion note normal. Chest symmetrical. HEART: S1, S2, no S3. No murmurs. No cyanosis or clubbing. No ascites. Pulses: Dorsalis pedis and posterior tibial pulses +1 to +2 bilaterally. ABDOMEN: Soft. Nontender. Bowel sounds active. No CVA tenderness. No mass felt. EXTREMITIES: No edema. Full range of motion of all extremities, equal. NEUROLOGIC: No focal deficit. Cranial nerves II through XII are grossly intact. No headache, no double vision or headache. SKIN: Not dry. Intact. Turgor - normal. LYMPHATIC: No palpable lymph nodes/no lymphedema. MUSCULOSKELETAL: Normal joints with no swelling. Muscle tone is normal. LABS: The patient is on Bumex and her creatinine and BUN are still stable with 2.3 and 52 respectively. Hemoglobin 9.1, hematocrit 29. No evidence of active GI bleed. ASSESSMENT: 1. ANEMIA STABLE. 2. CHRONIC RENAL FAILURE STABLE. 3. CHF DOESN'T SEEM TO BE CLINICALLY PRESENT ON BUMEX, SEEMS TO BE WORKING WELL. 4. UTI BEING TREATED NOW WITH CIPRO, NO FEVER, NO CHILLS, ASYMPTOMATIC. TIME SPENT: More than 30 minutes. Plan and coordination of the patient's care discussed in the presence of nurse. KAREN
--- NOTE | 2019-02-03 13:26 | HP ---
DATE OF SERVICE: 12/18/18 HISTORY OF PRESENT ILLNESS: This is a 68-year-old white female who has been at [facility] for physical therapy is brought in. She wanted to go home today but was found to be very short of breath. Oxygen saturation 78% at the long term. PAST MEDICAL HISTORY: Recent acute renal failure Chronic renal failure History of kidney transplant Recurrent UTI Hypertension COPD GERD Anxiety Anemia Depression Generalized weakness Neuropathy Chronic pain Dyslipidemia Chronic leg edema History of recurrent UTI positive for E. coli and ESBL History of falls PAST SURGICAL HISTORY: Left wrist repair status post fracture from fall Right wrist repair after fall Right nephrectomy Renal transplant REVIEW OF SYSTEMS: CONSTITUTIONAL: Positive for fatigue. No night sweats. No malaise, lethargy. No fever or chills. HEENT: Eyes: No visual changes. No eye pain. No eye discharge. ENT: No runny nose. No epistaxis. No sinus pain. No sore throat. No odynophagia. No ear pain. No congestion. RESPIRATORY: No cough, no congestion. No hemoptysis. Positive for shortness of breath. CARDIOVASCULAR: No angina symptoms. No CHF symptoms. No atypical chest pain for CAD. No palpitations. No PND. No orthopnea. GASTROINTESTINAL: No abdominal pain. No nausea or vomiting. No diarrhea or constipation. No hematemesis. No hematochezia. GENITOURINARY: Right nephrectomy. Positive for renal transplant. MUSCULOSKELETAL: Positive for generalized weakness. No musculoskeletal pain. No joint swelling. No arthritis. NEUROLOGICAL: No headache. No neck pain. No syncope. No seizures. No dizziness. PSYCHIATRIC: Not anxious. No depression. No suicidal thoughts. No homicidal thoughts. SKIN: No rash. No lesions. No wounds. ENDOCRINE: No unexplained weight loss. No weight gain. HEMATOLOGIC/LYMPHATIC: No anemia. No purpura. No petechiae. No prolonged or excessive bleeding. No palpable lymph nodes. PERSONAL/FAMILY/SOCIAL HISTORY: She is a nonsmoker. She is . She had been living by herself until the past several months where she has been in [facility] for rehab. MEDICATIONS: (HOME) Plavix 75 mg p.o. daily Prograf 2 mg p.o. b.i.d. Protonix 40 mg p.o. daily Mevacor 20 mg p.o. daily Sodium Bicarbonate 650 mg p.o. q.12hr Prednisone 2.5 mg p.o. daily Norvasc 5 mg p.o. bedtime Tenormin 50 mg p.o. daily Lexapro 5 mg p.o. daily Neurontin 100 mg p.o. b.i.d. Librium 5 mg p.o. b.i.d. Hydrocodone/Acetaminophen 0.5 tab p.o. b.i.d. p.r.n. Acetaminophen 650 mg p.o. q.4hr p.r.n. Cellcept 500 mg p.o. b.i.d. Carafate 1 gm p.o. a.c. h.s. Calcium Carbonate/Vitamin D3 one each p.o. daily Aspirin 81 mg p.o. daily ALLERGIES: ONDANSETRON (FROM ZOFRAN), IBUPROFEN, SULFUR DIOXIDE PHYSICAL EXAMINATION: VITAL SIGNS: Temperature 99.4, heart rate 70, respirations 24, blood pressure 134/68, pulse ox 85% on room air. GENRAL: The patient is alert but drowsy. HEENT: Head normocephalic, atraumatic. Eyes: Extraocular muscles are intact. Pupils are equal, round and reactive to light and accommodation. Ears: No lesions. Nose appeared normal. Throat: No exudate or erythema. NECK: Supple. No JVD, no carotid bruit. No lymphadenopathy or thyromegaly. LUNGS: Diminished breath sounds. Clear to auscultation. Percussion note normal. Chest symmetrical. HEART: S1, S2, no S3. Grade I murmur. Irregular heart rate. No cyanosis or clubbing. No ascites. Pulses: Dorsalis pedis and posterior tibial pulses +1 to +2 bilaterally. ABDOMEN: Soft. Nontender. Bowel sounds active. No CVA tenderness. No mass felt. EXTREMITIES: +1 bilateral extremity edema. Full range of motion of all extremities, equal. NEUROLOGIC: No focal deficit. Cranial nerves II through XII are grossly intact. No headache, no double vision or headache. SKIN: Not dry. Intact. Turgor - normal. LYMPHATIC: No palpable lymph nodes/no lymphedema. MUSCULOSKELETAL: Normal joints with no swelling. Muscle tone is normal. LABS: White count 5.32, hemoglobin 10.1, hematocrit 32.1, platelets 250. Sodium 138, potassium 4.4, BUN 52, creatinine 2.3, glucose 85. Urine shows 2+ protein, 3+ leuks, 1+ bacteria. Chest x-ray shows pulmonary edema. ASSESSMENT: 1. ACUTE ON CHRONIC RENAL FAILURE. 2. RESPIRATORY FAILURE SECONDARY TO PULMONARY EDEMA PER CHEST X-RAY. 3. UTI, CULTURE PENDING. 4. HISTORY OF COPD. 5. HISTORY OF KIDNEY TRANSPLANT. PLAN: 1. We will admit. 2. Routine telemetry orders. 3. CBC, CMP daily. 4. BNP. 5. CT of chest. 6. 2D echo. 7. 1 cc Decadron IM now. 8. Oxygen at 1 to 2L. 9. ABG on room air. 10. Elevate legs. 11. Will follow closely. TIME SPENT: More than 70 minutes. MTDD
== END 2018-12-22 15:57 | disposition home or self-care (01) | DRG 103 ==
LOC: ED 13:13 → MEDSURG B 20:15
PROVIDERS: ADMIT Internal Medicine; ATTEND Internal Medicine
DX: N17.9 Acute kidney failure, unspecified; F32.9 Major depressive disorder, single episode, unspecified; I50.9 Heart failure, unspecified; N39.0 Urinary tract infection, site not specified; J02.9 Acute pharyngitis, unspecified; E78.5 Hyperlipidemia, unspecified; J44.9 Chronic obstructive pulmonary disease, unspecified; D64.9 Anemia, unspecified; R06.00 Dyspnea, unspecified; M19.90 Unspecified osteoarthritis, unspecified site; R51 Headache; J96.10 Chronic respiratory failure, unspecified whether with hypoxia or hypercapnia; R05 Cough; E53.8 Deficiency of other specified B group vitamins; J06.9 Acute upper respiratory infection, unspecified; N18.3 Chronic kidney disease, stage 3 (moderate); I10 Essential (primary) hypertension; R11.0 Nausea; B96.20 Unspecified Escherichia coli [E. coli] as the cause of diseases classified elsewhere; J81.1 Chronic pulmonary edema

== ENCOUNTER 2018-12-28 10:40 | Outpatient (CLI) | payer OTHER | END 2018-12-28 11:00 | disposition short-term general hospital (02) | LOC: AMBL 10:40 | PROVIDERS: ATTEND Family Medicine | DX: R06.02 Shortness of breath (principal); R40.20 Unspecified coma; J44.9 Chronic obstructive pulmonary disease, unspecified; N28.9 Disorder of kidney and ureter, unspecified; N39.0 Urinary tract infection, site not specified; R73.9 Hyperglycemia, unspecified; R06.89 Other abnormalities of breathing; Z99.81 Dependence on supplemental oxygen; Z99.2 Dependence on renal dialysis; R61 Generalized hyperhidrosis; R40.2431 Glasgow coma scale score 3-8, in the field [EMT or ambulance] ==

== ENCOUNTER 2019-01-05 17:12 | Outpatient (CLI) | END 2019-01-05 17:13 | disposition home or self-care (01) | LOC: LAB 17:12 | PROVIDERS: ATTEND Internal Medicine | DX: D64.9 Anemia, unspecified (principal) | CPT/HCPCS: 36415; 80053; 85025 ==

== ENCOUNTER 2019-01-21 13:10 | Outpatient (CLI) | payer OTHER | END 2019-01-21 13:11 | disposition home or self-care (01) | LOC: LAB 13:10 | PROVIDERS: ATTEND Internal Medicine Nephrology | DX: Z94.0 Kidney transplant status (principal); Z79.899 Other long term (current) drug therapy; E78.5 Hyperlipidemia, unspecified | CPT/HCPCS: 36415; 80069; 80197; 85025 ==

== ENCOUNTER 2019-01-26 12:41 | Outpatient (CLI) | END 2019-01-26 12:42 | disposition home or self-care (01) | LOC: LAB 12:41 | PROVIDERS: ATTEND Internal Medicine | DX: E87.6 Hypokalemia (principal) | CPT/HCPCS: 36415; 80053; 85025 ==

== ENCOUNTER 2019-06-16 14:44 | Inpatient (IN) ==
[2019-06-16 15:37] VITALS: BMI 22.5
[2019-06-16] MEDS ORDERED: NITROSTAT SL PRN (15:48)
[2019-06-16] MEDS ORDERED: ATROPINE SULFATE PFS IVP PRN (15:48)
[2019-06-16] MEDS ORDERED: VISTARIL INJ IM PRN (15:48)
[2019-06-16] MEDS ORDERED: NORCO 7.5-325 PO PRN (16:38)
[2019-06-16] MEDS: SODIUM CHLORIDE 1,000 ML IV SCH (16:45)
--- NOTE | 2019-06-16 16:58 | DI ---
EXAM: Frontal chest HISTORY: Shortness of breath FINDINGS: Compared to 12/18/2018 significant cardiomegaly is again noted. Atherosclerotic disease. There is moderate central interstitial accentuation similar to that previously seen. No visible ple ural fluid or pneumothorax. Multiple surgical clips over the lower neck. IMPRESSION: 1. Persistent congestive heart failure - fluid overload, moderate in degree.
[2019-06-16] MEDS: INVANZ 0.5 GM in SODIUM CHLORIDE 50 ML IV SCH (17:37)
[2019-06-16] MEDS: BENADRYL PO SCH (20:01)
[2019-06-16] MEDS: COLACE PO SCH (20:02)
[2019-06-16] MEDS: FERROUS SULFATE PO SCH (20:02)
[2019-06-16] MEDS ORDERED: TACROLIMUS 2 MG PO SCH ×2 (21:00)
[2019-06-16] MEDS ORDERED: MEVACOR PO SCH (21:00)
[2019-06-16] MEDS ORDERED: NON-FORMULARY MEDICATION (Docusate Sodium 100 MG) PO SCH (21:00)
[2019-06-16] MEDS ORDERED: NON-FORMULARY MEDICATION (Ferrous Sulfate 325 MG) PO SCH (21:00)
[2019-06-16] MEDS: TYLENOL PO PRN (23:45)
[2019-06-17] MEDS: SODIUM CHLORIDE 1,000 ML IV SCH (04:23)
[2019-06-17 05:24] LABS: HEMATOCRIT 23.3 % (37.0-47.0)
[2019-06-17] MEDS: PROTONIX PO SCH (06:33)
[2019-06-17] MEDS: LASIX TAB PO SCH (06:34)
[2019-06-17] MEDS: PREDNISONE PO SCH (07:48)
[2019-06-17] MEDS: TACROLIMUS 2 MG PO SCH ×2 (07:48→19:16)
[2019-06-17] MEDS: NORCO 5-325 PO PRN (07:53)
[2019-06-17] MEDS: INVANZ 0.5 GM in SODIUM CHLORIDE 50 ML IV SCH (08:35)
[2019-06-17] MEDS: COLACE PO SCH ×2 (08:36→20:07)
[2019-06-17] MEDS: ZYLOPRIM PO SCH (08:36)
[2019-06-17] MEDS: FERROUS SULFATE PO SCH ×2 (08:36→20:08)
[2019-06-17] MEDS: PLAVIX PO SCH (08:36)
[2019-06-17] MEDS: LEXAPRO PO SCH (08:37)
[2019-06-17] MEDS ORDERED: NON-FORMULARY MEDICATION (Escitalopram Oxalate [Lexapro] 5 MG) PO SCH (09:00)
[2019-06-17 10:16] LABS: HEMATOCRIT 24.7 % (37.0-47.0)
--- NOTE | 2019-06-17 11:05 | HP ---
DATE OF SERVICE: 06/16/2019 REASON FOR HOSPITALIZATION/HISTORY OF PRESENT ILLNESS: 69 year old female was a direct admit from the office for UTI. The urine culture was positive for e-coli and ESBL. She has been experiencing fatigue, decrease in urine output, dysuria and nausea. PAST MEDICAL HISTORY/PAST SURGICAL HISTORY: Chronic renal failure Chronic anemia Chronic kidney disease 3-4 Chronic sinusitis Chronic respiratory failure COPD Noncompliance diet, lifestyle and medications Acute renal failure ASHD by CT scan History of radial fracture B12 deficiency Right kidney transplant Bilateral CEA Dr. Grossman PAD Generalized weakness Right knee surgery DJD spine Depression with anxiety Hypertension Increase LFT History of pancreatitis REVIEW OF SYSTEMS: CONSTITUTIONAL: No fever, Fatigue. HEENT: No sinus drainage, no sore throat. RESPIRATORY: No cough, no congestion. CARDIOVASCULAR: No atypical chest pain for coronary artery disease. No angina, CHF symptoms, palpitations or shortness of breath. GASTROINTESTINAL: No melena or abdominal pain. No GERD. Dysuria. Decrease in appetite. GENITOURINARY: No hematuria, no prostatism, no polyuria. BARLEY STEEPER: No blackout, no dizziness, no headache, no double vision. MUSCULOSKELETAL: No osteoarthritis pain, no joint swelling. ENDOCRINE: No weight loss, no weight gain. SKIN: Not dry, no rash. PSYCHIATRIC: Not anxious, no depression, no suicidal thoughts, no homicidal thoughts. SOCIAL HISTORY: Marital Status: . Alcohol Usage: No. Tobacco Usage: Former smoker, quit 25 years ago. MEDICATIONS: Lipitor 20mg PO daily Melatonin 5mg two HS Plavix 75mg PO daily Aspirin 81mg Po daily Benadryl 25mg one HS Lasix 20mg PO daily Iron 325mg PO BID Docusate sodium 100mg PO BID Allopurinol 100mg PO daily Lexapro 5mg one daily Protonix 40mg PO daily Prednisone 5mg half tablet daily Prograf 1mg two BID [place] 5-325mg Half tablet daily DUO NEBS BID Norvasc 5mg half tablet daily Senna/Colace BID ALLERGIES: Sulfa Zofran PHYSICAL EXAMINATION: GENERAL APPEARANCE: Oriented times three. Pale. HEENT: Normal. Dry mucous membrane. NECK: No JVP, no bruits. RESPIRATORY: Decreased breath sounds. CARDIOVASCULAR: S1, S2, no S3, no murmur. No cyanosis, clubbing. No ascites. GI/ABDOMEN: No tenderness. Bowel sounds are active. EXTREMITIES: Trace bilateral lower extremity edema, pulses +1, equal. BARLEY STEEPER: Deep tendon reflexes, sensory, motor and gait all normal. RECTAL: [place] 12/03 EGD/PELVIC:02/03MM[facility] ASSESSMENT: 1. Dehydration 2. UTI-positive ESBL and E-coli 3. Chronic renal failure 4. Chronic anemia 5. CKD 3-4 6. Chronic sinusitis 7. Chronic respiratory failure 8. COPD 9. Noncompliance diet, lifestyle and medications 10.Acute renal failure 11.ASHD by CT scan 12.History of radial fracture 13.B12 deficiency 14. Right kidney transplant 15.Bilateral CEA Dr. Grossman 16.PAD 17.Generalized weakness 18.Right knee surgery 19.DJD spine 20.Depression with anxiety 21.Hypertension 22.Increase LFT 23.History of pancreatitis PLAN: 1. Routine telemetry orders, no cardiac markers 2. CBC and CMP now and daily 3. Normal saline IV @ 83cc an hour 4. Start Invanz 500mg IV Q 24 hours times 7 days 5. Continue home medications 6. O2 at 1-2 liters nasal canula as needed 7. Regular diet 8. Contact precautions for ESBL 9. TSH TIME SPENT: More than 70 minutes. MTDD
[2019-06-17] MEDS ORDERED: LASIX IM STA (14:03)
--- NOTE | 2019-06-17 14:42 | PN ---
DATE OF SERVICE: 06/17/2019 SUBJECTIVE: 69 year old white female hospitalized yesterday with symptoms of UTI and ESBL found a few days ago as an outpatient. She was instructed to go to the emergency room when first I came to know about it a few days ago but she didn't. She is noncompliant of her medications, recommendations, and followups. She is oriented to time, place and person but very difficulty patient. This morning she has a lot of nonspecific complaints. REVIEW OF SYSTEMS: CONSTITUTIONAL: No night sweats. No fatigue, malaise, lethargy. No fever or chills. HEENT: Eyes: No visual changes. No eye pain. No eye discharge. ENT: No runny nose. No epistaxis. No sinus pain. No sore throat. No odynophagia. No congestion. RESPIRATORY: No cough, no congestion. No hemoptysis. No shortness of breath. CARDIOVASCULAR: No angina symptoms. No CHF symptoms. No atypical chest pain for CAD. No palpitations. No PND. No orthopnea. GASTROINTESTINAL: No abdominal pain. No nausea or vomiting. No diarrhea or constipation. No hematemesis. No hematochezia. GENITOURINARY: No urgency. No frequency. No dysuria. No hematuria. No obstructive symptoms. No discharge. No pain. No significant abnormal bleeding. MUSCULOSKELETAL: No musculoskeletal pain; no joint swelling. NEUROLOGICAL: No headache. No neck pain. No syncope. No seizures. No dizziness. PSYCHIATRIC: Not anxious. No depression. No suicidal thoughts. No homicidal thoughts. SKIN: No rash. No lesions. No wounds. ENDOCRINE: No unexplained weight loss. No weight gain. HEMATOLOGIC/LYMPHATIC: No anemia. No purpura. No petechiae. No prolonged or excessive bleeding. No palpable lymph nodes. PHYSICAL EXAMINATION: VITAL SIGNS: Temperature 98.1, pulse 60, respiratory rate 16, blood pressure 140/70 and pulse ox 96% on room air. HEENT: Head normocephalic, atraumatic. Eyes: Extraocular muscles are intact. Pupils are equal, round and reactive to light and accommodation. Ears: No lesions. Nose appeared normal. Throat: No exudate or erythema. NECK: Supple. No JVD, no carotid bruit. No lymphadenopathy or thyromegaly. LUNGS: Decreased breaths sounds but clear to auscultation. Percussion note normal. Chest symmetrical. HEART: S1, S2, no S3. No murmurs. No cyanosis or clubbing. No ascites. Pulses: Dorsalis pedis and posterior tibial pulses +1 to +2 bilaterally. ABDOMEN: Soft. Nontender. Bowel sounds active. No CVA tenderness. No mass felt. EXTREMITIES: No edema. Full range of motion of all extremities, equal. NEUROLOGIC: No focal deficit. Cranial nerves II through XII are grossly intact. No headache, no double vision or headache. SKIN: Not dry. Intact. Turgor - normal. LYMPHATIC: No palpable lymph nodes/no lymphedema. MUSCULOSKELETAL: Normal joints with no swelling. Muscle tone is normal. LABS: Hgb 7.4, hct 23, WBC 6,600 normal differential, creatinine 2.7, BUN 52, potassium 4.2 ASSESSMENT: 1. ESBL being treated with Ertapenem. PLAN: 1. IV fluids to be continue at 50cc 2. No evidence of fluid overload 3. The patient's creatinine and BUN are stable. 4. Hgb is low 7.4 the repeat hgb is 7.9 hemodilution caused the lowering of the hgb. The patient's anemia is of chronic disorder from chronic renal failure. There is no evidence of active GI bleed. The patient was explained about all her findings and reports. CONDITION: Stable. NEUROLOGICAL STATUS: Stable. TIME SPENT: More than 30 minutes. Plan and coordination of the patient's care discussed in the presence of nurse. KAREN
[2019-06-17] MEDS: BENADRYL PO SCH (20:07)
[2019-06-17] MEDS: LIPITOR PO SCH (20:08)
[2019-06-18 05:17] LABS: HEMATOCRIT 23.3 % (37.0-47.0)
[2019-06-18] MEDS: LASIX TAB PO SCH (05:53)
[2019-06-18] MEDS: PROTONIX PO SCH (05:53)
[2019-06-18] MEDS: NORCO 5-325 PO PRN (08:12)
[2019-06-18] MEDS: TACROLIMUS 2 MG PO SCH ×2 (08:13→20:08)
[2019-06-18] MEDS: FERROUS SULFATE PO SCH ×2 (08:14→20:09)
[2019-06-18] MEDS: LEXAPRO PO SCH (08:14)
[2019-06-18] MEDS: PREDNISONE PO SCH (08:15)
[2019-06-18] MEDS: ZYLOPRIM PO SCH (08:15)
[2019-06-18] MEDS: COLACE PO SCH ×2 (08:16→20:08)
[2019-06-18] MEDS: PLAVIX PO SCH (08:16)
[2019-06-18] MEDS: INVANZ 0.5 GM in SODIUM CHLORIDE 50 ML IV SCH (08:17)
--- NOTE | 2019-06-18 09:07 | PCM.PROG ---
Attending Provider: ATTENDING PROVIDER: Dr. ISADORA BRYANT This patient is seen with Elisa Britton, Nurse Practitioner. DATE OF SERVICE: 06/18/19 SUBJECTIVE: This 69 year old /WHITE F was hospitalized 06/16/19. The patient is lying in bed resting comfortably. She complains of headache. She had outpatient CT of sinuses. The patient had nausea yesterday. She states she is not feeling well. REVIEW OF SYSTEMS: CONSTITUTIONAL: Positive for weakness. No night sweats. No fatigue, malaise, lethargy. No fever or chills. HEENT: Eyes: No visual changes. No eye pain. No eye discharge. ENT: No runny nose. No epistaxis. No sinus pain. No odynophagia. No congestion. RESPIRATORY: No cough, no congestion. No hemoptysis. No shortness of breath. CARDIOVASCULAR: No angina symptoms. No CHF symptoms. No atypical chest pain for CAD. No palpitations. No orthopnea.. GASTROINTESTINAL: Positive for nausea. No abdominal pain. No vomiting. No diarrhea or constipation. No hematemesis. No hematochezia. GENITOURINARY: No urgency. No frequency. No dysuria. No hematuria. No obstructiv e symptoms. No discharge. No pain. No significant abnormal bleeding. MUSCULOSKELETAL: No musculoskeletal pain; no joint swelling. NEUROLOGICAL: Awake, alert, oriented to time, place and person. Positive for headache. No neck pain. No syncope. No seizures. No dizziness. PSYCHIATRIC: Not anxious. No depression. No suicidal thoughts. No homicidal thoughts. SKIN: No rash. No lesions. No wounds. ENDOCRINE: No unexplained weight loss. No weight gain. HEMATOLOGIC/LYMPHATIC: No anemia. No purpura. No petechiae. No prolonged or excessive bleeding. No palpable lymph nodes. PHYSICAL EXAMINATION: GENERAL: The patient is awake, alert and oriented, lying/sitting in bed in no distress. VITAL SIGNS: Temperature 98.2 F, Pulse 98, Respiratory Rate 20, BP 130/71, Pulse Ox 99% HEENT: Head normocephalic, atraumatic. Eyes: Extraocular muscles are intact. Pupils are equal, round and reactive to light and accommodation. Ears: No lesions. Nose appeared normal. Throat: No exudate or erythema. NECK: Supple. No JVD, no carotid bruit. No lymphadenopathy or thyromegaly. LUNGS: Diminished breath sounds bilaterally. Clear to auscultation. Percussion note normal. Chest symmetrical. HEART: S1, S2, no S3. No murmurs. No cyanosis or clubbing. No ascites. Pulses: Dorsalis pedis and posterior tibial pulses +1 to +2 both sides. ABDOMEN: Soft. Non-tender. Bowel sounds active. No CVA tenderness. No mass felt. EXTREMITIES: No leg edema. Full range of motion of all extremities, equal. NEUROLOGIC: No focal deficit. Cranial nerves II through XII are grossly intact. No headache, no double vision or headache. SKIN: Not dry. Intact. Turgor-normal. LYMPHATIC: No palpable lymph nodes/no lymphedema. MUSCULOSKELETAL: Normal joints with no swelling. Muscle tone is normal. LAB REVIEW: 06/18/19 05:04 06/18/19 05:04 06/18/19 05:41: Urine Color Yellow, Urine Clarity Slightly, Urine pH 6.0, Ur Specific [place] 1.020, Urine Protein 3+, Urine Glucose (UA) Negative, Urine Ketones Negative, Urine Blood Trace-intact, Urine Nitrite Negative, Urine Bilirubin Negative, Urine Urobilinogen 0.2, Ur Leukocyte Esterase 1+, Urine Microscopic RBC 0-2, Urine Microscopic WBC 50-100, Ur Squamous Epith Cells 2-5, Urine Bacteria 2+, Urine Mucus 1+ 06/18/19 05:04: Sodium 133.4 L, Potassium 4.68, Chloride 98.7, Carbon Dioxide 28.8, Anion Gap 10.58, BUN 54.6 H, Creatinine 2.78 H, Estimated GFR (MDRD) 17.00, BUN/Creatinine Ratio 19.64, Glucose 86.2, Calcium 8.65, Total Bilirubin 0.27, AST 23.2, ALT 9.4, Alkaline Phosphatase 55.9, Total Protein 5.88 L, Albumin 3.23 L, Globulin 2.65, Albumin/Globulin Ratio 1.21 06/18/19 05:04: WBC 7.00, RBC 2.30 L, Hgb 7.4 L, Hct 23.3 L, MCV 101.3 H, MCH 32.2 H, MCHC 31.8, RDW Coeff of [place] 13.5, Plt Count 244, Immature Gran % (Auto) 0.4, Neut % (Auto) 62.6, Lymph % (Auto) 20.4, [place] % (Auto) 11.7 H, Eos % (Auto) 4.6, Baso % (Auto) 0.3, Immature Gran # (Auto) 0.0, Neut # (Auto) 4.4, Lymph # (Auto) 1.4, [place] # (Auto) 0.8, Eos # (Auto) 0.3, Baso # (Auto) 0.0 06/18/19 04:52: Puncture Site Lb, O2 Saturation 85.0 L, ABG pH 7.343 L, ABG pCO2 50.4 H, ABG pO2 54.0 L*, ABG HCO3 27.3 H, ABG Total CO2 29 H, ABG Base Excess 2, [place] Test +, FiO2 % 21.0 06/17/19 08:26: WBC 5.51, RBC 2.43 L, Hgb 7.9 L, Hct 24.7 L, MCV 101.6 H, MCH 32.5 H, MCHC 32.0, RDW Coeff of [place] 13.3, Plt Count 232, Immature Gran % (Auto) 0.5, Neut % (Auto) 66.5, Lymph % (Auto) 18.5, [place] % (Auto) 10.7 H, Eos % (Auto) 3.4, Baso % (Auto) 0.4, Immature Gran # (Auto) 0.0, Neut # (Auto) 3.7, Lymph # (Auto) 1.0, [place] # (Auto) 0.6, Eos # (Auto) 0.2, Baso # (Auto) 0.0 06/17/19 08:26: Sodium 133.2 L, Potassium 4.36, Chloride 98.9, Carbon Dioxide 26.7, Anion Gap 11.96, BUN 50.5 H, Creatinine 2.73 H, Estimated GFR (MDRD) 17.00, BUN/Creatinine Ratio 18.49, Glucose 95.4, Calcium 8.70, Total Bilirubin 0.38, AST 34.7, ALT 9.1, Alkaline Phosphatase 62.0, Total Protein 6.18 L, Albumin 3.35 L, Globulin 2.83, Albumin/Globulin Ratio 1.18 ASSESSMENT: Please see below. 1. UTI positive for E. coli and ESBL. 2. Chronic renal failure status post right kidney transplant. 3. COPD. 4. Anemia. 5. History of CHF. PLAN: 1. 2D echocardiogram scheduled for today. 2. Continue IV antibiotics. Plan and coordination of the patient's care discussed in the presence of Counseling Services Director and nurse. CONDITION: Stable SCRIBED BY: BRIAN KNOX Ship'S Officer scribed while in presence of service performed by Dr. Bryant/Elisa Britton APRN on 06/18/19 ([id number])
[2019-06-18 19:30] LABS: HEMATOCRIT 29.2 % (37.0-47.0)
[2019-06-18] MEDS: BENADRYL PO SCH (20:09)
[2019-06-18] MEDS: LIPITOR PO SCH (20:09)
[2019-06-19] MEDS: TYLENOL PO PRN ×2 (00:52→20:50)
[2019-06-19 05:44] LABS: HEMATOCRIT 27.3 % (37.0-47.0)
[2019-06-19] MEDS: LASIX TAB PO SCH (06:04)
[2019-06-19] MEDS: PROTONIX PO SCH (06:04)
--- NOTE | 2019-06-19 09:02 | PCM.PROG ---
Attending Provider: ATTENDING PROVIDER: Dr. ISADORA BRYANT This patient is seen with Elisa Britton, Nurse Practitioner. DATE OF SERVICE: 06/19/19 SUBJECTIVE: This 69 year old /WHITE F was hospitalized 06/16/19. The patient is resting comfortably in bed. She is eating better. No fever. Kidney function slightly worse. Hemoglobin has improved after one unit of packed red blood cells. REVIEW OF SYSTEMS: CONSTITUTIONAL: Weakness. No night sweats. No fatigue, malaise, lethargy. No fever or chills. HEENT: Eyes: No visual changes. No eye pain. No eye discharge. ENT: No runny nose. No epistaxis. No sinus pain. No odynophagia. No congestion. RESPIRATORY: No cough, no congestion. No hemoptysis. Shortness of breath. CARDIOVASCULAR: No angina symptoms. No CHF symptoms. No atypical chest pain for CAD. No palpitations. No orthopnea.. GASTROINTESTINAL: No abdominal pain. No nausea or vomiting. No diarrhea or constipation. No hematemesis. No hematochezia. GENITOURINARY: No urgency. No frequency. No dysuria. No hematuria. No obstructive symptoms. No discharge. No pain. No significant abnormal bleeding. MUSCULOSKELETAL: No musculoskeletal pain; no joint swelling. NEUROLOGICAL: Awake, alert, oriented to time, place and person. No headache. No neck pain. No syncope. No seizures. No dizziness. PSYCHIATRIC: Not anxious. No depression. No suicidal thoughts. No homicidal thoughts. SKIN: No rash. No lesions. No wounds. ENDOCRINE: No unexplained weight loss. No weight gain. HEMATOLOGIC/LYMPHATIC: No anemia. No purpura. No petechiae. No prolonged or excessive bleeding. No palpable lymph nodes. PHYSICAL EXAMINATION: GENERAL: The patient is awake, alert and oriented, lying/sitting in bed in no distress. VITAL SIGNS: Temperature 98.1 F, Pulse 64, Respiratory Rate 18, BP 156/83, Pulse Ox 97% HEENT: Head normocephalic, atraumatic. Eyes: Extraocular muscles are intact. Pupils are equal, round and reactive to light and accommodation. Ears: No lesions. Nose appeared normal. Throat: No exudate or erythema. NECK: Supple. No JVD, no carotid bruit. No lymphadenopathy or thyromegaly. LUNGS: Diminished breath sounds. Clear to auscultation. Percussion note normal. Chest symmetrical. HEART: S1, S2, no S3. No murmurs. No cyanosis or clubbing. No ascites. Pulses: Dorsalis pedis and posterior tibial pulses +1 to +2 both sides. ABDOMEN: Soft. Non-tender. Bowel sounds active. No CVA tenderness. No mass felt. EXTREMITIES: Trace leg edema. Full range of motion of all extremities, equal. NEUROLOGIC: No focal deficit. Cranial nerves II through XII are grossly intact. No headache, no double vision or headache. SKIN: Not dry. Intact. Turgor-normal. LYMPHATIC: No palpable lymph nodes/no lymphedema. MUSCULOSKELETAL: Normal joints with no swelling. Muscle tone is normal. LAB REVIEW: 06/19/19 04:54 06/19/19 04:54 06/19/19 04:54: Sodium 134.9, Potassium 4.79, Chloride 99.7, Carbon Dioxide 29.0, Anion Gap 10.99, BUN 55.4 H, Creatinine 2.86 H, Estimated GFR (MDRD) 16.00, BUN/Creatinine Ratio 19.37, Glucose 91.8, Calcium 8.85, Total Bilirubin 0.40, AST 22.3, ALT 8.3, Alkaline Phosphatase 56.1, Total Protein 5.82 L, Albumin 3.18 L, Globulin 2.64, Albumin/Globulin Ratio 1.20 06/19/19 04:54: WBC 6.77, RBC 2.81 L, Hgb 8.9 L, Hct 27.3 L, MCV 97.2, MCH 31.7 H, MCHC 32.6, RDW Coeff of [place] 16.0 H, Plt Count 253, Immature Gran % (Auto) 0.3, Neut % (Auto) 60.2, Lymph % (Auto) 23.8, [place] % (Auto) 10.5 H, Eos % (Auto) 4.9, Baso % (Auto) 0.3, Immature Gran # (Auto) 0.0, Neut # (Auto) 4.1, Lymph # (Auto) 1.6, [place] # (Auto) 0.7, Eos # (Auto) 0.3, Baso # (Auto) 0.0 06/18/19 19:15: Hgb 9.5 L, Hct 29.2 L 06/18/19 11:20: Blood Type A POSITIVE, Antibody Screen Negative, Crossmatch (AHG ) See Detail ASSESSMENT: Please see below. 1. UTI positive for E. coli and ESBL. 2. Chronic renal failure status post right kidney transplant. 3. COPD. 4. Anemia. 5. History of CHF. PLAN: 1. Continue IV antibiotics. 2. Encourage oral fluids. 3. Continue to monitor. Plan and coordination of the patient's care discussed in the presence of Can Piler and nurse. CONDITION: Stable SCRIBED BY: BRIAN KNOX Government Service Executive scribed while in presence of service performed by Dr. Bryant/Elisa Britton APRN on 06/19/19 ([id number])
[2019-06-19] MEDS: INVANZ 0.5 GM in SODIUM CHLORIDE 50 ML IV SCH (09:56)
[2019-06-19] MEDS: LEXAPRO PO SCH (09:57)
[2019-06-19] MEDS: PLAVIX PO SCH (09:59)
[2019-06-19] MEDS: ZYLOPRIM PO SCH (09:59)
[2019-06-19] MEDS: FERROUS SULFATE PO SCH ×2 (09:59→20:01)
[2019-06-19] MEDS: PREDNISONE PO SCH (09:59)
[2019-06-19] MEDS: COLACE PO SCH ×2 (09:59→20:09)
[2019-06-19] MEDS: TACROLIMUS 2 MG PO SCH ×2 (10:01→18:16)
--- NOTE | 2019-06-19 10:45 | PN ---
DATE OF SERVICE: 06/18/19 SUBJECTIVE: The patient was seen and examined with the nurse practitioner. The patient's condition has improved. I will give one unit of packed red cells. PHYSICAL EXAMINATION: HEENT: Head normocephalic, atraumatic. Eyes: Extraocular muscles are intact. Pupils are equal, round and reactive to light and accommodation. Ears: No lesions. Nose appeared normal. Throat: No exudate or erythema. NECK: Supple. No JVD, no carotid bruit. No lymphadenopathy or thyromegaly. LUNGS: Clear to auscultation. Percussion note normal. Chest symmetrical. HEART: S1, S2, no S3. No murmurs. No cyanosis or clubbing. No ascites. Pulses: Dorsalis pedis and posterior tibial pulses +1 to +2 bilaterally. ABDOMEN: Soft. Nontender. Bowel sounds active. No CVA tenderness. No mass felt. EXTREMITIES: No edema. Full range of motion of all extremities, equal. NEUROLOGIC: No focal deficit. Cranial nerves II through XII are grossly intact. No headache, no double vision or headache. SKIN: Not dry. Intact. Turgor - normal. LYMPHATIC: No palpable lymph nodes/no lymphedema. MUSCULOSKELETAL: Normal joints with no swelling. Muscle tone is normal. PLAN: 1. Will do echo in the morning to evaluate LV function. 2. As dictated before, the patient has two chest x-rays showing possibility of CHF. Clinically it doesn't fit in. TIME SPENT: More than 30 minutes. Plan and coordination of the patient's care discussed in the presence of nurse. KAREN
[2019-06-19] MEDS: LIPITOR PO SCH (20:01)
[2019-06-19] MEDS: BENADRYL PO SCH (20:01)
[2019-06-20 05:11] LABS: HEMATOCRIT 27.9 % (37.0-47.0)
[2019-06-20] MEDS: LASIX TAB PO SCH (05:43)
[2019-06-20] MEDS: PROTONIX PO SCH (05:43)
[2019-06-20] MEDS: TACROLIMUS 2 MG PO SCH ×2 (08:30→20:36)
[2019-06-20] MEDS: NORCO 5-325 PO PRN ×2 (08:30→20:37)
[2019-06-20] MEDS: COLACE PO SCH ×2 (08:30→20:37)
[2019-06-20] MEDS: FERROUS SULFATE PO SCH ×2 (08:31→20:37)
[2019-06-20] MEDS: PREDNISONE PO SCH (08:31)
[2019-06-20] MEDS: LEXAPRO PO SCH (08:31)
[2019-06-20] MEDS: PLAVIX PO SCH (08:31)
[2019-06-20] MEDS: ZYLOPRIM PO SCH (08:31)
[2019-06-20] MEDS: INVANZ 0.5 GM in SODIUM CHLORIDE 50 ML IV SCH (08:41)
[2019-06-20] MEDS: TYLENOL PO PRN (16:35)
[2019-06-20] MEDS: COREG PO SCH (16:36)
[2019-06-20] MEDS: BENADRYL PO SCH (20:37)
[2019-06-20] MEDS: LIPITOR PO SCH (20:37)
[2019-06-21] MEDS: PROTONIX PO SCH (06:01)
[2019-06-21] MEDS: LASIX TAB PO SCH (06:01)
[2019-06-21] MEDS: TACROLIMUS 2 MG PO SCH ×2 (06:02→20:50)
[2019-06-21] MEDS: LEXAPRO PO SCH (08:25)
[2019-06-21] MEDS: PREDNISONE PO SCH (08:25)
[2019-06-21] MEDS: PLAVIX PO SCH (08:25)
[2019-06-21] MEDS: COREG PO SCH ×2 (08:25→17:51)
[2019-06-21] MEDS: FERROUS SULFATE PO SCH ×2 (08:25→20:51)
[2019-06-21] MEDS: NORCO 5-325 PO PRN ×2 (08:26→20:51)
[2019-06-21] MEDS: COLACE PO SCH ×2 (08:26→20:51)
[2019-06-21] MEDS: INVANZ 0.5 GM in SODIUM CHLORIDE 50 ML IV SCH (08:26)
[2019-06-21] MEDS: ZYLOPRIM PO SCH (08:26)
[2019-06-21] MEDS: COZAAR PO SCH (08:26)
[2019-06-21] MEDS: LIPITOR PO SCH (20:50)
[2019-06-21] MEDS: BENADRYL PO SCH (20:51)
[2019-06-22 04:51] LABS: HEMATOCRIT 29.1 % (37.0-47.0)
[2019-06-22] MEDS: PROTONIX PO SCH (05:59)
[2019-06-22] MEDS: LASIX TAB PO SCH (05:59)
[2019-06-22] MEDS: TACROLIMUS 2 MG PO SCH (06:00)
--- NOTE | 2019-06-22 08:22 | PCM.PROG ---
Attending Provider: ATTENDING PROVIDER: Dr. ISADORA ZULETA This patient is seen with Elisa Britton, Nurse Practitioner. DATE OF SERVICE: 06/22/19 SUBJECTIVE: This 69 year old /WHITE F was hospitalized 06/16/19. The patient is resting comfortably. She has been eating better. She is afebrile. The patient states that she is ready to go home. She has an appointment with Dr. Light tomorrow. Hgb has been stable. REVIEW OF SYSTEMS: CONSTITUTIONAL: No night sweats. No fatigue, malaise, lethargy. No fever or chills. Weakness. HEENT: Eyes: No visual changes. No eye pain. No eye discharge. ENT: No runny nose. No epistaxis. No sinus pain. No odynophagia. No congestion. RESPIRATORY: No cough, no congestion. No hemoptysis. Shortness of breath. CARDIOVASCULAR: No angina symptoms. No CHF symptoms. No atypical chest pain for CAD. No palpitations. No orthopnea.. GASTROINTESTINAL: No abdominal pain. No nausea or vomiting. No diarrhea or constipation. No hematemesis. No hematochezia. GENITOURINARY: No urgency. No frequency. No dysuria. No hematuria. No obstructive symptoms. No discharge. No pain. No significant abnormal bleeding. MUSCULOSKELETAL: No musculoskeletal pain; no joint swelling. NEUROLOGICAL: Awake, alert, oriented to time, place and person. No headache. No neck pain. No syncope. No seizures. No dizziness. PSYCHIATRIC: Not anxious. No depression. No suicidal thoughts. No homicidal thoughts. SKIN: No rash. No lesions. No wounds. ENDOCRINE: No unexplained weight loss. No weight gain. HEMATOLOGIC/LYMPHATIC: No anemia. No purpura. No petechiae. No prolonged or excessive bleeding. No palpable lymph nodes. PHYSICAL EXAMINATION: GENERAL: The patient is awake, alert and oriented, lying in bed in no distress. VITAL SIGNS: Temperature 98 F, Pulse 72, Respiratory Rate 16, BP 140/71, Pulse Ox 98% HEENT: Head normocephalic, atraumatic. Eyes: Extraocular muscles are intact. Pupils are equal, round and reactive to light and accommodation. Ears: No lesions. Nose appeared normal. Throat: No exudate or erythema. NECK: Supple. No JVD, no carotid bruit. No lymphadenopathy or thyromegaly. LUNGS: Diminished breath sounds bilaterally. Clear to auscultation. Percussion note normal. Chest symmetrical. HEART: S1, S2, no S3. No murmurs. No cyanosis or clubbing. No ascites. Pulses: Dorsalis pedis and posterior tibial pulses +1 to +2 both sides. ABDOMEN: Soft. Non-tender. Bowel sounds active. No CVA tenderness. No mass felt. EXTREMITIES: No edema. Full range of motion of all extremities, equal. NEUROLOGIC: No focal deficit. Cranial nerves II through XII are grossly intact. No headache, no double vision or headache. SKIN: Not dry. Intact. Turgor-normal. LYMPHATIC: No palpable lymph nodes/no lymphedema. MUSCULOSKELETAL: Normal joints with no swelling. Muscle tone is normal. LAB REVIEW: 06/22/19 04:35 06/22/19 04:35 06/22/19 04:35: Sodium 133.5 L, Potassium 5.64 H, Chloride 95.9 L, Carbon Dioxide 31.9 H, Anion Gap 11.34, BUN 66.7 H*, Creatinine 2.76 H, Estimated GFR (MDRD) 17.00, BUN/Creatinine Ratio 24.16, Glucose 83.1, Calcium 8.78, Total Bilirubin 0.29, AST 28.6, ALT 8.6, Alkaline Phosphatase 60.4, Total Protein 6.14 L, Albumin 3.33 L, Globulin 2.81, Albumin/Globulin Ratio 1.18 06/22/19 04:35: WBC 6.66, RBC 2.96 L, Hgb 9.3 L, Hct 29.1 L, MCV 98.3, MCH 31.4 H, MCHC 32.0, RDW Coeff of [place] 14.8, Plt Count 240, Immature Gran % (Auto) 0.6, Neut % (Auto) 55.7, Lymph % (Auto) 28.4, [place] % (Auto) 10.7 H, Eos % (Auto) 4.1, Baso % (Auto) 0.5, Immature Gran # (Auto) 0.0, Neut # (Auto) 3.7, Lymph # (Auto) 1.9, [place] # (Auto) 0.7, Eos # (Auto) 0.3, Baso # (Auto) 0.0 ASSESSMENT: Please see below. 1. UTI, E-coli positive ESBL 2. COPD 3. Status post right renal transplant 4. Chronic kidney disease PLAN: 1. Discharge home 2. All of her home medications should stay the same 3. Encouraged fluids 4. Appointment with Dr. Light Tomorrow 5. We will send Labs. Plan and coordination of the patient's care discussed in the presence of Rn Pacu and nurse. SCRIBED BY: MARIA TERESA GALVEZ Flute Polisher scribed while in presence of service performed by Dr. Zuleta/Elisa Britton APRN on 06/22/19 ([id number])
[2019-06-22] MEDS: NORCO 5-325 PO PRN (08:36)
[2019-06-22] MEDS: INVANZ 0.5 GM in SODIUM CHLORIDE 50 ML IV SCH (08:36)
[2019-06-22] MEDS: COLACE PO SCH (08:37)
[2019-06-22] MEDS: FERROUS SULFATE PO SCH (08:37)
[2019-06-22] MEDS: COZAAR PO SCH (08:37)
[2019-06-22] MEDS: LEXAPRO PO SCH (08:37)
[2019-06-22] MEDS: ZYLOPRIM PO SCH (08:37)
[2019-06-22] MEDS: COREG PO SCH (08:38)
[2019-06-22] MEDS: PLAVIX PO SCH (08:38)
[2019-06-22] MEDS: PREDNISONE PO SCH (08:38)
--- NOTE | 2019-06-22 09:23 | PN ---
DATE OF SERVICE: 06/21/2019 SUBJECTIVE: 69 year old white female hospitalized with e-coli urinary tract infection on Ertapenem. The patient's condition has steadily improved. She is feeling better. Her Lexapro dose was increased to 10mg. Yesterday I had a talk with the son who was present in the room and the son agreed with me that the patient has been just sitting and not doing anything at home or helping herself and more or less has a lot of nonspecific complaints. She has headache for last many years, some type of headaches she has it every other day. REVIEW OF SYSTEMS: CONSTITUTIONAL: No night sweats. No fatigue, malaise, lethargy. No fever or chills. HEENT: Eyes: No visual changes. No eye pain. No eye discharge. ENT: No runny nose. No epistaxis. No sinus pain. No sore throat. No odynophagia. No congestion. RESPIRATORY: No cough, no congestion. No hemoptysis. No shortness of breath. CARDIOVASCULAR: No angina symptoms. No CHF symptoms. No atypical chest pain for CAD. No palpitations. No PND. No orthopnea. GASTROINTESTINAL: No abdominal pain. No nausea or vomiting. No diarrhea or constipation. No hematemesis. No hematochezia. GENITOURINARY: No urgency. No frequency. No dysuria. No hematuria. No obstructive symptoms. No discharge. No pain. No significant abnormal bleeding. MUSCULOSKELETAL: No musculoskeletal pain; no joint swelling. NEUROLOGICAL: No headache. No neck pain. No syncope. No seizures. No dizziness. PSYCHIATRIC: Not anxious. No depression. No suicidal thoughts. No homicidal thoughts. SKIN: No rash. No lesions. No wounds. ENDOCRINE: No unexplained weight loss. No weight gain. HEMATOLOGIC/LYMPHATIC: No anemia. No purpura. No petechiae. No prolonged or excessive bleeding. No palpable lymph nodes. PHYSICAL EXAMINATION: VITAL SIGNS: Temperature 98, pulse 65, respiratory rate 16, blood pressure 147/74 and pulse ox 95%. HEENT: Head normocephalic, atraumatic. Eyes: Extraocular muscles are intact. Pupils are equal, round and reactive to light and accommodation. Ears: No lesions. Nose appeared normal. Throat: No exudate or erythema. NECK: Supple. No JVD, no carotid bruit. No lymphadenopathy or thyromegaly. LUNGS: Decreased breath sounds but clear to auscultation. Percussion note normal. Chest symmetrical. HEART: S1, S2, no S3. No murmurs. No cyanosis or clubbing. No ascites. Pulses: Dorsalis pedis and posterior tibial pulses +1 to +2 bilaterally. ABDOMEN: Soft. Nontender. Bowel sounds active. No CVA tenderness. No mass felt. EXTREMITIES: No edema. Full range of motion of all extremities, equal. NEUROLOGIC: No focal deficit. Cranial nerves II through XII are grossly intact. No headache, no double vision or headache. SKIN: Not dry. Intact. Turgor - normal. LYMPHATIC: No palpable lymph nodes/no lymphedema. MUSCULOSKELETAL: Normal joints with no swelling. Muscle tone is normal. LABS: Hgb 9.5, hct 30, WBC 5,700 normal differential, creatinine 2.7, BUN 60, potassium 5. ASSESSMENT: 1. Urinary tract infection E-Coli ESBL on Ertapenem improving 2. Renal failure seems to be stable 3. Hypertension seems to be under control 4. Depression, the Lexapro dose has been increased to 10mg PLAN: 1. Continue Cozaar 25mg Daily and Coreg 3.125mg twice a day. The patient has hypertrophic cardiomyopathy, needs to control her rate which is sinus with rate of practically 60 to 90 per minute. The patient has no evidence of fluid overload. LV contractility is normal. The Echo showed LVH with enlarged LA cavity with normal LA contractility. The patient's CHF that shows on the chest x-ray seems to be chronic probably with interstitial markings. CONDITION: Stable The patient strongly advised to get up and walk around and increase her activity at home and over here. TIME SPENT: More than 30 minutes. Plan and coordination of the patient's care discussed in the presence of nurse. KAREN
--- NOTE | 2019-06-22 09:36 | ECHO2D ---
Date of Exam: 06/19/19 Ordering Physician: DR. ISADORA BRYANT Room #: 121 Reason for Echo: CHF M-Mode Normal Adult Results LV Dimensions Normal Adult Results AoV Opening excursions >1.6 >1.6 LVEDD-base- 3.5-5.8 4.4 Ao root dimensions 2.0-3.7 3.6 LVESD-base- 3.1-4.6 L. Atrium dimensions 1.9-3.8 5.8 Post. Wall thickness 0.8-1.1 1.1 IV septum (thickness) 0.7-1.2 1.6 Post. Wall excursion 0.72-1.3 NORMAL Septal motion NORMAL Systolic motion R. Ventricular cavity 1.5-2.0 NORMAL LVEF 60% NORMAL Paradoxical septal wall motion NORMAL 2-D : 2-D M Mode Echocardiogram was performed. MITRAL VALVE PROLAPSE NOTED LEFT PARASTERNAL LONG AXIS AND APICAL FOUR CHAMBER VIEW. Tricuspid and aortic valves appear to be normal. Contractility of the left ventricle seems to be normal, so is the cavity size. Left atrial cavity size and aortic root appear to be normal. There is no pericardial effusion. There is no thrombus noted in the left ventricle or left atrial cavity. M-MODE: MV: MITRAL VALVE PROLAPSE--PANSYSTOLIC AV: NORMAL TV: NORMAL PV: CHAMBER SIZE: ENLARGED LEFT ATRIAL CAVITY WALL MOTION: NORMAL PERICARDIUM: NORMAL INTERPRETATION: 1. LEFT VENTRICULAR HYPERTROPHY (MODERATE) 2. ENLARGED LEFT ATRIAL CAVITY 3. MITRAL VALVE PROLAPSE PANSYSTOLIC WITH TRACE TO MILD MITRAL REGURGITATION 4. CALCIFIC MITRAL VALVE ANNULUS MTDD
--- NOTE | 2019-06-22 09:47 | PN ---
DATE OF SERVICE: 06/22/2019 SUBJECTIVE: 69 year old white female was seen and examined with Nurse Practitioner. The patient's condition is stable. The patient's kidney functions are stable. Urinary tract infection clinically has resolved. The patient is going to be discharged home on Macrobid and also new medications Lexapro has increased to 10mg along with Coreg 3.125 and Cozaar 25. The patient is advised to get up and walk around. Increase the activity. CONDITION: Stable. TIME SPENT: More than 30 minutes. Plan and coordination of the patient's care discussed in the presence of nurse. KAREN
--- NOTE | 2019-06-22 09:49 | PN ---
06/16/2019: Level 5 06/17/2019: Intermediate 06/18/2019: Intermediate 06/19/2019: Intermediate 06/20/2019: Intermediate 06/21/2019: Intermediate 06/22/2019: D as in discharge MTDD
--- NOTE | 2019-06-22 11:00 | PN ---
DATE OF SERVICE: 06/19/2019 SUBJECTIVE: The patient was seen and examined with the Nurse Practitioner. The patient's condition has improved. HGB and HCT stable. Hgb is more than 9 with hct of 30. No evidence of active GI bleed. The patient is noncompliant of medications, followup and recommendations. We will do echo before discharge. Reason for echo is to evaluate LV function with findings of the chest x-rays done twice after her last echo showing evidence of CHF with no clinical evidence of CHF. CONDITION: Stable TIME SPENT: More than 30 minutes. Plan and coordination of the patient's care discussed in the presence of nurse. KAREN
[2019-06-22 11:35] LABS: HEMATOCRIT 28.8 % (37.0-47.0)
--- NOTE | 2019-06-22 11:53 | PN ---
DATE OF SERVICE: 06/20/2019 SUBJECTIVE: 69 year old white female hospitalized with e-coli ESBL now treated with Ertapenem. The patient's condition has steadily improved. No symptoms of UTI. Her other problem is mild depression. We are going to increase the Lexapro to 10mg. Son is present in the room and he has the same opinion that as I do. The patient needs to sit up, get up and walk around and do things for herself. Instead of just complaining about different things. The patient's dehydration is resolved. During the stay in the hospital the patient was given 1 unit of packed red cells, the Hgb is 9, Hct 27. No evidence of active GI bleed. The patient declined any colonoscopy and any other workup. I don't think that patient needs it but I had to advise further evaluation of her anemia. REVIEW OF SYSTEMS: CONSTITUTIONAL: No night sweats. Mild fatigue. No fever or chills. Generalized aches. HEENT: Eyes: No visual changes. No eye pain. No eye discharge. ENT: No runny nose. No epistaxis. No sinus pain. No sore throat. No odynophagia. No congestion. RESPIRATORY: No cough, no congestion. No hemoptysis. No shortness of breath. CARDIOVASCULAR: No angina symptoms. No CHF symptoms. No atypical chest pain for CAD. No palpitations. No PND. No orthopnea. GASTROINTESTINAL: No abdominal pain. No nausea or vomiting. No diarrhea or constipation. No hematemesis. No hematochezia. GENITOURINARY: No urgency. No frequency. No dysuria. No hematuria. No obstructive symptoms. No discharge. No pain. No significant abnormal bleeding. MUSCULOSKELETAL: No musculoskeletal pain; no joint swelling. NEUROLOGICAL: Mild headache. No neck pain. No syncope. No seizures. No dizziness. PSYCHIATRIC: Not anxious. No depression. No suicidal thoughts. No homicidal thoughts. SKIN: No rash. No lesions. No wounds. ENDOCRINE: No unexplained weight loss. No weight gain. HEMATOLOGIC/LYMPHATIC: No anemia. No purpura. No petechiae. No prolonged or excessive bleeding. No palpable lymph nodes. PHYSICAL EXAMINATION: VITAL SIGNS: Temperature 98.1, pulse 67, respiratory rate 18, blood pressure 154/80 and pulse ox 98%. HEENT: Head normocephalic, atraumatic. Eyes: Extraocular muscles are intact. Pupils are equal, round and reactive to light and accommodation. Ears: No lesions. Nose appeared normal. Throat: No exudate or erythema. NECK: Supple. No JVD, no carotid bruit. No lymphadenopathy or thyromegaly. LUNGS: Decreased breath sounds but clear to auscultation. Percussion note normal. Chest symmetrical. HEART: S1, S2, no S3. No murmurs. No cyanosis or clubbing. No ascites. Pulses: Dorsalis pedis and posterior tibial pulses +1 to +2 bilaterally. ABDOMEN: Soft. Nontender. Bowel sounds active. No CVA tenderness. No mass felt. EXTREMITIES: No edema. Full range of motion of all extremities, equal. NEUROLOGIC: No focal deficit. Cranial nerves II through XII are grossly intact. No headache, no double vision or headache. SKIN: Not dry. Intact. Turgor - normal. LYMPHATIC: No palpable lymph nodes/no lymphedema. MUSCULOSKELETAL: Normal joints with no swelling. Muscle tone is normal. LABS: hgb 9, hct 27, WBC 6,000 normal differential, creatinine 2.6, BUN 59, potassium 4.7. ASSESSMENT: 1. E-coli ESBL seems to be under control 2. Anemia seems to be under control which is from chronic disorder from likely chronic kidney disease 3. Dehydration has resolved 4. Hypertension, We will add Coreg 3.125mg BID 5. The patient has hypertrophic cardiomyopathy, Coreg should do better. The pulse is already 70-90 per minute. PLAN: 1. Cozaar will be added for kidney protection. 2. Lexapro has been increased for patient's depression from 5 to 10mg CONDITION: Stable. TIME SPENT: More than 30 minutes. Plan and coordination of the patient's care discussed in the presence of nurse. KAREN
[2019-06-22 13:30] VITALS: BP 100/54; TEMP 98.3
--- NOTE | 2019-06-22 13:43 | CM.DICTOOL ---
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 DA SILVA PAD GENERALIZED WEAKNESS RT KNEE SURGERY DEPRESSION WITH ANXIETY HTN INCREASED LFT PANCREATITIS 2-D MODE ECHO 06/19/2019 INTERPRETATION: 1. LEFT VENTRICULAR HYPERTROPHY (MODERATE) 2. ENLARGED LEFT ATRIAL CAVITY 3. MITRAL VALVE PROLAPSE PANSYSTOLIC WITH TRACE TO MILD MITRAL REGURGITATION 4. CALCIFIC MITRAL VALVE ANNULUS LVEF -- NORMAL LAST VITALS Temp Pulse Resp BP Pulse Ox 98 F 74 16 140/71 98 06/22/19 05:00 06/22/19 08:00 06/22/19 05:00 06/22/19 05:00 06/22/19 05:00 TAKE THESE MEDICATIONS AT HOME Hydrocodone Bitart/Acetaminophen ([place] 5-325) 0.5 - 1 tab PO BID PRN PRN Reason: MODERATE PAIN Last Admin: 06/22/19 08:36 Dose: 1 tab Allopurinol (Zyloprim) 100 mg PO DAILY [facility] Last Admin: 06/22/19 08:37 Dose: 100 mg Atorvastatin Calcium (Lipitor) 20 mg PO BEDTIME [facility] Last Admin: 06/21/19 20:50 Dose: 20 mg [facility] ([facility]) [facility] Last Admin: 06/22/19 08:38 Dose: 3.125 mg Clopidogrel Bisulfate (Plavix) 75 mg PO DAILY [facility] Last Admin: 06/22/19 08:38 Dose: 75 mg Diphenhydramine HCl (Benadryl) 25 mg PO BEDTIME [facility] Last Admin: 06/21/19 20:51 Dose: 25 mg Docusate Sodium (Colace) 100 mg PO BID [facility] Last Admin: 06/22/19 08:37 Dose: 100 mg Escitalopram Oxalate (Lexapro) 10 mg PO DAILY [facility] ------( CHANGED) Last Admin: 06/22/19 08:37 Dose: 10 mg Documented by: Ferrous Sulfate (Ferrous Sulfate) 324 mg PO BID [facility] Last Admin: 06/22/19 08:37 Dose: 324 mg Documented by: Furosemide (Lasix Tab) 20 mg PO QDAC [facility] Last Admin: 06/22/19 05:59 Dose: 20 mg Losartan Potassium (Cozaar) 25 mg PO DAILY [facility] --------( NEW) Last Admin: 06/22/19 08:37 Dose: 25 mg Non-Formulary Medication (Melatonin) 10 mg PO BEDTIME PRN Non-Formulary Medication (Tacrolimus [Prograf]) 2 mg PO 0700,1900 [facility] Last Admin: 06/22/19 06:00 Dose: 2 mg Pantoprazole Sodium (Protonix) 40 mg PO QDAC [facility] Last Admin: 06/22/19 05:59 Dose: 40 mg Prednisone (Prednisone) 2.5 mg PO DAILYWM [facility] Last Admin: 06/22/19 08:38 Dose: 2.5 mg ALLERGIES sulfur dioxide Allergy (Unknown, Verified 06/11/19 15:53) ondansetron HCl [From Zofran] Adverse Reaction (Unknown, Verified 06/11/19 15:53) ibuprofen Adverse Reaction (Verified 06/11/19 15:53) sulfur dioxide Allergy (Unknown, Uncoded 04/09/19 15:37) ondansetron HCl Adverse Reaction (Unknown, Uncoded 04/09/19 15:37) DISCONTINUED MEDICATIONS NONE NEW PRESCRIPTIONS: 1). COREG 3.125 MG PO BID 2). COZAAR 25 MG PO DAILY 3). LEXAPRO 10 MG PO DAILY ( CHANGED ) SMOKING: NON- APPLICABLE DISEASE SPECIFIC EDUCATION: RENAL DISEASE ORGAN TRANSPLANT MANAGEMENT UTI DEHYDRATION ANEMIA LAB REVIEW: 06/22/19 04:35 06/22/19 04:35 06/22/19 04:35: Sodium 133.5 L, Potassium 5.64 H, Chloride 95.9 L, Carbon Dioxide 31.9 H, Anion Gap 11.34, BUN 66.7 H*, Creatinine 2.76 H, Estimated GFR (MDRD) 17.00, BUN/Creatinine Ratio 24.16, Glucose 83.1, Calcium 8.78, Total Bilirubin 0.29, AST 28.6, ALT 8.6, Alkaline Phosphatase 60.4, Total Protein 6.14 L, Albumin 3.33 L, Globulin 2.81, Albumin/Globulin Ratio 1.18 06/22/19 04:35: WBC 6.66, RBC 2.96 L, Hgb 9.3 L, Hct 29.1 L, MCV 98.3, MCH 31.4 H, MCHC 32.0, RDW Coeff of [place] 14.8, Plt Count 240, Immature Gran % (Auto) 0.6, Neut % (Auto) 55.7, Lymph % (Auto) 28.4, [place] % (Auto) 10.7 H, Eos % (Auto) 4.1, Baso % (Auto) 0.5, Immature Gran # (Auto) 0.0, Neut # (Auto) 3.7, Lymph # (Auto) 1.9, [place] # (Auto) 0.7, Eos # (Auto) 0.3, Baso # (Auto) 0.0 06/18/19 11:20: Crossmatch (AHG) See Detail New Results 06/22/19 11:30 06/22/19 11:30 PLAN: DISCHARGE HOME TODAY June, WITH ASSIST FROM SON AND AGENCY HOMEMAKER ACTIVITY : UP IN HOME WITH WALKER, FREQUENT REST PERIODS, NO STRENUOUS ACTIVITY. ALLOW " HELP AT HOME" AGENCY STAFF TO ASSIST YOU , HAVE BEEN CONTACTED. DIET: REGULAR WITH BOOST SUPPLEMENTS. DR. SKINNER MAY CHANGE DIET. SEE DR. SKINNER SATURDAY, JUNE 23, 2019 @ 145 PM. ( THIS IS YOUR PREVIOUSLY MADE APPOINTMENT) SEE DR. BRYANT/ CRUZ PASTOR APRN IN THE OFFICE WEDNESDAY, JUNE 26, 2019 @ 1000 AM. CODE STATUS: DO NOT RESUSCITATE MRS. RAMIREZ REMAINS ALERT AND ORIENTED X 4. HAS HAD A RT KIDNEY TRANSPLANT IN THE PAST . TACROLIMUS LEVEL DONE 06/16/2019 7.3 ( 2.0-20.0). NO S/S OF ACUTE REJECTION, THOUGH THERE IS CHRONIC RENAL FAILURE. 06/17/2019 HGB 7.4, LATER IN THE DAY 7.9, 06/18 7.4, PRBC X 1 UNIT TRANSFUSED THEN POST TRANSFUSION HGB 9.5. THIS AM 9.3. OTHER CHRONIC PROBLEMS EXIST AND HAS BEEN VERY UNSTABLE RECENTLY. HX OF RE-OCCURRENCE OF UTI WITH E COLI AND ESBL . WAS A DIRECT ADMIT 06/16/2019 AFTER COMING INTO MD OFFICE SEVERAL DAYS WITH REPORTS OF DYSURIA. U/A WITH C/S WAS DONE 06/11/2019 A RESULT OF MD OFFICE VISIT AND C/S COMPLETED NOTED E- COLI AND ESBL. ADMITTED INPATIENT, WAS SENSITIVE TO ERTAPENEM IV, COMPLETED 7 DAY REGIMEN. DIURESED WELL AFTER IV LASIX 20 MG ON AND CONTINUES ON 20 MG PO LASIX DAILY. CONTINUES TO HAVE INTERMITTENT H/A AND TAKES PERCOCET FOR IT. HEAD CT DONE AND NO CHANGES NOTED. ELEVATED POTASSIUM TODAY. POSSIBLE HEMOLYZED SAMPLE, WILL REDRAW LATER THIS AM. NUTRITIONALLY HAS BEEN DECREASED W ITH APPETITE SLIGHTLY IMPROVED WITH 25-50% INTAKE. PO FLUID INTAKE 1600 ML DAILY AVERAGE. SLIGHT DRIBBLING , WITH SEVERAL VOIDS A DAY. LBM 06/18/2019. AMBULATES WITH WALKER HERE AND AT HOME. STAFF STATED SHE AMBULATES WITH WALKER SAFELY, JUST NEEDS ENCOURAGEMENT TO GET UP. REFUSES ANY THERAPY AT HOME. LEXAPRO WAS INCREASED. MRS. RAMIREZ STATED," I AM OK, I JUST WANT TO GO HOME". NO ACUTE HOPELESSNESS OR DESPAIR. CONTACTED [facility] @ "HELP AT HOME " HOMEMAKER SERVICES OF HER DISCHARGE, AND TO RESUME SERVICES. CONTACTED DARYL AT [facility] ( DR. FELIPA SKINNER) WILL FAX INFO AND DOES HAVE AN APPOINTMENT Saturday06/23/2019 @ 1:45 PM.ED". MD CRUZ ANAYA, PRESS SET UP
--- NOTE | 2019-06-25 13:22 | PN ---
DATE OF SERVICE: 06/22/19 SUBJECTIVE: The patient is doing well. She is up and about, feeling better. No chest pain, no PND, no orthopnea. The patient's overall condition is improved. Depression is better. ESBL E-coli urinary tract infection seems to have improved. The patient will be treated the length of the stay. Macrobid is not going to be continued as an outpatient. TIME SPENT: More than 30 minutes. Plan and coordination of the patient's care discussed in the presence of nurse. KAREN
--- NOTE | 2019-07-16 09:39 | DS ---
DATE OF SERVICE: 06/22/2019 FINAL DIAGNOSIS: 1. UTI, E-COLI, POSITIVE ESBL 2. COPD 3. STATUS POST RIGHT RENAL TRANSPLANT 4. CHRONIC KIDNEY DISEASE - STAGE 4 5. ANEMIA- PRBC X 1 06/22/2019 HGB 9.3 6. HISTORY OF CHF 7. 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 DA SILVA PAD GENERALIZED WEAKNESS RT KNEE SURGERY DEPRESSION WITH ANXIETY HYPERTENSION INCREASED LFT PANCREATITIS 2-D MODE ECHO 06/19/2019 INTERPRETATION: 1. LEFT VENTRICULAR HYPERTROPHY (MODERATE) 2. ENLARGED LEFT ATRIAL CAVITY 3. MITRAL VALVE PROLAPSE PANSYSTOLIC WITH TRACE TO MILD MITRAL REGURGITATION 4. CALCIFIC MITRAL VALVE ANNULUS LVEF -- NORMAL LAST VITALS: Temp Pulse Resp BP Pulse Ox 98 F 74 16 140/71 98 06/22/19 05:00 06/22/19 08:00 06/22/19 05:00 06/22/19 05:00 06/22/19 05:00 DISCHARGE INSTRUCTIONS: DISCHARGE HOME TODAY June, WITH ASSIST FROM SON AND AGENCY HOMEMAKER. SEE DR. SUSANNE MARTIN, JUNE 23, 2019 @ 145 PM. ( THIS IS YOUR PREVIOUSLY MADE APPOINTMENT). SEE DR. BRYANT/ CRUZ PASTOR APRN IN THE OFFICE WEDNESDAY, JUNE 26, 2019 @ 1000 AM. CODE STATUS: DO NOT RESUSCITATE. TAKE THESE MEDICATIONS AT HOME: Hydrocodone Bitart/Acetaminophen ([place] 5-325) 0.5 - 1 tab PO BID PRN PRN Reason: MODERATE PAIN Last Admin: 06/22/19 08:36 Dose: 1 tab Allopurinol (Zyloprim) 100 mg PO DAILY [facility] Last Admin: 06/22/19 08:37 Dose: 100 mg Atorvastatin Calcium (Lipitor) 20 mg PO BEDTIME [facility] Last Admin: 06/21/19 20:50 Dose: 20 mg Carvedilol (Coreg) 3.125 mg PO BIDWM [facility] ( NEW) Last Admin: 06/22/19 08:38 Dose: 3.125 mg Clopidogrel Bisulfate (Plavix) 75 mg PO DAILY [facility] Last Admin: 06/22/19 08:38 Dose: 75 mg Diphenhydramine HCl (Benadryl) 25 mg PO BEDTIME [facility] Last Admin: 06/21/19 20:51 Dose: 25 mg Docusate Sodium (Colace) 100 mg PO BID [facility] Last Admin: 06/22/19 08:37 Dose: 100 mg Escitalopram Oxalate (Lexapro) 10 mg PO DAILY [facility] ------( CHANGED) Last Admin: 06/22/19 08:37 Dose: 10 mg Documented by: Ferrous Sulfate (Ferrous Sulfate) 324 mg PO BID [facility] Last Admin: 06/22/19 08:37 Dose: 324 mg Documented by: Furosemide (Lasix Tab) 20 mg PO QDAC [facility] Last Admin: 06/22/19 05:59 Dose: 20 mg Losartan Potassium (Cozaar) 25 mg PO DAILY [facility] --------( NEW) Last Admin: 06/22/19 08:37 Dose: 25 mg Non-Formulary Medication (Melatonin) 10 mg PO BEDTIME PRN Non-Formulary Medication (Tacrolimus [Prograf]) 2 mg PO 0700,1900 [facility] Last Admin: 06/22/19 06:00 Dose: 2 mg Pantoprazole Sodium (Protonix) 40 mg PO QDAC [facility] Last Admin: 06/22/19 05:59 Dose: 40 mg Prednisone (Prednisone) 2.5 mg PO DAILYWM [facility] Last Admin: 06/22/19 08:38 Dose: 2.5 mg ALLERGIES: sulfur dioxide Allergy (Unknown, Verified 06/11/19 15:53) ondansetron HCl [From Zofran] Adverse Reaction (Unknown, Verified 06/11/19 15:53) ibuprofen Adverse Reaction (Verified 06/11/19 15:53) sulfur dioxide Allergy (Unknown, Uncoded 04/09/19 15:37) ondansetron HCl Adverse Reaction (Unknown, Uncoded 04/09/19 15:37) DISCONTINUED MEDICATIONS: NONE NEW PRESCRIPTIONS: 1). COREG 3.125 MG PO BID 2). COZAAR 25 MG PO DAILY 3). LEXAPRO 10 MG PO DAILY ( CHANGED ) SMOKING: NON- APPLICABLE DISEASE SPECIFIC EDUCATION: RENAL DISEASE ORGAN TRANSPLANT MANAGEMENT UTI DEHYDRATION ANEMIA LAB REVIEW: 06/22/19 04:35 06/22/19 04:35 06/22/19 04:35: Sodium 133.5 L, Potassium 5.64 H, Chloride 95.9 L, Carbon Dioxide 31.9 H, Anion Gap 11.34, BUN 66.7 H*, Creatinine 2.76 H, Estimated GFR (MDRD) 17.00, BUN/Creatinine Ratio 24.16, Glucose 83.1, Calcium 8.78, Total Bilirubin 0.29, AST 28.6, ALT 8.6, Alkaline Phosphatase 60.4, Total Protein 6.14 L, Albumin 3.33 L, Globulin 2.81, Albumin/Globulin Ratio 1.18 06/22/19 04:35: WBC 6.66, RBC 2.96 L, Hgb 9.3 L, Hct 29.1 L, MCV 98.3, MCH 31.4 H, MCHC 32.0, RDW Coeff of [place] 14.8, Plt Count 240, Immature Gran % (Auto) 0.6, Neut % (Auto) 55.7, Lymph % (Auto) 28.4, [place] % (Auto) 10.7 H, Eos % (Auto) 4.1, Baso % (Auto) 0.5, Immature Gran # (Auto) 0.0, Neut # (Auto) 3.7, Lymph # (Auto) 1.9, [place] # (Auto) 0.7, Eos # (Auto) 0.3, Baso # (Auto) 0.0 06/18/19 11:20: Crossmatch (AHG) See Detail New Results 06/22/19 11:30 06/22/19 11:30 ACTIVITY : UP IN HOME WITH WALKER, FREQUENT REST PERIODS, NO STRENUOUS ACTIVITY. ALLOW " HELP AT HOME" AGENCY STAFF TO ASSIST YOU , HAVE BEEN CONTACTED. DIET: REGULAR WITH BOOST SUPPLEMENTS. DR. SKINNER MAY CHANGE DIET. HOSPITAL COURSE: 69 year old white female was hospitalized from the office with history of having urinary tract infection positive for e-coli ESBL. The patient has been experiencing fatigue and tired feeling with decreased output, dysuria. The patient during the hospital stay was treated with Ertapenem. The patient also required a couple of units of packed red cells as she was fatigue and tired and asymptomatic from anemia. Hgb went down to 7.4 post transfusion the patient's hgb was 9.3 with hct of 28. The patient during the stay in the hospital most of the time was afebrile. Her oral intake improved. Shortness of breath is from lack of activity. The echocardiogram showed mitral valve prolapse, enlarged LA cavity, LVH, calcific mitral valve annulus. CONDITION: Stable. TIME SPENT: More than 60 minutes. MTDD
--- NOTE | 2019-07-16 09:41 | PN ---
06/16/2019: Level 5 06/17/2019: Intermediate 06/18/2019: Intermediate 06/19/2019: Intermediate 06/20/2019: Intermediate 06/21/2019: Intermediate 06/22/2019: D as in discharge MTDD
== END 2019-06-22 16:02 | disposition home or self-care (01) | DRG 690 ==
LOC: MEDSURG B 14:44
PROVIDERS: ADMIT Internal Medicine; ATTEND Internal Medicine

== ENCOUNTER 2019-11-05 12:21 | Inpatient (IN) ==
[2019-11-05] MEDS ORDERED: NITROSTAT SL PRN (12:45)
[2019-11-05] MEDS ORDERED: VISTARIL INJ IM PRN (12:45)
[2019-11-05] MEDS ORDERED: ATROPINE SULFATE PFS IVP PRN (12:45)
[2019-11-05 13:20] VITALS: BMI 22.5
[2019-11-05 13:30] LABS: HEMATOCRIT 25.1 % (37.0-47.0)
[2019-11-05] MEDS ORDERED: NORCO 5-325 PO PRN (13:53)
--- NOTE | 2019-11-05 14:01 | DI ---
Exam: Single view of the chest. Comparison: 06/16/2019. Reason for exam: Short of breath. FINDINGS: Persistent cardiomegaly with left basilar atelectasis/pneumonia. No pneumothorax is seen. Parenchymal changes consistent with chronic lung disease. Impression: Mild left basilar atelectasis/pneumonia with persistent cardiomegaly in the setting of chronic lung d isease.
[2019-11-05] MEDS: SODIUM CHLORIDE 1,000 ML IV SCH (15:51)
[2019-11-05] MEDS: INVANZ 0.5 GM in SODIUM CHLORIDE 50 ML IV SCH (15:51)
[2019-11-05] MEDS: FERROUS SULFATE PO SCH (16:20)
[2019-11-05] MEDS: SYMBICORT 160-4.5 MCG INHALER IH SCH (20:39)
[2019-11-05] MEDS: COLACE PO SCH (20:39)
[2019-11-05] MEDS: BENADRYL PO SCH (20:39)
[2019-11-05] MEDS: SENNA PO SCH (20:39)
[2019-11-05] MEDS: TACROLIMUS 2 MG PO SCH (20:39)
[2019-11-05] MEDS: LIPITOR PO SCH (20:39)
[2019-11-05] MEDS: TYLENOL PO PRN (20:47)
[2019-11-05] MEDS ORDERED: NON-FORMULARY MEDICATION (Docusate Sodium 100 MG) PO SCH (21:00)
[2019-11-05] MEDS ORDERED: NON-FORMULARY MEDICATION (Ferrous Sulfate 325 MG) PO SCH (21:00)
[2019-11-05] MEDS ORDERED: NORVASC PO STA (21:19)
[2019-11-05] MEDS ORDERED: VASOTEC IV IVP STA (21:19)
[2019-11-05 21:42] LABS: HEMATOCRIT 26.8 % (37.0-47.0)
[2019-11-06] MEDS: SODIUM CHLORIDE 1,000 ML IV SCH ×2 (05:02→08:45)
[2019-11-06] MEDS: CATAPRES PO PRN (05:11)
[2019-11-06 05:32] LABS: HEMATOCRIT 25.7 % (37.0-47.0)
[2019-11-06] MEDS: FERROUS SULFATE PO SCH ×2 (05:56→17:07)
[2019-11-06] MEDS: PROTONIX PO SCH (05:56)
[2019-11-06] MEDS: INVANZ 0.5 GM in SODIUM CHLORIDE 50 ML IV SCH (08:45)
[2019-11-06] MEDS: SYMBICORT 160-4.5 MCG INHALER IH SCH ×2 (08:45→20:45)
[2019-11-06] MEDS: LEXAPRO PO SCH (08:46)
[2019-11-06] MEDS: ASPIRIN EC PO SCH (08:46)
[2019-11-06] MEDS: NORVASC PO SCH (08:46)
[2019-11-06] MEDS: LASIX TAB PO SCH (08:46)
[2019-11-06] MEDS: COLACE PO SCH ×2 (08:46→20:42)
[2019-11-06] MEDS: PLAVIX PO SCH (08:46)
[2019-11-06] MEDS: ZYLOPRIM PO SCH (08:46)
[2019-11-06] MEDS: SENNA PO SCH ×2 (08:47→20:43)
[2019-11-06] MEDS: COZAAR PO SCH ×2 (08:47→20:43)
[2019-11-06] MEDS: PREDNISONE PO SCH (08:47)
[2019-11-06] MEDS: TACROLIMUS 2 MG PO SCH ×2 (08:48→20:42)
[2019-11-06] MEDS ORDERED: [UNRECOGNIZED DRUG - OTHER] PO SCH (09:00)
[2019-11-06] MEDS ORDERED: SENNOSIDES DOCUSATE SODIUM PO SCH (09:00)
--- NOTE | 2019-11-06 10:05 | PCM.PROG ---
Attending Provider: ATTENDING PROVIDER: Dr. ISADORA BRYANT DATE OF SERVICE: 11/06/19 SUBJECTIVE: This 69 year old /WHITE F was hospitalized 11/05/19 with multiple medical problems, UTI, anemia and renal failure. The patient is status post kidney transplant and is being followed by a specialist field engineer. The patient looks a lot better. Condition is improved. Kidney functions are better. Hemoglobin 8.2. She is given 1 unit of packed red cells and is on Ertapenem for ESBL. She is afebrile. She still looks somewhat pale. REVIEW OF SYSTEMS: CONSTITUTIONAL: No night sweats. No fatigue, malaise, lethargy. No fever or chills. HEENT: Eyes: No visual changes. No eye pain. No eye discharge. ENT: No runny nose. No epistaxis. No sinus pain. No odynophagia. No congestion. RESPIRATORY: No cough, no congestion. No hemoptysis. No shortness of breath. CARDIOVASCULAR: No angina symptoms. No CHF symptoms. No atypical chest pain for CAD. No palpitations. No orthopnea.. GASTROINTESTINAL: No abdominal pain. No nausea or vomiting. No diarrhea or constipation. No hematemesis. No hematochezia. GENITOURINARY: No urgency. No frequency. No dysuria. No hematuria. No obstructive symptoms. No discharge. No pain. No significant abnormal bleeding. MUSCULOSKELETAL: No musculoskeletal pain; no joint swelling. NEUROLOGICAL: Awake, alert, oriented to time, place and person. No headache. No neck pain. No syncope. No seizures. No dizziness. PSYCHIATRIC: Not anxious. No depression. No suicidal thoughts. No homicidal thoughts. SKIN: No rash. No lesions. No wounds. ENDOCRINE: No unexplained weight loss. No weight gain. HEMATOLOGIC/LYMPHATIC: No anemia. No purpura. No petechiae. No prolonged or excessive bleeding. No palpable lymph nodes. PHYSICAL EXAMINATION: GENERAL: The patient is awake, alert and oriented, lying/sitting in bed in no distress. VITAL SIGNS: Temperature 98.8 F, Pulse 77, Respiratory Rate 18, BP 161/79, Pulse Ox 96% HEENT: Head normocephalic, atraumatic. Eyes: Extraocular muscles are intact. Pupils are equal, round and reactive to light and accommodation. Ears: No lesions. Nose appeared normal. Throat: No exudate or erythema. NECK: Supple. No JVD, no carotid bruit. No lymphadenopathy or thyromegaly. LUNGS: Clear to auscultation. Percussion note normal. Chest symmetrical. HEART: S1, S2, no S3. Grade II/ systolic murmur. No cyanosis or clubbing. No ascites. Pulses: Dorsalis pedis and posterior tibial pulses +1 to +2 both sides. ABDOMEN: Soft. Non-tender. Bowel sounds active. No CVA tenderness. No mass fe lt. EXTREMITIES: No edema. Full range of motion of all extremities, equal. NEUROLOGIC: No focal deficit. Cranial nerves II through XII are grossly intact. No headache, no double vision or headache. SKIN: Warm and dry. Intact. Turgor-normal. LYMPHATIC: No palpable lymph nodes/no lymphedema. MUSCULOSKELETAL: Normal joints with no swelling. Muscle tone is normal. LAB REVIEW: 11/06/19 05:02 11/06/19 05:02 11/06/19 05:02: Sodium 133.8 L, Potassium 4.41, Chloride 101.6, Carbon Dioxide 26.2, Anion Gap 10.41, BUN 79.9 H*, Creatinine 2.65 H, Estimated GFR (MDRD) 18.00, BUN/Creatinine Ratio 30.15, Glucose 80.7, Calcium 8.71, Total Bilirubin 0.50, AST 23.4, ALT 12.7, Alkaline Phosphatase 38.1 L, Total Protein 5.73 L, Albumin 3.19 L, Globulin 2.54, Albumin/Globulin Ratio 1.25 11/06/19 05:02: WBC 6.17, RBC 2.43 L, Hgb 8.2 L, Hct 25.7 L, MCV 105.8 H D, MCH 33.7 H, MCHC 31.9, RDW Coeff of [place] 16.3 H, Plt Count 154, Immature Gran % (Auto) 0.3, Neut % (Auto) 59.5, Lymph % (Auto) 26.1, [place] % (Auto) 11.5 H, Eos % (Auto) 2.3, Baso % (Auto) 0.3, Neut # (Auto) 3.7, Lymph # (Auto) 1.6, [place] # (Auto) 0.7, Eos # (Auto) 0.1, Baso # (Auto) 0.0, Immature Gran # (Auto) 0.0 11/05/19 21:35: Hgb 8.7 L, Hct 26.8 L 11/05/19 15:53: Urine Color Yellow, Urine Clarity Clear, Urine pH 5.5, Ur Specific [place] 1.010, Urine Protein 2+ H, Urine Glucose (UA) Negative, Urine Ketones Negative, Urine Blood Negative, Urine Nitrite Negative, Urine Bilirubin Negative, Urine Urobilinogen 0.2, Ur Leukocyte Esterase 3+ H, Urine Microscopic WBC Tntc, Ur Squamous Epith Cells Not present, Urine Bacteria 4+, Urine Mucus 1+ 11/05/19 13:16: Blood Type A POSITIVE, Antibody Screen Negative, Crossmatch (AHG) See Detail 11/05/19 13:16: WBC 6.11, RBC 2.25 L, Hgb 8.0 L, Hct 25.1 L, MCV 111.6 H, MCH 35.6 H, MCHC 31.9, RDW Coeff of [place] 13.3, Plt Count 178, Immature Gran % (Auto) 0.5, Neut % (Auto) 64.5, Lymph % (Auto) 20.0, [place] % (Auto) 11.1 H, Eos % (Auto) 3.6, Baso % (Auto) 0.3, Neut # (Auto) 3.9, Lymph # (Auto) 1.2, [place] # (Auto) 0.7, Eos # (Auto) 0.2, Baso # (Auto) 0.0, Immature Gran # (Auto) 0.0 11/05/19 13:16: Sodium 133.0 L, Potassium 4.51, Chloride 97.0 L, Carbon Dioxide 29.1, Anion Gap 11.41, BUN 86.4 H*, Creatinine 2.89 H, Estimated GFR (MDRD) 16.00, BUN/Creatinine Ratio 29.89, Glucose 125.2 H, Calcium 9.12, Total Bilirubin 0.31, AST 35.7, ALT 14.2, Alkaline Phosphatase 42.1 L, Troponin I 0.017, Total Protein 6.67, Albumin 3.81, Globulin 2.86, Albumin/Globulin Ratio 1.33 ASSESSMENT: Please see below. 1. UTI, ESBL positive. 2. Anemia, chronic. 3. Renal failure. 4. Hypertension. PLAN: 1. Control blood pressure better with goal systolic 140 or less. Clonidine will be used temporarily and Losartan 50 mg b.i.d.(new medication) to be started. 2. Norvasc along with Lasix to be continued. 3. Will give another unit of PRBC. Anemia is symptomatic. 4. Kidney functions are better and will continue slow hydration. 5. Encourage the patient to eat well and drink fluids. 6. Will decrease IV fluids to 50 mL/hr. Plan and coordination of the patient's care discussed in the presence of Barge Captain and nurse. CONDITION: Stable SCRIBED BY: BRIAN KNOX Welding Process Specialist scribed while in presence of service performed by Dr. ISADORA BRYANT on 11/06/19 ([id number])
--- NOTE | 2019-11-06 12:48 | HP ---
DATE OF SERVICE: 11/05/19 HISTORY OF PRESENT ILLNESS: 69-year-old with urine positive for E. coli plus ESBL, only sensitive to IV meds. Hemoglobin is 8.1, BUN 80, 2.82 creatinine. PAST MEDICAL HISTORY: CKD, STAGE 4 CHRONIC ANEMIA COPD CHRONIC RESPIRATORY FAILURE ACUTE RENAL INSUFFICIENCY B12 DEFICIENCY HYPERTENSION RECURRENT UTI DEPRESSION GENERALIZED WEAKNESS REVIEW OF SYSTEMS: CONSTITUTIONAL: Positive for fatigue. No fever. HEENT: No sinus drainage, no sore throat. RESPIRATORY: No cough, no congestion. CARDIOVASCULAR: No atypical chest pain for coronary artery disease. No angina, CHF symptoms, palpitations. Shortness of breath as usual. GASTROINTESTINAL: No melena or abdominal pain. No GERD. GENITOURINARY: Positive for dysuria. No hematuria. No polyuria. CONSULTANTS INTERN: No blackout, no dizziness, no headache, no double vision. Gait: Wheelchair. MUSCULOSKELETAL: Osteoarthritis pain. ENDOCRINE: No weight loss, no weight gain. SKIN: Not dry, no rash. PSYCHIATRIC: Not anxious, no depression, no suicidal thoughts, no homicidal thoughts. SOCIAL HISTORY: . No alcohol usage. Former smoker, quit 25 years ago. MEDICATIONS: Lipitor 20 mg one daily Melatonin 5 mg two tablets h.s. Plavix 75 mg one daily ASA 81 mg one daily Benadryl 25 mg one h.s. Lasix 20 mg one daily Fe 325 mg b.i.d. Docusate Sodium 100 mg b.i.d. Allopurinol 100 mg one daily Lexapro 5 mg one daily Protonix 40 mg one daily Prednisone 5 mg 1/2 daily Tacrolimas (Prograf) 1 mg 2 b.i.d. [place] 5/325 mg 1/2 daily Duoneb b.i.d. Norvasc 5 mg 1/2 daily Senna/Colace b.i.d. ALLERGIES: SULFA, ZOFRAN PHYSICAL EXAMINATION: V/S: Pulse 70, BP 124/72, temperature 97.9, 02 sat 96%, patient on 02 at 2L/NC. Unable to weigh. GENERAL APPEARANCE: Oriented times three. HEENT: Normal. NECK: No JVP, no bruits. RESPIRATORY: Decreased breath sounds. Lungs are clear. CARDIOVASCULAR: S1, S2, no S3. Grade I/ murmur. No cyanosis, clubbing. No ascites. GI/ABDOMEN: No tenderness. Bowel sounds are active. EXTREMITIES: Trace bilateral lower extremity edema, pulses +1, equal. CONSULTANTS INTERN: Deep tendon reflexes, sensory, motor and gait all normal. RECTAL/PELVIC: Endoscopy with Dr. Aponte 12/03. Pelvic advised yearly. Mammogram 02/03 MM. ASSESSMENT: 1. UTI PLUS E.COLI PLUS ESBL 2. ACUTE RENAL FAILURE 3. ANEMIA 4. GENERALIZED WEAKNESS 5. CKD, STAGE 4 6. CHRONIC ANEMIA 7. COPD-02 8. ACUTE RENAL INSUFFICIENCY 9. B12 DEFICIENCY 10. HYPERTENSION 11. RECURRENT UTI 12. DEPRESSION PLAN: 1. Admit 2. Routine telemetry orders 3. No cardiac markers 4. CBC, CMP now and daily 5. NS IV at 83 cc/hr 6. 02 @ 1-2L NC 7. Continue all home medications 8. Imipenem IV - pharmacy to dose times 7 days 9. PRBC type and cross two units - do not give yet 10. Regular diet 11. Contact precautions for ESBL TIME SPENT: More than 70 minutes. MTDD
[2019-11-06] MEDS ORDERED: ACETAMINOPHEN 1300 MG PO PRN (16:32)
[2019-11-06] MEDS: [UNRECOGNIZED DRUG - OTHER] PO PRN ×2 (20:42→23:50)
[2019-11-06] MEDS: MELATONIN PO PRN ×2 (20:42→23:50)
[2019-11-06] MEDS: BENADRYL PO SCH (20:43)
[2019-11-06] MEDS: LIPITOR PO SCH (20:43)
[2019-11-07 09:43] LABS: HEMATOCRIT 27.8 % (37.0-47.0)
[2019-11-07] MEDS: TYLENOL PO PRN (10:20)
[2019-11-07] MEDS: CATAPRES PO PRN (10:50)
[2019-11-07] MEDS ORDERED: LASIX IVP STA (10:54)
[2019-11-07] MEDS: ASPIRIN EC PO SCH (11:01)
[2019-11-07] MEDS: INVANZ 0.5 GM in SODIUM CHLORIDE 50 ML IV SCH (11:02)
[2019-11-07] MEDS: LASIX TAB PO SCH (11:02)
[2019-11-07] MEDS: PLAVIX PO SCH (11:03)
[2019-11-07] MEDS: LEXAPRO PO SCH (11:03)
[2019-11-07] MEDS: PREDNISONE PO SCH (11:04)
[2019-11-07] MEDS: SENNA PO SCH ×2 (11:05→20:56)
[2019-11-07] MEDS: PROTONIX PO SCH (11:05)
[2019-11-07] MEDS: SYMBICORT 160-4.5 MCG INHALER IH SCH ×2 (11:06→21:07)
[2019-11-07] MEDS: TACROLIMUS 2 MG PO SCH ×2 (11:07→20:55)
[2019-11-07] MEDS: NORVASC PO SCH ×2 (11:08→20:57)
[2019-11-07] MEDS: ZYLOPRIM PO SCH (11:08)
[2019-11-07] MEDS: COLACE PO SCH ×2 (11:09→20:56)
[2019-11-07] MEDS: FERROUS SULFATE PO SCH ×2 (11:09→17:02)
[2019-11-07] MEDS: COZAAR PO SCH ×2 (11:10→20:56)
[2019-11-07] MEDS ORDERED: LASIX ONE (13:24)
[2019-11-07] MEDS: MELATONIN PO PRN (20:54)
[2019-11-07] MEDS: [UNRECOGNIZED DRUG - OTHER] PO PRN (20:54)
[2019-11-07] MEDS: BENADRYL PO SCH (20:56)
[2019-11-07] MEDS: LIPITOR PO SCH (20:57)
[2019-11-07] MEDS: SODIUM CHLORIDE 1,000 ML IV SCH (23:10)
[2019-11-08 05:38] LABS: HEMATOCRIT 27.8 % (37.0-47.0)
[2019-11-08] MEDS: FERROUS SULFATE PO SCH ×2 (06:15→16:53)
[2019-11-08] MEDS: LASIX TAB PO SCH (06:15)
[2019-11-08] MEDS: PROTONIX PO SCH (06:15)
[2019-11-08] MEDS: SODIUM CHLORIDE 1,000 ML IV SCH ×2 (08:23→19:52)
[2019-11-08] MEDS: TACROLIMUS 2 MG PO SCH ×2 (08:23→21:05)
[2019-11-08] MEDS: LEXAPRO PO SCH (08:23)
[2019-11-08] MEDS: COZAAR PO SCH ×2 (08:24→21:04)
[2019-11-08] MEDS: PLAVIX PO SCH (08:24)
[2019-11-08] MEDS: ZYLOPRIM PO SCH (08:24)
[2019-11-08] MEDS: PREDNISONE PO SCH (08:24)
[2019-11-08] MEDS: NORVASC PO SCH ×2 (08:24→21:05)
[2019-11-08] MEDS: ASPIRIN EC PO SCH (08:25)
[2019-11-08] MEDS: COLACE PO SCH ×2 (08:25→21:05)
[2019-11-08] MEDS: SENNA PO SCH ×2 (08:25→21:05)
[2019-11-08] MEDS: SYMBICORT 160-4.5 MCG INHALER IH SCH ×2 (08:26→21:06)
[2019-11-08] MEDS: INVANZ 0.5 GM in SODIUM CHLORIDE 50 ML IV SCH (08:36)
[2019-11-08] MEDS: BENADRYL PO SCH (21:04)
[2019-11-08] MEDS: LIPITOR PO SCH (21:05)
[2019-11-08] MEDS: MELATONIN PO PRN (21:06)
[2019-11-08] MEDS: [UNRECOGNIZED DRUG - OTHER] PO PRN (21:06)
[2019-11-09] MEDS: TYLENOL PO PRN ×3 (00:22→21:34)
[2019-11-09] MEDS: FERROUS SULFATE PO SCH ×2 (06:17→17:01)
[2019-11-09] MEDS: LASIX TAB PO SCH (06:18)
[2019-11-09] MEDS: PROTONIX PO SCH (06:18)
--- NOTE | 2019-11-09 08:30 | PCM.PROG ---
Attending Provider: ATTENDING PROVIDER: Dr. ISADORA BRYANT This patient is seen with Elisa Britton, Nurse Practitioner. DATE OF SERVICE: 11/09/19 SUBJECTIVE: This 69 year old /WHITE F was hospitalized 11/05/19. The patient is resting comfortably. The patient states she is feeling significantly better. No dysuria and no fever. Kidney function has slightly improved given slowly IV fluids. REVIEW OF SYSTEMS: CONSTITUTIONAL: No night sweats. No fatigue, malaise, lethargy. No fever or chills. Weakness. HEENT: Eyes: No visual changes. No eye pain. No eye discharge. ENT: No runny nose. No epistaxis. No sinus pain. No odynophagia. No congestion. RESPIRATORY: No cough, no congestion. No hemoptysis. No shortness of breath. CARDIOVASCULAR: No angina symptoms. No CHF symptoms. No atypical chest pain for CAD. No palpitations. No orthopnea.. GASTROINTESTINAL: No abdominal pain. No nausea or vomiting. No diarrhea or constipation. No hematemesis. No hematochezia. GENITOURINARY: No urgency. No frequency. No dysuria. No hematuria. No obstructive symptoms. No discharge. No pain. No significant abnormal bleeding. MUSCULOSKELETAL: No musculoskeletal pain; no joint swelling. NEUROLOGICAL: Awake, alert, oriented to time, place and person. No headache. No neck pain. No syncope. No seizures. No dizziness. PSYCHIATRIC: Not anxious. No depression. No suicidal thoughts. No homicidal thoughts. SKIN: No rash. No lesions. No wounds. ENDOCRINE: No unexplained weight loss. No weight gain. HEMATOLOGIC/LYMPHATIC: No anemia. No purpura. No petechiae. No prolonged or excessive bleeding. No palpable lymph nodes. PHYSICAL EXAMINATION: GENERAL: The patient is awake, alert and oriented, lying in bed in no distress. VITAL SIGNS: Temperature 98.0 F, Pulse 73, Respiratory Rate 16, BP 155/86, Pulse Ox 97% HEENT: Head normocephalic, atraumatic. Eyes: Extraocular muscles are intact. Pupils are equal, round and reactive to light and accommodation. Ears: No lesions. Nose appeared normal. Throat: No exudate or erythema. NECK: Supple. No JVD, no carotid bruit. No lymphadenopathy or thyromegaly. LUNGS: Diminished breath sounds. Clear to auscultation. Percussion note normal. Chest symmetrical. HEART: S1, S2, no S3. No murmurs. No cyanosis or clubbing. No ascites. Pulses: Dorsalis pedis and posterior tibial pulses +1 to +2 both sides. ABDOMEN: Soft. Non-tender. Bowel sounds active. No CVA tenderness. No mass felt. EXTREMITIES: Trace edema. Full range of motion of all extremities, equal. NEUROLOGIC: No focal deficit. Cranial nerves II through XII are grossly intact. No headache, no double vision or headache. SKIN: Not dry. Intact. Turgor-normal. LYMPHATIC: No palpable lymph nodes/no lymphedema. MUSCULOSKELETAL: Normal joints with no swelling. Muscle tone is normal. LAB REVIEW: 11/09/19 04:55 11/09/19 04:55 11/09/19 04:55: Sodium 135.5, Potassium 4.26, Chloride 104.5, Carbon Dioxide 24.6, Anion Gap 10.66, BUN 61.2 H*, Creatinine 2.40 H, Estimated GFR (MDRD) 20.00, BUN/Creatinine Ratio 25.50, Glucose 85.9, Calcium 9.00, Total Bilirubin 0.49, AST 31.9, ALT 16.2, Alkaline Phosphatase 40.4 L, Total Protein 6.18 L, Albumin 3.39 L, Globulin 2.79, Albumin/Globulin Ratio 1.21 11/09/19 04:55: WBC 7.04, RBC 3.11 L, Hgb 10.3 L, Hct 32.0 L, MCV 102.9 H, MCH 33.1 H, MCHC 32.2, RDW Coeff of [place] 16.2 H, Plt Count 124 L, Immature Gran % (Auto) 0.3, Neut % (Auto) 62.3, Lymph % (Auto) 24.4, [place] % (Auto) 9.8, Eos % (Auto) 3.1, Baso % (Auto) 0.1, Neut # (Auto) 4.4, Lymph # (Auto) 1.7, [place] # (Auto) 0.7, Eos # (Auto) 0.2, Baso # (Auto) 0.0, Immature Gran # (Auto) 0.0 ASSESSMENT: Please see below. 1. UTI, e-coli positive ESBL 2. Anemia, improved 3. Chronic kidney disease stage 4 4. COPD 5. Acute renal failure, improving PLAN: 1. Continue IV antibiotics Plan and coordination of the patient's care discussed in the presence of Cougar Hunter and nurse. SCRIBED BY: Gemma BERNABE scribed while in presence of service performed by Dr. Bryant/Elisa Britton APRN on 11/09/19 ([id number])
[2019-11-09] MEDS: INVANZ 0.5 GM in SODIUM CHLORIDE 50 ML IV SCH (09:24)
[2019-11-09] MEDS: PLAVIX PO SCH (09:24)
[2019-11-09] MEDS: TACROLIMUS 2 MG PO SCH ×2 (09:24→21:08)
[2019-11-09] MEDS: SENNA PO SCH ×2 (09:24→21:05)
[2019-11-09] MEDS: COLACE PO SCH ×2 (09:25→21:04)
[2019-11-09] MEDS: ASPIRIN EC PO SCH (09:25)
[2019-11-09] MEDS: COZAAR PO SCH ×2 (09:25→21:05)
[2019-11-09] MEDS: PREDNISONE PO SCH (09:26)
[2019-11-09] MEDS: ZYLOPRIM PO SCH (09:26)
[2019-11-09] MEDS: LEXAPRO PO SCH (09:26)
[2019-11-09] MEDS: NORVASC PO SCH ×2 (09:27→21:05)
[2019-11-09] MEDS: SYMBICORT 160-4.5 MCG INHALER IH SCH ×2 (09:28→21:06)
--- NOTE | 2019-11-09 13:04 | PN ---
DATE OF SERVICE: 11/08/2019 SUBJECTIVE: 69 year old white female hospitalized with UTI. She is on Ertapenem also she has acute renal failure and anemia with generalized weakness. The patient has been given 2 units of packed red cells and feeling better. Her appetite has improved. The first time she says that she is feeling better. REVIEW OF SYSTEMS: CONSTITUTIONAL: No night sweats. No fatigue, malaise, lethargy. No fever or chills. HEENT: Eyes: No visual changes. No eye pain. No eye discharge. ENT: No runny nose. No epistaxis. No sinus pain. No sore throat. No odynophagia. No congestion. RESPIRATORY: No cough, no congestion. No hemoptysis. No shortness of breath. CARDIOVASCULAR: No angina symptoms. No CHF symptoms. No atypical chest pain for CAD. No palpitations. No PND. No orthopnea. GASTROINTESTINAL: No abdominal pain. No nausea or vomiting. No diarrhea or constipation. No hematemesis. No hematochezia. GENITOURINARY: No urgency. No frequency. No dysuria. No hematuria. No obstructive symptoms. No discharge. No pain. No significant abnormal bleeding. MUSCULOSKELETAL: No musculoskeletal pain; no joint swelling. NEUROLOGICAL: No headache. No neck pain. No syncope. No seizures. No dizziness. PSYCHIATRIC: Not anxious. No depression. No suicidal thoughts. No homicidal thoughts. SKIN: No rash. No lesions. No wounds. ENDOCRINE: No unexplained weight loss. No weight gain. HEMATOLOGIC/LYMPHATIC: No anemia. No purpura. No petechiae. No prolonged or excessive bleeding. No palpable lymph nodes. PHYSICAL EXAMINATION: VITAL SIGNS: Temperature 97.9, pulse 67, respiratory rate 18, blood pressure 130/70 and pulse ox 98% on room air. HEENT: Head normocephalic, atraumatic. Eyes: Extraocular muscles are intact. Pupils are equal, round and reactive to light and accommodation. Ears: No lesions. Nose appeared normal. Throat: No exudate or erythema. NECK: Supple. No JVD, no carotid bruit. No lymphadenopathy or thyromegaly. LUNGS: Decreased breath sounds but clear to auscultation. Percussion note normal. Chest symmetrical. HEART: S1, S2, no S3. No murmurs. No cyanosis or clubbing. No ascites. Pulses: Dorsalis pedis and posterior tibial pulses +1 to +2 bilaterally. ABDOMEN: Soft. Nontender. Bowel sounds active. No CVA tenderness. No mass felt. EXTREMITIES: No edema. Full range of motion of all extremities, equal. NEUROLOGIC: No focal deficit. Cranial nerves II through XII are grossly intact. No headache, no double vision or headache. SKIN: Not dry. Intact. Turgor - normal. LYMPHATIC: No palpable lymph nodes/no lymphedema. MUSCULOSKELETAL: Normal joints with no swelling. Muscle tone is normal. LABS: hgb 8.9, hct 27,. WBC 6,200 normal differential, creatinine 2.5, BUN 67, potassium 4.2. ASSESSMENT: 1. Renal failure seems to be under control 2. UTI seems to be under control 3. Anemia stable with no evidence of GI bleed. The patient's anemia is from chronic kidney disease 4. Generalized weakness seems to be improving PLAN: 1. Encourage the patient to eat 2. Continue antibiotics TIME SPENT: More than 30 minutes. Plan and coordination of the patient's care discussed in the presence of nurse. KAREN
--- NOTE | 2019-11-09 15:49 | RS.PTINEVL ---
Subjective - Patient information Date of Evaluation: 11/09/19 Date of Arrival on Unit: 11/05/19 Admitted From:: Home Diagnosis: UTI acute renal failure Usual Living Arrangement: Alone Living Arrangement Comments: lives alone, son checks on her twice a day. Home Environment: House, Stairs (few), Rail Medical History: Hypertension, COPD Medical History Comments:: CKD, depression LATEX ALLERGY?: No Surgical History Comments:: kidney transplant Medications: see chart Subjective Information/ Patient Comments:: pt states that she would like to walk this pm. States she is feeling better and hopes to go home tomorrow. - Level of function Prior to this admission, the patient could do the following:: Partially Dependent Ambulation Current Level of Function: Partially Dependent Current Equipment Used at Home: walker, wheelchair, shower chair, potty chair Interventions - Objective Patient Orientation: Person, Place, Time, Situation Current Interventions: IV's, Oxygen, Telemetry Observation: pt on 2 liters O2. pt with increased thoracic kyphosis with scoliosis. Range of Motion - ROM Right Upper Extremity AROM: Slight limitation Left Upper Extremity AROM: Slight limitation Right Lower Extremity AROM: WFL's Left Lower Extremity AROM: WFL's Comments:: slight shld ROM limitation BUE Muscle Strength - Muscle Strength Right Upper Extremity Strength: Mild Weakness (shld flex 3/5, elbow flex/ext 4- /5) Left Upper Extremity Strength: Mild Weakness (shld flex 3/5, elbow flex/ext 4- /5) Right Lower Extremity Strength: Mild Weakness (hip flex 4-/5, knee flex/ext 4/5, ankle DF/PF 4/5) Left Lower Extremity Strength: Mild Weakness (hip flex 4-/5, knee flex/ext 4/5, ankle DF/PF 4/5) Sensation - Sensation Right Upper Extremity Sensation: Intact/Normal Left Upper Extremity Sensation: Intact/Normal Right Lower Extremity Sensation: Intact/Normal Left Lower Extremity Sensation: Intact/Normal Palpation Palpation Findings: None/Normal Balance - Sitting Balance and Reactions Static Sitting Balance: Good Dynamic Sitting Balance: Fair - Standing Balance and Reactions Static Standing Balance: Fair Dynamic Standing Balance: Poor Standing Equilibrium Reactions: Delayed Left, Delayed Right Standing Protective Reactions: Delayed Left, Delayed Right Functional Mobility - Bed Mobility Rolling R/L: Supervision Supine to Sit: CGA Sit to Supine: CGA - Transfers Sit to Stand: CGA Stand to Sit: CGA - Safety Awareness Safety Awareness: Fair KRYSTLE INDEX SCORE: n/a Ambulation - Ambulation Assistive Device Used: Rolling Walker Orthotic/Prosthetic Device: No Distance: 140ft Assistance needed with Ambulation: CGA Gait Deviations: Forward posture, Short stride, Deviates from path Ambulation Comments: pt requires verbal cues to keep walker close to her during amb. Factors Affecting Ambulation: Decreased Balance, Weakness, Decreased Safety, Cognitive Status, Limited Endurance Treatment time - Time with patient Length of Evaluation: 21 Total treatment time: 26 Patient Education - Education Patient Education: Activity Modification, Education of Plan of Care Teaching Recipient: Patient Teaching Methods: Discussion, Demonstration Comments: discussion and demonstration regarding POC as well as safety with amb. Assessment - Assessment Problem List:: Decreased level of function, Requires training/education, Decreased safety/Risk of falls, Weakness, Cognitive status limits abilities Rehab Potential: Good Further Therapy Indicated?: Yes Candidate for Swing Bed for Therapy Services?: Feel pt may not be a candidate for swing bed due to high functional level. Evaluation Complexity: HISTORY: Medium, EXAM OF BODY SYSTEMS: Medium, CLINICAL PRESENTATION: Medium, CLINICAL DECISION MAKING: Medium Patient's Goal(s): go back home. Short Term Goals GOAL #1: pt independent rolling and scooting in bed Goal to be met by: 11/11/19 GOAL #2: Transfer sup to/from sit SBA Goal to be met by: 11/11/19 GOAL #3: Sit to/from stand SBA Goal to be met by: 11/11/19 GOAL #4: Pt to amb. with RW 160 ft with CGA of one. Goal to be met by: 11/11/19 Skilled Nursing Goals GOAL #1: Sup to/from sit independently Goal to be met by: 11/13/19 GOAL #2: sit to/from stand independently Goal to be met by: 11/13/19 GOAL #3: Pt to amb. w/ RW household distances with SBA and good safety. Goal to be met by: 11/13/19 Plan Plan of Care: Therapeutic EX, Therapeutic Activity Other:: gait training Frequency of Treatment: 1-2 X day, as tolerated Duration of Treatment: 5 days Anticipated Discharge Destination: Home Treatment Diagnosis (ICD 10 Codes): difficulty walking R 26.2. impaired balance R26.81 Has the Physician been added for Co-signature?: Yes
[2019-11-09] MEDS: SODIUM CHLORIDE 1,000 ML IV SCH (17:01)
[2019-11-09] MEDS: BENADRYL PO SCH (21:05)
[2019-11-09] MEDS: LIPITOR PO SCH (21:05)
[2019-11-09] MEDS: MELATONIN PO PRN (21:08)
[2019-11-09] MEDS: [UNRECOGNIZED DRUG - OTHER] PO PRN (21:08)
[2019-11-09] MEDS: CATAPRES PO PRN (21:34)
[2019-11-10] MEDS: FERROUS SULFATE PO SCH ×2 (06:41→17:38)
[2019-11-10] MEDS: PROTONIX PO SCH (06:41)
[2019-11-10] MEDS: LASIX TAB PO SCH (06:41)
[2019-11-10] MEDS: ASPIRIN EC PO SCH (09:12)
[2019-11-10] MEDS: SENNA PO SCH ×2 (09:12→20:58)
[2019-11-10] MEDS: PREDNISONE PO SCH (09:12)
[2019-11-10] MEDS: LEXAPRO PO SCH (09:12)
[2019-11-10] MEDS: INVANZ 0.5 GM in SODIUM CHLORIDE 50 ML IV SCH (09:12)
[2019-11-10] MEDS: TACROLIMUS 2 MG PO SCH ×2 (09:12→20:58)
[2019-11-10] MEDS: COZAAR PO SCH ×2 (09:13→20:59)
[2019-11-10] MEDS: PLAVIX PO SCH (09:13)
[2019-11-10] MEDS: COLACE PO SCH ×2 (09:13→20:58)
[2019-11-10] MEDS: ZYLOPRIM PO SCH (09:13)
[2019-11-10] MEDS: COREG PO SCH ×2 (09:13→17:38)
[2019-11-10] MEDS: SYMBICORT 160-4.5 MCG INHALER IH SCH ×2 (09:14→21:00)
--- NOTE | 2019-11-10 09:23 | PN ---
DATE OF SERVICE: 11/09/19 SUBJECTIVE: The patient was seen and examined with the nurse practitioner. The patient's kidney functions are improving. Appetite is improving. She is feeling better - symptoms absent. Cardiovascular status stable. Anemia stable which is from chronic kidney disease. The patient was seen and examined with the nurse practitioner. TIME SPENT: More than 30 minutes. Plan and coordination of the patient's care discussed in the presence of nurse. KAREN
[2019-11-10] MEDS: SODIUM CHLORIDE 1,000 ML IV SCH ×2 (10:51→11:11)
--- NOTE | 2019-11-10 12:36 | PN ---
DATE OF SERVICE: 11/07/19 SUBJECTIVE: 69-year-old white female hospitalized with UTI. Also the patient had acute renal failure and generalized weakness with shortness of breath. The patient has ESBL infection. She is on Ertapenem. REVIEW OF SYSTEMS: CONSTITUTIONAL: No night sweats. No fatigue, malaise, lethargy. No fever or chills. HEENT: Eyes: No visual changes. No eye pain. No eye discharge. ENT: No runny nose. No epistaxis. No sinus pain. No sore throat. No odynophagia. No congestion. RESPIRATORY: No cough, no congestion. No hemoptysis. No shortness of breath. CARDIOVASCULAR: No angina symptoms. No CHF symptoms. No atypical chest pain for CAD. No palpitations. No PND. No orthopnea. GASTROINTESTINAL: Appetite is improved. No abdominal pain. No nausea or vomiting. No diarrhea or constipation. No hematemesis. No hematochezia. GENITOURINARY: No urgency. No frequency. No dysuria. No hematuria. No obstructive symptoms. No discharge. No pain. No significant abnormal bleeding. MUSCULOSKELETAL: No musculoskeletal pain; no joint swelling. NEUROLOGICAL: No headache. No neck pain. No syncope. No seizures. No dizziness. PSYCHIATRIC: Not anxious. No depression. No suicidal thoughts. No homicidal thoughts. SKIN: No rash. No lesions. No wounds. ENDOCRINE: No unexplained weight loss. No weight gain. HEMATOLOGIC/LYMPHATIC: No anemia. No purpura. No petechiae. No prolonged or excessive bleeding. No palpable lymph nodes. PHYSICAL EXAMINATION: GENERAL: The patient is oriented to time, place and person. VITAL SIGNS: Temperature 98, pulse 70, respiratory rate 18, BP 150/70. HEENT: Head normocephalic, atraumatic. Eyes: Extraocular muscles are intact. Pupils are equal, round and reactive to light and accommodation. Ears: No lesions. Nose appeared normal. Throat: No exudate or erythema. NECK: Supple. No JVD, no carotid bruit. No lymphadenopathy or thyromegaly. LUNGS: Decreased breath sounds but clear to auscultation. Percussion note normal. Chest symmetrical. HEART: S1, S2, no S3. No murmurs. No cyanosis or clubbing. No ascites. Pulses: Dorsalis pedis and posterior tibial pulses +1 to +2 bilaterally. ABDOMEN: Soft. Nontender. Bowel sounds active. No CVA tenderness. No mass felt. EXTREMITIES: No edema. Full range of motion of all extremities, equal. NEUROLOGIC: No focal deficit. Cranial nerves II through XII are grossly intact. No headache, no double vision or headache. SKIN: Not dry. Intact. Turgor - normal. LYMPHATIC: No palpable lymph nodes/no lymphedema. MUSCULOSKELETAL: Normal joints with no swelling. Muscle tone is normal. PLAN: 1. Give IV Lasix one dose. 2. Amlodipine to be increased to 5 mg twice a day. 3. Continue Ertapenem. 4. The patient's kidney functions and overall comorbidities and overall medical status seems to be improving. TIME SPENT: More than 30 minutes. Plan and coordination of the patient's care discussed in the presence of nurse. KAREN
--- NOTE | 2019-11-10 14:20 | PN ---
DATE OF SERVICE: 11/10/19 SUBJECTIVE: The patient was seen and examined this morning. She says she is feeling a lot better. The patient's hemoglobin and hematocrit are stable. Hemoglobin is 8.8, hematocrit 26. No evidence of active GI bleed. The patient's creatinine is 2.3 improving. Her hydration status seems to have improved. Appetite seems to be improving. She has a UTI which is being treated with IV antibiotics. Condition seems to be improving. Infection seems to be under control. REVIEW OF SYSTEMS: CONSTITUTIONAL: No night sweats. No fatigue, malaise, lethargy. No fever or chills. HEENT: Eyes: No visual changes. No eye pain. No eye discharge. ENT: No runny nose. No epistaxis. No sinus pain. No sore throat. No odynophagia. No congestion. RESPIRATORY: No cough, no congestion. No hemoptysis. No shortness of breath. CARDIOVASCULAR: No angina symptoms. No CHF symptoms. No atypical chest pain for CAD. No palpitations. No PND. No orthopnea. GASTROINTESTINAL: Appetite improving. No abdominal pain. No nausea or vomiting. No diarrhea or constipation. No hematemesis. No hematochezia. GENITOURINARY: No urgency. No frequency. No dysuria. No hematuria. No obstructive symptoms. No discharge. No pain. No significant abnormal bleeding. MUSCULOSKELETAL: No musculoskeletal pain; no joint swelling. NEUROLOGICAL: No headache. No neck pain. No syncope. No seizures. No dizziness. PSYCHIATRIC: Not anxious. No depression. No suicidal thoughts. No homicidal thoughts. SKIN: No rash. No lesions. No wounds. ENDOCRINE: No unexplained weight loss. No weight gain. HEMATOLOGIC/LYMPHATIC: No anemia. No purpura. No petechiae. No prolonged or excessive bleeding. No palpable lymph nodes. PHYSICAL EXAMINATION: HEENT: Head normocephalic, atraumatic. Eyes: Extraocular muscles are intact. Pupils are equal, round and reactive to light and accommodation. Ears: No lesions. Nose appeared normal. Throat: No exudate or erythema. NECK: Supple. No JVD, no carotid bruit. No lymphadenopathy or thyromegaly. LUNGS: Decreased breath sounds but clear. Percussion note normal. Chest symmetrical. HEART: S1, S2, no S3. No murmurs. No cyanosis or clubbing. No ascites. Pulses: Dorsalis pedis and posterior tibial pulses +1 to +2 bilaterally. ABDOMEN: Soft. Nontender. Bowel sounds active. No CVA tenderness. No mass felt. EXTREMITIES: No edema. Full range of motion of all extremities, equal. NEUROLOGIC: No focal deficit. Cranial nerves II through XII are grossly intact. No headache, no double vision or headache. SKIN: Not dry. Intact. Turgor - normal. LYMPHATIC: No palpable lymph nodes/no lymphedema. MUSCULOSKELETAL: Normal joints with no swelling. Muscle tone is normal. ASSESSMENT: 1. All the medical conditions including renal failure under control with renal azotemia resolved. The patient has chronic kidney disease, Stage 3-4 now and compliance assistant. 2. Anemia of chronic disorder seems to be with acceptable hemoglobin/hematocrit under control. TIME SPENT: More than 30 minutes. Plan and coordination of the patient's care discussed in the presence of nurse. KAREN
[2019-11-10] MEDS: FLONASE NAS SCH (14:34)
[2019-11-10] MEDS: LIPITOR PO SCH (20:58)
[2019-11-10] MEDS: [UNRECOGNIZED DRUG - OTHER] PO PRN (20:58)
[2019-11-10] MEDS: MELATONIN PO PRN (20:58)
[2019-11-10] MEDS: BENADRYL PO SCH (20:59)
[2019-11-10] MEDS ORDERED: NORVASC PO SCH (21:00)
[2019-11-11] MEDS: SODIUM CHLORIDE 1,000 ML IV SCH (05:56)
[2019-11-11 05:57] LABS: HEMATOCRIT 28.9 % (37.0-47.0)
[2019-11-11] MEDS: LASIX TAB PO SCH (06:35)
[2019-11-11] MEDS: FERROUS SULFATE PO SCH (06:36)
[2019-11-11] MEDS: PROTONIX PO SCH (06:36)
[2019-11-11] MEDS: LEXAPRO PO SCH (08:40)
[2019-11-11] MEDS: PLAVIX PO SCH (08:40)
[2019-11-11] MEDS: COZAAR PO SCH (08:40)
[2019-11-11] MEDS: ASPIRIN EC PO SCH (08:40)
[2019-11-11] MEDS: COLACE PO SCH (08:41)
[2019-11-11] MEDS: SENNA PO SCH (08:41)
[2019-11-11] MEDS: ZYLOPRIM PO SCH (08:41)
[2019-11-11] MEDS: TACROLIMUS 2 MG PO SCH (08:41)
[2019-11-11] MEDS: COREG PO SCH (08:41)
[2019-11-11] MEDS: PREDNISONE PO SCH (08:41)
[2019-11-11] MEDS: INVANZ 0.5 GM in SODIUM CHLORIDE 50 ML IV SCH (08:42)
[2019-11-11] MEDS: FLONASE NAS SCH (08:46)
[2019-11-11] MEDS: SYMBICORT 160-4.5 MCG INHALER IH SCH (08:46)
--- NOTE | 2019-11-11 13:38 | PCM.PROG ---
Attending Provider: ATTENDING PROVIDER: Dr. ISADORA BRYANT DATE OF SERVICE: 11/11/19 SUBJECTIVE: This 69 year old /WHITE F was hospitalized 11/05/19 with mutliple medical problems, acute renal failure, UTI, severe anemia with weakness. The patient had symptomatic anemia for which she was given 2 units of PRBC. Hemoglobin 9.3 with hematocrit of 28. She is afebrile, doing a lot better. She is up and about. REVIEW OF SYSTEMS: CONSTITUTIONAL: No night sweats. No fatigue, malaise, lethargy. No fever or chills. HEENT: Eyes: No visual changes. No eye pain. No eye discharge. ENT: No runny nose. No epistaxis. No sinus pain. No odynophagia. No congestion. RESPIRATORY: No cough, no congestion. No hemoptysis. No shortness of breath. CARDIOVASCULAR: No angina symptoms. No CHF symptoms. No atypical chest pain for CAD. No palpitations. No orthopnea.. GASTROINTESTINAL: No abdominal pain. No nausea or vomiting. No diarrhea or constipation. No hematemesis. No hematochezia. GENITOURINARY: No urgency. No frequency. No dysuria. No hematuria. No obstructive symptoms. No discharge. No pain. No significant abnormal bleeding. MUSCULOSKELETAL: No musculoskeletal pain; no joint swelling. NEUROLOGICAL: Awake, alert, oriented to time, place and person. No headache. No neck pain. No syncope. No seizures. No dizziness. PSYCHIATRIC: Not anxious. No depression. No suicidal thoughts. No homicidal thoughts. SKIN: No rash. No lesions. No wounds. ENDOCRINE: No unexplained weight loss. No weight gain. HEMATOLOGIC/LYMPHATIC: No anemia. No purpura. No petechiae. No prolonged or ex cessive bleeding. No palpable lymph nodes. PHYSICAL EXAMINATION: GENERAL: The patient is awake, alert and oriented, lying/sitting in bed in no distress. VITAL SIGNS: Temperature 98.0 F, Pulse 76, Respiratory Rate 16, BP 154/84, Pulse Ox 95% HEENT: Head normocephalic, atraumatic. Eyes: Extraocular muscles are intact. Pupils are equal, round and reactive to light and accommodation. Ears: No lesions. Nose appeared normal. Throat: No exudate or erythema. NECK: Supple. No JVD, no carotid bruit. No lymphadenopathy or thyromegaly. LUNGS: Clear to auscultation. Percussion note normal. Chest symmetrical. HEART: S1, S2, no S3. No murmurs. No cyanosis or clubbing. No ascites. Pulses: Dorsalis pedis and posterior tibial pulses +1 to +2 both sides. ABDOMEN: Soft. Non-tender. Bowel sounds active. No CVA tenderness. No mass felt. EXTREMITIES: No edema. Full range of motion of all extremities, equal. NEUROLOGIC: No focal deficit. Cranial nerves II through XII are grossly intact. No headache, no double vision or headache. SKIN: Warm and dry. Intact. Turgor-normal. LYMPHATIC: No palpable lymph nodes/no lymphedema. MUSCULOSKELETAL: Normal joints with no swelling. Muscle tone is normal. LAB REVIEW: 11/11/19 05:18 11/11/19 05:18 11/11/19 05:18: Sodium 135.4, Potassium 4.17, Chloride 104.1, Carbon Dioxide 25.5, Anion Gap 9.97, BUN 59.1 H, Creatinine 2.47 H, Estimated GFR (MDRD) 19.00, BUN/Creatinine Ratio 23.92, Glucose 82.2, Calcium 9.05, Total Bilirubin 0.35, AST 24.5, ALT 13.5, Alkaline Phosphatase 37.3 L, Total Protein 5.86 L, Albumin 3.18 L, Globulin 2.68, Albumin/Globulin Ratio 1.18 11/11/19 05:18: WBC 6.94, RBC 2.81 L, Hgb 9.3 L, Hct 28.9 L, MCV 102.8 H, MCH 33.1 H, MCHC 32.2, RDW Coeff of Rivka 15.6 H, Plt Count 122 L, Immature Gran % (Auto) 0.3, Neut % (Auto) 64.4, Lymph % (Auto) 20.5, [place] % (Auto) 11.0 H, Eos % (Auto) 3.5, Baso % (Auto) 0.3, Neut # (Auto) 4.5, Lymph # (Auto) 1.4, [place] # (Auto) 0.8, Eos # (Auto) 0.2, Baso # (Auto) 0.0, Immature Gran # (Auto) 0.0 ASSESSMENT: Please see below. 1. UTI seems to have resolved with Ertapenem. 2. Renal failure under control with stable BUN and creatinine with GFR 20 cc/min. 3. Anemia is stable with no evidence of GI bleed from chronic kidney disease. PLAN: 1. Discharge the patient home. 2. The patient is advised to see Dr. Light. All records to be sent to Dr. Light. 3. Followup with Dr. Bryant on Saturday of next week (11/16) at 11:30 a.m. 4. The patient is encouraged to eat good, drink plenty of fluids. Plan and coordination of the patient's care discussed in the presence of Director Of Entertainment and nurse. CONDITION: Stable. SCRIBED BY: BRIAN KNOX, Casino Floor Supervisor scribed while in presence of service performed by Dr. ISADORA BRYANT on 11/11/19 ([id number])
--- NOTE | 2019-11-11 13:54 | DS ---
DATE OF SERVICE: 11/11/19 FINAL DIAGNOSIS: 1. UTI, E-COLI ESBL POSITIVE 2. ACUTE RENAL FAILURE - IMPROVING 3. ANEMIA - IMPROVED 4. CHRONIC KIDNEY DISEASE, STAGE 4 5. COPD 6. WEAKNESS HISTORY 7. HYPERTENSION 8. COPD 9. CHRONIC ANEMIA 10. B12 DEFICIENCY 11. RECURRENT UTI-HX E-COLI 12. DEPRESSION 13. DYSLIPIDEMIA 14. OSTEOARTHRITIS 15. DJD SURGICAL PROCEDURES 16. NEPHRECTOMY, RIGHT 17. KIDNEY TRANSPLANT, 2004 18. CHOLECYSTECTOMY 19. KNEE SURGERY, RIGHT 20. CAROTID ENDARTERECTOMY, BILATERAL 21. UMBILICAL HERNIA REPAIR ECHOCARDIOGRAM - 06/08/19 LVEF normal. LVH moderate. Enlarged left atrial cavity. Mitral valve prolapse pansystolic with trace to mild mitral regurgitation. DISCHARGE INSTRUCTIONS: 1. Discharge home today with family care. 2. Followup appointment with Dr. Zuleta on Sunday, November 17, 2019 at 11:30 a.m. Also the patient is to followup with Dr. Light. 3. The patient has home health referral. MEDICATIONS AT DISCHARGE: Aspirin 650 mg p.o. q.12hr p.r.n. Allopurinol 100 mg p.o. daily Atorvastatin 20 mg p.o. bedtime Clopidogrel 75 mg p.o. daily Diphenhydramine 25 mg p.o. bedtime Docusate Sodium 100 mg p.o. b.i.d. Escitalopram 5 mg p.o. daily Ferrous Sulfate 325 mg p.o. b.i.d. Furosemide 20 mg p.o. daily Hydrocodone-Acetaminophen 5-325 mg 0.5 tab p.o. daily p.r.n. Ipratropium-Albuterol 0.5 mg - 3 mg 3 mL inhalation b.i.d. Melatonin 10 mg p.o. bedtime Melatonin-lemon balm leaf ext 10-1 mg tablet one tablet p.o. bedtime p.r.n. Pantoprazole 40 mg p.o. daily Prednisone 5 mg p.o. daily Sennosides-Docusate sodium one tab p.o. b.i.d. Tacrolimus 2 mg p.o. b.i.d. NEW PRESCRIPTIONS: Symbicort two puff INH b.i.d. Coreg 6.25 mg p.o.b b.i.d. Flonase two spray intranasally daily Cozaar 50 mg p.o. b.i.d. MEDICATION CHANGES: Norvasc 10 mg at bedtime daily DISCONTINUED MEDICATIONS: Amlodipine 5 mg p.o. daily DIET INSTRUCTIONS: Regular diet - continue and eat well balanced meals, drink plenty of fluids. ACTIVITY: Gradually resume your activity as tolerated; use your walker at home for safety. SMOKING: N/A DISEASE SPECIFIC EDUCATION: Medications (new medications, medication changes) Diet (balanced meals) Activity with use of walker for safety Followup Home Health Referral HOSPITAL COURSE: 69-year-old /White female hospitalized with multiple medical problems, renal failure, anemia and UTI. The patient was fatigued and tired, unable to ambulate. The patient has been given 2 units PRBC. Anemia from chronic disorder based on CKD. She was given slow IV hydration. Kidney functions improved, GFR 20 cc/min followed by Dr. Light but hasn't seem him for awhile. Will make appointment for the patient to see Dr. Light and send records and strongly advised. The patient had E.coli and ESBL and given 7 doses of Ertapenem. The patient is afebrile with no symptoms of UTI. The patient's cardiovascular status was stable throughout her stay in hospital. Blood pressure fluctuating and certain adjustments were made in blood pressure medication. The patient will be on Amlodipine 10 mg at bedtime, Coreg 3.125 mg increased to 6.25 mg b.i.d. and cozaar 50 b.i.d. Advised to continue her Allopurinol, Atorvastatin, Plavix, iron pills, Lexapro, Protonix, Prednisone and Prograf 2 mg twice a day. Condition at time of discharge stable. Prognosis is guarded. TIME SPENT: More than 60 minutes. MTDD
[2019-11-11 13:59] VITALS: BP 127/72; TEMP 97.9
[2019-11-11] MEDS ORDERED: COREG PO SCH (17:00)
== END 2019-11-11 15:30 | disposition other institution (70) | DRG 999 ==
LOC: MEDSURG B 12:21
PROVIDERS: ADMIT Internal Medicine; ATTEND Internal Medicine

== ENCOUNTER 2020-02-19 11:16 | Inpatient (IN) ==
--- NOTE | 2020-02-19 11:38 | ED.PDOC ---
General ED Provider: Dr. AISHA BAHENA Chief Complaint: Nausea/Vomiting Stated Complaint: 69 year old white female with c/o recurrent UTI's, weakness, fatigue, n/v for last 4-5 days. Denies fever, but lethargic today. 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 Has recurrent E coli UTI with multiple drug resistant. Denies fever, chills,sweats, diarrhea, +n/v, + fatigue, + urgency and frequency. Time Seen by Physician: 11:20 Mode of Arrival: Wheelchair Information Source: Patient Exam Limitations: No limitations Primary Care Provider: ISADORA ZULETA Referred to ED by: PCP Nursing and Triage Documentation Reviewed and Agree: Yes Does patient meet sepsis criteria?: No If yes, has appropriate treatment been initiated?: Yes System Inflammatory Response Syndrome: Resp >20/Minute and Acutely Altered Mental Status Sepsis Protocol: For patient's 13 years and over: Temp is 96.8 and below OR 101 and greater Pulse >90 BPM Resp >20/minute Acutely Altered Mental Status Are patient's symptoms suggestive of a new infection, such as: -Pneumonia -Skin, Soft Tissue -Endocarditis -UTI -Bone, Joint Infection -Implantable Device -Acute Abdominal Infection -Wound Infection -Meningitis -Blood Stream Catheter Infection -Unknown Miscellaneous Complaint Exam Febrile Illness/Adult Complaint/Exam Onset/Duration: 4-5 days ago Symptoms Are: Still present Timing: Intermittent Episodes Lasting: Minutes Highest Temperature Recorded: unknown Initial Severity: Mild Current Severity: Moderate Aggravating: Reports Unknown Alleviating: Reports None Associated Signs and Symptoms: Reports Nausea, Vomiting, Dysuria, Arthralgia and Altered mental status Related History: Reports Similar episode Pseudomonas Risk Factors: Reports None Current Antibiotic Use: Yes Last Time and Dose of Tylenol (acetaminophen): 2 hours Related Surgical History: None (Kidney transplant) Review of Systems Review Of Systems Constitutional: Reports Loss of appetite Eyes: Reports No symptoms Ears, Nose, Mouth, Throat: Reports No symptoms Respiratory: Reports No symptoms Cardiac: Reports No symptoms GI: Reports Nausea, Poor fluid intake and Vomiting : Reports Dysuria, Frequency and Urgency Musculoskeletal: Reports No symptoms Skin: Reports No symptoms Neurological: Reports No symptoms Endocrine: Reports No symptoms Hematologic/Lymphatic: Reports No symptoms All Other Systems: Reviewed and Negative [facility] Medical History ASHD (arteriosclerotic heart disease) B12 deficiency Chronic anemia Chronic arthritis Depression Dyslipidemia History of chronic ear infection HTN (hypertension) PAD (peripheral artery disease) Pancreatitis Renal failure Sinusitis Family History FATHER Heart abnormality Mother Diabetes FATHER Heart attack Social History Smoking and tobacco status: Former smoker How long ago did patient quit smoking: many years ago History of recent travel: No Female Reproductive History Menstrual Hx Hysterectomy: No Hx Tubal Ligation: No Physical Exam Physical Exam Appearance: Reports Ill-appearing and Thin Ill-appearing: Mild Pain Distress: Mild Eyes: Reports OLU, EOMI and Conjunctiva clear ENT: Reports Ears normal, Nose normal and Oropharynx normal Respiratory: Reports Airway patent, Breath sounds clear, Breath sounds equal and Respirations nonlabored Cardiovascular: Reports RRR, Pulses normal, No rub and No murmur GI/: Reports Soft, Nontender, No masses, Bowel sounds normal and No Organomega ly Musculoskeletal: Reports Normal strength, ROM intact, No edema and No calf tenderness Skin: Reports Warm, Dry and Normal color Neurological: Reports Sensation intact, Motor intact, Reflexes intact, Cranial nerves intact, Alert and Oriented Psychiatric: Reports Affect appropriate and Mood appropriate Interpretation Radiology Interpretation Radiology Interpretation By: Radiologist Exam Interpreted: CXR Sampler Radioactive Waste Time of Sampler Radioactive Waste Interpretation: 11:20 Rate: Normal Rhythm: Sinus EKG Interpretation Time of EKG #1: 11:57 Rate: Normal Rhythm: Sinus Ectopy: None [place]: Left ST Segment: Other Interpretation: RBBB, non specific ST-T changes Re-Evaluation Re-Evaluation Time of Re-Evaluation: 15:00 Status: Improved Vital Signs Stable: Yes Appearance: NAD Lungs: Clear Skin: Warm and Dry Neuro: Alert and Oriented X3 CV: RRR Additional Comments: Will need admission for IV ABX Physician Notification Case Discussed Physician Notified: Song Time of Notification: 15:00 Admit/Transition Orders Entered by ED Provider: Yes Admit To: Inpatient Critical Care Note Critical Care Note Total Time (mins): 315 Course Course Hematology/Chemistry: 02/19/20 11:55 02/19/20 11:55 Orders, Labs, Meds: Lab Review 02/19/20 02/19/20 02/19/20 11:55 11:55 11:55 WBC 8.02 RBC 2.53 L Hgb 8.6 L Hct 26.1 L MCV 103.2 H MCH 34.0 H MCHC 33.0 RDW Coeff of Rivka 13.4 Plt Count 192 Immature Gran % (Auto) 0.7 Neut % (Auto) 78.7 H Lymph % (Auto) 11.6 [place] % (Auto) 7.1 Eos % (Auto) 1.5 Baso % (Auto) 0.4 Neut # (Auto) 6.3 Lymph # (Auto) 0.9 [place] # (Auto) 0.6 Eos # (Auto) 0.1 Baso # (Auto) 0.0 Immature Gran # (Auto) 0.1 PT 10.3 INR 1.05 Sodium 126.3 L Potassium 3.46 L Chloride 90.0 L Carbon Dioxide 23.5 Anion Gap 16.26 BUN 55.1 H Creatinine 2.71 H Estimated GFR (MDRD) 17.00 BUN/Creatinine Ratio 20.33 Glucose 96.2 Lactic Acid Calcium 9.56 Total Bilirubin 0.61 AST 27.3 ALT 10.3 Alkaline Phosphatase 45.4 L Total Creatine Kinase 35.9 Troponin I 0.017 Total Protein 7.38 Albumin 4.20 Globulin 3.18 Albumin/Globulin Ratio 1.32 Amylase 88.0 Lipase 84.4 Procalcitonin Urine Color Urine Clarity Urine pH Ur Specific [place] Urine Protein Urine Glucose (UA) Urine Ketones Urine Blood Urine Nitrite Urine Bilirubin Urine Urobilinogen Ur Leukocyte Esterase Urine Microscopic RBC Urine Microscopic WBC Ur Squamous Epith Cells Urine Bacteria 02/19/20 02/19/20 02/19/20 11:55 11:55 13:52 WBC RBC Hgb Hct MCV MCH MCHC RDW Coeff of [place] Plt Count Immature Gran % (Auto) Neut % (Auto) Lymph % (Auto) [place] % (Auto) Eos % (Auto) Baso % (Auto) Neut # (Auto) Lymph # (Auto) [place] # (Auto) Eos # (Auto) Baso # (Auto) Immature Gran # (Auto) PT INR Sodium Potassium Chloride Carbon Dioxide Anion Gap BUN Creatinine Estimated GFR (MDRD) BUN/Creatinine Ratio Glucose Lactic Acid 0.56 L Calcium Total Bilirubin AST ALT Alkaline Phosphatase Total Creatine Kinase Troponin I Total Protein Albumin Globulin Albumin/Globulin Ratio Amylase Lipase Procalcitonin < 0.05 Urine Color Yellow Urine Clarity Turbid Urine pH 6.5 Ur Specific [place] 1.015 Urine Protein 2+ H Urine Glucose (UA) Negative Urine Ketones Negative Urine Blood Trace-intact H Urine Nitrite Negative Urine Bilirubin Negative Urine Urobilinogen 0.2 Ur Leukocyte Esterase 3+ H Urine Microscopic RBC 0-2 Urine Microscopic WBC 30-50 Ur Squamous Epith Cells Not present Urine Bacteria 4+ Orders Category Date Time Status EKG-(ED ONLY) Stat CARDIO 02/19/20 11:41 Completed ED APPLY O2 .ONCE EMERGENCY 02/19/20 11:39 Active ED VITAL SIGNS Q1HR EMERGENCY 02/19/20 11:39 Active AMYLASE Stat LAB 02/19/20 11:55 Completed CBC W/ AUTO DIFF Stat LAB 02/19/20 11:55 Completed COMPREHENSIVE METABOLIC PANEL Stat LAB 02/19/20 11:55 Completed CREATINE KINASE Stat LAB 02/19/20 11:55 Completed LACTIC ACID Stat LAB 02/19/20 11:55 Completed LIPASE Stat LAB 02/19/20 11:55 Completed PROCALCITONIN Stat LAB 02/19/20 11:55 Completed PT WITH INR Stat LAB 02/19/20 11:55 Completed TROPONIN I Stat LAB 02/19/20 11:55 Completed URINALYSIS C & S IF INDICATED Stat LAB 02/19/20 13:52 Completed URINE CULTURE Stat LAB 02/19/20 13:52 Received Ceftriaxone/D5w 1 gm Premix [Rocephin 1 gm/50 ml D5w] MEDS 02/19/20 14:35 Discontinued 1 gm in 50 ml IV ONCE Sodium Chloride 0.9% [Sodium Chloride] 1,000 ml MEDS 02/19/20 11:42 Discontinued IV BOLUS CHEST, 2 VIEWS PA & LAT Stat RADS 02/19/20 11:[address] HEAD W/O CONTRAST Stat RADS 02/19/20 11:41 Completed Medications Discontinued Medications Generic Name Dose Route Start Last Admin Trade Name Freq PRN Reason Stop Dose Admin Sodium Chloride 1,000 mls @ 1,000 mls/hr 02/19/20 11:42 02/19/20 13:11 Sodium Chloride IV 02/19/20 12:41 1,000 mls/hr BOLUS STA Administration CEFTRIAXONE/D5W 1 GM PREMIX 1 gm in 50 mls @ 75 mls/hr 02/19/20 14:35 02/19/20 14:50 Rocephin 1 Gm/50 Ml D5w IV 02/19/20 15:14 75 mls/hr ONCE STA Administration [address] Report : [id number] Signed Patient: VANE RAMIREZ:[id number] Record: [id number] : 1950Loc: EDRoom/Bed: Age/Sex: 69 / FADM Status: REG ERDate of Service: 02/19/20 Ordering Physician: AISHA BAHENA MD Procedure(s): CT HEAD W/O CONTRAST Report Number(s): [id number] Accession Number(s): [id number] cc: AISHA BAHENA MD; ISADORA ZULETA MD EXAM: CT Head HISTORY: Headache COMPARISON: 06/16/2019 TECHNIQUE: CT head performed without contrast FINDINGS: There is no mass effect, midline shift, or intracranial hemmorhage. Myers white differentiation is preserved. There is no extra-axial collection. The ventricles, sulci, and basal cisterns are patent and symmetric. There is ch ronic ischemic disease of the white matter and cerebral volume loss. There is no depressed calvarial fracture. The mastoid air cells are clear. The visualized paranasal sinuses are clear. There are intracranial atherosclerotic calcifications. IMPRESSION: 1. No acute intracranial abnormality. 2. Chronic ischemic disease of the white matter and cerebral volume loss. Dictated By:NATHAN CORCORAN Signed By:NATHAN CORCORAN MD Dictated Date/Time: 02/19/20 1239 Transcribed Date/Time: 02/19/20 1239 Signed Date/Time: 02/19/[address] [address] Diagnostic Imaging Diagnostic Imaging Report : [id number] Signed Patient: VANE RAMIREZ:[id number] Record: [id number] : 1950Loc: EDRoom/Bed: Age/Sex: 69 / FADM Status: REG ERDate of Service: 02/19/20 Ordering Physician: AISHA BAHENA MD Procedure(s): CHEST, 2 VIEWS PA & LAT Report Number(s): [id number] Accession Number(s): [id number] cc: AISHA BAHENA MD; ISADORA ZULETA MD EXAM: Chest two views HISTORY: Vomiting COMPARISON: 11/05/2019 TECHNIQUE: Two views of the chest were performed FINDINGS: Bilateral interstitial prominence. Possible trace left pleural effusion. No visible pneumothorax. Heart is enlarged. Mediastinal contour unchanged, noting atherosclerosis. Surgical clips in the neck. IMPRESSION: Cardiomegaly. Bilateral interstitial prominence may represent interstitial edema or interstitial pneumonitis. There could be a component of chronic interstitial change. Dictated By:NATHAN CORCORAN Signed By:NATHAN CORCORAN MD Dictated Date/Time: 02/19/20 1235 Transcribed Date/Time: 02/19/20 1235 Signed Date/Time: 02/19/20 1242 Vital Signs: Temp Pulse Resp BP Pulse Ox 02/19/20 11:18 98.5 F 79 20 146/77 H 96 Discharge Plan Discharge Patient Disposition: TSF SHORT-TRM HOSP Discharge Problem: Acute UTI (urinary tract infection), Chronic kidney disease ED Provider: AISHA BAHENA Condition: Good Physician Progress Note: Discussed with Dr. Zuleta and family. Patient is a full code with EF of 20%. He will need txfer to [facility] in [place]. Patient accepted by Dr. Rudy Lowery as telemetry admission.
[2020-02-19] MEDS ORDERED: SODIUM CHLORIDE 1,000 ML IV STA (11:42)
[2020-02-19 12:04] LABS: BASOPHILS % (AUTO) 0.4 % (0.0-3.0); EOSINOPHILS # (AUTO) 0.1 K/ul (0.0-0.7); EOSINOPHILS % (AUTO) 1.5 % (0.0-7.0); HEMATOCRIT 26.1 % (37.0-47.0); HEMOGLOBIN 8.6 g/dl (12.0-16.0); IMMATURE GRANULOCYTE # (AUTO) 0.1 (0.0-1.0); IMMATURE GRANULOCYTE % (AUTO) 0.7 % (0.0-5.0); LYMPHOCYTES # (AUTO) 0.9 K/uL (0.60-3.4); LYMPHOCYTES % (AUTO) 11.6 (10.0-50.0); MEAN CORPUSCULAR VOLUME 103.2 fl (81.0-99.0); MONOCYTES # (AUTO) 0.6 K/uL (0.4-2.0); MONOCYTES % (AUTO) 7.1 (0-10); NEUTROPHILS # (AUTO) 6.3 K/ul (2.0-6.9); NEUTROPHILS % (AUTO) 78.7 % (42.2-75.2); PLATELET COUNT 192 10^3/uL (140-440); RDW COEFFICIENT OF VARIATION 13.4 % (11.6-14.8); RED BLOOD COUNT 2.53 10^6/ul (4.20-5.40); WHITE BLOOD COUNT 8.02 K/ul (4.6-10.2)
[2020-02-19 12:15] LABS: PROTHROMBIN TIME 10.3 SEC (9.3-11.0)
[2020-02-19 12:19] LABS: ALANINE AMINOTRANSFERASE 10.3 U/L (0-35); ALBUMIN 4.2 g/dL (3.5-5.0); ALKALINE PHOSPHATASE 45.4 U/L (53-141); ASPARTATE AMINO TRANSFERASE 27.3 U/L (14-36); BILIRUBIN,TOTAL 0.61 mg/dL (0.2-1.3); BLOOD UREA NITROGEN 55.1 mg/dL (7-17); CALCIUM 9.56 mg/dL (8.4-10.2); CARBON DIOXIDE 23.5 mmol/L (22-30.0); CREATINE KINASE 35.9 U/L (30-135); CREATININE 2.71 mg/dL (0.60-1.30); GLUCOSE 96.2 mg/dL (74-106); LIPASE 84.4 U/L (23-300); POTASSIUM 3.46 mmol/L (3.5-5.1); SODIUM 126.3 mmol/L (134.5-145); TOTAL PROTEIN 7.38 g/dL (6.3-8.2)
[2020-02-19 12:30] LABS: TROPONIN I 0.017 ng/ml (0.0000-0.120)
--- NOTE | 2020-02-19 12:42 | DI ---
EXAM: Chest two views HISTORY: Vomiting COMPARISON: 11/05/2019 TECHNIQUE: Two views of the chest were performed FINDINGS: Bilateral interstitial prominence. Possible trace left pleural effusion. No visible pneu mothorax. Heart is enlarged. Mediastinal contour unchanged, noting atherosclerosis. Surgical clips in the neck. IMPRESSION: Cardiomegaly. Bilateral interstitial prominence may represent interstitial edema or int erstitial pneumonitis. There could be a component of chronic interstitial change.
--- NOTE | 2020-02-19 12:47 | CT ---
EXAM: CT Head HISTORY: Headache COMPARISON: 06/16/2019 TECHNIQUE: CT head performed without contrast FINDINGS: There is no mass effect, midline shift, or intracranial hemmorhage. Myers white differenti ation is preserved. There is no extra-axial collection. The ventricles, sulci, and basal cisterns a re patent and symmetric. There is chronic ischemic disease of the white matter and cerebral volume l oss. There is no depressed calvarial fracture. The mastoid air cells are clear. The visualized para nasal sinuses are clear. There are intracranial atherosclerotic calcifications. IMPRESSION: 1. No acute intracranial abnormality. 2. Chronic ischemic disease of the white matter and cerebral volume loss.
[2020-02-19 14:16] LABS: BILIRUBIN,URINE Negative (NEGATIVE); CLARITY,URINE Turbid (CLEAR); COLOR,URINE Yellow (YELLOW); GLUCOSE, URINE (UA) Negative (NEGATIVE); KETONES,URINE Negative (NEGATIVE); LEUKOCYTE ESTERASE ,URINE 3+ (NEGATIVE); NITRITE,URINE Negative (NEGATIVE); PH,URINE 6.5 (5-9); PROTEIN,URINE 2+ (NEGATIVE); URINE, BLOOD Trace-intact (NEGATIVE); UROBILINOGEN,URINE 0.2 (0.2)
[2020-02-19 14:21] LABS: BACTERIA,URINE 4+ (NOT PRESENT); SQUAMOUS EPITHELIAL CELL,UR NOT PRESENT (0-5); URINE RBC, MICROSCOPIC 0-2 (0-2); URINE WBC, MICROSCOPIC 30-50 (0-2)
[2020-02-19] MEDS ORDERED: ROCEPHIN 1 GM/50 ML D5W 1 GM/50 ML BAG IV STA (14:35)
[2020-02-19 16:53] VITALS: BMI 22.8
[2020-02-19] MEDS ORDERED: INVANZ 0.5 GM in SODIUM CHLORIDE 50 ML IV SCH (17:30)
[2020-02-19] MEDS ORDERED: NITROSTAT SL PRN (17:30)
--- NOTE | 2020-02-19 17:30 | PCM ---
Chief Complaint Chief Complaint: nausea/vomiting. lethargy and dysuria History of Present Illness History of Present Illness: 69 year old female with UTI and probable SIRS response with inability to tolerate any po intake for last few days. 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 Review of Systems Constitutional: Reports Weakness and Fatigue Eyes: Reports No symptoms Ears: Reports No symptoms Nose: Reports No symptoms Throat: Reports No symptoms Mouth: Reports No symptoms Respiratory: Reports No symptoms Cardiovascular: Reports No symptoms Gastrointestinal: Reports Nausea, Vomiting and Diarrhea Genitourinary: Reports dysuria and frequency Neurological: Reports Other (mental status changes) Musculoskeletal: Reports No symptoms Skin: Reports No symptoms Immunology: Reports No symptoms Hematology: Reports No symptoms Endocrine: Reports No symptoms Psychiatric: Reports No symptoms Allergies Allergies Allergy/AdvReac Type Severity Reaction Status Date / Time sulfur dioxide Allergy Unknown Verified 02/19/20 15:31 ondansetron HCl [From Zofran] AdvReac Unknown Verified 02/19/20 15:31 ibuprofen AdvReac Verified 02/19/20 15:31 sulfur dioxide Allergy Unknown Uncoded 04/09/19 15:37 ondansetron HCl AdvReac Unknown Uncoded 04/09/19 15:37 PFSH Medical History (Updated 02/19/20 @ 16:58 by BRET MCINTOSH, GILBERTO) ASHD (arteriosclerotic heart disease) B12 deficiency Chronic anemia Chronic arthritis COPD (chronic obstructive pulmonary disease) Depression Dyslipidemia History of chronic ear infection HTN (hypertension) PAD (peripheral artery disease) Pancreatitis Renal failure Sinusitis Surgical History (Updated 01/11/20 @ 08:46 by [facility] [place]) History of genitourinary surgery Family History FATHER Heart abnormality Mother Diabetes FATHER Heart attack Social History Smoking and tobacco status: Former smoker How long ago did patient quit smoking: many years ago History of recent travel: No Medications Medications: Medications Generic Name Dose Route Start Last Admin Trade Name Freq PRN Reason Stop Dose Admin Hydrocodone Bitart/Acetaminophen 0.5 tab 02/19/20 17:15 Hydrocodone Bit/Acetaminophen 5/325 Mg Tablet PO DAILY PRN Pain Allopurinol 100 mg 02/20/20 09:00 Allopurinol 100 Mg Tablet PO DAILY SHERRELL Amlodipine Besylate 5 mg 02/19/20 21:00 Amlodipine Besylate 5 Mg Tablet PO BEDTIME [facility] Aspirin 81 mg 02/20/20 09:00 Aspirin 81 Mg Tablet. PO DAILY [facility] Atorvastatin Calcium 20 mg 02/19/20 21:00 Atorvastatin Calcium 20 Mg Tablet PO BEDTIME [facility] Budesonide/Formoterol Fumarate 2 puff 02/19/20 21:00 Budesonide/Formoterol Fumarate 160/4.5 Mcg Inhaler IH BID [facility] Clopidogrel Bisulfate 75 mg 02/20/20 09:00 Clopidogrel Bisulfate 75 Mg Tablet PO DAILY [facility] Diphenhydramine HCl 25 mg 02/19/20 21:00 Diphenhydramine Hcl 25 Mg Capsule PO BEDTIME [facility] Docusate Sodium 100 mg 02/19/20 21:00 Docusate Sodium 100 Mg Capsule PO BID [facility] Escitalopram Oxalate 5 mg 02/20/20 09:00 Escitalopram Oxalate 10 Mg Tablet PO DAILY [facility] Ferrous Sulfate 324 mg 02/19/20 21:00 Ferrous Sulfate 324 Mg Tablet. PO BID [facility] Fluticasone Propionate 2 spray 02/20/20 09:00 Fluticasone Propionate 16 Gm Nasal [place] PELON DAILY [facility] Furosemide 20 mg 02/20/20 06:00 Furosemide 20 Mg Tablet PO DAILY [facility] Ertapenem 0.5 gm/ Sodium 50 mls @ 75 mls/hr 02/19/20 17:30 Chloride IV 02/22/20 17:29 DAILY [facility] Non-Formulary Medication 100 mg 02/19/20 21:00 Docusate Sodium PO BID [facility] Non-Formulary Medication 10 mg 02/19/20 21:00 Melatonin PO BEDTIME [facility] Non-Formulary Medication 2 mg 02/19/20 21:00 Tacrolimus [Prograf] PO BID [facility] Pantoprazole Sodium 40 mg 02/20/20 09:00 Pantoprazole Sodium 40 Mg Tablet. PO DAILY [facility] Prednisone 2.5 mg 02/20/20 09:00 Prednisone 5 Mg Tablet PO DAILY [facility] Sennosides 8.6 mg 02/19/20 21:00 Sennosides 8.6 Mg Tablet PO BID [facility] Body Composition Height: 5 ft 5 in Weight: 137 lb 2.04 oz Body Mass Index (BMI): 22.8 Vital Signs Temperature: 97.4 F Pulse Rate: 88 Respiratory Rate: 22 Blood Pressure: 146/77 O2 Sat by Pulse Oximetry: 100 Physical Examination Appearance: Reports Ill-appearing (chronically), No pain distress and Well- nourished Ill-appearing: Mild Pain Distress: None Eyes: Reports OLU, EOMI and Conjunctiva clear ENT: Reports Ears normal, Nose normal and Oropharynx normal Respiratory: Reports Airway patent, Breath sounds clear and Breath sounds equal Cardiovascular: Reports RRR, Pulses normal, No rub and No murmur GI/: Reports Soft, Nontender, No masses, Bowel sounds normal and No Organomegaly Musculoskeletal: Reports Normal strength, ROM intact, No edema and No calf tenderness Skin: Reports Warm, Dry and Normal color Neurological: Reports Sensation intact, Motor intact, Reflexes intact, Cranial nerves intact, Alert and Oriented Psychiatric: Reports Affect appropriate and Mood appropriate Lab/Tests/Diagnostic Imaging Lab/Tests/Diagnostic Imaging: Lab Review 02/19/20 02/19/20 02/19/20 11:55 11:55 11:55 WBC 8.02 RBC 2.53 L Hgb 8.6 L Hct 26.1 L MCV 103.2 H MCH 34.0 H MCHC 33.0 RDW Coeff of [place] 13.4 Plt Count 192 Immature Gran % (Auto) 0.7 Neut % (Auto) 78.7 H Lymph % (Auto) 11.6 [place] % (Auto) 7.1 Eos % (Auto) 1.5 Baso % (Auto) 0.4 Neut # (Auto) 6.3 Lymph # (Auto) 0.9 [place] # (Auto) 0.6 Eos # (Auto) 0.1 Baso # (Auto) 0.0 Immature Gran # (Auto) 0.1 PT 10.3 INR 1.05 Sodium 126.3 L Potassium 3.46 L Chloride 90.0 L Carbon Dioxide 23.5 Anion Gap 16.26 BUN 55.1 H Creatinine 2.71 H Estimated GFR (MDRD) 17.00 BUN/Creatinine Ratio 20.33 Glucose 96.2 Lactic Acid Calcium 9.56 Total Bilirubin 0.61 AST 27.3 ALT 10.3 Alkaline Phosphatase 45.4 L Total Creatine Kinase 35.9 Troponin I 0.017 Total Protein 7.38 Albumin 4.20 Globulin 3.18 Albumin/Globulin Ratio 1.32 Amylase 88.0 Lipase 84.4 Procalcitonin Urine Color Urine Clarity Urine pH Ur Specific [place] Urine Protein Urine Glucose (UA) Urine Ketones Urine Blood Urine Nitrite Urine Bilirubin Urine Urobilinogen Ur Leukocyte Esterase Urine Microscopic RBC Urine Microscopic WBC Ur Squamous Epith Cells Urine Bacteria 02/19/20 02/19/20 02/19/20 11:55 11:55 13:52 WBC RBC Hgb Hct MCV MCH MCHC RDW Coeff of [place] Plt Count Immature Gran % (Auto) Neut % (Auto) Lymph % (Auto) [place] % (Auto) Eos % (Auto) Baso % (Auto) Neut # (Auto) Lymph # (Auto) [place] # (Auto) Eos # (Auto) Baso # (Auto) Immature Gran # (Auto) PT INR Sodium Potassium Chloride Carbon Dioxide Anion Gap BUN Creatinine Estimated GFR (MDRD) BUN/Creatinine Ratio Glucose Lactic Acid 0.56 L Calcium Total Bilirubin AST ALT Alkaline Phosphatase Total Creatine Kinase Troponin I Total Protein Albumin Globulin Albumin/Globulin Ratio Amylase Lipase Procalcitonin < 0.05 Urine Color Yellow Urine Clarity Turbid Urine pH 6.5 Ur Specific [place] 1.015 Urine Protein 2+ H Urine Glucose (UA) Negative Urine Ketones Negative Urine Blood Trace-intact H Urine Nitrite Negative Urine Bilirubin Negative Urine Urobilinogen 0.2 Ur Leukocyte Esterase 3+ H Urine Microscopic RBC 0-2 Urine Microscopic WBC 30-50 Ur Squamous Epith Cells Not present Urine Bacteria 4+ Orders Category Date Time Status ADMIT PATIENT INPATIENT .TO MEDSURG (NON-MONITORED ADMISSION 02/19/20 16:30 Active BED) EKG-(ED ONLY) Stat CARDIO 02/19/20 11:41 Completed EKG-(IP & OP ONLY) Routine CARDIO 02/20/20 08:00 Ordered ACTIVITY .BR with BRP CARE 02/19/20 17:20 Ordered INCISION/WOUND CARE Q6HR CARE 02/19/20 17:20 Ordered INTAKE & OUTPUT Q8HR CARE 02/19/20 17:20 Ordered Notify RT of Treatment ONCE CARE 02/19/20 17:20 Active VITAL SIGNS Q8HR CARE 02/19/20 17:20 Ordered REGULAR DIET DIETARY 02/19/20 Dinner Ordered ED APPLY O2 .ONCE EMERGENCY 02/19/20 11:39 Active ED VITAL SIGNS Q1HR EMERGENCY 02/19/20 11:39 Completed AMYLASE Stat LAB 02/19/20 11:55 Completed CBC W/ AUTO DIFF DAILY@0600 LAB 02/20/20 06:00 Ordered CBC W/ AUTO DIFF DAILY@0600 LAB 02/21/20 06:00 Ordered CBC W/ AUTO DIFF Stat LAB 02/19/20 11:55 Completed CMP [COMPREHENSIVE METABOLIC PANEL] DAILY@0600 LAB 02/20/20 06:00 Ordered CMP [COMPREHENSIVE METABOLIC PANEL] DAILY@0600 LAB 02/21/20 06:00 Ordered CMP [COMPREHENSIVE METABOLIC PANEL] DAILY@0600 LAB 02/22/20 06:00 Ordered COMPREHENSIVE METABOLIC PANEL Stat LAB 02/19/20 11:55 Completed CREATINE KINASE Stat LAB 02/19/20 11:55 Completed LACTIC ACID Stat LAB 02/19/20 11:55 Completed LIPASE Stat LAB 02/19/20 11:55 Completed PROCALCITONIN Stat LAB 02/19/20 11:55 Completed PT WITH INR Stat LAB 02/19/20 11:55 Completed T4 [T4 (THYROXINE)] Routine LAB 02/20/20 06:00 Ordered TROPONIN I Stat LAB 02/19/20 11:55 Completed TSH [THYROID STIMULATING HORMONE] Routine LAB 02/20/20 17:19 Ordered URINALYSIS C & S IF INDICATED Stat LAB 02/19/20 13:52 Completed URINE CULTURE Stat LAB 02/19/20 13:52 Received Allopurinol [Zyloprim] MEDS 02/20/20 09:00 Ordered 100 mg PO DAILY Amlodipine Besylate [Norvasc] MEDS 02/19/20 21:00 Ordered 5 mg PO BEDTIME Aspirin [Aspirin EC] MEDS 02/20/20 09:00 Ordered 81 mg PO DAILY Atorvastatin Calcium [Lipitor] MEDS 02/19/20 21:00 Ordered 20 mg PO BEDTIME Budesonide/Formoterol Fumarate [Symbicort 160-4.5 Mcg MEDS 02/19/20 21:00 Ordered Inhaler] 2 puff IH BID Ceftriaxone/D5w 1 gm Premix [Rocephin 1 gm/50 ml D5w] MEDS 02/19/20 14:35 Discontinued 1 gm in 50 ml IV ONCE Clopidogrel Bisulfate [Plavix] MEDS 02/20/20 09:00 Ordered 75 mg PO DAILY Diphenhydramine HCl [Benadryl] MEDS 02/19/20 21:00 Ordered 25 mg PO BEDTIME Docusate Sodium [Colace] MEDS 02/19/20 21:00 Ordered 100 mg PO BID Enoxaparin Sodium [Lovenox] MEDS 02/19/20 17:30 Ordered 30 mg SUBCUT DAILY Ertapenem Sodium [Invanz] 0.5 gm MEDS 02/19/20 17:30 Ordered 0.9 % Sodium Chloride [Sodium Chloride] 50 ml IV DAILY Ertapenem Sodium [Invanz] 0.5 gm MEDS 02/19/20 17:30 Ordered 0.9 % Sodium Chloride [Sodium Chloride] 50 ml IV DAILY Escitalopram Oxalate [Lexapro] MEDS 02/20/20 09:00 Ordered 5 mg PO DAILY Ferrous Sulfate MEDS 02/19/20 21:00 Ordered 324 mg PO BID Fluticasone Propionate [Flonase] MEDS 02/20/20 09:00 Ordered 2 spray PELON DAILY Furosemide [Lasix Tab] MEDS 02/20/20 06:00 Ordered 20 mg PO DAILY Hydrocodone Bit/Acetaminophen [[place] 5-325] MEDS 02/19/20 17:15 Ordered 0.5 tab PO DAILY PRN Pantoprazole Sodium [Protonix] MEDS 02/20/20 09:00 Ordered 40 mg PO DAILY Potassium Chloride in 0.9%NaCl [Sodium Chloride 0.9%- MEDS 02/19/20 17:30 Ordered KCl 20 Meq] 1,000 ml IV 75 mls/hr Prednisone MEDS 02/20/20 09:00 Ordered 2.5 mg PO DAILY Sennosides [Senna] MEDS 02/19/20 21:00 Ordered 8.6 mg PO BID Sodium Chloride 0.9% [Sodium Chloride] 1,000 ml MEDS 02/19/20 11:42 Discontinued IV BOLUS docusate sodium MEDS 02/19/20 21:00 Ordered 100 mg PO BID melatonin MEDS 02/19/20 21:00 Ordered 10 mg PO BEDTIME tacrolimus [Prograf] MEDS 02/19/20 21:00 Ordered 2 mg PO BID RESUSCITATION STATUS Routine OTHERS 02/19/20 16:55 Ordered CHEST, 2 VIEWS PA & LAT Stat RADS 02/19/20 11:[address] HEAD W/O CONTRAST Stat RADS 02/19/20 11:41 Completed OT CONSULTATION Routine THERAPIES 02/19/20 Ordered PT CONSULT Routine THERAPIES 02/19/20 Ordered Medications Generic Name Dose Route Start Last Admin Trade Name Freq PRN Reason Stop Dose Admin Hydrocodone Bitart/Acetaminophen 0.5 tab 02/19/20 17:15 Hydrocodone Bit/Acetaminophen 5/325 Mg Tablet PO DAILY PRN Pain Allopurinol 100 mg 02/20/20 09:00 Allopurinol 100 Mg Tablet PO DAILY [facility] Amlodipine Besylate 5 mg 02/19/20 21:00 Amlodipine Besylate 5 Mg Tablet PO BEDTIME [facility] Aspirin 81 mg 02/20/20 09:00 Aspirin 81 Mg Tablet. PO DAILY [facility] Atorvastatin Calcium 20 mg 02/19/20 21:00 Atorvastatin Calcium 20 Mg Tablet PO BEDTIME [facility] Budesonide/Formoterol Fumarate 2 puff 02/19/20 21:00 Budesonide/Formoterol Fumarate 160/4.5 Mcg Inhaler IH BID [facility] Clopidogrel Bisulfate 75 mg 02/20/20 09:00 Clopidogrel Bisulfate 75 Mg Tablet PO DAILY [facility] Diphenhydramine HCl 25 mg 02/19/20 21:00 Diphenhydramine Hcl 25 Mg Capsule PO BEDTIME [facility] Docusate Sodium 100 mg 02/19/20 21:00 Docusate Sodium 100 Mg Capsule PO BID [facility] Escitalopram Oxalate 5 mg 02/20/20 09:00 Escitalopram Oxalate 10 Mg Tablet PO DAILY [facility] Ferrous Sulfate 324 mg 02/19/20 21:00 Ferrous Sulfate 324 Mg Tablet. PO BID [facility] Fluticasone Propionate 2 spray 02/20/20 09:00 Fluticasone Propionate 16 Gm Nasal [place]ELON DAILY [facility] Furosemide 20 mg 02/20/20 06:00 Furosemide 20 Mg Tablet PO DAILY [facility] Ertapenem 0.5 gm/ Sodium 50 mls @ 75 mls/hr 02/19/20 17:30 Chloride IV 02/22/20 17:29 DAILY [facility] Non-Formulary Medication 100 mg 02/19/20 21:00 Docusate Sodium PO BID [facility] Non-Formulary Medication 10 mg 02/19/20 21:00 Melatonin PO BEDTIME [facility] Non-Formulary Medication 2 mg 02/19/20 21:00 Tacrolimus [Prograf] PO BID [facility] Pantoprazole Sodium 40 mg 02/20/20 09:00 Pantoprazole Sodium 40 Mg Tablet. PO DAILY [facility] Prednisone 2.5 mg 02/20/20 09:00 Prednisone 5 Mg Tablet PO DAILY [facility] Sennosides 8.6 mg 02/19/20 21:00 Sennosides 8.6 Mg Tablet PO BID [facility] Discontinued Medications Generic Name Dose Route Start Last Admin Trade Name Freq PRN Reason Stop Dose Admin Sodium Chloride 1,000 mls @ 1,000 mls/hr 02/19/20 11:42 02/19/20 13:11 Sodium Chloride IV 02/19/20 12:41 1,000 mls/hr BOLUS STA Administration CEFTRIAXONE/D5W 1 GM PREMIX 1 gm in 50 mls @ 75 mls/hr 02/19/20 14:35 02/19/20 14:50 Rocephin 1 Gm/50 Ml D5w IV 02/19/20 15:14 75 mls/hr ONCE STA Administration Plan Plan: Discussed with Dr. Zuleta. Admit telemetry for hydration and IV antibiotics.
[2020-02-19] MEDS ORDERED: INVANZ ONE (17:43)
[2020-02-19] MEDS: INVANZ 0.5 GM in SODIUM CHLORIDE 50 ML IV SCH (17:48)
[2020-02-19] MEDS: TACROLIMUS 1 MG PO SCH (20:56)
[2020-02-19] MEDS: SODIUM CHLORIDE 0.9%-KCL 20 MEQ 1,000 ML IV SCH (20:57)
[2020-02-19] MEDS ORDERED: NON-FORMULARY MEDICATION (Ferrous Sulfate 325 mg (65 mg iron) Tablet) PO SCH (21:00)
[2020-02-19] MEDS ORDERED: [UNRECOGNIZED DRUG - OTHER] PO SCH (21:00)
[2020-02-19] MEDS ORDERED: SENNOSIDES DOCUSATE SODIUM PO SCH (21:00)
[2020-02-19] MEDS: BENADRYL PO SCH (21:25)
[2020-02-19] MEDS: COLACE PO SCH (21:25)
[2020-02-19] MEDS: LOVENOX SUBCUT SCH (21:26)
[2020-02-19] MEDS: LIPITOR PO SCH (21:26)
[2020-02-19] MEDS: FERROUS SULFATE PO SCH (21:26)
[2020-02-19] MEDS: SENNA PO SCH (21:30)
[2020-02-19] MEDS: NORVASC PO SCH (21:30)
[2020-02-19] MEDS: SYMBICORT 160-4.5 MCG INHALER IH SCH (21:31)
[2020-02-19] MEDS: NORCO 5-325 PO PRN (21:32)
[2020-02-20 02:28] LABS: BASOPHILS % (AUTO) 0.4 % (0.0-3.0); EOSINOPHILS # (AUTO) 0.1 K/ul (0.0-0.7); EOSINOPHILS % (AUTO) 1.7 % (0.0-7.0); HEMATOCRIT 23.3 % (37.0-47.0); HEMOGLOBIN 7.6 g/dl (12.0-16.0); IMMATURE GRANULOCYTE % (AUTO) 0.4 % (0.0-5.0); LYMPHOCYTES # (AUTO) 1.7 K/uL (0.60-3.4); LYMPHOCYTES % (AUTO) 24.1 (10.0-50.0); MEAN CORPUSCULAR HEMOGLOBIN 34.2 pg (27.0-31.0); MEAN CORPUSCULAR HGB CONC 32.6 (31.8-35.4); MONOCYTES # (AUTO) 0.9 K/uL (0.4-2.0); MONOCYTES % (AUTO) 12.6 (0-10); NEUTROPHILS # (AUTO) 4.3 K/ul (2.0-6.9); NEUTROPHILS % (AUTO) 60.8 % (42.2-75.2); PLATELET COUNT 180 10^3/uL (140-440); RDW COEFFICIENT OF VARIATION 13.5 % (11.6-14.8); RED BLOOD COUNT 2.22 10^6/ul (4.20-5.40); WHITE BLOOD COUNT 7.09 K/ul (4.6-10.2)
[2020-02-20 02:40] LABS: ALANINE AMINOTRANSFERASE 9.5 U/L (0-35); ALBUMIN 3.5 g/dL (3.5-5.0); ALKALINE PHOSPHATASE 40.2 U/L (53-141); ASPARTATE AMINO TRANSFERASE 32.2 U/L (14-36); BILIRUBIN,TOTAL 0.39 mg/dL (0.2-1.3); BLOOD UREA NITROGEN 52.1 mg/dL (7-17); CALCIUM 8.68 mg/dL (8.4-10.2); CARBON DIOXIDE 21.6 mmol/L (22-30.0); CHLORIDE 97.4 mmol/L (98-107); CREATININE 2.69 mg/dL (0.60-1.30); GLUCOSE 62.2 mg/dL (74-106); POTASSIUM 3.58 mmol/L (3.5-5.1); SODIUM 129.4 mmol/L (134.5-145); TOTAL PROTEIN 6.47 g/dL (6.3-8.2)
[2020-02-20 02:53] LABS: TROPONIN I 0.046 ng/ml (0.0000-0.120)
[2020-02-20 03:11] LABS: THYROID STIMULATING HORMONE 0.511 uIU/L (0.465-4.68)
[2020-02-20] MEDS ORDERED: LASIX TAB PO SCH (06:00)
[2020-02-20] MEDS: PREDNISONE PO SCH (08:58)
[2020-02-20] MEDS: FLONASE NAS SCH (08:58)
[2020-02-20] MEDS: LEXAPRO PO SCH (08:59)
[2020-02-20] MEDS: PLAVIX PO SCH (08:59)
[2020-02-20] MEDS: PROTONIX PO SCH (08:59)
[2020-02-20] MEDS: ASPIRIN EC PO SCH (08:59)
[2020-02-20] MEDS: COLACE PO SCH ×2 (08:59→20:34)
[2020-02-20] MEDS: FERROUS SULFATE PO SCH ×2 (08:59→20:34)
[2020-02-20] MEDS: ZYLOPRIM PO SCH (09:00)
[2020-02-20] MEDS: INVANZ 0.5 GM in SODIUM CHLORIDE 50 ML IV SCH (09:00)
[2020-02-20] MEDS: SENNA PO SCH ×2 (09:00→20:33)
[2020-02-20] MEDS: TACROLIMUS 1 MG PO SCH ×2 (09:02→20:39)
[2020-02-20] MEDS: LOVENOX SUBCUT SCH (09:02)
[2020-02-20] MEDS: SYMBICORT 160-4.5 MCG INHALER IH SCH ×2 (09:10→20:36)
[2020-02-20] MEDS ORDERED: POTASSIUM CHLORIDE 10 MEQ VIAL- ADDITIVE ONLY IV ONE (12:15)
[2020-02-20] MEDS: [UNRECOGNIZED DRUG - MIXTURE] IV SCH (12:20)
[2020-02-20] MEDS: NON-FORMULARY MEDICATION (Melatonin 5 mg Tablet) PO SCH ×2 (16:57→20:45)
[2020-02-20] MEDS: SODIUM CHLORIDE 0.9%-KCL 20 MEQ 1,000 ML IV SCH (16:57)
[2020-02-20 17:40] LABS: HEMATOCRIT 26.3 % (37.0-47.0); HEMOGLOBIN 8.7 g/dl (12.0-16.0)
[2020-02-20] MEDS: LIPITOR PO SCH (20:33)
[2020-02-20] MEDS: BENADRYL PO SCH (20:34)
[2020-02-20] MEDS: NORVASC PO SCH (20:34)
[2020-02-21 05:27] LABS: BASOPHILS % (AUTO) 0.2 % (0.0-3.0); EOSINOPHILS # (AUTO) 0.2 K/ul (0.0-0.7); EOSINOPHILS % (AUTO) 2.6 % (0.0-7.0); HEMATOCRIT 24.2 % (37.0-47.0); HEMOGLOBIN 7.9 g/dl (12.0-16.0); IMMATURE GRANULOCYTE # (AUTO) 0.1 (0.0-1.0); IMMATURE GRANULOCYTE % (AUTO) 0.6 % (0.0-5.0); LYMPHOCYTES # (AUTO) 1.5 K/uL (0.60-3.4); LYMPHOCYTES % (AUTO) 17.3 (10.0-50.0); MEAN CORPUSCULAR HEMOGLOBIN 33.2 pg (27.0-31.0); MEAN CORPUSCULAR HGB CONC 32.6 (31.8-35.4); MEAN CORPUSCULAR VOLUME 101.7 fl (81.0-99.0); MONOCYTES # (AUTO) 1.1 K/uL (0.4-2.0); MONOCYTES % (AUTO) 12.9 (0-10); NEUTROPHILS # (AUTO) 5.8 K/ul (2.0-6.9); NEUTROPHILS % (AUTO) 66.4 % (42.2-75.2); PLATELET COUNT 162 10^3/uL (140-440); RDW COEFFICIENT OF VARIATION 17.6 % (11.6-14.8); RED BLOOD COUNT 2.38 10^6/ul (4.20-5.40); WHITE BLOOD COUNT 8.68 K/ul (4.6-10.2)
[2020-02-21 05:39] LABS: ALANINE AMINOTRANSFERASE 9.1 U/L (0-35); ALBUMIN 2.98 g/dL (3.5-5.0); ALKALINE PHOSPHATASE 35.6 U/L (53-141); ASPARTATE AMINO TRANSFERASE 22.4 U/L (14-36); BILIRUBIN,TOTAL 0.33 mg/dL (0.2-1.3); BLOOD UREA NITROGEN 50.4 mg/dL (7-17); CALCIUM 8.12 mg/dL (8.4-10.2); CARBON DIOXIDE 22.8 mmol/L (22-30.0); CHLORIDE 101.7 mmol/L (98-107); CREATININE 2.67 mg/dL (0.60-1.30); GLUCOSE 80.1 mg/dL (74-106); SODIUM 130.5 mmol/L (134.5-145); TOTAL PROTEIN 5.79 g/dL (6.3-8.2)
[2020-02-21] MEDS: PROTONIX PO SCH ×2 (06:13→17:17)
[2020-02-21] MEDS: LASIX TAB PO SCH (06:13)
[2020-02-21] MEDS: [UNRECOGNIZED DRUG - MIXTURE] IV SCH (08:47)
[2020-02-21] MEDS: PREDNISONE PO SCH (09:25)
[2020-02-21] MEDS: ASPIRIN EC PO SCH (09:25)
[2020-02-21] MEDS: INVANZ 0.5 GM in SODIUM CHLORIDE 50 ML IV SCH (09:26)
[2020-02-21] MEDS: PLAVIX PO SCH (09:26)
[2020-02-21] MEDS: ZYLOPRIM PO SCH (09:26)
[2020-02-21] MEDS: FERROUS SULFATE PO SCH ×2 (09:26→20:29)
[2020-02-21] MEDS: LEXAPRO PO SCH (09:26)
[2020-02-21] MEDS: SYMBICORT 160-4.5 MCG INHALER IH SCH ×2 (09:27→20:30)
[2020-02-21] MEDS: FLONASE NAS SCH (09:27)
[2020-02-21] MEDS: LOVENOX SUBCUT SCH (09:28)
[2020-02-21] MEDS: COLACE PO SCH ×2 (09:34→20:28)
[2020-02-21] MEDS: SENNA PO SCH ×2 (09:34→20:28)
[2020-02-21] MEDS: TACROLIMUS 1 MG PO SCH ×2 (09:35→20:29)
[2020-02-21] MEDS ORDERED: PHENERGAN 25 MG/ML VIAL 12.5 MG in SODIUM CHLORIDE 50 ML IV PRN (11:25)
[2020-02-21 17:43] LABS: HEMOGLOBIN 10.3 g/dl (12.0-16.0)
[2020-02-21] MEDS: LIPITOR PO SCH (20:28)
[2020-02-21] MEDS: BENADRYL PO SCH (20:28)
[2020-02-21] MEDS: NORVASC PO SCH (20:29)
[2020-02-21] MEDS: NON-FORMULARY MEDICATION (Melatonin 5 mg Tablet) PO SCH (20:29)
[2020-02-22 04:50] LABS: BASOPHILS % (AUTO) 0.3 % (0.0-3.0); EOSINOPHILS # (AUTO) 0.3 K/ul (0.0-0.7); EOSINOPHILS % (AUTO) 3.4 % (0.0-7.0); HEMOGLOBIN 9.2 g/dl (12.0-16.0); IMMATURE GRANULOCYTE % (AUTO) 0.5 % (0.0-5.0); LYMPHOCYTES # (AUTO) 1.7 K/uL (0.60-3.4); LYMPHOCYTES % (AUTO) 21.7 (10.0-50.0); MEAN CORPUSCULAR HEMOGLOBIN 32.6 pg (27.0-31.0); MEAN CORPUSCULAR HGB CONC 32.9 (31.8-35.4); MEAN CORPUSCULAR VOLUME 99.3 fl (81.0-99.0); MONOCYTES % (AUTO) 12.5 (0-10); NEUTROPHILS # (AUTO) 4.7 K/ul (2.0-6.9); NEUTROPHILS % (AUTO) 61.6 % (42.2-75.2); PLATELET COUNT 149 10^3/uL (140-440); RDW COEFFICIENT OF VARIATION 18.6 % (11.6-14.8); RED BLOOD COUNT 2.82 10^6/ul (4.20-5.40); WHITE BLOOD COUNT 7.62 K/ul (4.6-10.2)
[2020-02-22 05:01] LABS: ALANINE AMINOTRANSFERASE 9.1 U/L (0-35); ALBUMIN 3.12 g/dL (3.5-5.0); ALKALINE PHOSPHATASE 37.8 U/L (53-141); BILIRUBIN,TOTAL 0.52 mg/dL (0.2-1.3); CALCIUM 8.42 mg/dL (8.4-10.2); CARBON DIOXIDE 23.7 mmol/L (22-30.0); CREATININE 2.73 mg/dL (0.60-1.30); GLUCOSE 84.9 mg/dL (74-106); POTASSIUM 4.45 mmol/L (3.5-5.1); SODIUM 133.8 mmol/L (134.5-145); TOTAL PROTEIN 5.98 g/dL (6.3-8.2)
[2020-02-22] MEDS: LASIX TAB PO SCH (05:51)
[2020-02-22] MEDS: PROTONIX PO SCH ×2 (05:51→18:48)
[2020-02-22] MEDS: TACROLIMUS 1 MG PO SCH ×2 (08:47→20:29)
[2020-02-22] MEDS: INVANZ 0.5 GM in SODIUM CHLORIDE 50 ML IV SCH (08:47)
[2020-02-22] MEDS: ASPIRIN EC PO SCH (08:48)
[2020-02-22] MEDS: FERROUS SULFATE PO SCH ×2 (08:48→20:29)
[2020-02-22] MEDS: LEXAPRO PO SCH (08:48)
[2020-02-22] MEDS: SENNA PO SCH ×2 (08:49→20:29)
[2020-02-22] MEDS: PLAVIX PO SCH (08:49)
[2020-02-22] MEDS: COLACE PO SCH ×2 (08:49→20:30)
[2020-02-22] MEDS: PREDNISONE PO SCH (08:49)
[2020-02-22] MEDS: ZYLOPRIM PO SCH (08:50)
[2020-02-22] MEDS: LOVENOX SUBCUT SCH (08:50)
[2020-02-22] MEDS: SODIUM CHLORIDE 1,000 ML IV SCH (09:01)
[2020-02-22] MEDS: FLONASE NAS SCH (09:01)
[2020-02-22] MEDS: SYMBICORT 160-4.5 MCG INHALER IH SCH ×2 (09:22→20:28)
--- NOTE | 2020-02-22 09:24 | PCM.PROG ---
Attending Provider: ATTENDING PROVIDER: Dr. ISADORA BRYANT This patient is seen with Bre Person, Nurse Practitioner. DATE OF SERVICE: 02/22/20 SUBJECTIVE: This 69 year old /WHITE F was hospitalized 02/19/20. The patient is resting comfortably in bed. Denies nausea or vomiting. She has not had any fever. Hemoglobin is stable at 9.2 this morning. She is eating and drinking well. Will continue IV antibiotics. Urine culture reviewed. REVIEW OF SYSTEMS: CONSTITUTIONAL: Weakness. No night sweats. No fatigue, malaise, lethargy. No fever or chills. HEENT: Eyes: No visual changes. No eye pain. No eye discharge. ENT: No runny nose. No epistaxis. No sinus pain. No odynophagia. No congestion. RESPIRATORY: No cough, no congestion. No hemoptysis. No shortness of breath. CARDIOVASCULAR: No angina symptoms. No CHF symptoms. No atypical chest pain for CAD. No palpitations. No orthopnea.. GASTROINTESTINAL: No abdominal pain. Nausea, vomiting. No diarrhea or constipation. No hematemesis. No hematochezia. GENITOURINARY: No urgency. No frequency. No dysuria. No hematuria. No obstructive symptoms. No discharge. No pain. No significant abnormal bleeding. MUSCULOSKELETAL: No musculoskeletal pain; no joint swelling. NEUROLOGICAL: Awake, alert, oriented to time, place and person. Positive for headache. No neck pain. No syncope. No seizures. No dizziness. PSYCHIATRIC: Not anxious. No depression. No suicidal thoughts. No homicidal thoughts. SKIN: No rash. No lesions. No wounds. ENDOCRINE: No unexplained weight loss. No weight gain. HEMATOLOGIC/LYMPHATIC: Anemia improved. No purpura. No petechiae. No prolonged or excessive bleeding. No palpable lymph nodes. PHYSICAL EXAMINATION: GENERAL: The patient is awake, alert and oriented, lying/sitting in bed in no distress. VITAL SIGNS: Temperature 97.5 F, Pulse 86, Respiratory Rate 20, BP 147/77, Pulse Ox 96% HEENT: Head normocephalic, atraumatic. Eyes: Extraocular muscles are intact. Pupils are equal, round and reactive to light and accommodation. Ears: No lesions. Nose appeared normal. Throat: No exudate or erythema. NECK: Supple. No JVD, no carotid bruit. No lymphadenopathy or thyromegaly. LUNGS: Diminished breath sounds, bilateral coarse. Percussion note normal. Chest symmetrical. HEART: S1, S2, no S3. No murmurs. No cyanosis or clubbing. No ascites. Pulses: Dorsalis pedis and posterior tibial pulses +1 to +2 both sides. ABDOMEN: Soft. Non-tender. Bowel sounds active. No CVA tenderness. No mass felt. EXTREMITIES: No edema. Full range of motion of all extremities, equal. NEUROLOGIC: No focal deficit. Cranial nerves II through XII are grossly intact. No headache, no double vision or headache. SKIN: Not dry. Intact. Turgor-normal. LYMPHATIC: No palpable lymph nodes/no lymphedema. MUSCULOSKELETAL: Normal joints with no swelling. Muscle tone is normal. LAB REVIEW: 02/22/20 04:44 02/22/20 04:44 02/22/20 04:44: WBC 7.62, RBC 2.82 L, Hgb 9.2 L, Hct 28.0 L, MCV 99.3 H, MCH 32.6 H, MCHC 32.9, RDW Coeff of [place] 18.6 H, Plt Count 149, Immature Gran % (Auto) 0.5, Neut % (Auto) 61.6, Lymph % (Auto) 21.7, [place] % (Auto) 12.5 H, Eos % (Auto) 3.4, Baso % (Auto) 0.3, Neut # (Auto) 4.7, Lymph # (Auto) 1.7, [place] # (Auto) 1.0, Eos # (Auto) 0.3, Baso # (Auto) 0.0, Immature Gran # (Auto) 0.0 02/22/20 04:44: Sodium 133.8 L, Potassium 4.45, Chloride 105.0, Carbon Dioxide 23.7, Anion Gap 9.55, BUN 47.0 H, Creatinine 2.73 H, Estimated GFR (MDRD) 17.00, BUN/Creatinine Ratio 17.21, Glucose 84.9, Calcium 8.42, Total Bilirubin 0.52, AST 31.0, ALT 9.1, Alkaline Phosphatase 37.8 L, Total Protein 5.98 L, Albumin 3.12 L, Globulin 2.86, Albumin/Globulin Ratio 1.09 02/21/20 17:38: Hgb 10.3 L, Hct 32.0 L D 02/20/20 12:20: Blood Type A POSITIVE, Antibody Screen Negative, Crossmatch (AHG) See Detail ASSESSMENT: Please see below. 1. UROSEPSIS, POSITIVE FOR E.COLI, ESBL. 2. GENERALIZED WEAKNESS. 3. HYPERTENSION. 4. ANEMIA SYMPTOMATIC. 5. STATUS POST KIDNEY TRANSPLANT. PLAN: 1. Consult PT. 2. KVO NS. 3. Continue IV antibiotics. 4. Fall precautions Plan and coordination of the patient's care discussed in the presence of Identity Management Consultant and nurse. CONDITION: Stable SCRIBED BY: BRIAN KNOX Senior Hr Manager scribed while in presence of service performed by Dr. Bryant/Bre Person APRN on 02/22/20 ([id number])
--- NOTE | 2020-02-22 11:54 | HP ---
DATE OF SERVICE: 02/19/20 REASON FOR HOSPITALIZATION/HISTORY OF PRESENT ILLNESS: Nausea and vomiting for three to four days and symptoms of UTI, recurrent. Denied any fever, chills or sweats. Complained of some fatigue but the patient had urgency and frequency. The patient was worked up in the emergency room by the ER attending and was diagnosed to have UTI. Besides that the patient had several other problems coming from nausea and vomiting, hyponatremia and hypokalemia, worsening of kidney functions. PAST MEDICAL/SURGICAL HISTORY: Status post kidney transplant several years ago Dyslipidemia Hypertension Renal failure Chronic lung disease Chronic anemia REVIEW OF SYSTEMS: CONSTITUTIONAL: Fatigue and weakness. No night sweats. No malaise, lethargy. No fever or chills. HEENT: Eyes: No visual changes. No eye pain. No eye discharge. ENT: No runny nose. No epistaxis. No sinus pain. No sore throat. No odynophagia. No ear pain. No congestion. RESPIRATORY: No cough, no congestion. No hemoptysis. No shortness of breath. CARDIOVASCULAR: No angina symptoms. No CHF symptoms. No atypical chest pain for CAD. No palpitations. No PND. No orthopnea. GASTROINTESTINAL: Nausea, vomiting and diarrhea for four to five days. No abdominal pain. No constipation. No hematemesis. No hematochezia. GENITOURINARY: No urgency. No frequency. No dysuria. No hematuria. No obstructive symptoms. No discharge. No pain. No significant abnormal bleeding. MUSCULOSKELETAL: No musculoskeletal pain. No joint swelling. No arthritis. NEUROLOGICAL: No headache. No neck pain. No syncope. No seizures. No dizziness. PSYCHIATRIC: Not anxious. No depression. No suicidal thoughts. No homicidal thoughts. SKIN: No rash. No lesions. No wounds. ENDOCRINE: No unexplained weight loss. No weight gain. HEMATOLOGIC/LYMPHATIC: No anemia. No purpura. No petechiae. No prolonged or excessive bleeding. No palpable lymph nodes. PERSONAL/FAMILY/SOCIAL HISTORY: The patient lives by herself, . Smoker. No alcohol abuse. The son helps taking care of her. The patient is noncompliant of medications. Because of her inability to administer some of the medications and forgetfulness, the patient is not able to do alot of things by herself. Son helps but the help is not enough. MEDICATIONS: Plavix Prograf Protonix Prednisone Allopurinol Benadryl Docusate Sodium Ferrous Sulfate Lasix Melatonin Lipitor Hydrocodone Lexapro Ipratropium inhalation Tylenol for arthritis Depakote Amlodipine Aspirin ALLERGIES: SULFUR DIOXIDE, ZOFRAN, IBUPROFEN PHYSICAL EXAMINATION: VITAL SIGNS: Temperature 98.5, pulse 89, respiratory rate 20, BP 146/77, pulse ox 96% on room air. GENERAL: The patient is oriented to time, place and person. HEENT: Normal except for skin turgor is not that good. Head normocephalic, atraumatic. Eyes: Extraocular muscles are intact. Pupils are equal, round and reactive to light and accommodation. Ears: No lesions. Nose appeared normal. Throat: No exudate or erythema. NECK: Supple. No JVD, no carotid bruit. No lymphadenopathy or thyromegaly. LUNGS: Decreased breath sounds bilaterally with good air entry. Percussion note normal. Chest symmetrical. HEART: S1, S2, no S3. No murmur. No cyanosis or clubbing. No ascites. Pulses: Dorsalis pedis and posterior tibial pulses +1 bilaterally. ABDOMEN: Soft. Nontender. Bowel sounds active. No CVA tenderness. No mass felt. EXTREMITIES: Trace edema. Full range of motion of all extremities, equal. NEUROLOGIC: Oriented to time, place and person. No focal deficit. Cranial nerves II through XII are grossly intact. No headache, no double vision or headache. SKIN: Dry. Mucous membrane dry. Intact. LYMPHATIC: No palpable lymph nodes/no lymphedema. MUSCULOSKELETAL: Normal joints with no swelling. Muscle tone is normal. LABS: Hemoglobin 8.6, hematocrit 26, WBC 8,000, normal differential. Creatinine 2.7, BUN 55, potassium 3.6. Liver profile normal. UA showed 3+ leukocyte esterase, lactic acid low, procalcitonin normal. ASSESSMENT: 1. URINARY TRACT INFECTION, RECURRENT. 2. NAUSEA, VOMITING LIKELY ACUTE GASTRITIS COULD BE COMING FROM UTI, COULD BE INDEPENDENT OF UTI. 3. HYPONATREMIA, HYPOKALEMIA, DEHYDRATION. 4. RENAL FAILURE. 5. STATUS POST KIDNEY TRANSPLANT. 6. DEPRESSION. 7. HYPERTENSION. 8. CHRONIC ANEMIA. PLAN: 1. Give IV fluids 75 cc/hr with NS and potassium supplements. 2. Telemetry. 3. EKG. 4. Rocephin 1 gm IV given with Ertapenem to be started. 5. Monitor daily CBC, CMP. 6. Education carried out about the patient taking medications regularly and drinking enough fluids. 7. The patient advised to assume followup with tax collector and transplant unit. CONDITION: Stable. The patient is a full code. TIME SPENT: More than 70 minutes. MTDD
--- NOTE | 2020-02-22 13:17 | PN ---
DATE OF SERVICE: 02/19/20 SUBJECTIVE: The patient was seen and examined in the emergency room by ER attending. She came to the emergency room with complaint of having urinary tract infection type of symptoms. She had no cough, congestion or shortness of breath. In short the patient had no suggestion of having any Covid-19 infection. The patient's UA was abnormal, history of recurrent UTI. The patient's sepsis workup was negative. Creatinine was 2.7 with BUN of 7. She has history of kidney transplant right-sided. REVIEW OF SYSTEMS: CONSTITUTIONAL: No night sweats. No fatigue, malaise, lethargy. No fever or chills. HEENT: Eyes: No visual changes. No eye pain. No eye discharge. ENT: No runny nose. No epistaxis. No sinus pain. No sore throat. No odynophagia. No congestion. RESPIRATORY: No cough, no congestion. No hemoptysis. No shortness of breath. CARDIOVASCULAR: No angina symptoms. No CHF symptoms. No atypical chest pain for CAD. No palpitations. No PND. No orthopnea. GASTROINTESTINAL: No abdominal pain. No nausea or vomiting. No diarrhea or constipation. No hematemesis. No hematochezia. GENITOURINARY: No urgency. No frequency. No dysuria. No hematuria. No obstructive symptoms. No discharge. No pain. No significant abnormal bleeding. MUSCULOSKELETAL: No musculoskeletal pain; no joint swelling. NEUROLOGICAL: No headache. No neck pain. No syncope. No seizures. No dizziness. PSYCHIATRIC: Not anxious. No depression. No suicidal thoughts. No homicidal thoughts. SKIN: No rash. No lesions. No wounds. ENDOCRINE: No unexplained weight loss. No weight gain. HEMATOLOGIC/LYMPHATIC: No anemia. No purpura. No petechiae. No prolonged or excessive bleeding. No palpable lymph nodes. PHYSICAL EXAMINATION: HEENT: Mucous membrane dry. Head normocephalic, atraumatic. Eyes: Extraocular muscles are intact. Pupils are equal, round and reactive to light and accommodation. Ears: No lesions. Nose appeared normal. Throat: No exudate or erythema. NECK: Supple. No JVD, no carotid bruit. No lymphadenopathy or thyromegaly. LUNGS: Decreased breath sounds but clear. to auscultation. Percussion note normal. Chest symmetrical. HEART: S1, S2, no S3. No murmurs. No cyanosis or clubbing. No ascites. Pulses: Dorsalis pedis and posterior tibial pulses +1 to +2 bilaterally. ABDOMEN: Soft. Nontender. Bowel sounds active. No CVA tenderness. No mass felt. EXTREMITIES: No edema. Full range of motion of all extremities, equal. NEUROLOGIC: No focal deficit. Cranial nerves II through XII are grossly intact. No headache, no double vision or headache. SKIN: Dry. Intact. Turgor - normal. LYMPHATIC: No palpable lymph nodes/no lymphedema. MUSCULOSKELETAL: Normal joints with no swelling. Muscle tone is normal. LABS: The patient's serum potassium was low. Sodium was 126. ASSESSMENT: 1. URINARY TRACT INFECTION. 2. DEHYDRATION WITH RENAL FAILURE. 3. STATUS POST KIDNEY TRANSPLANT. 4. HYPONATREMIA. 5. HYPOKALEMIA. PLAN: 1. Give IV fluids 1000 cc NS with KCL 75 cc/hr. 2. Telemetry. 3. Cardiac markers were negative. 4. Sepsis workup negative. 5. IV Rocephin one dose given. 6. The patient is going to be on Invanz, dose to be determined by pharmacy. 7. Daily CBC, CMP. CONDITION: Stable. TIME SPENT: More than 30 minutes. Plan and coordination of the patient's care discussed in the presence of nurse. KAREN
--- NOTE | 2020-02-22 13:38 | PN ---
DATE OF SERVICE: 02/20/20 SUBJECTIVE: 69-year-old white female hospitalized with urosepsis. The patient came to the emergency room with nausea and vomiting. On further workup the patient had symptoms of UTI with weakness and fatigue, nausea and vomiting for the last four to five days. According to the business support associate, the patient did not have any fever, cough or congestion. No evidence of any symptoms of Covid-19. Urine showed 3+ leukocyte esterase, 2+ protein. She had some dysuria. REVIEW OF SYSTEMS: CONSTITUTIONAL: The patient says that today she is feeling a little bit better. Appetite seems to be coming back. No night sweats. No fatigue, malaise, lethargy. No fever or chills. Taste is normal. HEENT: Eyes: No visual changes. No eye pain. No eye discharge. ENT: No runny nose. No epistaxis. No sinus pain. No sore throat. No odynophagia. No congestion. RESPIRATORY: No cough, no congestion. No hemoptysis. No shortness of breath. CARDIOVASCULAR: No angina symptoms. No CHF symptoms. No atypical chest pain for CAD. No palpitations. No PND. No orthopnea. GASTROINTESTINAL: No abdominal pain. No nausea or vomiting. No diarrhea or constipation. No hematemesis. No hematochezia. GENITOURINARY: No urgency. No frequency. No dysuria. No hematuria. No obstructive symptoms. No discharge. No pain. No significant abnormal bleeding. MUSCULOSKELETAL: No musculoskeletal pain; no joint swelling. NEUROLOGICAL: No headache. No neck pain. No syncope. No seizures. No dizziness. PSYCHIATRIC: Not anxious. No depression. No suicidal thoughts. No homicidal thoughts. SKIN: No rash. No lesions. No wounds. ENDOCRINE: No unexplained weight loss. No weight gain. HEMATOLOGIC/LYMPHATIC: No anemia. No purpura. No petechiae. No prolonged or excessive bleeding. No palpable lymph nodes. PHYSICAL EXAMINATION: VITAL SIGNS: Temperature 97.7, pulse 81, respiratory rate 18, blood pressure 142/83, pulse ox 100%. HEENT: Head normocephalic, atraumatic. Eyes: Extraocular muscles are intact. Pupils are equal, round and reactive to light and accommodation. Ears: No lesions. Nose appeared normal. Throat: No exudate or erythema. NECK: Supple. No JVD, no carotid bruit. No lymphadenopathy or thyromegaly. LUNGS: Decreased breath sounds but clear to auscultation. Percussion note normal. Chest symmetrical. HEART: S1, S2, no S3. No murmurs. No cyanosis or clubbing. No ascites. Pulses: Dorsalis pedis and posterior tibial pulses +1 to +2 bilaterally. ABDOMEN: Soft. Nontender. Bowel sounds active. No CVA tenderness. No mass felt. EXTREMITIES: No edema. Full range of motion of all extremities, equal. NEUROLOGIC: No focal deficit. Cranial nerves II through XII are grossly intact. No headache, no double vision or headache. SKIN: Not dry. Intact. Turgor - normal. LYMPHATIC: No palpable lymph nodes/no lymphedema. MUSCULOSKELETAL: Normal joints with no swelling. Muscle tone is normal. LABS: Hemoglobin 7.6, hematocrit 23, WBC 7,000, normal differential. Creatinine 2.6, BUN 52, potassium 3.5, sodium 129. ASSESSMENT: 1. TIA. The patient is on Ertapenem. 2. Anemia. The patient has hemoglobin of 7.6. The patient's anemia is likely from chronic kidney disease and nutritional status. No evidence of active GI bleed. Will type and crossmatch 2 units as the patient is fatigued and tired and give her one unit. She feels short of breath on exertion. The patient's anemia is symptomatic. 3. Hyponatremia and hypokalemia seems to be resolving with sodium from 126 going up to 129. Potassium is 3.5 now. 4. Renal failure seems to be improving with creatinine 2.6, BUN 52, better than yesterday. 5. The patient has been watched for fluid overload which she didn't have. Hydration status seems to be improving. Skin turgor better. The patient's EKG shows sinus rhythm changes. Telemetry does not show any remarkable arrhythmias. All of them reviewed. CONDITION: Stabilizing. TIME SPENT: More than 50 minutes -- Extensive Plan and coordination of the patient's care discussed in the presence of nurse. KAREN
--- NOTE | 2020-02-22 13:58 | PN ---
DATE OF SERVICE: 02/21/20 SUBJECTIVE: 69-year-old white female hospitalized with urosepsis. Condition seems to be improving clinically. She is looking better. Hydration status has improved. Appetite seems to have improved according to her. REVIEW OF SYSTEMS: CONSTITUTIONAL: No night sweats. No fatigue, malaise, lethargy. No fever or chills. HEENT: Eyes: No visual changes. No eye pain. No eye discharge. ENT: No runny nose. No epistaxis. No sinus pain. No sore throat. No odynophagia. No congestion. RESPIRATORY: No cough, no congestion. No hemoptysis. No shortness of breath. CARDIOVASCULAR: No angina symptoms. No CHF symptoms. No atypical chest pain for CAD. No palpitations. No PND. No orthopnea. GASTROINTESTINAL: Appetite improving. No abdominal pain. Mild nausea noted. No vomiting. No diarrhea or constipation. No hematemesis. No hematochezia. GENITOURINARY: No urgency. No frequency. No dysuria. No hematuria. No obstructive symptoms. No discharge. No pain. No significant abnormal bleeding. MUSCULOSKELETAL: No musculoskeletal pain; no joint swelling. NEUROLOGICAL: No headache. No neck pain. No syncope. No seizures. No dizziness. PSYCHIATRIC: Not anxious. No depression. No suicidal thoughts. No homicidal thoughts. SKIN: No rash. No lesions. No wounds. ENDOCRINE: No unexplained weight loss. No weight gain. HEMATOLOGIC/LYMPHATIC: No anemia. No purpura. No petechiae. No prolonged or excessive bleeding. No palpable lymph nodes. PHYSICAL EXAMINATION: VITAL SIGNS: Temperature 98.4, pulse 90, respiratory rate 20, BP 152/70, pulse ox 95% on room air. HEENT: Head normocephalic, atraumatic. Eyes: Extraocular muscles are intact. Pupils are equal, round and reactive to light and accommodation. Ears: No lesions. Nose appeared normal. Throat: No exudate or erythema. NECK: Supple. No JVD, no carotid bruit. No lymphadenopathy or thyromegaly. LUNGS: Decreased breath sounds but clear to auscultation. Percussion note normal. Chest symmetrical. HEART: S1, S2, no S3. No murmurs. No cyanosis or clubbing. No ascites. Pulses: Dorsalis pedis and posterior tibial pulses +1 to +2 bilaterally. ABDOMEN: Soft. Nontender. Bowel sounds active. No CVA tenderness. No mass felt. EXTREMITIES: No edema. Full range of motion of all extremities, equal. NEUROLOGIC: No focal deficit. Cranial nerves II through XII are grossly intact. No headache, no double vision or headache. SKIN: Not dry. Intact. Turgor - normal. LYMPHATIC: No palpable lymph nodes/no lymphedema. MUSCULOSKELETAL: Normal joints with no swelling. Muscle tone is normal. LABS: Hemoglobin 7.9, hematocrit 24, WBC 8,600, normal differential. Creatinine 2.6, BUN 50, potassium 4. ASSESSMENT: 1. UROSEPSIS, ESBL ON ERTAPENEM WHICH IS SENSITIVE. CULTURE SENSITIVITY REPORT SHOWED E. COLI WHICH IS ESBL. 2. ANEMIA. THE PATIENT WAS GIVEN 1 UNIT OF PACKED RED CELL. HEMOGLOBIN WAS 7.6, WENT UP TO 8.7 AND HAS COME NOW NOW TO 7.9. GIVEN ANOTHER UNIT OF BLOOD. THE PATIENT WAS SYMPTOMATIC WITH ANEMIA. 3. RENAL FAILURE, CHRONIC KIDNEY DISEASE STATUS POST KIDNEY TRANSPLANT. THE PATIENT'S CREATININE NOW IS 2.6 WITH BUN OF 50 WITH SOME IMPROVEMENT. FLUID OVERLOAD NOTED. THE PATIENT IS ON 50 CC/HR NS WITH POTASSIUM SUPPLEMENTS. 4. HYPONATREMIA AND HYPOKALEMIA SEEMS TO BE RESOLVING. SODIUM IS 130.5 AND POTASSIUM 4 SEEMS TO BE RESOLVING. C02 22 AND SUGAR IS 80. The patient's condition seems to be overall improving. Continuation of Ertapenem, IV fluids, telemetry with no arrhythmias noted. TIME SPENT: More than 30 minutes. Plan and coordination of the patient's care discussed in the presence of nurse. KAREN
--- NOTE | 2020-02-22 14:12 | RS.OTINEVL ---
Subjective - Patient information Date of Evaluation: 02/22/20 Date of Arrival on Unit: 02/19/20 Admitted From:: Home Diagnosis: COPD, Chronic kidney disease, Anemia PRECAUTIONS: Dialysis, O2 drops with ambulation Usual Living Arrangement: Alone Living Arrangement Comments: lives alone, son checks on her twice a day. Home Environment: House, Stairs (few), Rail Medical History: Hypertension, COPD Medical History Comments:: CKD, depression LATEX ALLERGY?: No Surgical History: Cholecystectomy Surgical History Comments:: kidney transplant Medications: see chart Subjective Information/ Patient Comments:: "I don't want to do too much. I am tired." "I can try to walk some." - Level of function Prior to this admission, the patient could do the following:: Partially Dependent Ambulation Abilities prior to this admission: Pt was living at home alone and has assistance in her home weekly. Pt has 5 hours a day Saturday through Saturday. Pt's son helps her on the weekends. Current Level of Function: Partially Dependent Current Equipment Used at Home: oxygen, wheelchair, walker, neb treatment machine Pain Assessment - Pain Pain Score: 6 Side: bilateral Pain Location Body Site: Back Pain Aggravating Factors: Standing, Walking Pain Alleviating Factors: Standing Interventions - Objective Patient Orientation: Person, Place, Time, Situation Current Interventions: IV's, Oxygen Observation: Pt appears weak and has difficulty with transfers and functional mobility. Pt able to stand from the BSC without assistance. Pt requires CGA for donning and doffing her pants. Pt is Independent with personal hygiene with the RUE. Pt walks with RW and is bent over with RW. Interventions - ROM Right Upper Extremity AROM: Slight limitation Left Upper Extremity AROM: Slight limitation - Strength Right Upper Extremity Strength: Mild Weakness Left Upper Extremity Strength: Mild Weakness - Sensation Right Upper Extremity Sensation: Intact/Normal Left Upper Extremity Sensation: Intact/Normal Balance - Sitting Balance Static Sitting Balance: Fair Dynamic Sitting Balance: Fair - Standing Balance Static Standing Balance: Poor Dynamic Standing Balance: Poor ADL Skills - Self Feeding Self Feeding: Independent - Grooming Grooming: Independent - Bathing Bathing UE: CGA - Dressing Dressing UE: CGA Dressing LE: CGA - Toilet Management Toileting Management: CGA Functional Mobility - Bed Mobility Rolling R/L: Independent Scooting: Independent Supine to Sit: Independent Sit to Supine: Independent - Transfers Sit to Stand: Min Assist Stand to Sit: Min Assist Stand Pivot Transfers: Min Assist - Safety Awareness Safety Awareness: Fair KRYSTLE INDEX SCORE: . Additional Treatment Performed - Time with patient Length of Evaluation: 22 Total treatment time: 25 Activities Do you enjoy playing games?: Yes Would you be interested in leaving your room for activities?: Yes Would you enjoy group activities?: Yes Do you have difficulty with your vision?: Yes Patient Interests:: Watching Television Patient Education Patient Education: Education of diagnosis, Home Exercise Program, Education of Plan of Care Teaching Recipient: Patient Teaching Methods: Discussion Assessment Problem List:: Decreased level of function, Requires training/education, Decreased safety/Risk of falls, Weakness, Pain limits previous level of function Rehab Potential: Good Further Therapy Indicated?: Yes Evaluation Complexity: HISTORY: Medium, EXAM OF BODY SYSTEMS: Medium, CLINICAL DECISION MAKING: Medium Patient's Goal(s): To get better and be able to go back home. Short Term Goals - Goals GOAL 1: Pt to increase dyn. std. bal. to Fair Goal to be met by: 02/25/20 GOAL 2: Pt to increase activity tolerance to 10 minutes with setup. Goal to be met by: 02/25/20 GOAL 3: Pt to increase independence with sit to stand to CGA. Goal to be met by: 02/25/20 Halfway Goals GOAL 1: Pt to increase dyn. std. balance to F+ Goal to be met by: 02/26/20 GOAL 2: Pt to increase activity tolerance to 15 minutes. Goal to be met by: 02/26/20 GOAL 3: Pt to increase functional transfers to SBA to increase safety. Goal to be met by: 02/26/20 Plan Plan of Care: Therapeutic EX, Neuromuscular Re-Educ, Therapeutic Activity, Self- Care/Home Management Frequency of Treatment: 1-2 X day, as tolerated Duration of Treatment: 1 Week Anticipated Discharge Destination: Home Treatment Diagnosis (ICD 10 Codes): M62.81 Muscle weakness, Z74.1 Need for assistance with personal care. Has the Physician been added for Co-signature?: Yes
--- NOTE | 2020-02-22 16:14 | RS.PTINEVL ---
Subjective - Patient information Date of Evaluation: 02/22/20 Date of Arrival on Unit: 02/19/20 Admitted From:: Home Diagnosis: UTI (Ecoli), SIRS Usual Living Arrangement: Alone Living Arrangement Comments: lives alone with helpers a few hours a day, son lives nearby. pt states that she uses w/c in home and propels is with her feet. Home Environment: House Medical History: Hypertension, COPD, Arthritis Medical History Comments:: pancreatitis, renal failure, PAD, depression, chronic anemia. LATEX ALLERGY?: No Medications: see chart Subjective Information/ Patient Comments:: pt states that she is tired, her back hurts. - Level of function Prior to this admission, the patient could do the following:: Partially Dependent Ambulation Current Level of Function: Partially Dependent Current Equipment Used at Home: oxygen, wheelchair, walker, neb treatment machine Pain Assessement - Location low back Description: Aching Pain Behavior: Irritability, Facial Grimacing Pain Aggravating Factors: ADL's, Changing Position, Exercise/Activity Pain Alleviating Factors: Medication Interventions - Objective Patient Orientation: Person, Place Current Interventions: IV's, Oxygen (2 liters), Telemetry Range of Motion - ROM Right Upper Extremity AROM: WFL's Left Upper Extremity AROM: WFL's Right Lower Extremity AROM: WFL's Left Lower Extremity AROM: WFL's Muscle Strength - Muscle Strength Right Upper Extremity Strength: Mild Weakness (grossly 4-/5) Left Upper Extremity Strength: Mild Weakness (grossly 4/5) Right Lower Extremity Strength: Mild Weakness (hip flex 4-/5, knee flex/ext 4/5, ankle DF/PF 4/5) Left Lower Extremity Strength: Mild Weakness (hip flex 4-/5, knee flex/ext 4/5, ankle DF/PF 4/5) Sensation - Sensation Right Upper Extremity Sensation: Intact/Normal Left Upper Extremity Sensation: Intact/Normal Right Lower Extremity Sensation: Intact/Normal Left Lower Extremity Sensation: Intact/Normal Palpation Palpation Findings: Tenderness (low back) Balance - Sitting Balance and Reactions Static Sitting Balance: Good Dynamic Sitting Balance: Fair Sitting Equilibrium Reactions: Delayed Left, Delayed Right Sitting Protective Reactions: Delayed Left, Delayed Right - Standing Balance and Reactions Static Standing Balance: Fair (fair+) Dynamic Standing Balance: Fair (fair-) Standing Equilibrium Reactions: Delayed Left, Delayed Right Standing Protective Reactions: Delayed Left, Delayed Right Functional Mobility - Bed Mobility Rolling R/L: Supervision Scooting: Supervision Sit to Supine: Supervision, CGA - Transfers Sit to Stand: Supervision (SBA from commode, min x 1 from recliner) Stand to Sit: Supervision - Safety Awareness Safety Awareness: Fair KRYSTLE INDEX SCORE: n/a Ambulation - Ambulation Assistive Device Used: Rolling Walker Orthotic/Prosthetic Device: No Distance: 20ft Assistance needed with Ambulation: CGA Quality of Ambulation: pt amb with O2 with CGA. pt amb with flexed posture, decreased step length, required verbal cues to keep walker close. Gait Deviations: Forward posture, Short stride, Deviates from path Factors Affecting Ambulation: Decreased Balance, Breathing/O2 Saturation, Pain, Weakness, Decreased Safety, Limited Endurance Treatment time - Time with patient Length of Evaluation: 19 Total treatment time: 31 Patient Education - Education Patient Education: Activity Modification, Education of Plan of Care Teaching Recipient: Patient Teaching Methods: Discussion (discussion regarding POC) Assessment - Assessment Problem List:: Decreased level of function, Requires training/education, Decreased safety/Risk of falls, Weakness, Pain limits previous level of function Rehab Potential: Fair Further Therapy Indicated?: Yes Candidate for Swing Bed for Therapy Services?: Feel pt is not a candidate for swing bed for therapy due to pt at higher functional level. Evaluation Complexity: HISTORY: Medium, EXAM OF BODY SYSTEMS: Medium, CLINICAL PRESENTATION: Medium, CLINICAL DECISION MAKING: Medium Patient's Goal(s): go home Short Term Goals GOAL #1: pt independent rolling and scooting in bed Goal to be met by: 02/24/20 GOAL #2: Transfer sup to/from sit SBA Goal to be met by: 02/24/20 GOAL #3: Sit to/from stand SBA from commode, bed, and straight chair Goal to be met by: 02/24/20 GOAL #4: Pt to amb. with RW 50 ft with CGA of one. Goal to be met by: 02/24/20 Prison Goals GOAL #1: Sup to/from sit to/from stand independently Goal to be met by: 02/25/20 GOAL #2: pt amb 100ft with rwx SBA with no LOB Goal to be met by: 02/25/20 GOAL #3: Improve dyn stand balance fair+ Goal to be met by: 02/25/20 Progress towards goal: Not Met Plan Plan of Care: Therapeutic EX, Therapeutic Activity Other:: gait training Frequency of Treatment: 1-2 X day, as tolerated Duration of Treatment: 4 days Anticipated Discharge Destination: Home Treatment Diagnosis (ICD 10 Codes): difficulty walking R 26.2. balance impaired R 26.81. muscle weakness M62.81 Has the Physician been added for Co-signature?: Yes
[2020-02-22] MEDS: LIPITOR PO SCH (20:29)
[2020-02-22] MEDS: BENADRYL PO SCH (20:29)
[2020-02-22] MEDS: NON-FORMULARY MEDICATION (Melatonin 5 mg Tablet) PO SCH (20:29)
[2020-02-22] MEDS: NORVASC PO SCH (20:30)
[2020-02-23] MEDS: NORCO 5-325 PO PRN (02:30)
[2020-02-23 05:04] LABS: BASOPHILS % (AUTO) 0.3 % (0.0-3.0); EOSINOPHILS # (AUTO) 0.3 K/ul (0.0-0.7); EOSINOPHILS % (AUTO) 3.8 % (0.0-7.0); HEMOGLOBIN 9.1 g/dl (12.0-16.0); IMMATURE GRANULOCYTE % (AUTO) 0.5 % (0.0-5.0); LYMPHOCYTES # (AUTO) 1.6 K/uL (0.60-3.4); LYMPHOCYTES % (AUTO) 19.5 (10.0-50.0); MEAN CORPUSCULAR HEMOGLOBIN 32.3 pg (27.0-31.0); MEAN CORPUSCULAR HGB CONC 32.5 (31.8-35.4); MEAN CORPUSCULAR VOLUME 99.3 fl (81.0-99.0); MONOCYTES # (AUTO) 0.9 K/uL (0.4-2.0); MONOCYTES % (AUTO) 11.8 (0-10); NEUTROPHILS # (AUTO) 5.1 K/ul (2.0-6.9); NEUTROPHILS % (AUTO) 64.1 % (42.2-75.2); PLATELET COUNT 143 10^3/uL (140-440); RDW COEFFICIENT OF VARIATION 18.1 % (11.6-14.8); RED BLOOD COUNT 2.82 10^6/ul (4.20-5.40); WHITE BLOOD COUNT 7.96 K/ul (4.6-10.2)
[2020-02-23 05:17] LABS: ALANINE AMINOTRANSFERASE 10.1 U/L (0-35); ALBUMIN 3.14 g/dL (3.5-5.0); ALKALINE PHOSPHATASE 37.7 U/L (53-141); ASPARTATE AMINO TRANSFERASE 24.9 U/L (14-36); BILIRUBIN,TOTAL 0.36 mg/dL (0.2-1.3); BLOOD UREA NITROGEN 44.9 mg/dL (7-17); CALCIUM 8.11 mg/dL (8.4-10.2); CARBON DIOXIDE 24.6 mmol/L (22-30.0); CHLORIDE 102.4 mmol/L (98-107); CREATININE 2.57 mg/dL (0.60-1.30); GLUCOSE 95.8 mg/dL (74-106); POTASSIUM 4.21 mmol/L (3.5-5.1); SODIUM 132.5 mmol/L (134.5-145); TOTAL PROTEIN 6.1 g/dL (6.3-8.2)
[2020-02-23] MEDS: PROTONIX PO SCH ×2 (06:16→16:35)
[2020-02-23] MEDS: LASIX TAB PO SCH (06:16)
[2020-02-23] MEDS ORDERED: TYLENOL PO PRN (07:52)
[2020-02-23] MEDS: FLONASE NAS SCH (08:27)
[2020-02-23] MEDS: TACROLIMUS 1 MG PO SCH ×2 (08:27→20:29)
[2020-02-23] MEDS: INVANZ 0.5 GM in SODIUM CHLORIDE 50 ML IV SCH (08:27)
[2020-02-23] MEDS: SYMBICORT 160-4.5 MCG INHALER IH SCH ×2 (08:27→20:32)
--- NOTE | 2020-02-23 08:27 | PCM.PROG ---
Attending Provider: ATTENDING PROVIDER: Dr. ISADORA BRYANT This patient is seen with Bre Person, Nurse Practitioner. DATE OF SERVICE: 02/23/20 SUBJECTIVE: This 69 year old /WHITE F was hospitalized 02/19/20. The patient is resting in the bed comfortably. She has been complaining of neck and back pain through the night. We will increase to half [place] BID. Has remained fever free. Complaining of mild burning with urination times one. We will continue IV antibiotics. Hgb stable today. REVIEW OF SYSTEMS: CONSTITUTIONAL: No night sweats. No fatigue, malaise, lethargy. No fever or chills. Weakness. HEENT: Eyes: No visual changes. No eye pain. No eye discharge. ENT: No runny nose. No epistaxis. No sinus pain. No odynophagia. No congestion. RESPIRATORY: No cough, no congestion. No hemoptysis. No shortness of breath. CARDIOVASCULAR: No angina symptoms. No CHF symptoms. No atypical chest pain for CAD. No palpitations. No orthopnea.. GASTROINTESTINAL: No abdominal pain. No nausea or vomiting. No diarrhea or constipation. No hematemesis. No hematochezia. GENITOURINARY: No urgency. Burning on urination. No frequency. No dysuria. No hematuria. No obstructive symptoms. No discharge. No pain. No significant abnormal bleeding. MUSCULOSKELETAL: No musculoskeletal pain; no joint swelling. Neck and back pain. NEUROLOGICAL: Awake, alert, oriented to time, place and person. No headache. No neck pain. No syncope. No seizures. No dizziness. PSYCHIATRIC: Not anxious. No depression. No suicidal thoughts. No homicidal thoughts. SKIN: No rash. No lesions. No wounds. ENDOCRINE: No unexplained weight loss. No weight gain. HEMATOLOGIC/LYMPHATIC: No anemia. No purpura. No petechiae. No prolonged or excessive bleeding. No palpable lymph nodes. PHYSICAL EXAMINATION: GENERAL: The patient is awake, alert and oriented, lying in bed in no distress. VITAL SIGNS: Temperature 97.8 F, Pulse 82, Respiratory Rate 16, BP 149/86, Pulse Ox 97% HEENT: Head normocephalic, atraumatic. Eyes: Extraocular muscles are intact. Pupils are equal, round and reactive to light and accommodation. Ears: No lesions. Nose appeared normal. Throat: No exudate or erythema. NECK: Supple. No JVD, no carotid bruit. No lymphadenopathy or thyromegaly. LUNGS: Diminished breath sounds. Clear to auscultation. Percussion note normal. Chest symmetrical. HEART: S1, S2, no S3. No murmurs. No cyanosis or clubbing. No ascites. Pulses: Dorsalis pedis and posterior tibial pulses +1 to +2 both sides. ABDOMEN: Soft. Non-tender. Bowel sounds active. No CVA tenderness. No mass felt. EXTREMITIES: No edema. Full range of motion of all extremities, equal. NEUROLOGIC: No focal deficit. Cranial nerves II through XII are grossly intact. No headache, no double vision or headache. SKIN: Not dry. Intact. Turgor-normal. LYMPHATIC: No palpable lymph nodes/no lymphedema. MUSCULOSKELETAL: Normal joints with no swelling. Muscle tone is normal. LAB REVIEW: 02/23/20 04:48 02/23/20 04:48 02/23/20 04:48: Sodium 132.5 L, Potassium 4.21, Chloride 102.4, Carbon Dioxide 24.6, Anion Gap 9.71, BUN 44.9 H, Creatinine 2.57 H, Estimated GFR (MDRD) 18.00, BUN/Creatinine Ratio 17.47, Glucose 95.8, Calcium 8.11 L, Total Bilirubin 0.36, AST 24.9, ALT 10.1, Alkaline Phosphatase 37.7 L, Total Protein 6.10 L, Albumin 3.14 L, Globulin 2.96, Albumin/Globulin Ratio 1.06 02/23/20 04:48: WBC 7.96, RBC 2.82 L, Hgb 9.1 L, Hct 28.0 L, MCV 99.3 H, MCH 32.3 H, MCHC 32.5, RDW Coeff of [place]ka 18.1 H, Plt Count 143, Immature Gran % (Auto) 0.5, Neut % (Auto) 64.1, Lymph % (Auto) 19.5, [place] % (Auto) 11.8 H, Eos % (Auto) 3.8, Baso % (Auto) 0.3, Neut # (Auto) 5.1, Lymph # (Auto) 1.6, [place] # (Auto) 0.9, Eos # (Auto) 0.3, Baso # (Auto) 0.0, Immature Gran # (Auto) 0.0 ASSESSMENT: Please see below. 1. UROSEPSIS, POSITIVE FOR E.COLI, ESBL. 2. GENERALIZED WEAKNESS. 3. HYPERTENSION. 4. ANEMIA SYMPTOMATIC. 5. STATUS POST KIDNEY TRANSPLANT. PLAN: 1. Continue IV antibiotics 2. [place] half BID 3. Tylenol 650mg Q 4 hours PRN 4. Encourage fluid intake 5. Fall precautions. Plan and coordination of the patient's care discussed in the presence of Structures Mechanic and nurse. SCRIBED BY: Gemma BERNABE scribed while in presence of service performed by Dr. Bryant/Bre Person APRN on 02/23/20 ([id number])
[2020-02-23] MEDS: ASPIRIN EC PO SCH (08:28)
[2020-02-23] MEDS: PLAVIX PO SCH (08:28)
[2020-02-23] MEDS: NORCO 5-325 PO SCH ×2 (08:28→20:31)
[2020-02-23] MEDS: FERROUS SULFATE PO SCH ×2 (08:29→20:29)
[2020-02-23] MEDS: PREDNISONE PO SCH (08:29)
[2020-02-23] MEDS: LEXAPRO PO SCH (08:29)
[2020-02-23] MEDS: SENNA PO SCH ×2 (08:29→20:30)
[2020-02-23] MEDS: COLACE PO SCH ×2 (08:30→20:29)
[2020-02-23] MEDS: ZYLOPRIM PO SCH (08:30)
[2020-02-23] MEDS: LOVENOX SUBCUT SCH (08:31)
--- NOTE | 2020-02-23 09:54 | PN ---
DATE OF SERVICE: 02/22/20 SUBJECTIVE: The patient was seen and examined with the nurse practitioner. The patient's renal function seems to have improved. Hyponatremia and hypokalemia practically has resolved. She is feeling better. UTI seems to be under control. The patient's UTI is ESBL. She is on Ertapenem. Condition improving. All the diagnoses discussed with the patient. The patient's problem is noncompliance and doesn't mean to be noncompliant but lives by herself and does not take her medications as regular as she should. TIME SPENT: More than 30 minutes. Plan and coordination of the patient's care discussed in the presence of nurse. KAREN
[2020-02-23] MEDS: NON-FORMULARY MEDICATION (Melatonin 5 mg Tablet) PO SCH (20:28)
[2020-02-23] MEDS: BENADRYL PO SCH (20:30)
[2020-02-23] MEDS: NORVASC PO SCH (20:30)
[2020-02-23] MEDS: LIPITOR PO SCH (20:31)
[2020-02-23] MEDS: SODIUM CHLORIDE 1,000 ML IV SCH ×2 (20:52→21:47)
[2020-02-24 05:50] LABS: BASOPHILS % (AUTO) 0.3 % (0.0-3.0); EOSINOPHILS # (AUTO) 0.3 K/ul (0.0-0.7); EOSINOPHILS % (AUTO) 3.9 % (0.0-7.0); HEMOGLOBIN 9.3 g/dl (12.0-16.0); IMMATURE GRANULOCYTE % (AUTO) 0.6 % (0.0-5.0); LYMPHOCYTES # (AUTO) 1.4 K/uL (0.60-3.4); LYMPHOCYTES % (AUTO) 21.3 (10.0-50.0); MEAN CORPUSCULAR HEMOGLOBIN 32.4 pg (27.0-31.0); MEAN CORPUSCULAR VOLUME 104.5 fl (81.0-99.0); MONOCYTES # (AUTO) 0.8 K/uL (0.4-2.0); MONOCYTES % (AUTO) 12.2 (0-10); NEUTROPHILS % (AUTO) 61.7 % (42.2-75.2); PLATELET COUNT 133 10^3/uL (140-440); RED BLOOD COUNT 2.87 10^6/ul (4.20-5.40); WHITE BLOOD COUNT 6.48 K/ul (4.6-10.2)
[2020-02-24 05:57] VITALS: BP 166/89; TEMP 97.2
[2020-02-24] MEDS: LASIX TAB PO SCH (05:57)
[2020-02-24] MEDS: PROTONIX PO SCH (05:57)
[2020-02-24 06:02] LABS: ALANINE AMINOTRANSFERASE 10.8 U/L (0-35); ALBUMIN 3.17 g/dL (3.5-5.0); ALKALINE PHOSPHATASE 30.1 U/L (53-141); ASPARTATE AMINO TRANSFERASE 23.7 U/L (14-36); BILIRUBIN,TOTAL 0.48 mg/dL (0.2-1.3); CALCIUM 8.29 mg/dL (8.4-10.2); CARBON DIOXIDE 23.9 mmol/L (22-30.0); CHLORIDE 103.1 mmol/L (98-107); CREATININE 2.56 mg/dL (0.60-1.30); POTASSIUM 4.73 mmol/L (3.5-5.1); TOTAL PROTEIN 6.14 g/dL (6.3-8.2)
[2020-02-24] MEDS: NORCO 5-325 PO SCH (08:30)
[2020-02-24] MEDS: INVANZ 0.5 GM in SODIUM CHLORIDE 50 ML IV SCH (08:31)
[2020-02-24] MEDS: PREDNISONE PO SCH (09:02)
[2020-02-24] MEDS: ASPIRIN EC PO SCH (09:02)
[2020-02-24] MEDS: SENNA PO SCH (09:03)
[2020-02-24] MEDS: COLACE PO SCH (09:03)
[2020-02-24] MEDS: PLAVIX PO SCH (09:03)
[2020-02-24] MEDS: LEXAPRO PO SCH (09:04)
[2020-02-24] MEDS: FERROUS SULFATE PO SCH (09:07)
[2020-02-24] MEDS: ZYLOPRIM PO SCH (09:08)
[2020-02-24] MEDS: TACROLIMUS 1 MG PO SCH (09:08)
[2020-02-24] MEDS: FLONASE NAS SCH (09:09)
[2020-02-24] MEDS: LOVENOX SUBCUT SCH (09:09)
[2020-02-24] MEDS: SYMBICORT 160-4.5 MCG INHALER IH SCH (09:09)
--- NOTE | 2020-02-25 08:40 | CM.DICTOOL ---
ADMISSION: 02/19/20 16:03 DISCHARGE: FEBRUARY 24, 2020 DATE OF SERVICE: 02/24/20 FINAL DIAGNOSIS UREOSEPSIS, POSITIVE FOR E.COLI, ESBL. MUSCLE WEAKNESS. HYPERTENSION. ANEMIA SYMPTOMATIC. STATUS POST KIDNEY TRANSPLANT NEED FOR ASSISTANCE WITH PERSONAL CARE DIFFICULTY WALKING BALANCE IMPAIRED HX: CHF ANEMIA, TRANSFUSIONS OF PACKED CELLS CHRONIC KIDNEY DISEASE, STAGE 3 DR. SKINNER COPD UTI, E-COLI ESBL POSITIVE HYPERTENSION DYSLIPIDEMIA OSTEOARTHRITIS B 12 DEFICIENCY DJD DEPRESSION RIB FRACTURE, ANTERIOR RIGHT 6TH AND 7TH CLAVICLE FRACTURE, LEFT 2019 RIGHT ARM FRACTURE, 2019 COMMINUTED IMPACTION FRACTURE LEFT DISTAL RADIUS, FEB 2018 SURGICAL PROCEDURES: NEPHRECTOMY, RIGHT KIDNEY TRANSPLANT, 2003 CHOLECYSTECTOMY CAROTID ENDARTERECTOMY, BILATERAL DR. DA SILVA RIGHT KNEE SURGERY UMBILICAL HERNIA REPAIR ECHOCARDIOGRAM, SEPTEMBER 2018 [facility]H WITH ENLARGED LEFT ATRIAL CAVITY NORMAL VALVES LVEF 77% LAST VITALS Temp Pulse Resp BP Pulse Ox 97.2 F L 78 18 166/89 H 100 02/24/20 05:52 02/24/20 05:52 02/24/20 05:52 02/24/20 05:52 02/24/20 05:52 TAKE THESE MEDICATIONS AT HOME Acetaminophen (Acetaminophen 325 Mg Tablet) 650 mg PO Q4H PRN PRN Reason: Pain Hydrocodone Bitart/Acetaminophen (Hydrocodone Bit/Acetaminophen 5/325 Mg Tablet) 0.5 tab PO BID [facility] Last Admin: 02/24/20 08:30 Dose: 0.5 tab Documented by: Allopurinol (Allopurinol 100 Mg Tablet) 100 mg PO DAILY [facility] Last Admin: 02/23/20 08:30 Dose: 100 mg Documented by: Amlodipine Besylate (Amlodipine Besylate 5 Mg Tablet) 5 mg PO BEDTIME [facility] Last Admin: 02/23/20 20:30 Dose: 5 mg Documented by: Aspirin (Aspirin 81 Mg Tablet.) 81 mg PO DAILYWM [facility] Last Admin: 02/23/20 08:28 Dose: 81 mg Documented by: Atorvastatin Calcium (Atorvastatin Calcium 20 Mg Tablet) 20 mg PO BEDTIME [facility] Last Admin: 02/23/20 20:31 Dose: 20 mg Documented by: Budesonide/Formoterol Fumarate (Budesonide/Formoterol Fumarate 160/4.5 Mcg Inhaler) 2 puff IH BID [facility] Last Admin: 02/23/20 20:32 Dose: 2 puff Documented by: Clopidogrel Bisulfate (Clopidogrel Bisulfate 75 Mg Tablet) 75 mg PO DAILY [facility] Last Admin: 02/23/20 08:28 Dose: 75 mg Documented by: Diphenhydramine HCl (Diphenhydramine Hcl 25 Mg Capsule) 25 mg PO BEDTIME [facility] Last Admin: 02/23/20 20:30 Dose: 25 mg Documented by: Docusate Sodium (Docusate Sodium 100 Mg Capsule) 100 mg PO BID [facility] Last Admin: 02/23/20 20:29 Dose: 100 mg Documented by: Enoxaparin Sodium (Enoxaparin Sodium 30 Mg/0.3 Ml Syr) 30 mg SUBCUT DAILY [facility] Last Admin: 02/23/20 08:31 Dose: 30 mg Documented by: Escitalopram Oxalate (Escitalopram Oxalate 10 Mg Tablet) 5 mg PO DAILY [facility] Last Admin: 02/23/20 08:29 Dose: 5 mg Documented by: Ferrous Sulfate (Ferrous Sulfate 324 Mg Tablet.Dr) 324 mg PO BID [facility] Last Admin: 02/23/20 20:29 Dose: 324 mg Documented by: Fluticasone Propionate (Fluticasone Propionate 16 Gm Nasal [place]) 2 spray PELON DAILY [facility] Last Admin: 02/23/20 08:27 Dose: 2 spray Documented by: Furosemide (Furosemide 20 Mg Tablet) 20 mg PO QDAC [facility] Last Admin: 02/24/20 05:57 Dose: 20 mg Documented by: Ertapenem 0.5 gm/ Sodium (Chloride) 50 mls @ 75 mls/hr IV DAILY [facility] Stop: 02/28/20 17:29 Last Admin: 02/24/20 08:31 Dose: 75 mls/hr Documented by: Promethazine HCl 12.5 mg/ (Sodium Chloride) 50.5 mls @ 75 mls/hr IV Q6H PRN PRN Reason: NAUSEA/VOMITING Last Admin: 02/21/20 11:46 Dose: 75 mls/hr Documented by: Sodium Chloride (Sodium Chloride) 1,000 mls @ 30 mls/hr IV .[id number] [facility] Last Admin: 02/23/20 21:47 Dose: 30 mls/hr Documented by: Nitroglycerin (Nitroglycerin 0.4 Mg Tab.Subl) 0.4 mg SL Q5MIN X 3 DOSES PRN PRN Reason: Chest Pain Non-Formulary Medication (Melatonin) 10 mg PO BEDTIME [facility] Last Admin: 02/23/20 20:28 Dose: 10 mg Documented by: Tacrolimus 1mg 2 mg PO BID [facility] Last Admin: 02/23/20 20:29 Dose: 2 mg Documented by: Pantoprazole Sodium (Pantoprazole Sodium 40 Mg Tablet.) 40 mg PO BIDAC [facility] Last Admin: 02/24/20 05:57 Dose: 40 mg Documented by: Prednisone (Prednisone 5 Mg Tablet) 2.5 mg PO DAILYWM [facility] Last Admin: 02/23/20 08:29 Dose: 2.5 mg Documented by: Sennosides (Sennosides 8.6 Mg Tablet) 8.6 mg PO BID [facility] Last Admin: 02/23/20 20:30 Dose: 8.6 mg Documented by: ALLERGIES sulfur dioxide Allergy (Unknown, Verified 02/19/20 15:31) ondansetron HCl [From Zofran] Adverse Reaction (Unknown, Verified 02/19/20 15:31) ibuprofen Adverse Reaction (Verified 02/19/20 15:31) sulfur dioxide Allergy (Unknown, Uncoded 04/09/19 15:37) ondansetron HCl Adverse Reaction (Unknown, Uncoded 04/09/19 15:37) DISCONTINUED MEDICATIONS NONE NEW PRESCRIPTIONS: NEW PRESCRIPTIONS NONE SMOKING: NON - APPLICABLE DISEASE SPECIFIC EDUCATION: DISCHARGE TO [facility] BED LAB REVIEW: 02/24/20 05:40 02/24/20 05:40 02/24/20 05:40: WBC 6.48, RBC 2.87 L, Hgb 9.3 L, Hct 30.0 L, MCV 104.5 H D, MCH 32.4 H, MCHC 31.0 L, RDW Coeff of [place] 18.0 H, Plt Count 133 L, Immature Gran % (Auto) 0.6, Neut % (Auto) 61.7, Lymph % (Auto) 21.3, [place] % (Auto) 12.2 H, Eos % (Auto) 3.9, Baso % (Auto) 0.3, Neut # (Auto) 4.0, Lymph # (Auto) 1.4, [place] # (Auto) 0.8, Eos # (Auto) 0.3, Baso # (Auto) 0.0, Immature Gran # (Auto) 0.0 02/24/20 05:40: Sodium 133.0 L, Potassium 4.73, Chloride 103.1, Carbon Dioxide 23.9, Anion Gap 10.73, BUN 45.0 H, Creatinine 2.56 H, Estimated GFR (MDRD) 19.00, BUN/Creatinine Ratio 17.57, Glucose 87.0, Calcium 8.29 L, Total Bilirubin 0.48, AST 23.7, ALT 10.8, Alkaline Phosphatase 30.1 L, Total Protein 6.14 L, Albumin 3.17 L, Globulin 2.97, Albumin/Globulin Ratio 1.06 PLAN: DISCHARGE TODAY: FEBRUARY 24, 2020 ADMIT TO [facility] SWING BED, MED SURG ( NON- MONITORED BED) ACTIVITY: UP WITH ASSIST OF ONE AND WALKER EARLY MOBILIZATION FOR VTE PREVENTION PT AND OT EVAL DIET : REGULAR , NO EGGS FOR BREAKFAST. NO TEA, NO TOMATO SOUP. LIKES OJ AND JELLO, MASH POTATOES, GREENBEANS. CONSULT DIRECTOR CUSTOM OXYGEN : 2 L/M PER N/C CONTINUOS LABS: CBC AND CMP EVERY 3 DAYS, START 02/25/2020 VITALS: EVERY 12 HOURS AND PRN WEIGHT: EVERY 3 DAYS, START IV ANTIBIOTICS: INVANZ 0.5 MG IV DAILY WITH LAST DOSE 02/28/2020 CONTINUE PREVIOUS INPATIENT MEDICATIONS CODE STATUS: DO NOT RESUSCITATE MRS RAMIREZ IS ALERT AND ORIENTED X 4. SHE HAS A BLANK AFFECT AND VERY LITTLE EXPRESSION. SHE HAS REMAINED AFEBRILE SINCE ADMITTED WITH UREOSEPSIS. SHE HAS REPORTED BURNING UPON URINATION INTERMITTENTLY. CONTINENT OF BOWEL AND BLADDER. HAS SOME DRIBBLING OF URINE. CONTINUES ON ANTI REJECTION MEDS, S /P KIDNEY TRANSPLANT. HAS CHRONIC PAIN TO NECK, BACK AND HEAD. SHE USES NORCO 5/325 MG 1/2 OF A TAB DAILY PRN, RECENTLY INCREASED TO BID PRN. NUTRITIONAL AND FLUID INTAKE IS GOOD. SKIN WARM AND DRY AND INTACT. PT AND OT HAVE BEEN WORKING WITH HER AND SHE DOES STAND WITH SBA/CGA X 1 AND USES A WALKER WITH SBA/CGA. GOING TO SWING BED FOR 5 MORE DAYS OF ANTIBIOTICS FOR UREOSEPSIS. SHE CHOSE A DNR STATUS AFTER EXPLAINED THE OPTIONS OF RESUSCITATION. MD CRUZ ANAYA, HYBRID TESTERDaysi WILSON, HYBRID TESTER
--- NOTE | 2020-02-25 11:01 | PN ---
DATE OF SERVICE: 02/23/2020 SUBJECTIVE: The patient was seen and examined with Nurse Practitioner. The patient's condition seems to be improving. She says that she is feeling better. Her sodium and Potassium is practically normal. BUN has been improving. The patient was given two units of packed red cells. Hgb is more than 9 with hct of 27. No evidence of active GI bleed. CONDITION: Improving. TIME SPENT: More than 30 minutes. Plan and coordination of the patient's care discussed in the presence of nurse. KAREN
--- NOTE | 2020-02-25 11:27 | PN ---
DATE OF SERVICE: 02/24/2020 SUBJECTIVE: 69 year old white female hospitalized with urosepsis. The patient also had renal failure with electrolyte imbalance. The patient also had anemia, now the anemia part is stable. Medical probably stabilizing. REVIEW OF SYSTEMS: CONSTITUTIONAL: No night sweats. No fatigue, malaise, lethargy. No fever or chills. Feeling better. HEENT: Eyes: No visual changes. No eye pain. No eye discharge. ENT: No runny nose. No epistaxis. No sinus pain. No sore throat. No odynophagia. No congestion. RESPIRATORY: No cough, no congestion. No hemoptysis. No shortness of breath. CARDIOVASCULAR: No angina symptoms. No CHF symptoms. No atypical chest pain for CAD. No palpitations. No PND. No orthopnea. GASTROINTESTINAL: No abdominal pain. No nausea or vomiting. No diarrhea or constipation. No hematemesis. No hematochezia. Appetite seems to be improving. GENITOURINARY: No urgency. No frequency. No dysuria. No hematuria. No obstructive symptoms. No discharge. No pain. No significant abnormal bleeding. MUSCULOSKELETAL: No musculoskeletal pain; no joint swelling. NEUROLOGICAL: No headache. No neck pain. No syncope. No seizures. No dizziness. PSYCHIATRIC: Not anxious. No depression. No suicidal thoughts. No homicidal thoughts. SKIN: No rash. No lesions. No wounds. ENDOCRINE: No unexplained weight loss. No weight gain. HEMATOLOGIC/LYMPHATIC: No anemia. No purpura. No petechiae. No prolonged or excessive bleeding. No palpable lymph nodes. PHYSICAL EXAMINATION: VITAL SIGNS: Temperature 97.2, pulse 78, respiratory rate 18, blood pressure 160/80 and pulse ox 100% on 2 liters. HEENT: Head normocephalic, atraumatic. Eyes: Extraocular muscles are intact. Pupils are equal, round and reactive to light and accommodation. Ears: No lesions. Nose appeared normal. Throat: No exudate or erythema. NECK: Supple. No JVD, no carotid bruit. No lymphadenopathy or thyromegaly. LUNGS: Decreased breath sounds but clear to auscultation. Percussion note normal. Chest symmetrical. HEART: S1, S2, no S3. No murmurs. No cyanosis or clubbing. No ascites. Pulses: Dorsalis pedis and posterior tibial pulses +1 to +2 bilaterally. ABDOMEN: Soft. Nontender. Bowel sounds active. No CVA tenderness. No mass felt. EXTREMITIES: No edema. Full range of motion of all extremities, equal. NEUROLOGIC: No focal deficit. Cranial nerves II through XII are grossly intact. No headache, no double vision or headache. SKIN: Not dry. Intact. Turgor - normal. LYMPHATIC: No palpable lymph nodes/no lymphedema. MUSCULOSKELETAL: Normal joints with no swelling. Muscle tone is normal. LABS: Hgb 9.3, hct 30, WBC 6,400 normal differential, creatinine 2.5, BUN 45, potassium 4.7, TSH normal. ASSESSMENT: 1. Urosepsis seems to be under control with Ertapenem which is ESBL 2. Anemia, stable with no evidence of GI bleed. The patient was given two units of packed red cells. She is feeling a lot better. She had symptomatic anemia 3. Renal failure seems to be improving with improvement in creatinine and BUN. The patient's skin turgor is a lot better. 4. Hyponatremia almost corrected 5. Hypokalemia seems to be resolving PLAN: 1. Encourage the patient to eat 2. Continue IV antibiotics. She is going to need IV antibiotics so the patient is going to be discharged to swing bed. CONDITION: Seems to be stable. TIME SPENT: More than 30 minutes. Plan and coordination of the patient's care discussed in the presence of nurse. KAREN
--- NOTE | 2020-02-26 13:18 | DS ---
DATE OF SERVICE: 02/24/2020 FINAL DIAGNOSIS: UREOSEPSIS, POSITIVE FOR E.COLI, ESBL. MUSCLE WEAKNESS. HYPERTENSION. ANEMIA SYMPTOMATIC. STATUS POST KIDNEY TRANSPLANT NEED FOR ASSISTANCE WITH PERSONAL CARE DIFFICULTY WALKING BALANCE IMPAIRED HISTORY: CHF ANEMIA, TRANSFUSIONS OF PACKED CELLS CHRONIC KIDNEY DISEASE, STAGE 3 DR. SKINNER COPD UTI, E-COLI ESBL POSITIVE HYPERTENSION DYSLIPIDEMIA OSTEOARTHRITIS B 12 DEFICIENCY DJD DEPRESSION RIB FRACTURE, ANTERIOR RIGHT 6TH AND 7TH CLAVICLE FRACTURE, LEFT 2019 RIGHT ARM FRACTURE, 2019 COMMINUTED IMPACTION FRACTURE LEFT DISTAL RADIUS, FEB 2018 SURGICAL PROCEDURES: NEPHRECTOMY, RIGHT KIDNEY TRANSPLANT, 2004 CHOLECYSTECTOMY CAROTID ENDARTERECTOMY, BILATERAL DR. DA SILVA RIGHT KNEE SURGERY UMBILICAL HERNIA REPAIR ECHOCARDIOGRAM, SEPTEMBER 2018 LVH WITH ENLARGED LEFT ATRIAL CAVITY NORMAL VALVES LVEF 77% LAST VITALS: Temp Pulse Resp BP Pulse Ox 97.2 F L 78 18 166/89 H 100 02/24/20 05:52 02/24/20 05:52 02/24/20 05:52 02/24/20 05:52 02/24/20 05:52 TAKE THESE MEDICATIONS AT HOME: Acetaminophen (Acetaminophen 325 Mg Tablet) 650 mg PO Q4H PRN PRN Reason: Pain Hydrocodone Bitart/Acetaminophen (Hydrocodone Bit/Acetaminophen 5/325 Mg Tablet) 0.5 tab PO BID [facility] Last Admin: 02/24/20 08:30 Dose: 0.5 tab Documented by: Allopurinol (Allopurinol 100 Mg Tablet) 100 mg PO DAILY [facility] Last Admin: 02/23/20 08:30 Dose: 100 mg Documented by: Amlodipine Besylate (Amlodipine Besylate 5 Mg Tablet) 5 mg PO BEDTIME [facility] Last Admin: 02/23/20 20:30 Dose: 5 mg Documented by: Aspirin (Aspirin 81 Mg Tablet.) 81 mg PO DAILYWM [facility] Last Admin: 02/23/20 08:28 Dose: 81 mg Documented by: Atorvastatin Calcium (Atorvastatin Calcium 20 Mg Tablet) 20 mg PO BEDTIME [facility] Last Admin: 02/23/20 20:31 Dose: 20 mg Documented by: Budesonide/Formoterol Fumarate (Budesonide/Formoterol Fumarate 160/4.5 Mcg Inhaler) 2 puff IH BID [facility] Last Admin: 02/23/20 20:32 Dose: 2 puff Documented by: Clopidogrel Bisulfate (Clopidogrel Bisulfate 75 Mg Tablet) 75 mg PO DAILY [facility] Last Admin: 02/23/20 08:28 Dose: 75 mg Documented by: Diphenhydramine HCl (Diphenhydramine Hcl 25 Mg Capsule) 25 mg PO BEDTIME [facility] Last Admin: 02/23/20 20:30 Dose: 25 mg Documented by: Docusate Sodium (Docusate Sodium 100 Mg Capsule) 100 mg PO BID [facility] Last Admin: 02/23/20 20:29 Dose: 100 mg Documented by: Enoxaparin Sodium (Enoxaparin Sodium 30 Mg/0.3 Ml Syr) 30 mg SUBCUT DAILY [facility] Last Admin: 02/23/20 08:31 Dose: 30 mg Documented by: Escitalopram Oxalate (Escitalopram Oxalate 10 Mg Tablet) 5 mg PO DAILY [facility] Last Admin: 02/23/20 08:29 Dose: 5 mg Documented by: Ferrous Sulfate (Ferrous Sulfate 324 Mg Tablet.Dr) 324 mg PO BID [facility] Last Admin: 02/23/20 20:29 Dose: 324 mg Documented by: Fluticasone Propionate (Fluticasone Propionate 16 Gm Nasal [place]) 2 spray PELON DAILY [facility] Last Admin: 02/23/20 08:27 Dose: 2 spray Documented by: Furosemide (Furosemide 20 Mg Tablet) 20 mg PO QDAC [facility] Last Admin: 02/24/20 05:57 Dose: 20 mg Documented by: Ertapenem 0.5 gm/ Sodium (Chloride) 50 mls @ 75 mls/hr IV DAILY [facility] Stop: 02/28/20 17:29 Last Admin: 02/24/20 08:31 Dose: 75 mls/hr Documented by: Promethazine HCl 12.5 mg/ (Sodium Chloride) 50.5 mls @ 75 mls/hr IV Q6H PRN PRN Reason: NAUSEA/VOMITING Last Admin: 02/21/20 11:46 Dose: 75 mls/hr Documented by: Sodium Chloride (Sodium Chloride) 1,000 mls @ 30 mls/hr IV .[id number] [facility] Last Admin: 02/23/20 21:47 Dose: 30 mls/hr Documented by: Nitroglycerin (Nitroglycerin 0.4 Mg Tab.Subl) 0.4 mg SL Q5MIN X 3 DOSES PRN PRN Reason: Chest Pain Non-Formulary Medication (Melatonin) 10 mg PO BEDTIME [facility] Last Admin: 02/23/20 20:28 Dose: 10 mg Documented by: Tacrolimus 1mg 2 mg PO BID [facility] Last Admin: 02/23/20 20:29 Dose: 2 mg Documented by: Pantoprazole Sodium (Pantoprazole Sodium 40 Mg Tablet.) 40 mg PO BIDAC [facility] Last Admin: 02/24/20 05:57 Dose: 40 mg Documented by: Prednisone (Prednisone 5 Mg Tablet) 2.5 mg PO DAILYWM [facility] Last Admin: 02/23/20 08:29 Dose: 2.5 mg Documented by: Sennosides (Sennosides 8.6 Mg Tablet) 8.6 mg PO BID [facility] Last Admin: 02/23/20 20:30 Dose: 8.6 mg Documented by: ALLERGIES: sulfur dioxide Allergy (Unknown, Verified 02/19/20 15:31) ondansetron HCl [From Zofran] Adverse Reaction (Unknown, Verified 02/19/20 15:31) ibuprofen Adverse Reaction (Verified 02/19/20 15:31) sulfur dioxide Allergy (Unknown, Uncoded 04/09/19 15:37) ondansetron HCl Adverse Reaction (Unknown, Uncoded 04/09/19 15:37) DISCONTINUED MEDICATIONS: NONE NEW PRESCRIPTIONS: NONE SMOKING: NON - APPLICABLE DISEASE SPECIFIC EDUCATION: DISCHARGE TO [facility] BED LAB REVIEW: 02/24/20 05:40 02/24/20 05:40 02/24/20 05:40: WBC 6.48, RBC 2.87 L, Hgb 9.3 L, Hct 30.0 L, MCV 104.5 H D, MCH 32.4 H, MCHC 31.0 L, RDW Coeff of [place] 18.0 H, Plt Count 133 L, Immature Gran % (Auto) 0.6, Neut % (Auto) 61.7, Lymph % (Auto) 21.3, [place] % (Auto) 12.2 H, Eos % (Auto) 3.9, Baso % (Auto) 0.3, Neut # (Auto) 4.0, Lymph # (Auto) 1.4, [place] # (Auto) 0.8, Eos # (Auto) 0.3, Baso # (Auto) 0.0, Immature Gran # (Auto) 0.0 02/24/20 05:40: Sodium 133.0 L, Potassium 4.73, Chloride 103.1, Carbon Dioxide 23.9, Anion Gap 10.73, BUN 45.0 H, Creatinine 2.56 H, Estimated GFR (MDRD) 19.00, BUN/Creatinine Ratio 17.57, Glucose 87.0, Calcium 8.29 L, Total Bilirubin 0.48, AST 23.7, ALT 10.8, Alkaline Phosphatase 30.1 L, Total Protein 6.14 L, Albumin 3.17 L, Globulin 2.97, Albumin/Globulin Ratio 1.06 DISCHARGE INSTRUCTIONS: DISCHARGE TODAY: FEBRUARY 24, 2020 ADMIT TO [facility] SWING BED, MED SURG ( NON- MONITORED BED). OXYGEN : 2 L/M PER N/C CONTINUOUS, LABS: CBC AND CMP EVERY 3 DAYS, START 02/25/2020, VITALS: EVERY 12 HOURS AND PRN, WEIGHT: EVERY 3 DAYS, START , IV ANTIBIOTICS: INVANZ 0.5 MG IV DAILY WITH LAST DOSE 02/28/2020, CONTINUE PREVIOUS INPATIENT MEDICATIONS. CODE STATUS: DO NOT RESUSCITATE. ACTIVITY: UP WITH ASSIST OF ONE AND WALKER EARLY MOBILIZATION FOR VTE PREVENTION PT AND OT EVAL DIET : REGULAR , NO EGGS FOR BREAKFAST. NO TEA, NO TOMATO SOUP. LIKES OJ AND JELLO, MASH POTATOES, GREENBEANS. CONSULT COMMUNICATIONS PLANNER HOSPITAL COURSE: The patient was hospitalized with multiple medical problems. Her main issue was urinary tract infection that had made her dehydrated with nausea and poor appetite. The patient in the hospital was treated with IV antibiotics, Ertapenem. The patient has ESBL. The patient's condition has improved. The patient was also found to have worsening of the kidney function because of dehydration. She was given IV fluids. She did not have any fluid overload. Her hyponatremia and hypokalemia were corrected with supplements. The patient also had anemia which worsened from baseline because of IV hydration. She was symptomatic with fatigue and tired feeling and she was given two units of packed red cells. She didn't have any evidence of any active GI bleed. She denies colonoscopy, EGD or even going to GI specialist. The patient has been stable now and needs IV antibiotics for the ESBL so she is going to be discharged. The patient's appetite has improved. No symptoms CHF, CAD or COVID. The patient's probably is noncompliance which she doesn't mean to but very poor at home. The patient has been strongly advised to followup with her pasting machine operator in [place] CONDITION: Stable PROGNOSIS: Guarded TIME SPENT: More than 60 minutes. MTDD
--- NOTE | 2020-02-26 13:20 | PN ---
02/19/2020: Level 5 02/20/2020: Extensive 02/21/2020: Intermediate 02/22/2020: Intermediate 02/23/2020: Intermediate 02/24/2020: D as in discharge MTDD
== END 2020-02-24 10:39 | disposition swing bed (61) | DRG 872 ==
LOC: ED 11:16 → MEDSURG B 16:03
PROVIDERS: ADMIT Internal Medicine; ATTEND Internal Medicine
DX: R30.0 Dysuria; R35.0 Frequency of micturition; R11.2 Nausea with vomiting, unspecified; E86.0 Dehydration; D64.9 Anemia, unspecified; N19 Unspecified kidney failure; F32.9 Major depressive disorder, single episode, unspecified; R53.1 Weakness; I10 Essential (primary) hypertension; A41.9 Sepsis, unspecified organism; E87.6 Hypokalemia; N18.9 Chronic kidney disease, unspecified; B96.20 Unspecified Escherichia coli [E. coli] as the cause of diseases classified elsewhere; Z94.0 Kidney transplant status; E87.1 Hypo-osmolality and hyponatremia

== ENCOUNTER 2020-03-03 14:06 | Inpatient (IN) ==
[2020-03-03 14:49] VITALS: BMI 28.8
[2020-03-03] MEDS ORDERED: ATROPINE SULFATE PFS IVP PRN (15:42)
[2020-03-03] MEDS ORDERED: VISTARIL INJ IM PRN (15:42)
[2020-03-03] MEDS ORDERED: NITROSTAT SL PRN (15:42)
[2020-03-03] MEDS ORDERED: VENTOLIN HFA (PER PUFF-WITH SPACER) IH PRN (16:22)
--- NOTE | 2020-03-03 16:49 | DI ---
EXAM: Chest one view, frontal view only. HISTORY: Shortness of air. COMPARISON: 02/19/2020. FINDINGS: Cardiac silhouette is enlarged. Vascular congestion with diffuse interstitial opacities. There may be some perihilar right consolidation, although this is likely technical due to patient ro tation to the right. No pleural effusion or pneumothorax identified. Clips seen over the neck. No acute osseous abnormality identified. IMPRESSION: Findings suggestive of pulmonary edema.
[2020-03-03 16:59] LABS: BASOPHILS % (AUTO) 0.2 % (0.0-3.0); EOSINOPHILS # (AUTO) 0.1 K/ul (0.0-0.7); EOSINOPHILS % (AUTO) 0.8 % (0.0-7.0); HEMOGLOBIN 6.8 g/dl (12.0-16.0); IMMATURE GRANULOCYTE # (AUTO) 0.1 (0.0-1.0); IMMATURE GRANULOCYTE % (AUTO) 1.1 % (0.0-5.0); LYMPHOCYTES # (AUTO) 0.8 K/uL (0.60-3.4); MEAN CORPUSCULAR HEMOGLOBIN 33.2 pg (27.0-31.0); MEAN CORPUSCULAR HGB CONC 32.4 (31.8-35.4); MEAN CORPUSCULAR VOLUME 102.4 fl (81.0-99.0); MONOCYTES # (AUTO) 0.5 K/uL (0.4-2.0); MONOCYTES % (AUTO) 7.1 (0-10); NEUTROPHILS # (AUTO) 5.1 K/ul (2.0-6.9); NEUTROPHILS % (AUTO) 78.8 % (42.2-75.2); PLATELET COUNT 192 10^3/uL (140-440); RED BLOOD COUNT 2.05 10^6/ul (4.20-5.40); WHITE BLOOD COUNT 6.44 K/ul (4.6-10.2)
[2020-03-03] MEDS ORDERED: FERROUS SULFATE PO SCH (17:00)
[2020-03-03 17:05] LABS: ALANINE AMINOTRANSFERASE 15.1 U/L (0-35); ALBUMIN 3.34 g/dL (3.5-5.0); ALKALINE PHOSPHATASE 46.9 U/L (53-141); ASPARTATE AMINO TRANSFERASE 32.4 U/L (14-36); BILIRUBIN,TOTAL 0.67 mg/dL (0.2-1.3); BLOOD UREA NITROGEN 51.4 mg/dL (7-17); CALCIUM 7.98 mg/dL (8.4-10.2); CARBON DIOXIDE 25.7 mmol/L (22-30.0); CHLORIDE 97.1 mmol/L (98-107); CREATININE 3.28 mg/dL (0.60-1.30); GLUCOSE 149.3 mg/dL (74-106); POTASSIUM 5.45 mmol/L (3.5-5.1); SODIUM 131.5 mmol/L (134.5-145); TOTAL PROTEIN 6.31 g/dL (6.3-8.2)
[2020-03-03 17:36] LABS: ABG BASE EXCESS 3 (-2.0-2.0); ABG HCO3 30.1 (22.0-26.0); ABG PH 7.345 (7.35-7.45); ABG TCO2 32 (22.0-28.0)
[2020-03-03 18:39] LABS: BILIRUBIN,URINE Negative (NEGATIVE); CLARITY,URINE Clear (CLEAR); COLOR,URINE Yellow (YELLOW); GLUCOSE, URINE (UA) Negative (NEGATIVE); KETONES,URINE Negative (NEGATIVE); LEUKOCYTE ESTERASE ,URINE Negative (NEGATIVE); NITRITE,URINE Negative (NEGATIVE); PH,URINE 6.5 (5-9); PROTEIN,URINE 3+ (NEGATIVE); URINE, BLOOD Trace-intact (NEGATIVE); UROBILINOGEN,URINE 0.2 (0.2)
[2020-03-03] MEDS: SYMBICORT 160-4.5 MCG INHALER IH SCH (20:25)
[2020-03-03] MEDS: FERROUS SULFATE PO SCH (20:25)
[2020-03-03] MEDS: COZAAR PO SCH (20:26)
[2020-03-03] MEDS: BENADRYL PO SCH (20:26)
[2020-03-03] MEDS: COLACE PO SCH (20:26)
[2020-03-03] MEDS: TACROLIMUS 1 MG PO SCH (20:29)
[2020-03-03] MEDS: NON-FORMULARY MEDICATION (Melatonin 5 mg Tablet) PO SCH (20:30)
[2020-03-03] MEDS ORDERED: COREG PO SCH (21:00)
[2020-03-03] MEDS ORDERED: NON-FORMULARY MEDICATION (Ferrous Sulfate 325 mg (65 mg iron) Tablet) PO SCH (21:00)
[2020-03-04] MEDS: SODIUM CHLORIDE 1,000 ML IV SCH ×3 (01:40→11:20)
[2020-03-04 02:40] LABS: BASOPHILS % (AUTO) 0.3 % (0.0-3.0); EOSINOPHILS # (AUTO) 0.2 K/ul (0.0-0.7); HEMATOCRIT 26.1 % (37.0-47.0); HEMOGLOBIN 8.7 g/dl (12.0-16.0); IMMATURE GRANULOCYTE # (AUTO) 0.1 (0.0-1.0); LYMPHOCYTES # (AUTO) 1.5 K/uL (0.60-3.4); LYMPHOCYTES % (AUTO) 20.1 (10.0-50.0); MEAN CORPUSCULAR HEMOGLOBIN 32.5 pg (27.0-31.0); MEAN CORPUSCULAR HGB CONC 33.3 (31.8-35.4); MEAN CORPUSCULAR VOLUME 97.4 fl (81.0-99.0); MONOCYTES % (AUTO) 13.4 (0-10); NEUTROPHILS # (AUTO) 4.8 K/ul (2.0-6.9); NEUTROPHILS % (AUTO) 63.2 % (42.2-75.2); PLATELET COUNT 181 10^3/uL (140-440); RDW COEFFICIENT OF VARIATION 17.8 % (11.6-14.8); RED BLOOD COUNT 2.68 10^6/ul (4.20-5.40); WHITE BLOOD COUNT 7.62 K/ul (4.6-10.2)
[2020-03-04 03:03] LABS: ALANINE AMINOTRANSFERASE 12.8 U/L (0-35); ALBUMIN 3.04 g/dL (3.5-5.0); ALKALINE PHOSPHATASE 37.5 U/L (53-141); ASPARTATE AMINO TRANSFERASE 29.9 U/L (14-36); BILIRUBIN,TOTAL 0.87 mg/dL (0.2-1.3); BLOOD UREA NITROGEN 55.2 mg/dL (7-17); CALCIUM 7.97 mg/dL (8.4-10.2); CARBON DIOXIDE 27.4 mmol/L (22-30.0); CHLORIDE 98.4 mmol/L (98-107); CREATININE 3.37 mg/dL (0.60-1.30); GLUCOSE 93.9 mg/dL (74-106); POTASSIUM 5.53 mmol/L (3.5-5.1); SODIUM 131.7 mmol/L (134.5-145); TOTAL PROTEIN 5.88 g/dL (6.3-8.2)
[2020-03-04] MEDS: TYLENOL PO PRN (05:32)
[2020-03-04] MEDS: LASIX TAB PO SCH (06:34)
[2020-03-04] MEDS: PROTONIX PO SCH (06:34)
[2020-03-04] MEDS: SYMBICORT 160-4.5 MCG INHALER IH SCH ×2 (08:39→20:35)
[2020-03-04] MEDS: FLONASE NAS SCH (08:39)
[2020-03-04] MEDS: COLACE PO SCH ×2 (08:40→20:28)
[2020-03-04] MEDS: TACROLIMUS 1 MG PO SCH ×2 (08:40→20:27)
[2020-03-04] MEDS: FERROUS SULFATE PO SCH ×2 (08:40→20:28)
[2020-03-04] MEDS: PREDNISONE PO SCH (08:40)
[2020-03-04] MEDS: COZAAR PO SCH ×2 (08:40→20:28)
[2020-03-04] MEDS: ZYLOPRIM PO SCH (08:40)
[2020-03-04] MEDS: MULTIVITAMIN TABLET PO SCH (08:40)
[2020-03-04] MEDS: LEXAPRO PO SCH (08:40)
[2020-03-04] MEDS: LIPITOR PO SCH (08:40)
[2020-03-04] MEDS: COREG PO SCH ×2 (08:40→16:13)
[2020-03-04] MEDS ORDERED: LASIX IVP STA (09:17)
[2020-03-04] MEDS ORDERED: DECADRON 4 MG/ML SDV IM STA (09:20)
--- NOTE | 2020-03-04 09:27 | PN ---
DATE OF SERVICE: 03/03/2020 SUBJECTIVE: The patient was seen on a followup on office visit after she was discharged from hospital with urosepsis, anemia and electrolyte imbalance and kidney failure. The patient's CMP done this morning with CBC showed hgb of 7 with worsening of her kidney functions. She had leg swelling bilaterally. She is going to be hospitalized. Discontinue Norvasc. Type and cross match two units and transfuse slowly. Will monitor kidney functions. She is oriented to time, place and person but looks pale. She refused to go to one of the [facility] or emergency room for now. She is going to be hospitalized and treated at [facility]. She has been followed by Dr. Light. She is still upset about the fact that he told her a couple of weeks ago during office visit that she may end up on dialysis. Declines any evaluation further for dialysis. CONDITION: Stable PROGNOSIS: Guarded TIME SPENT: More than 30 minutes. Plan and coordination of the patient's care discussed in the presence of nurse. KAREN
[2020-03-04] MEDS: CATAPRES PO SCH ×2 (10:39→20:28)
--- NOTE | 2020-03-04 13:25 | RS.PTINEVL ---
Subjective - Patient information Date of Evaluation: 03/04/20 Date of Arrival on Unit: 03/03/20 Admitted From:: Home Diagnosis: symptomatic anemia, acute renal failure, difficulty walking, impaired bal. Usual Living Arrangement: lives alone w/ caregivers to visit 5x a week. Living Arrangement Comments: lives in house. Has caregiver 5 days a week. Home Environment: House, Stairs (few), Rail Medical History: Hypertension, COPD, Arthritis Medical History Comments:: anemia, renal failure, PAD, depression, ASHD LATEX ALLERGY?: No Surgical History Comments:: kidney transplant 2003 Medications: see chart Subjective Information/ Patient Comments:: pt states that she is tired today and feels weak. pt reports she uses w/c most of the time in her apt propelling it with her feet. - Level of function Prior to this admission, the patient could do the following:: Partially Dependent Ambulation Current Level of Function: Partially Dependent Current Equipment Used at Home: Oxygen, rolling walker, wheelchair, bedside commode. Interventions - Objective Patient Orientation: Person, Place, Time, Situation Current Interventions: IV's, Oxygen (2 liters), Telemetry Observation: pt with bruising present L hand. Edema BLE Range of Motion - ROM Right Upper Extremity AROM: WFL's Left Upper Extremity AROM: WFL's Right Lower Extremity AROM: WFL's Left Lower Extremity AROM: WFL's Muscle Strength - Muscle Strength Right Upper Extremity Strength: Mild Weakness (shld flex 4-/5, elbow flex/ext 4/5, decreased metal dresser strength) Left Upper Extremity Strength: Mild Weakness (shld flex 4-/5, elbow flex/ext 4/5, decreased metal dresser strength) Right Lower Extremity Strength: Mild Weakness (hip flex 4-/5, knee flex/ext 4/5, ankle DF/PF 4/5) Left Lower Extremity Strength: Mild Weakness (hip flex 4-/5, knee flex/ext 4/5, ankle DF/PF 4/5) Sensation - Sensation Right Upper Extremity Sensation: Intact/Normal Left Upper Extremity Sensation: Intact/Normal Right Lower Extremity Sensation: Intact/Normal Left Lower Extremity Sensation: Intact/Normal Palpation Palpation Findings: Tenderness (tenderness to palpation L hand) Balance - Sitting Balance and Reactions Static Sitting Balance: Good Dynamic Sitting Balance: Fair - Standing Balance and Reactions Static Standing Balance: Poor Dynamic Standing Balance: Poor Standing Equilibrium Reactions: Delayed Left, Delayed Right Standing Protective Reactions: Delayed Left, Delayed Right Functional Mobility - Bed Mobility Rolling R/L: CGA Supine to Sit: CGA Sit to Supine: CGA, Min Assist - Transfers Sit to Stand: CGA Stand to Sit: CGA - Safety Awareness Safety Awareness: Fair KRYSTLE INDEX SCORE: n/a Ambulation - Ambulation Assistive Device Used: Rolling Walker Orthotic/Prosthetic Device: No Distance: 140ft Assistance needed with Ambulation: CGA, Min Assist, 1 person assist, 2 person assist Quality of Ambulation: pt amb with CGA to min x 1 +1 for O2 and IV. pt amb with flexed posture, decreased step length. pt deviates from path during amb with difficulty with walker placement. Gait Deviations: Forward posture, Short stride, Deviates from path Factors Affecting Ambulation: Decreased Balance, Breathing/O2 Saturation, Weakness, Decreased Safety, Limited Endurance Treatment time - Time with patient Length of Evaluation: 21 Total treatment time: 27 Patient Education - Education Patient Education: Activity Modification, Education of Plan of Care Teaching Recipient: Patient Teaching Methods: Discussion Comments: discussion regarding POC Assessment - Assessment Problem List:: Decreased level of function, Requires training/education, Decreased safety/Risk of falls, Weakness Rehab Potential: Fair Further Therapy Indicated?: Yes Candidate for Swing Bed for Therapy Services?: Feel pt would not be a candidate for swing bed for therapy. pt uses w/c in home, and pt has h/o of noncompliance with therapy. Evaluation Complexity: HISTORY: Medium, EXAM OF BODY SYSTEMS: Medium, CLINICAL PRESENTATION: Medium, CLINICAL DECISION MAKING: Medium Patient's Goal(s): "get better" Short Term Goals GOAL #1: Transfer sup to/from sit independently Goal to be met by: 03/07/20 GOAL #2: Transfer sup to/from sit SBA Goal to be met by: 03/07/20 GOAL #3: Transfer sit to/from stand SBA Goal to be met by: 03/07/20 GOAL #4: pt amb 120ft with rwx with proper sequencing, technique with CGA Goal to be met by: 03/07/20 Ehs Manager Goals GOAL #1: pt transfer sup to/from sit to/from stand independently Goal to be met by: 03/09/20 GOAL #2: pt amb functional household distances w rwx with no LOB Goal to be met by: 03/09/20 GOAL #3: Improve dyn stand balance fair+ Goal to be met by: 03/09/20 Plan Plan of Care: Therapeutic EX, Therapeutic Activity Other:: gait training Frequency of Treatment: 1-2 X day, as tolerated Duration of Treatment: 5 days Anticipated Discharge Destination: Home Treatment Diagnosis (ICD 10 Codes): difficulty walking R 26.2. impaired balance R26.81. muscle weakness M62.81 Has the Physician been added for Co-signature?: Yes
--- NOTE | 2020-03-04 13:48 | RS.OTINEVL ---
Subjective - Patient information Date of Evaluation: 02/24/20 Date of Arrival on Unit: 03/03/20 Admitted From:: Home Diagnosis: Urosepsis, Nausea, vomiting PRECAUTIONS: A fall risk Usual Living Arrangement: Alone Living Arrangement Comments: lives in house. Has caregiver 5 days a week. Home Environment: House, Stairs (few), Rail Medical History: Hypertension, COPD, Arthritis Medical History Comments:: anemia, renal failure, PAD, depression, ASHD LATEX ALLERGY?: No Surgical History: Cholecystectomy Surgical History Comments:: kidney transplant 2003 Medications: see chart Subjective Information/ Patient Comments:: "I went to see Dr. Zuleta and they checked my labs and sent me over here to the hospital." "I am tired. I need to get in my lab." - Level of function Prior to this admission, the patient could do the following:: Partially Dependent Ambulation Abilities prior to this admission: Pt was walking with RW approximately 50 yards at time of discharge. Pt has help with her bathing at home. Pt is not able to cook at home. Pt has help with cooking and cleaning in her house during the week. Her son helps her on the weekends. Current Level of Function: Partially Dependent Current Equipment Used at Home: Oxygen, rolling walker, wheelchair, bedside commode. Pain Assessment - Pain Pain Score: 4 Side: bilateral Pain Location Body Site: Back Pain Aggravating Factors: ADL's, Changing Position, Standing, Walking Pain Alleviating Factors: Medication, Sitting, Lying Supine Interventions - Objective Patient Orientation: Person, Place, Time, Situation Current Interventions: IV's, Oxygen Observation: Pt has curvature of the spine and this causes her hip to hurt when she walks. Pt reports her back hurts. Pt pushes the walker out in front of each other. Interventions - ROM Right Upper Extremity AROM: Slight limitation Left Upper Extremity AROM: Slight limitation - Strength Right Upper Extremity Strength: Mild Weakness Left Upper Extremity Strength: Mild Weakness - Sensation Right Upper Extremity Sensation: Intact/Normal Left Upper Extremity Sensation: Intact/Normal Balance - Sitting Balance Static Sitting Balance: Fair Dynamic Sitting Balance: Fair - Standing Balance Static Standing Balance: Poor Dynamic Standing Balance: Poor ADL Skills - Grooming Grooming: Independent, Min Assist - Bathing Bathing UE: Min Assist Bathing LE: Min Assist - Dressing Dressing LE: Min Assist - Toilet Management Toileting Management: CGA Functional Mobility - Bed Mobility Rolling R/L: Independent Scooting: Independent Supine to Sit: Independent Sit to Supine: Independent - Transfers Sit to Stand: CGA Stand to Sit: [facility] Stand Pivot Transfers: CGA - Ambulation Weight Bearing Status: FWB Assistive Device Used: Rolling Walker Assistance needed with Ambulation: CGA - Safety Awareness Safety Awareness: Poor KRYSTLE INDEX SCORE: . Additional Treatment Performed - Time with patient Length of Evaluation: 20 Total treatment time: 20 Activities Do you enjoy playing games?: Yes Would you be interested in leaving your room for activities?: Yes Would you enjoy group activities?: Yes Do you have difficulty with your vision?: Yes Patient Interests:: Reading Books/Magazines, Watching Television, Puzzles/Games, Visiting/Socializing Patient Education Patient Education: Education of diagnosis, Home Exercise Program, Home Safety, Education of Plan of Care Teaching Recipient: Patient Teaching Methods: Discussion Assessment Problem List:: Decreased level of function, Requires training/education, Decreased safety/Risk of falls, Weakness, Pain limits previous level of function Rehab Potential: Fair Further Therapy Indicated?: Yes Evaluation Complexity: HISTORY: Medium, EXAM OF BODY SYSTEMS: Medium, CLINICAL DECISION MAKING: Medium Patient's Goal(s): To get where she doesn't hurt and be able to go home. Short Term Goals - Goals GOAL 1: Pt to increase dyn. std. bal. to Fair+ Goal to be met by: 03/08/20 GOAL 2: Pt to tolerate 10 minutes of activity. Goal to be met by: 03/08/20 GOAL 3: Pt to increase independence with sit to stand to Supervision. Goal to be met by: 03/08/20 [facility] Goals GOAL 1: Pt to increase dyn. std. bal. to Good. Goal to be met by: 03/11/20 GOAL 2: Pt to tolerate 15 minutes of activity. Goal to be met by: 03/11/20 GOAL 3: Pt to increase BUE strength to be 4+/5. Goal to be met by: 03/11/20 Plan Plan of Care: Therapeutic EX, Therapeutic Activity, Self-Care/Home Management Frequency of Treatment: 1-2 X day, as tolerated Duration of Treatment: 1 Week Anticipated Discharge Destination: Home Treatment Diagnosis (ICD 10 Codes): Generalized weakness M62.81 Has the Physician been added for Co-signature?: Yes
--- NOTE | 2020-03-04 14:34 | PN ---
DATE OF SERVICE: 03/04/2020 SUBJECTIVE: 69 year old white female hospitalized with symptomatic anemia. The patient was seen on followup after her hospitalization for urosepsis. The patient denies of any abdominal pain or melena. The patient's hgb was noted to be 7 as an outpatient and creatinine was 3.7 with BUN of 57. On discharge the patient's creatinine was 2.4 four days ago. According to the patient she has been doing well but her appetite has not been that good. A little bit more short of breath with minimal exertion. The patient was hospitalized. REVIEW OF SYSTEMS: CONSTITUTIONAL: No night sweats. No fatigue, malaise, lethargy. No fever or chills. Feeling better. HEENT: Eyes: No visual changes. No eye pain. No eye discharge. ENT: No runny nose. No epistaxis. No sinus pain. No sore throat. No odynophagia. No congestion. RESPIRATORY: No cough, no congestion. No hemoptysis. No shortness of breath at rest. CARDIOVASCULAR: No angina symptoms. No CHF symptoms. No atypical chest pain for CAD. No palpitations. No PND. No orthopnea. GASTROINTESTINAL: No abdominal pain. No nausea or vomiting. No diarrhea or constipation. No hematemesis. No hematochezia. GENITOURINARY: No urgency. No frequency. No dysuria. No hematuria. No obstructive symptoms. No discharge. No pain. No significant abnormal bleeding. MUSCULOSKELETAL: No musculoskeletal pain; no joint swelling. NEUROLOGICAL: No headache. No neck pain. No syncope. No seizures. No dizziness. PSYCHIATRIC: Not anxious. No depression. No suicidal thoughts. No homicidal thoughts. SKIN: No rash. No lesions. No wounds. ENDOCRINE: No unexplained weight loss. No weight gain. HEMATOLOGIC/LYMPHATIC: No anemia. No purpura. No petechiae. No prolonged or excessive bleeding. No palpable lymph nodes. PHYSICAL EXAMINATION: VITAL SIGNS: Temperature 98.1, pulse 78, respiratory rate 16, blood pressure 162/90 and pulse 99% on 2 liters. HEENT: Head normocephalic, atraumatic. Eyes: Extraocular muscles are intact. Pupils are equal, round and reactive to light and accommodation. Ears: No lesions. Nose appeared normal. Throat: No exudate or erythema. NECK: Supple. No JVD, no carotid bruit. No lymphadenopathy or thyromegaly. LUNGS: Decreased breath sounds. Clear to auscultation. Percussion note normal. Chest symmetrical. HEART: S1, S2, no S3. No murmurs. No cyanosis or clubbing. No ascites. Pulses: Dorsalis pedis and posterior tibial pulses +1 to +2 bilaterally. ABDOMEN: Soft. Nontender. Bowel sounds active. No CVA tenderness. No mass felt. EXTREMITIES: Trace to 1+ pitting edema. Full range of motion of all extremities, equal. NEUROLOGIC: No focal deficit. Cranial nerves II through XII are grossly intact. No headache, no double vision or headache. SKIN: Not dry. Intact. Turgor - normal. Somewhat pale. LYMPHATIC: No palpable lymph nodes/no lymphedema. MUSCULOSKELETAL: Normal joints with no swelling. Muscle tone is normal. LABS: hgb 8.7, hct 26, WBC 7,000 normal differential, creatinine 3.3, BUN 55, potassium 5.5. ASSESSMENT: 1. Anemia, symptomatic. Was given 2 units of packed red cells. No evidence of active GI bleed. The patient's hemo occult was negative last hospitalization. 2. Renal failure which has worsened. We have been given IV fluids 50cc per hour, will discontinue that for the time being.Give IV Lasix because of fluid retention. 3. Hyperkalemia, will follow that 4. Hypertension, we will add Clonidine 0.1mg BID and one now and IV Lasix to be given 20mg now, elevate the legs and cut down on salt intake. The patient had declined [facility] because of renal failure. She is scared of hemodialysis and according to her she will never undergo dialysis. PLAN: 1. 1/2cc Decadron to be given. PROGNOSIS: Guarded CONDITION:Stable for now. TIME SPENT: More than 30 minutes. Plan and coordination of the patient's care discussed in the presence of nurse. KAREN
--- NOTE | 2020-03-04 14:58 | HP ---
DATE OF SERVICE: 03/03/2020 REASON FOR HOSPITALIZATION/HISTORY OF PRESENT ILLNESS: Hospital followup. Had CBC CMP today with hgb of 7.0, creatinine 3.46, and BUN of 46.9. Legs are swollen and weak. PAST MEDICAL HISTORY: Anemia B12 deficiency Headache CKD stage 4 Chronic respiratory failure Oxygen dependent COPD Hypertension DJD Osteoarthritis PAST SURGICAL HISTORY: Kidney transplant Cholecystectomy Right Carotid endarterectomy Umbilical hernia repair REVIEW OF SYSTEMS: CONSTITUTIONAL: No fever, Fatigue. HEENT: No sinus drainage, no sore throat. RESPIRATORY: No cough, no congestion. CARDIOVASCULAR: No atypical chest pain for coronary artery disease. No angina, CHF symptoms, palpitations. Shortness of breath. GASTROINTESTINAL: No melena or abdominal pain. No GERD. GENITOURINARY: No hematuria, no prostatism, no polyuria. ADMISSIONS DEAN: No blackout, no dizziness, no headache, no double vision. GAIT: Wheelchair. MUSCULOSKELETAL: No osteoarthritis pain, no joint swelling. ENDOCRINE: No weight loss, no weight gain. SKIN: Not dry, no rash. PSYCHIATRIC: Not anxious, no depression, no suicidal thoughts, no homicidal thoughts. SOCIAL HISTORY: Marital Status: . Alcohol Usage: No. Tobacco Usage: No. FAMILY HISTORY: Father Mother Brother 1 Sister 1 MEDICATIONS: Flonase 50mg two spray daily Albuterol two puffs Q 4 Norvasc 10mg at HS Prednisone 5mg daily Losartan 50mg BID Allopurinol 100mg daily O2 Plavix 75mg daily Lasix 20mg daily Lipitor 20mg daily Coreg 6.25mg BID Lexapro 5,g daily Tacrolimus 1mg BID Protonix daily Ferrous sulfate 325mg BID Vitamins Stool softener Melatonin 5mg HS Allergy relief over the counter Symbicort 160-4.5 BID two puffs. ALLERGIES: Sulfa Zofran PHYSICAL EXAMINATION: V/S: pulse 86, blood pressure 128/64, temperature 98, oxygen saturation 89%. The patient is on O2 with 2 liters nasal canula. GENERAL APPEARANCE: Oriented times three. HEENT: Normal. Pale. NECK: No JVP, no bruits. RESPIRATORY: Decreased breath sounds CARDIOVASCULAR: S1, S2, no S3, murmur II/. No cyanosis, clubbing. No ascites. GI/ABDOMEN: No tenderness. Bowel sounds are active. EXTREMITIES: +1 bilateral lower extremity edema, pulses +1, equal. ADMISSIONS DEAN: Deep tendon reflexes, sensory, motor and gait all normal. RECTAL: Dr. Aponte. 12/03 refused repeat. EGD. /PELVIC: 02/03 mammogram refused repeat. ASSESSMENT: 1. Symptomatic anemia 2. Acute renal failure 3. Leg edema 4. Chronic anemia 5. O2 dependent 6. History of UTI with e-coli/ ESBL 7. Recurrent UTI 8. Headache 9. CKD stage 4 10.Chronic respiratory failure 11.COPD 02 dependent 12.Multiple dental caries 13.Hypertension 14.ASHD per CT 15.Right radial fracture 16.History of falls 17.B12 deficiency 18.Right kidney transplant- [place] 19.Bilateral CEA/PAD- Dr. Grossman. PLAN: 1. Admit 2. Routine telemetry orders 3. CBC and CMp now and daily 4. Type and cross 2 units PRBC's and give 5. Discontinue Norvasc 6. Hold Plavix 7. Continue other home medications 8. ABG times one on 2 liters 9. Regular diet 10.Normal saline IV at 50cc an hour 11.Continue O2 1-2 liters nasal canula. TIME SPENT: More than 70 minutes. MTDD
[2020-03-04] MEDS: BENADRYL PO SCH (20:28)
[2020-03-04] MEDS: NORCO 5-325 PO PRN (20:28)
[2020-03-04] MEDS: NON-FORMULARY MEDICATION (Melatonin 5 mg Tablet) PO SCH (20:34)
[2020-03-05] MEDS: TYLENOL PO PRN ×2 (04:24→20:24)
[2020-03-05 05:12] LABS: BASOPHILS % (AUTO) 0.3 % (0.0-3.0); EOSINOPHILS # (AUTO) 0.1 K/ul (0.0-0.7); EOSINOPHILS % (AUTO) 0.8 % (0.0-7.0); HEMATOCRIT 25.4 % (37.0-47.0); HEMOGLOBIN 8.2 g/dl (12.0-16.0); IMMATURE GRANULOCYTE # (AUTO) 0.1 (0.0-1.0); IMMATURE GRANULOCYTE % (AUTO) 1.1 % (0.0-5.0); LYMPHOCYTES # (AUTO) 1.3 K/uL (0.60-3.4); LYMPHOCYTES % (AUTO) 17.1 (10.0-50.0); MEAN CORPUSCULAR HEMOGLOBIN 32.2 pg (27.0-31.0); MEAN CORPUSCULAR HGB CONC 32.3 (31.8-35.4); MEAN CORPUSCULAR VOLUME 99.6 fl (81.0-99.0); MONOCYTES # (AUTO) 0.9 K/uL (0.4-2.0); MONOCYTES % (AUTO) 12.3 (0-10); NEUTROPHILS # (AUTO) 5.1 K/ul (2.0-6.9); NEUTROPHILS % (AUTO) 68.4 % (42.2-75.2); PLATELET COUNT 177 10^3/uL (140-440); RDW COEFFICIENT OF VARIATION 17.2 % (11.6-14.8); RED BLOOD COUNT 2.55 10^6/ul (4.20-5.40); WHITE BLOOD COUNT 7.39 K/ul (4.6-10.2)
[2020-03-05 05:25] LABS: ALANINE AMINOTRANSFERASE 11.7 U/L (0-35); ALBUMIN 2.95 g/dL (3.5-5.0); ALKALINE PHOSPHATASE 34.7 U/L (53-141); BILIRUBIN,TOTAL 0.72 mg/dL (0.2-1.3); BLOOD UREA NITROGEN 57.8 mg/dL (7-17); CALCIUM 7.91 mg/dL (8.4-10.2); CARBON DIOXIDE 28.2 mmol/L (22-30.0); CHLORIDE 97.4 mmol/L (98-107); CREATININE 3.28 mg/dL (0.60-1.30); GLUCOSE 82.4 mg/dL (74-106); POTASSIUM 5.27 mmol/L (3.5-5.1); SODIUM 131.5 mmol/L (134.5-145); TOTAL PROTEIN 5.76 g/dL (6.3-8.2)
[2020-03-05] MEDS: LASIX TAB PO SCH (05:43)
[2020-03-05] MEDS: PROTONIX PO SCH (05:43)
[2020-03-05] MEDS: TACROLIMUS 1 MG PO SCH ×2 (08:18→20:23)
[2020-03-05] MEDS: PREDNISONE PO SCH (08:18)
[2020-03-05] MEDS: COZAAR PO SCH ×2 (08:18→20:23)
[2020-03-05] MEDS: CATAPRES PO SCH ×2 (08:19→20:23)
[2020-03-05] MEDS: LIPITOR PO SCH (08:19)
[2020-03-05] MEDS: LEXAPRO PO SCH (08:19)
[2020-03-05] MEDS: COREG PO SCH ×2 (08:19→17:00)
[2020-03-05] MEDS: ZYLOPRIM PO SCH (08:19)
[2020-03-05] MEDS: FERROUS SULFATE PO SCH ×2 (08:20→20:23)
[2020-03-05] MEDS: MULTIVITAMIN TABLET PO SCH (08:20)
[2020-03-05] MEDS: SYMBICORT 160-4.5 MCG INHALER IH SCH ×2 (08:20→20:24)
[2020-03-05] MEDS: FLONASE NAS SCH (08:20)
[2020-03-05] MEDS: COLACE PO SCH ×2 (08:20→20:22)
[2020-03-05] MEDS ORDERED: APRESOLINE PO SCH (13:00)
[2020-03-05] MEDS: APRESOLINE PO SCH (20:22)
[2020-03-05] MEDS: BENADRYL PO SCH (20:23)
[2020-03-05] MEDS: NON-FORMULARY MEDICATION (Melatonin 5 mg Tablet) PO SCH (20:25)
[2020-03-06] MEDS: LASIX TAB PO SCH (05:59)
[2020-03-06] MEDS: PROTONIX PO SCH (05:59)
[2020-03-06 06:07] LABS: BASOPHILS % (AUTO) 0.3 % (0.0-3.0); EOSINOPHILS # (AUTO) 0.3 K/ul (0.0-0.7); EOSINOPHILS % (AUTO) 3.4 % (0.0-7.0); HEMOGLOBIN 8.9 g/dl (12.0-16.0); IMMATURE GRANULOCYTE # (AUTO) 0.1 (0.0-1.0); IMMATURE GRANULOCYTE % (AUTO) 0.7 % (0.0-5.0); LYMPHOCYTES # (AUTO) 1.5 K/uL (0.60-3.4); LYMPHOCYTES % (AUTO) 15.6 (10.0-50.0); MEAN CORPUSCULAR HEMOGLOBIN 32.4 pg (27.0-31.0); MEAN CORPUSCULAR HGB CONC 31.8 (31.8-35.4); MEAN CORPUSCULAR VOLUME 101.8 fl (81.0-99.0); MONOCYTES % (AUTO) 10.9 (0-10); NEUTROPHILS # (AUTO) 6.4 K/ul (2.0-6.9); NEUTROPHILS % (AUTO) 69.1 % (42.2-75.2); PLATELET COUNT 202 10^3/uL (140-440); RED BLOOD COUNT 2.75 10^6/ul (4.20-5.40); WHITE BLOOD COUNT 9.34 K/ul (4.6-10.2)
[2020-03-06 06:16] LABS: ALBUMIN 3.11 g/dL (3.5-5.0); ALKALINE PHOSPHATASE 36.3 U/L (53-141); ASPARTATE AMINO TRANSFERASE 33.4 U/L (14-36); BILIRUBIN,TOTAL 0.72 mg/dL (0.2-1.3); CALCIUM 8.24 mg/dL (8.4-10.2); CARBON DIOXIDE 30.6 mmol/L (22-30.0); CHLORIDE 97.2 mmol/L (98-107); GLUCOSE 91.6 mg/dL (74-106); POTASSIUM 5.51 mmol/L (3.5-5.1); SODIUM 133.1 mmol/L (134.5-145); TOTAL PROTEIN 6.09 g/dL (6.3-8.2)
[2020-03-06 06:22] LABS: BLOOD UREA NITROGEN 64.3 mg/dL (7-17)
[2020-03-06 06:23] LABS: CREATININE 3.52 mg/dL (0.60-1.30)
[2020-03-06] MEDS: CATAPRES PO SCH ×2 (08:00→20:00)
[2020-03-06] MEDS: COREG PO SCH ×2 (08:00→16:41)
[2020-03-06] MEDS: TYLENOL PO PRN (08:05)
[2020-03-06 08:09] LABS: ABG BASE EXCESS 5 (-2.0-2.0); ABG HCO3 29.3 (22.0-26.0); ABG PCO2 44.3 mmHg (35-45); ABG PH 7.429 (7.35-7.45); ABG TCO2 31 (22.0-28.0)
[2020-03-06] MEDS: SYMBICORT 160-4.5 MCG INHALER IH SCH ×2 (08:32→20:04)
[2020-03-06] MEDS: APRESOLINE PO SCH ×2 (08:32→20:02)
[2020-03-06] MEDS: TACROLIMUS 1 MG PO SCH ×2 (08:32→20:01)
[2020-03-06] MEDS: SODIUM CHLORIDE 1,000 ML IV SCH (08:32)
[2020-03-06] MEDS: LEXAPRO PO SCH (08:32)
[2020-03-06] MEDS: FLONASE NAS SCH (08:32)
[2020-03-06] MEDS: ZYLOPRIM PO SCH (08:33)
[2020-03-06] MEDS: LIPITOR PO SCH (08:33)
[2020-03-06] MEDS: COLACE PO SCH ×2 (08:33→20:00)
[2020-03-06] MEDS: PREDNISONE PO SCH (08:33)
[2020-03-06] MEDS: FERROUS SULFATE PO SCH ×2 (08:33→20:00)
[2020-03-06] MEDS: MULTIVITAMIN TABLET PO SCH (08:33)
[2020-03-06 11:34] LABS: BILIRUBIN,URINE Negative (NEGATIVE); CLARITY,URINE Clear (CLEAR); COLOR,URINE Yellow (YELLOW); GLUCOSE, URINE (UA) Negative (NEGATIVE); KETONES,URINE Negative (NEGATIVE); LEUKOCYTE ESTERASE ,URINE Negative (NEGATIVE); NITRITE,URINE Negative (NEGATIVE); PROTEIN,URINE 3+ (NEGATIVE); URINE, BLOOD Trace-intact (NEGATIVE); UROBILINOGEN,URINE 0.2 (0.2)
[2020-03-06 11:40] LABS: BACTERIA,URINE 1+ (NOT PRESENT)
[2020-03-06] MEDS ORDERED: KAYEXALATE SUSP PO ONE (13:00)
[2020-03-06] MEDS: XANAX PO SCH ×2 (13:32→20:00)
[2020-03-06] MEDS: NORCO 5-325 PO PRN (19:58)
[2020-03-06] MEDS: BENADRYL PO SCH (20:00)
[2020-03-06] MEDS: NON-FORMULARY MEDICATION (Melatonin 5 mg Tablet) PO SCH (20:02)
[2020-03-07] MEDS: SODIUM CHLORIDE 1,000 ML IV SCH ×2 (03:52→22:44)
[2020-03-07 04:55] LABS: BASOPHILS % (AUTO) 0.3 % (0.0-3.0); EOSINOPHILS # (AUTO) 0.2 K/ul (0.0-0.7); EOSINOPHILS % (AUTO) 3.2 % (0.0-7.0); HEMATOCRIT 27.4 % (37.0-47.0); HEMOGLOBIN 8.4 g/dl (12.0-16.0); IMMATURE GRANULOCYTE % (AUTO) 0.6 % (0.0-5.0); LYMPHOCYTES # (AUTO) 1.3 K/uL (0.60-3.4); LYMPHOCYTES % (AUTO) 18.3 (10.0-50.0); MEAN CORPUSCULAR HEMOGLOBIN 31.7 pg (27.0-31.0); MEAN CORPUSCULAR HGB CONC 30.7 (31.8-35.4); MEAN CORPUSCULAR VOLUME 103.4 fl (81.0-99.0); MONOCYTES # (AUTO) 0.9 K/uL (0.4-2.0); NEUTROPHILS # (AUTO) 4.5 K/ul (2.0-6.9); NEUTROPHILS % (AUTO) 64.6 % (42.2-75.2); PLATELET COUNT 215 10^3/uL (140-440); RDW COEFFICIENT OF VARIATION 16.5 % (11.6-14.8); RED BLOOD COUNT 2.65 10^6/ul (4.20-5.40); WHITE BLOOD COUNT 6.94 K/ul (4.6-10.2)
[2020-03-07 05:06] LABS: ALANINE AMINOTRANSFERASE 11.6 U/L (0-35); ALBUMIN 2.83 g/dL (3.5-5.0); ALKALINE PHOSPHATASE 35.4 U/L (53-141); ASPARTATE AMINO TRANSFERASE 32.6 U/L (14-36); BILIRUBIN,TOTAL 0.62 mg/dL (0.2-1.3); CALCIUM 8.03 mg/dL (8.4-10.2); CARBON DIOXIDE 30.1 mmol/L (22-30.0); CHLORIDE 99.5 mmol/L (98-107); CREATININE 3.29 mg/dL (0.60-1.30); POTASSIUM 5.05 mmol/L (3.5-5.1); SODIUM 134.6 mmol/L (134.5-145); TOTAL PROTEIN 5.75 g/dL (6.3-8.2)
[2020-03-07 05:12] LABS: BLOOD UREA NITROGEN 60.1 mg/dL (7-17)
[2020-03-07] MEDS: PROTONIX PO SCH (05:51)
[2020-03-07] MEDS: SYMBICORT 160-4.5 MCG INHALER IH SCH ×2 (09:41→20:15)
[2020-03-07] MEDS: TACROLIMUS 1 MG PO SCH ×2 (09:41→20:14)
[2020-03-07] MEDS: LEXAPRO PO SCH (09:42)
[2020-03-07] MEDS: XANAX PO SCH ×3 (09:42→20:14)
[2020-03-07] MEDS: CATAPRES PO SCH ×2 (09:42→20:15)
[2020-03-07] MEDS: ZYLOPRIM PO SCH (09:42)
[2020-03-07] MEDS: FLONASE NAS SCH (09:42)
[2020-03-07] MEDS: COLACE PO SCH ×2 (09:42→20:14)
[2020-03-07] MEDS: COREG PO SCH ×2 (09:43→16:03)
[2020-03-07] MEDS: LIPITOR PO SCH (09:43)
[2020-03-07] MEDS: PREDNISONE PO SCH (09:43)
[2020-03-07] MEDS: FERROUS SULFATE PO SCH ×2 (09:43→20:14)
[2020-03-07] MEDS: MULTIVITAMIN TABLET PO SCH (09:43)
[2020-03-07] MEDS: APRESOLINE PO SCH ×2 (09:43→20:14)
--- NOTE | 2020-03-07 14:25 | PN ---
DATE OF SERVICE: 03/06/2020 SUBJECTIVE: 69 year old white female hospitalized with symptomatic anemia. The patient's renal failure seems to have worsened with hyperkalemia. Leg edema has practically subsided and gets panics has anxiety syndrome. Her appetite is stable. No nausea and no vomiting. REVIEW OF SYSTEMS: CONSTITUTIONAL: No night sweats. No fatigue, malaise, lethargy. No fever or chills. HEENT: Eyes: No visual changes. No eye pain. No eye discharge. ENT: No runny nose. No epistaxis. No sinus pain. No sore throat. No odynophagia. No congestion. RESPIRATORY: No cough, no congestion. No hemoptysis. Shortness of breath on exertion whenever she goes to the bathroom, usual for her. CARDIOVASCULAR: No angina symptoms. No CHF symptoms. No atypical chest pain for CAD. No palpitations. No PND. No orthopnea. GASTROINTESTINAL: No abdominal pain. No nausea or vomiting. No diarrhea or constipation. No hematemesis. No hematochezia. GENITOURINARY: No urgency. No frequency. No dysuria. No hematuria. No obstructive symptoms. No discharge. No pain. No significant abnormal bleeding. MUSCULOSKELETAL: No musculoskeletal pain; no joint swelling. NEUROLOGICAL: No headache. No neck pain. No syncope. No seizures. No dizziness. PSYCHIATRIC: Not anxious. No depression. No suicidal thoughts. No homicidal thoughts. SKIN: No rash. No lesions. No wounds. ENDOCRINE: No unexplained weight loss. No weight gain. HEMATOLOGIC/LYMPHATIC: No anemia. No purpura. No petechiae. No prolonged or excessive bleeding. No palpable lymph nodes. PHYSICAL EXAMINATION: VITAL SIGNS: Temperature 97.7, pulse 76, respiratory rate 18, blood pressure this morning was 176/86 recorded later on given her hydralazine and monitoring her blood pressure went down to 127/78 and oxygen saturation 99% with 2 liters. HEENT: Head normocephalic, atraumatic. Eyes: Extraocular muscles are intact. Pupils are equal, round and reactive to light and accommodation. Ears: No lesions. Nose appeared normal. Throat: No exudate or erythema. NECK: Supple. No JVD, no carotid bruit. No lymphadenopathy or thyromegaly. LUNGS: Decreased breath sounds with dry crepitations. Clear to auscultation. Percussion note normal. Chest symmetrical. HEART: S1, S2, no S3. No murmurs. No cyanosis or clubbing. No ascites. Pulses: Dorsalis pedis and posterior tibial pulses +1 to +2 bilaterally. ABDOMEN: Soft. Nontender. Bowel sounds active. No CVA tenderness. No mass felt. EXTREMITIES: No edema. Full range of motion of all extremities, equal. NEUROLOGIC: No focal deficit. Cranial nerves II through XII are grossly intact. No headache, no double vision or headache. SKIN: Not dry. Intact. Turgor - normal. Looks somewhat pale. LYMPHATIC: No palpable lymph nodes/no lymphedema. MUSCULOSKELETAL: Normal joints with no swelling. Muscle tone is normal. ASSESSMENT: 1. Symptomatic anemia, resolved after two units of packed red cells now hgb 8.9 with hct 28. WBC 9,300 normal differential. 2. Kidney failure, seems to be worsening creatinine 3.5, BUN 64 3. Hyperkalemia secondary to renal failure 4. Hypertension 5. Anxiety syndrome with depression PLAN: 1. Give Xanax 0.25 TID for anxiety 2. Discontinue Cozaar 3. Continue Lasix 4. Continue all other medications Hydralazine and Clonidine for blood pressure 5. ABG were done with normal pH and pO2 of 144. Continue oxygen and see what the blood gasses are on room air. 6. The patient is going to be on renal diet with low potassium 7. Kayexalate for hyperkalemia 25 grams 8. IV fluids 1000cc normal saline to be infused 50cc per hour 9. The patient was explained about her medical conditions and worsening of kidney failure. Strongly advised to be referred to Dr. Light. She flatly refused. She said that I am feeling better than when I came in with. Not prepared for dialysis yet. According to her she wants DNR. In face the patient is DNR. TIME SPENT: More than 60 minutes. EXTENSIVE. Plan and coordination of the patient's care discussed in the presence of nurse. KAREN
[2020-03-07] MEDS: BENADRYL PO SCH (20:14)
[2020-03-07] MEDS: NON-FORMULARY MEDICATION (Melatonin 5 mg Tablet) PO SCH (20:15)
[2020-03-08] MEDS: NORCO 5-325 PO PRN (01:46)
[2020-03-08 05:18] LABS: BASOPHILS % (AUTO) 0.3 % (0.0-3.0); EOSINOPHILS # (AUTO) 0.2 K/ul (0.0-0.7); EOSINOPHILS % (AUTO) 2.6 % (0.0-7.0); HEMATOCRIT 25.4 % (37.0-47.0); IMMATURE GRANULOCYTE # (AUTO) 0.1 (0.0-1.0); IMMATURE GRANULOCYTE % (AUTO) 0.8 % (0.0-5.0); LYMPHOCYTES # (AUTO) 1.3 K/uL (0.60-3.4); LYMPHOCYTES % (AUTO) 16.9 (10.0-50.0); MEAN CORPUSCULAR HEMOGLOBIN 32.9 pg (27.0-31.0); MEAN CORPUSCULAR HGB CONC 31.5 (31.8-35.4); MEAN CORPUSCULAR VOLUME 104.5 fl (81.0-99.0); MONOCYTES % (AUTO) 12.9 (0-10); NEUTROPHILS % (AUTO) 66.5 % (42.2-75.2); PLATELET COUNT 191 10^3/uL (140-440); RDW COEFFICIENT OF VARIATION 16.7 % (11.6-14.8); RED BLOOD COUNT 2.43 10^6/ul (4.20-5.40); WHITE BLOOD COUNT 7.45 K/ul (4.6-10.2)
[2020-03-08 05:30] LABS: ALANINE AMINOTRANSFERASE 11.8 U/L (0-35); ALBUMIN 2.76 g/dL (3.5-5.0); ALKALINE PHOSPHATASE 32.9 U/L (53-141); ASPARTATE AMINO TRANSFERASE 27.7 U/L (14-36); BILIRUBIN,TOTAL 0.55 mg/dL (0.2-1.3); CALCIUM 7.69 mg/dL (8.4-10.2); CARBON DIOXIDE 28.9 mmol/L (22-30.0); CHLORIDE 100.4 mmol/L (98-107); CREATININE 3.31 mg/dL (0.60-1.30); GLUCOSE 80.2 mg/dL (74-106); POTASSIUM 4.98 mmol/L (3.5-5.1); SODIUM 134.7 mmol/L (134.5-145); TOTAL PROTEIN 5.6 g/dL (6.3-8.2)
[2020-03-08 05:33] LABS: BLOOD UREA NITROGEN 59.9 mg/dL (7-17)
[2020-03-08] MEDS: PROTONIX PO SCH (05:47)
[2020-03-08] MEDS: TYLENOL PO PRN ×2 (07:31→20:27)
[2020-03-08] MEDS: SYMBICORT 160-4.5 MCG INHALER IH SCH ×2 (08:42→20:26)
[2020-03-08] MEDS: FLONASE NAS SCH (08:42)
[2020-03-08] MEDS: CATAPRES PO SCH ×2 (08:42→20:26)
[2020-03-08] MEDS: TACROLIMUS 1 MG PO SCH ×2 (08:42→20:26)
[2020-03-08] MEDS: PREDNISONE PO SCH (08:43)
[2020-03-08] MEDS: XANAX PO SCH ×3 (08:43→22:01)
[2020-03-08] MEDS: LEXAPRO PO SCH (08:43)
[2020-03-08] MEDS: LIPITOR PO SCH (08:43)
[2020-03-08] MEDS: COREG PO SCH ×2 (08:43→16:48)
[2020-03-08] MEDS: MULTIVITAMIN TABLET PO SCH (08:44)
[2020-03-08] MEDS: ZYLOPRIM PO SCH (08:44)
[2020-03-08] MEDS: COLACE PO SCH ×2 (08:44→20:27)
[2020-03-08] MEDS: FERROUS SULFATE PO SCH ×2 (08:44→20:27)
[2020-03-08] MEDS: APRESOLINE PO SCH ×2 (08:45→20:27)
--- NOTE | 2020-03-08 11:20 | PN ---
DATE OF SERVICE: 03/05/2020 SUBJECTIVE: 69 year old white female hospitalized with symptomatic anemia. The patient has been given two units of packed red cells. Hgb is now 8.2 with hct of 25, a lot better. The patient also has chronic renal failure with worsening of some of creatinine and BUN some of the markers. Creatinine is 3.2 and BUN 57 with some improvement. She is borderline hyperkalemia 5.2 potassium. REVIEW OF SYSTEMS: CONSTITUTIONAL: No night sweats. No fatigue, malaise, lethargy. No fever or chills. HEENT: Eyes: No visual changes. No eye pain. No eye discharge. ENT: No runny nose. No epistaxis. No sinus pain. No sore throat. No odynophagia. No congestion. RESPIRATORY: No cough, no congestion. No hemoptysis. No shortness of breath. CARDIOVASCULAR: No angina symptoms. No CHF symptoms. No atypical chest pain for CAD. No palpitations. No PND. No orthopnea. GASTROINTESTINAL: No abdominal pain. No nausea or vomiting. No diarrhea or constipation. No hematemesis. No hematochezia. GENITOURINARY: No urgency. No frequency. No dysuria. No hematuria. No obstructive symptoms. No discharge. No pain. No significant abnormal bleeding. MUSCULOSKELETAL: No musculoskeletal pain; no joint swelling. NEUROLOGICAL: No headache. No neck pain. No syncope. No seizures. No dizziness. PSYCHIATRIC: Not anxious. No depression. No suicidal thoughts. No homicidal thoughts. SKIN: No rash. No lesions. No wounds. ENDOCRINE: No unexplained weight loss. No weight gain. HEMATOLOGIC/LYMPHATIC: No anemia. No purpura. No petechiae. No prolonged or excessive bleeding. No palpable lymph nodes. PHYSICAL EXAMINATION: VITAL SIGNS: Temperature 97.5, pulse 75, respiratory rate 20, blood pressure 165/76 and pulse ox 95%. HEENT: Head normocephalic, atraumatic. Eyes: Extraocular muscles are intact. Pupils are equal, round and reactive to light and accommodation. Ears: No lesions. Nose appeared normal. Throat: No exudate or erythema. NECK: Supple. No JVD, no carotid bruit. No lymphadenopathy or thyromegaly. LUNGS: Decreased breath sounds but clear to auscultation. Percussion note normal. Chest symmetrical. HEART: S1, S2, no S3. No murmurs. No cyanosis or clubbing. No ascites. Pulses: Dorsalis pedis and posterior tibial pulses +1 to +2 bilaterally. ABDOMEN: Soft. Nontender. Bowel sounds active. No CVA tenderness. No mass felt. EXTREMITIES: No edema. Full range of motion of all extremities, equal. NEUROLOGIC: No focal deficit. Cranial nerves II through XII are grossly intact. No headache, no double vision or headache. SKIN: Not dry. Intact. Turgor - normal. Looks somewhat pale. LYMPHATIC: No palpable lymph nodes/no lymphedema. MUSCULOSKELETAL: Normal joints with no swelling. Muscle tone is normal. LABS: Hgb 8.2, hct 25, WBC 7,300 normal differential, creatinine 3.2, BUN 57, potassium 5.2. ASSESSMENT: 1. Symptomatic anemia seems to be under control with no evidence of active GI bleed 2. Renal failure which is chronic with worsening of kidney functions. Explained about the patient's hydration status. 3. Leg edema has resolved 4. Hypertension, better controlled PLAN: 1. Continue all the medications 2. Add Hydralazine 50mg twice a day 3. Continue Clonidine 0.1 twice a day 4. Carvedilol 6.25 twice a day 5. Cozaar 50mg BID 6. Norvasc has been taken off CONDITION: Stable TIME SPENT: More than 30 minutes. Plan and coordination of the patient's care discussed in the presence of nurse. KAREN
[2020-03-08] MEDS ORDERED: LASIX IVP STA (11:49)
--- NOTE | 2020-03-08 11:51 | PN ---
DATE OF SERVICE: 03/07/2020 SUBJECTIVE: 69 year old white female hospitalized with symptomatic anemia. The patient was given two units of packed red cells, Hgb now is 8.4 with hct of 27. She is feeling a lot better than yesterday. That seems to be working. REVIEW OF SYSTEMS: CONSTITUTIONAL: No night sweats. No fatigue, malaise, lethargy. No fever or chills. HEENT: Eyes: No visual changes. No eye pain. No eye discharge. ENT: No runny nose. No epistaxis. No sinus pain. No sore throat. No odynophagia. No congestion. RESPIRATORY: No cough, no congestion. No hemoptysis. Shortness of breath on minimal exertion as usual. CARDIOVASCULAR: No angina symptoms. No CHF symptoms. No atypical chest pain for CAD. No palpitations. No PND. No orthopnea. GASTROINTESTINAL: No abdominal pain. No nausea or vomiting. No diarrhea or constipation. No hematemesis. No hematochezia. Appetite seems to have improved from yesterday. Feeling better. GENITOURINARY: No urgency. No frequency. No dysuria. No hematuria. No obstructive symptoms. No discharge. No pain. No significant abnormal bleeding. MUSCULOSKELETAL: No musculoskeletal pain; no joint swelling. NEUROLOGICAL: No headache. No neck pain. No syncope. No seizures. No dizziness. PSYCHIATRIC: Less anxious. No depression. No suicidal thoughts. No homicidal thoughts. SKIN: No rash. No lesions. No wounds. ENDOCRINE: No unexplained weight loss. No weight gain. HEMATOLOGIC/LYMPHATIC: No anemia. No purpura. No petechiae. No prolonged or excessive bleeding. No palpable lymph nodes. PHYSICAL EXAMINATION: VITAL SIGNS: Temperature 99, pulse 70, respiratory rate 18, blood pressure 150/70 and pulse ox 98% on room air. HEENT: Head normocephalic, atraumatic. Eyes: Extraocular muscles are intact. Pupils are equal, round and reactive to light and accommodation. Ears: No lesions. Nose appeared normal. Throat: No exudate or erythema. NECK: Supple. No JVD, no carotid bruit. No lymphadenopathy or thyromegaly. LUNGS: Decreased breath sounds with few crepitations. Percussion note normal. Chest symmetrical. HEART: S1, S2, no S3. No murmurs. No cyanosis or clubbing. No ascites. Pulses: Dorsalis pedis and posterior tibial pulses +1 to +2 bilaterally. ABDOMEN: Soft. Nontender. Bowel sounds active. No CVA tenderness. No mass felt. EXTREMITIES: No edema. Full range of motion of all extremities, equal. NEUROLOGIC: No focal deficit. Cranial nerves II through XII are grossly intact. No headache, no double vision or headache. SKIN: Not dry. Intact. Turgor - normal. LYMPHATIC: No palpable lymph nodes/no lymphedema. MUSCULOSKELETAL: Normal joints with no swelling. Muscle tone is normal. LABS: Hgb 8.4, hct 27, WBC 6,900 normal differential, creatinine 3.2, BUN 60 and potassium 5. ASSESSMENT: 1. Renal failure seems to be improving, at least improved from yesterday 2. Hyperkalemia seems to be under control with Potassium of 5 3. Hgb and Hct stable with anemia with no evidence of GI bleed. 4. Chronic lung disease PLAN: 1. Continue the same treatment 2. IV fluids 3. Monitor the patient for fluid overload 4. The patient is declining to go to host/hostess head for now. CONDITION:Stable. The patient wants DNR. The patient's problem is that she is living by herself with the help of son who is not paying full attention. The patient is also not aware of her medications in spite of repeated education. She is noncompliant. TIME SPENT: More than 30 minutes. Plan and coordination of the patient's care discussed in the presence of nurse. KAREN
[2020-03-08 17:10] LABS: ABG PCO2 51.8 mmHg (35-45); ABG PH 7.328 (7.35-7.45)
[2020-03-08 17:12] LABS: ABG BASE EXCESS 1 (-2.0-2.0); ABG HCO3 27.2 (22.0-26.0); ABG TCO2 29 (22.0-28.0)
[2020-03-08] MEDS: BENADRYL PO SCH (20:27)
[2020-03-08] MEDS: NON-FORMULARY MEDICATION (Melatonin 5 mg Tablet) PO SCH (20:28)
[2020-03-09] MEDS: LASIX TAB PO SCH (05:42)
[2020-03-09] MEDS: PROTONIX PO SCH (05:42)
[2020-03-09 07:13] LABS: BASOPHILS % (AUTO) 0.3 % (0.0-3.0); EOSINOPHILS # (AUTO) 0.2 K/ul (0.0-0.7); HEMATOCRIT 26.5 % (37.0-47.0); HEMOGLOBIN 8.3 g/dl (12.0-16.0); IMMATURE GRANULOCYTE # (AUTO) 0.1 (0.0-1.0); IMMATURE GRANULOCYTE % (AUTO) 1.6 % (0.0-5.0); LYMPHOCYTES # (AUTO) 1.4 K/uL (0.60-3.4); LYMPHOCYTES % (AUTO) 19.3 (10.0-50.0); MEAN CORPUSCULAR HEMOGLOBIN 32.8 pg (27.0-31.0); MEAN CORPUSCULAR HGB CONC 31.3 (31.8-35.4); MEAN CORPUSCULAR VOLUME 104.7 fl (81.0-99.0); MONOCYTES # (AUTO) 0.9 K/uL (0.4-2.0); MONOCYTES % (AUTO) 12.4 (0-10); NEUTROPHILS # (AUTO) 4.5 K/ul (2.0-6.9); NEUTROPHILS % (AUTO) 63.4 % (42.2-75.2); PLATELET COUNT 232 10^3/uL (140-440); RDW COEFFICIENT OF VARIATION 16.7 % (11.6-14.8); RED BLOOD COUNT 2.53 10^6/ul (4.20-5.40); WHITE BLOOD COUNT 7.03 K/ul (4.6-10.2)
[2020-03-09 07:18] LABS: ALANINE AMINOTRANSFERASE 12.4 U/L (0-35); ALBUMIN 2.97 g/dL (3.5-5.0); ALKALINE PHOSPHATASE 37.6 U/L (53-141); ASPARTATE AMINO TRANSFERASE 28.6 U/L (14-36); BILIRUBIN,TOTAL 0.58 mg/dL (0.2-1.3); BLOOD UREA NITROGEN 59.4 mg/dL (7-17); CALCIUM 8.13 mg/dL (8.4-10.2); CHLORIDE 99.3 mmol/L (98-107); POTASSIUM 4.98 mmol/L (3.5-5.1); SODIUM 134.2 mmol/L (134.5-145); TOTAL PROTEIN 5.96 g/dL (6.3-8.2)
[2020-03-09 07:29] LABS: CREATININE 3.5 mg/dL (0.60-1.30)
[2020-03-09] MEDS: TACROLIMUS 1 MG PO SCH ×2 (08:42→20:07)
[2020-03-09] MEDS: FLONASE NAS SCH (08:43)
[2020-03-09] MEDS: CATAPRES PO SCH ×2 (08:43→20:08)
[2020-03-09] MEDS: COREG PO SCH ×2 (08:43→17:08)
[2020-03-09] MEDS: XANAX PO SCH ×3 (08:43→20:08)
[2020-03-09] MEDS: SYMBICORT 160-4.5 MCG INHALER IH SCH ×2 (08:43→20:07)
[2020-03-09] MEDS: APRESOLINE PO SCH ×2 (08:44→20:08)
[2020-03-09] MEDS: PREDNISONE PO SCH (08:44)
[2020-03-09] MEDS: FERROUS SULFATE PO SCH ×2 (08:44→20:08)
[2020-03-09] MEDS: LIPITOR PO SCH (08:44)
[2020-03-09] MEDS: COLACE PO SCH ×2 (08:44→20:08)
[2020-03-09] MEDS: MULTIVITAMIN TABLET PO SCH (08:44)
[2020-03-09] MEDS: ZYLOPRIM PO SCH (08:44)
[2020-03-09] MEDS: LEXAPRO PO SCH (08:45)
[2020-03-09] MEDS: NORCO 5-325 PO PRN ×2 (08:55→17:14)
[2020-03-09] MEDS: DECADRON 4 MG/ML SDV IM STA ×2 (12:21→12:29)
[2020-03-09] MEDS: TYLENOL PO PRN ×2 (15:58→20:07)
[2020-03-09] MEDS ORDERED: CATAPRES PO STA (17:18)
[2020-03-09] MEDS ORDERED: VASOTEC IV IVP STA (17:18)
[2020-03-09] MEDS: BENADRYL PO SCH (20:08)
[2020-03-09] MEDS: NON-FORMULARY MEDICATION (Melatonin 5 mg Tablet) PO SCH (21:50)
[2020-03-10 05:21] LABS: BASOPHILS % (AUTO) 0.1 % (0.0-3.0); EOSINOPHILS # (AUTO) 0.1 K/ul (0.0-0.7); EOSINOPHILS % (AUTO) 1.2 % (0.0-7.0); HEMATOCRIT 23.3 % (37.0-47.0); HEMOGLOBIN 7.4 g/dl (12.0-16.0); IMMATURE GRANULOCYTE # (AUTO) 0.1 (0.0-1.0); IMMATURE GRANULOCYTE % (AUTO) 1.5 % (0.0-5.0); LYMPHOCYTES # (AUTO) 1.2 K/uL (0.60-3.4); LYMPHOCYTES % (AUTO) 17.3 (10.0-50.0); MEAN CORPUSCULAR HGB CONC 31.8 (31.8-35.4); MONOCYTES # (AUTO) 0.7 K/uL (0.4-2.0); MONOCYTES % (AUTO) 10.8 (0-10); NEUTROPHILS # (AUTO) 4.7 K/ul (2.0-6.9); NEUTROPHILS % (AUTO) 69.1 % (42.2-75.2); PLATELET COUNT 208 10^3/uL (140-440); RDW COEFFICIENT OF VARIATION 16.6 % (11.6-14.8); RED BLOOD COUNT 2.24 10^6/ul (4.20-5.40); WHITE BLOOD COUNT 6.77 K/ul (4.6-10.2)
[2020-03-10 05:32] LABS: ALANINE AMINOTRANSFERASE 10.9 U/L (0-35); ALBUMIN 2.68 g/dL (3.5-5.0); ALKALINE PHOSPHATASE 31.5 U/L (53-141); ASPARTATE AMINO TRANSFERASE 35.2 U/L (14-36); BILIRUBIN,TOTAL 0.5 mg/dL (0.2-1.3); CALCIUM 8.3 mg/dL (8.4-10.2); CARBON DIOXIDE 26.6 mmol/L (22-30.0); CREATININE 3.38 mg/dL (0.60-1.30); GLUCOSE 86.3 mg/dL (74-106); POTASSIUM 4.92 mmol/L (3.5-5.1); SODIUM 131.4 mmol/L (134.5-145); TOTAL PROTEIN 5.49 g/dL (6.3-8.2)
[2020-03-10 05:33] LABS: BLOOD UREA NITROGEN 63.9 mg/dL (7-17)
[2020-03-10] MEDS: PROTONIX PO SCH (06:06)
[2020-03-10] MEDS: LASIX TAB PO SCH (06:06)
[2020-03-10] MEDS ORDERED: CATAPRES PO PRN (08:21)
[2020-03-10] MEDS: SYMBICORT 160-4.5 MCG INHALER IH SCH ×2 (08:45→20:24)
[2020-03-10] MEDS: CATAPRES PO SCH ×2 (08:45→20:25)
--- NOTE | 2020-03-10 08:45 | PCM.PROG ---
Attending Provider: ATTENDING PROVIDER: Dr. ISADORA BRYANT This patient is seen with Elisa Britton, Nurse Practitioner. DATE OF SERVICE: 03/10/20 SUBJECTIVE: This 69 year old /WHITE F was hospitalized 03/03/20. The patient is resting comfortably. Hgb is 7.4 today. The patient is symptomatic pale, s hortness of breath and weak. REVIEW OF SYSTEMS: CONSTITUTIONAL: No night sweats. No fatigue, malaise, lethargy. No fever or chills. Weakness. HEENT: Eyes: No visual changes. No eye pain. No eye discharge. ENT: No runny nose. No epistaxis. No sinus pain. No odynophagia. No congestion. RESPIRATORY: No cough, no congestion. No hemoptysis. Shortness of breath. CARDIOVASCULAR: No angina symptoms. No CHF symptoms. No atypical chest pain for CAD. No palpitations. No orthopnea.. GASTROINTESTINAL: No abdominal pain. No nausea or vomiting. No diarrhea or constipation. No hematemesis. No hematochezia. GENITOURINARY: No urgency. No frequency. No dysuria. No hematuria. No obs tructive symptoms. No discharge. No pain. No significant abnormal bleeding. MUSCULOSKELETAL: No musculoskeletal pain; no joint swelling. NEUROLOGICAL: Awake, alert, oriented to time, place and person. No headache. No neck pain. No syncope. No seizures. No dizziness. PSYCHIATRIC: Not anxious. No depression. No suicidal thoughts. No homicidal thoughts. SKIN: No rash. No lesions. No wounds. ENDOCRINE: No unexplained weight loss. No weight gain. HEMATOLOGIC/LYMPHATIC: No anemia. No purpura. No petechiae. No prolonged or excessive bleeding. No palpable lymph nodes. PHYSICAL EXAMINATION: GENERAL: The patient is awake, alert and oriented, lying in bed in no distress. VITAL SIGNS: Temperature 98.3 F, Pulse 72, Respiratory Rate 18, BP 146/75, Pulse Ox 96% HEENT: Head normocephalic, atraumatic. Eyes: Extraocular muscles are intact. Pupils are equal, round and reactive to light and accommodation. Ears: No lesions. Nose appeared normal. Throat: No exudate or erythema. NECK: Supple. No JVD, no carotid bruit. No lymphadenopathy or thyromegaly. LUNGS: Diminished breath sounds. Clear to auscultation. Percussion note normal. Chest symmetrical. HEART: S1, S2, no S3. No murmurs. No cyanosis or clubbing. No ascites. Pulses: Dorsalis pedis and posterior tibial pulses +1 to +2 both sides. ABDOMEN: Soft. Non-tender. Bowel sounds active. No CVA tenderness. No mass felt. EXTREMITIES: Trace pedal edema. Full range of motion of all extremities, equa l. NEUROLOGIC: No focal deficit. Cranial nerves II through XII are grossly intact. No headache, no double vision or headache. SKIN: Not dry. Intact. Turgor-normal. LYMPHATIC: No palpable lymph nodes/no lymphedema. MUSCULOSKELETAL: Normal joints with no swelling. Muscle tone is normal. LAB REVIEW: 03/10/20 05:06 03/10/20 05:06 03/10/20 06:36: Blood Type A POSITIVE, Crossmatch (AHG) See Detail 03/10/20 05:06: Sodium 131.4 L, Potassium 4.92, Chloride 99.0, Carbon Dioxide 26.6, Anion Gap 10.72, BUN 63.9 H*, Creatinine 3.38 H, Estimated GFR (MDRD) 13.00, BUN/Creatinine Ratio 18.90, Glucose 86.3, Calcium 8.30 L, Total Bilirubin 0.50, AST 35.2, ALT 10.9, Alkaline Phosphatase 31.5 L, Total Protein 5.49 L, Albumin 2.68 L, Globulin 2.81, Albumin/Globulin Ratio 0.95 03/10/20 05:06: WBC 6.77, RBC 2.24 L, Hgb 7.4 L, Hct 23.3 L, MCV 104.0 H, MCH 33.0 H, MCHC 31.8, RDW Coeff of Rivka 16.6 H, Plt Count 208, Immature Gran % (Auto) 1.5, Neut % (Auto) 69.1, Lymph % (Auto) 17.3, [place] % (Auto) 10.8 H, Eos % (Auto) 1.2, Baso % (Auto) 0.1, Neut # (Auto) 4.7, Lymph # (Auto) 1.2, [place] # (Auto) 0.7, Eos # (Auto) 0.1, Baso # (Auto) 0.0, Immature Gran # (Auto) 0.1 ASSESSMENT: Please see below. 1. Symptomatic anemia 2. Hypertension 3. Acute on chronic renal failure 4. COPD PLAN: 1. Administer two units of packed red blood cells. 2. Increase Hydralazine 75mg BID 3. Clonidine 0.1mg for systolic greater than 150s Plan and coordination of the patient's care discussed in the presence of Crepe Sole Wire Brusher and nurse. SCRIBED BY: Gemma BERNABE scribed while in presence of service performed by Dr. Bryant/Elisa Britton APRN on 03/10/20 ([id number])
[2020-03-10] MEDS: XANAX PO SCH ×3 (08:46→20:24)
[2020-03-10] MEDS: COLACE PO SCH ×2 (08:46→20:24)
[2020-03-10] MEDS: COREG PO SCH ×2 (08:46→16:29)
[2020-03-10] MEDS: MULTIVITAMIN TABLET PO SCH (08:46)
[2020-03-10] MEDS: FERROUS SULFATE PO SCH ×2 (08:46→20:24)
[2020-03-10] MEDS: APRESOLINE PO SCH ×2 (08:47→20:25)
[2020-03-10] MEDS: LEXAPRO PO SCH (08:47)
[2020-03-10] MEDS: PREDNISONE PO SCH (08:47)
[2020-03-10] MEDS: LIPITOR PO SCH (08:47)
[2020-03-10] MEDS: ZYLOPRIM PO SCH (08:47)
[2020-03-10] MEDS: TACROLIMUS 1 MG PO SCH ×2 (08:48→20:24)
[2020-03-10] MEDS: FLONASE NAS SCH (09:12)
[2020-03-10] MEDS: TYLENOL PO PRN ×2 (14:11→20:24)
[2020-03-10] MEDS: NORCO 5-325 PO PRN ×2 (16:29→23:22)
[2020-03-10 18:25] LABS: HEMATOCRIT 32.9 % (37.0-47.0); HEMOGLOBIN 10.5 g/dl (12.0-16.0)
[2020-03-10] MEDS: BENADRYL PO SCH (20:23)
[2020-03-10] MEDS: NON-FORMULARY MEDICATION (Melatonin 5 mg Tablet) PO SCH (20:26)
[2020-03-11] MEDS: TYLENOL PO PRN ×2 (01:41→13:16)
[2020-03-11 05:51] LABS: BASOPHILS % (AUTO) 0.3 % (0.0-3.0); EOSINOPHILS # (AUTO) 0.2 K/ul (0.0-0.7); EOSINOPHILS % (AUTO) 2.1 % (0.0-7.0); HEMATOCRIT 31.8 % (37.0-47.0); HEMOGLOBIN 10.2 g/dl (12.0-16.0); IMMATURE GRANULOCYTE # (AUTO) 0.1 (0.0-1.0); IMMATURE GRANULOCYTE % (AUTO) 1.2 % (0.0-5.0); LYMPHOCYTES # (AUTO) 1.3 K/uL (0.60-3.4); LYMPHOCYTES % (AUTO) 17.6 (10.0-50.0); MEAN CORPUSCULAR HEMOGLOBIN 32.1 pg (27.0-31.0); MEAN CORPUSCULAR HGB CONC 32.1 (31.8-35.4); MONOCYTES # (AUTO) 0.9 K/uL (0.4-2.0); MONOCYTES % (AUTO) 12.4 (0-10); NEUTROPHILS # (AUTO) 5.1 K/ul (2.0-6.9); NEUTROPHILS % (AUTO) 66.4 % (42.2-75.2); PLATELET COUNT 204 10^3/uL (140-440); RDW COEFFICIENT OF VARIATION 17.8 % (11.6-14.8); RED BLOOD COUNT 3.18 10^6/ul (4.20-5.40)
[2020-03-11] MEDS: PROTONIX PO SCH (05:51)
[2020-03-11] MEDS: LASIX TAB PO SCH (05:51)
[2020-03-11 05:56] VITALS: TEMP 97.8
[2020-03-11 06:03] LABS: ALANINE AMINOTRANSFERASE 11.2 U/L (0-35); ALBUMIN 3.05 g/dL (3.5-5.0); ALKALINE PHOSPHATASE 36.8 U/L (53-141); ASPARTATE AMINO TRANSFERASE 26.8 U/L (14-36); BILIRUBIN,TOTAL 0.63 mg/dL (0.2-1.3); CALCIUM 8.22 mg/dL (8.4-10.2); CARBON DIOXIDE 27.3 mmol/L (22-30.0); GLUCOSE 89.3 mg/dL (74-106); POTASSIUM 5.55 mmol/L (3.5-5.1); SODIUM 132.2 mmol/L (134.5-145); TOTAL PROTEIN 5.82 g/dL (6.3-8.2)
[2020-03-11 06:10] LABS: BLOOD UREA NITROGEN 66.9 mg/dL (7-17); CREATININE 3.72 mg/dL (0.60-1.30)
[2020-03-11] MEDS: NORCO 5-325 PO PRN (07:18)
[2020-03-11] MEDS ORDERED: VASOTEC IV IVP STA (07:41)
[2020-03-11] MEDS ORDERED: MORPHINE 2 MG/ML SYRINGE IVP STA (08:18)
[2020-03-11] MEDS ORDERED: DEXTROSE 5%-1/2NS IV SOLUTION 1,000 ML IV SCH (08:30)
[2020-03-11] MEDS ORDERED: XANAX PO SCH (09:00)
[2020-03-11 09:14] LABS: ABG PH 7.24 (7.35-7.45)
[2020-03-11 09:15] LABS: ABG BASE EXCESS 0.9 (-2.0-2.0); ABG HCO3 28.3 (22.0-26.0); ABG OXYGEN SATURATION 89.6 % (95-100); ABG TCO2 30.3 (22.0-28.0)
[2020-03-11] MEDS ORDERED: LASIX IVP STA (09:24)
[2020-03-11] MEDS ORDERED: DECADRON 4 MG/ML SDV IM STA (09:24)
[2020-03-11] MEDS: FLONASE NAS SCH (09:28)
[2020-03-11] MEDS: SYMBICORT 160-4.5 MCG INHALER IH SCH (09:29)
[2020-03-11] MEDS: TACROLIMUS 1 MG PO SCH (09:29)
[2020-03-11] MEDS: PREDNISONE PO SCH (09:30)
[2020-03-11] MEDS: LEXAPRO PO SCH (09:30)
[2020-03-11] MEDS: MULTIVITAMIN TABLET PO SCH (09:31)
[2020-03-11] MEDS: ZYLOPRIM PO SCH (09:31)
[2020-03-11] MEDS: APRESOLINE PO SCH (09:31)
[2020-03-11] MEDS: LIPITOR PO SCH (09:31)
[2020-03-11] MEDS: COLACE PO SCH (09:32)
[2020-03-11] MEDS: CATAPRES PO SCH ×2 (09:32→13:15)
[2020-03-11] MEDS: FERROUS SULFATE PO SCH (09:32)
[2020-03-11] MEDS: COREG PO SCH (09:32)
[2020-03-11] MEDS ORDERED: KAYEXALATE SUSP PO STA (09:46)
--- NOTE | 2020-03-11 09:46 | PN ---
DATE OF SERVICE: 03/08/20 SUBJECTIVE: 69-year-old white female hospitalized with symptomatic anemia. Her condition has improved. She is still mildly short of breath with exertion. Appetite has improved. REVIEW OF SYSTEMS: CONSTITUTIONAL: No night sweats. No fatigue, malaise, lethargy. No fever or chills. HEENT: Eyes: No visual changes. No eye pain. No eye discharge. ENT: No runny nose. No epistaxis. No sinus pain. No sore throat. No odynophagia. No congestion. RESPIRATORY: No cough, no congestion. No hemoptysis. No shortness of breath. CARDIOVASCULAR: No angina symptoms. No CHF symptoms. No atypical chest pain for CAD. No palpitations. No PND. No orthopnea. GASTROINTESTINAL: Appetite seems to have improved. No abdominal pain. No nausea or vomiting. No diarrhea or constipation. No hematemesis. No hematochezia. GENITOURINARY: No polyuria. No frequency. MUSCULOSKELETAL: No musculoskeletal pain; no joint swelling. NEUROLOGICAL: No headache. No neck pain. No syncope. No seizures. No dizziness. PSYCHIATRIC: Not anxious. No depression. No suicidal thoughts. No homicidal thoughts. SKIN: No rash. No lesions. No wounds. ENDOCRINE: No unexplained weight loss. No weight gain. HEMATOLOGIC/LYMPHATIC: No anemia. No purpura. No petechiae. No prolonged or excessive bleeding. No palpable lymph nodes. PHYSICAL EXAMINATION: VITAL SIGNS: Temperature 97.9, pulse 73, respiratory rate 20, blood pressure 150/80, pulse ox 93% on room air. HEENT: Head normocephalic, atraumatic. Eyes: Extraocular muscles are intact. Pupils are equal, round and reactive to light and accommodation. Ears: No lesions. Nose appeared normal. Throat: No exudate or erythema. NECK: Supple. No JVD, no carotid bruit. No lymphadenopathy or thyromegaly. LUNGS: Decreased breath sounds but clear to auscultation. Percussion note normal. Chest symmetrical. HEART: S1, S2, no S3. No murmurs. No cyanosis or clubbing. No ascites. Pulses: Dorsalis pedis and posterior tibial pulses +1 to +2 bilaterally. ABDOMEN: Soft. Nontender. Bowel sounds active. No CVA tenderness. No mass felt. EXTREMITIES: Trace edema. Full range of motion of all extremities, equal. NEUROLOGIC: No focal deficit. Cranial nerves II through XII are grossly intact. No headache, no double vision or headache. SKIN: Not dry. Intact. Turgor - normal. LYMPHATIC: No palpable lymph nodes/no lymphedema. MUSCULOSKELETAL: Normal joints with no swelling. Muscle tone is normal. LABS: Hemoglobin 8, hematocrit 25, WBC 7,400, normal differential. Creatinine 3.3, BUN 59. Potassium 4.9. ASSESSMENT: 1. Symptomatic anemia seems to be stable with hematocrit of 25. The patient has been given 2 units of packed red cells. No evidence of active GI bleed. The patient declined further investigation in the way of colonoscopy, EGD or referral to GI specialist. 2. Renal failure seems to be improving with creatinine and BUN. Hydration status is good. ABG does not show any acidosis. The patient's renal failure is chronic. 3. Hyperkalemia seems to have resolved with potassium of 4.9. The patient was given 25 mg of Kayexalate. 4. Hypertension seems to be difficult to control. PLAN: 1. Discontinue IV fluids. 2. Will give IV Lasix 20 mg today. 3. Will start Lasix 20 mg p.o. daily. 4. ABG on room air. 5. Elevate the legs. 6. The patient is strongly advised to go and see Dr. Light which she has declined. The patient needs to be on dialysis. She is declining and doesn't need to be on dialysis at the present time but she is almost there. She was explained about this. The patient needs to go to assisted living or [facility] where she is taken care of at home. She is not able to take care of herself and the son is not helping as much as he should. He doesn't have much understanding about the patient's problem either along with the patient. TIME SPENT: More than 30 minutes. Plan and coordination of the patient's care discussed in the presence of nurse. KAREN
--- NOTE | 2020-03-11 10:29 | PN ---
DATE OF SERVICE: 03/09/20 SUBJECTIVE: This 69-year-old white female hospitalized with symptomatic anemia. The patient's condition has improved. She is feeling a lot better. Hemoglobin now has been 8.3 with hematocrit of 26. She wants to go home. REVIEW OF SYSTEMS: CONSTITUTIONAL: No night sweats. No fatigue, malaise, lethargy. No fever or chills. HEENT: Eyes: No visual changes. No eye pain. No eye discharge. ENT: No runny nose. No epistaxis. No sinus pain. No sore throat. No odynophagia. No congestion. RESPIRATORY: No cough, no congestion. No hemoptysis. No shortness of breath. CARDIOVASCULAR: No angina symptoms. No CHF symptoms. No atypical chest pain for CAD. No palpitations. No PND. No orthopnea. GASTROINTESTINAL: No abdominal pain. No nausea or vomiting. No diarrhea or constipation. No hematemesis. No hematochezia. GENITOURINARY: No polyuria. No dysuria. No hematuria. No obstructive symptoms. No discharge. No pain. No significant abnormal bleeding. MUSCULOSKELETAL: No musculoskeletal pain; no joint swelling. NEUROLOGICAL: No headache. No neck pain. No syncope. No seizures. No dizziness. PSYCHIATRIC: Not anxious. No depression. No suicidal thoughts. No homicidal thoughts. SKIN: No rash. No lesions. No wounds. ENDOCRINE: No unexplained weight loss. No weight gain. HEMATOLOGIC/LYMPHATIC: No anemia. No purpura. No petechiae. No prolonged or excessive bleeding. No palpable lymph nodes. PHYSICAL EXAMINATION: VITAL SIGNS: Temperature 97.7, pulse 80, respiratory rate 24, BP 159/87, pulse ox 93%. HEENT: Head normocephalic, atraumatic. Eyes: Extraocular muscles are intact. Pupils are equal, round and reactive to light and accommodation. Ears: No lesions. Nose appeared normal. Throat: No exudate or erythema. NECK: Supple. No JVD, no carotid bruit. No lymphadenopathy or thyromegaly. LUNGS: Decreased breath sounds. Clear to auscultation. Percussion note normal. Chest symmetrical. HEART: S1, S2, no S3. No murmurs. No cyanosis or clubbing. No ascites. Pulses: Dorsalis pedis and posterior tibial pulses +1 to +2 bilaterally. ABDOMEN: Soft. Nontender. Bowel sounds active. No CVA tenderness. No mass felt. EXTREMITIES: No edema. Full range of motion of all extremities, equal. NEUROLOGIC: No focal deficit. Cranial nerves II through XII are grossly intact. No headache, no double vision or headache. SKIN: Not dry. Intact. Turgor - normal. LYMPHATIC: No palpable lymph nodes/no lymphedema. MUSCULOSKELETAL: Normal joints with no swelling. Muscle tone is normal. LABS: Hemoglobin 8.3, hematocrit 26. The patient's creatinine is 3.5, BUN 59. ASSESSMENT: 1. Anemia, stable. No evidence of active GI bleed. 2. Renal failure, stable which has been chronic. 3. Anemia likely from renal failure. 4. Hypertension seems to be difficult to control. The patient has been taken off Cozaar due to renal failure. Will give Clonidine 0.1 as needed for now. After Vasotec was given today, systolic blood pressure more than 200 along with 0.1 mg Clonidine. Will monitor the patient's blood pressure closely. PLAN: 1. 2 cc Decadron to be given. 2. Also will make an appointment with Dr. Light for worsening of renal failure along with uncontrolled hypertension. TIME SPENT: More than 30 minutes. Plan and coordination of the patient's care discussed in the presence of nurse. KAREN
--- NOTE | 2020-03-11 10:32 | DS ---
DATE OF SERVICE: 03/11/2020 FINAL DIAGNOSIS: 1. Chronic renal failure with deterioration in kidney function 2. Anemia, chronic 3. Mixed respiratory and metabolic acidosis 4. Hyperkalemia secondary to renal failure 5. Hypertension, labile 6. Chronic lung disease 7. Pulmonary fibrosis 8. Renal transplant, 2003 9. History of Urosepsis, positive for e-coli ESBL 02/29/20 10.Dyslipidemia treated with statin 11.Generalized osteoarthritis 12.Depression 13.Bilateral carotid antrectomy, Dr. Grossman 14.Status post right knee surgery 15.Status post right nephrectomy 16.Cholecystectomy 17.Comminuted impaction fracture left distal radius, status post surgery 2017 18.History of migraine headaches DISCHARGE INSTRUCTIONS: Transfer the patient to [facility]. MEDICATIONS AT DISCHARGE: Plavix 75mg PO daily Prograf 2mg PO BID Protonix 40mg PO daily Prednisone 5mg PO daily Allopurinol 100mg PO BID Docusate Sodium 100mg PO BID Melatonin 5mg PO bedtime Lasix 20mg PO daily Benadryl 25mg PO bedtime Lipitor 20mg PO daily Lexapro 5mg PO daily Symbicort 160-4.5 two puffs inhalation Flonase two sprays intranasal daily Norvasc 10mg PO bedtime Ferrous sulfate 325mg PO BID Multivitamin 1 tablet PO daily Losartan 50mg PO BID Coreg 6.25mg PO BID Ventolin HFA two puffs inhalation Q 4 hours. NEW PRESCRIPTIONS: Xanax 0.125mg TID DIET INSTRUCTIONS: As tolerated ACTIVITY: As tolerated LABS: hgb 10.2, hct 31, WBC 7,600 with normal differential,creatinine 3.7, BUN 66, potassium 5.5. Arterial blood gasses on the day of transfer pH 7.24 with pO2 68, pCO2 60 with HCO3 28 with 90% saturation that was on one liter. Creatinine has fluctuated from 3 to 3.7 during this hospitalization. BUN fluctuating from 55 to 67. During this hospitalization the patient has been given 4 units of packed red cells. HOSPITAL COURSE: 69 year old white female was hospitalized with symptomatic anemia with hgb 7.4 with hct 22. The patient was given two units of packed red cells. She is in chronic renal failure, followed by Dr. Light. During the stay in the hospital the patient had problems with controlling her blood pressure. The patient is started on Clonidine 0.1mg twice a day along with Hydralazine 75mg BID. Coreg has been continued. Losartan was taken off because of worsening of kidney functions and had practically no effect on her hypertension. Intermittently Vasotec IV to control her systolic blood pressure which used to be around 200 at times. The patient is very anxious and afraid of dialysis. She did not want to talk about it. Also declined any GI workup. The patient had colonoscopy in [address] Aponte with EGD. This morning the patient's blood pressure went up to 210 which responded to IV Vasotec. The patient agreed for the first time to be transferred to [place]. I explained to her clearly that she may need evaluation for dialysis to which she has now agreed. The patient's wants DNR. The patient has an appointment to see Dr. Jefferson and Dr. Light on of this month but considering her deterioration of renal status and continued requirement of blood transfusion the patient may need further evaluation for her anemia along with kidney status. Dr. Edwards has accepted the transfer. The patient at the time of discharge is stable but prognosis guarded. The patient is noncompliant for medications, diet and followups. She lives by herself with the help of son who hasn't been able to provide the care that she needs. She knows about it but she doesn't want to go to the long-term or any other kind of placement. TIME SPENT: More than 60 minutes. KAREN
--- NOTE | 2020-03-11 10:32 | PN ---
03/03/2020: Level 5 03/04/2020,03/05/2020,03/06/2020,03/07/2020,03/08/2020,03/09/2020,03/10/2020: Several days Extensive 03/11/2020: D as in discharge. MTDD
--- NOTE | 2020-03-11 10:36 | PN ---
DATE OF SERVICE: 03/10/20 SUBJECTIVE: The patient was seen and examined this morning with nurse practitioner. The patient's condition is improving except for the hemoglobin/hematocrit was reported as 7.6 and 22. No evidence of active GI bleed. The patient drinks a lot of liquids, advised to cut it down. The patient is going to be given 2 units of packed red cells. Again, the patient is going to be set up to see hematology/ongologist and ceo ziff davis. Both appointments on the same day on the . The patient is very unreliable, gets very mixed up with her medications. Continue to monitor her CBC, CMP. Likely discharge day tomorrow. TIME SPENT: More than 30 minutes. Plan and coordination of the patient's care discussed in the presence of nurse. KAREN
--- NOTE | 2020-03-11 11:46 | PN ---
DATE OF SERVICE: 03/11/20 - DISCHARGE NOTE SUBJECTIVE: The patient is up and about doing well. This morning she had a migraine headache but alot better. 2 mg of Morphine and Vistaril 25 mg IM given. The patient's blood pressure systolic was 210, given IV Vasotec and she improved. Kidney functions have deteriorated with hyperkalemia. PHYSICAL EXAMINATION: HEENT: Head normocephalic, atraumatic. Eyes: Extraocular muscles are intact. Pupils are equal, round and reactive to light and accommodation. Ears: No lesions. Nose appeared normal. Throat: No exudate or erythema. NECK: Supple. No JVD, no carotid bruit. No lymphadenopathy or thyromegaly. LUNGS: Decreased breath sounds. Good air entry. Percussion note normal. Chest symmetrical. HEART: S1, S2, no S3. No murmurs. No cyanosis or clubbing. No ascites. Pulses: Dorsalis pedis and posterior tibial pulses +1 to +2 bilaterally. ABDOMEN: Soft. Nontender. Bowel sounds active. No CVA tenderness. No mass felt. EXTREMITIES: No edema. Full range of motion of all extremities, equal. NEUROLOGIC: No focal deficit. Cranial nerves II through XII are grossly intact. No headache, no double vision or headache. SKIN: Not dry. Intact. Turgor - normal. LYMPHATIC: No palpable lymph nodes/no lymphedema. MUSCULOSKELETAL: Normal joints with no swelling. Muscle tone is normal. ASSESSMENT: 1. Renal function deterioration with chronic renal failure. 2. Hyperkalemia. 3. Mixed metabolic respiratory acidosis lung disease. 4. Chronic anemia with blood transfusions. The patient was explained about all these findings. The first time she agreed to be transferred and told her she may end up on dialysis. She is stable now for dialysis but for all this time she was not happy about talking dialysis. The patient's problem is she is living by herself. The son has not been able to take care of her medically as well as otherwise however he should. Considering the patient's multiple medical problems, she will be better off at some type of longterm facility which she declined. The patient now agreed to be transferred to Dr. Light and she has an appointment to see Dr. Light and Dr. Jefferson, who has seen her before twice on the of this month. I think the patient can wait until then. The transfer services were called and the patient's transfer was accepted by Dr. Yanes. Condition is stable. TIME SPENT: More than 30 minutes. Plan and coordination of the patient's care discussed in the presence of nurse. KAREN
[2020-03-11 14:09] VITALS: BP 150/82
== END 2020-03-11 15:00 | disposition short-term general hospital (02) | DRG 812 ==
LOC: MEDSURG B 14:06
PROVIDERS: ADMIT Internal Medicine; ATTEND Internal Medicine
DX: D64.9 Anemia, unspecified; E53.8 Deficiency of other specified B group vitamins; N18.4 Chronic kidney disease, stage 4 (severe); R60.0 Localized edema; N17.9 Acute kidney failure, unspecified; Z94.0 Kidney transplant status; J44.9 Chronic obstructive pulmonary disease, unspecified; I10 Essential (primary) hypertension; F41.9 Anxiety disorder, unspecified; E87.5 Hyperkalemia